=== PATIENT | male | born 1945 | race Caucasian/White ===

== ENCOUNTER 2020-12-21 20:56 | Inpatient (IN) | payer MEDICARE, SELFPAY ==
--- NOTE | ~2020-12-21 | CT_ITS ---
EXAMINATION: CT HEAD WITHOUT CONTRAST CLINICAL INFORMATION: Altered mental status COMPARISON: 12/09/2017 TECHNIQUE: Contiguous axial imaging was performed from the skull base to vertex without intravenous administration of contrast. This CT examination was performed using dose optimization techniques as appropriate, variously including the following: *Automated exposure control *Adjustment of mA and/or kV according to patient size (this includes techniques or standardized protocols for targeted exams where dose is matched to indication/reason for exam; i.e. extremities or head) *Use of iterative reconstruction technique DLP: 717 mGy-cm FINDINGS: There is no evidence of acute intracranial hemorrhage or territorial infarction. No abnormal mass effect or midline shift is seen. [place] to white matter differentiation is well preserved. No extra-axial fluid collections are identified. The ventricles are normal in size. There is no abnormal attenuation within the brain parenchyma. The osseous structures and soft tissues are normal. The mastoid air cells and visualized portions of the paranasal sinuses are well aerated. CT/CT head/brain wo con IMPRESSION: No acute intracranial pathology.
--- NOTE | ~2020-12-21 | XR_ITS ---
EXAMINATION: XR CHEST CLINICAL INFORMATION: Altered mental status. Question of infection. COMPARISON: 10/11/2017 TECHNIQUE: Frontal view of the chest was obtained. FINDINGS: Normal symmetric lung volumes. No parenchymal consolidation. No pleural effusion. No pneumothorax. Cardiomediastinal silhouette and pulmonary vascularity are within normal limits. Aorta is atherosclerotic. No acute osseous abnormalities. XR/XR chest 1V IMPRESSION: No focal consolidation.
[2020-12-21 21:12] VITALS: BP 120/50; BP 120/52; PULSE 59; PULSE 60; RESP 17; TEMP 36.9; O2SAT 98; BMI 16.9
--- NOTE | 2020-12-21 21:12 | ED.GENADULT ---
HPI - General Adult General Chief complaint: Altered Mental Status Stated complaint: ams Time Seen by Provider: 12/21/20 21:07 Source: patient Mode of arrival: ambulatory Limitations: no limitations History of Present Illness HPI narrative: Patient comes to emergency room by EMS. EMS reports that a neighbor called them because the patient was acting abnormal. They were informed that the neighbor saw that the patient's car was parked in a weird way in the patient's driveway, so they went to check on the patient, the patient was found in his house naked, acting abnormal, seems confused. Patient states that he has not eaten in 4 days, cannot give a clear reason why. Patient complaining of feeling hunger, denies any headache, no chest pain or shortness of breath, denies recent falls. Per EMS, patient lives alone at home, states that his son checks on him. The patient states that he lives at home with his who has dementia, per EMS, this statement is inaccurate. Patient also states that for the last 2-3 days he has not been taking any of his medications. Related Data Home Medications Medication Instructions Recorded Confirmed atorvastatin 1 tab PO DAILY 12/22/20 12/22/20 atorvastatin 1 tab PO DAILY 12/22/20 12/22/20 lithium carbonate 20 mg PO DAILY 12/22/20 12/22/20 Allergies Allergy/AdvReac Type Severity Reaction Status Date / Time tamsulosin [From FLOMAX] Allergy Unknown RASH Verified 12/21/20 21:19 Review of Systems Review of Systems: Yes Unobtainable due to mental condition and Unobtainable due to mental status PMFSH Past Medical History Medical History (Updated 12/21/20 @ 23:28 by Oanh Palmer MD) Bipolar disorder Hypothyroidism Social History Social History Advance Directives: No Advance Directives Information Provided: No Physical Exam Vital Signs: Vital Signs: Last Vital Signs Temp 97.7 F 12/21/20 23:42 Pulse 62 12/21/20 23:42 Resp 16 12/21/20 23:42 BP 97/43 L 12/21/20 23:42 Pulse Ox 98 12/21/20 23:42 Body Mass Index 16.9 Appearance: Alert. Oriented x2. No acute distress. Eyes: Pupils equal, round and reactive to light. ENT: Pharynx normal. Neck: Normal inspection. Neck supple. No lymph nodes noted. No crepitus CVS: Normal heart rate and rhythm. Pulses normal. Normal S1 and S2 Respiratory: No respiratory distress. Breath sounds normal. No Wheezing. No rales Abdomen: Soft and nontender. No rigidity. No distention. good BS x4 Skin: Skin warm and dry. Normal skin color. Normal skin turgor. Extremities: No lower extremity edema. No lower extremity edema. No Lacerations. No Rash Neuro: Oriented X 3. No motor deficit. No sensory deficit. Moving all extermities. No slurred speech. Course Course Course Narrative: Patient's lithium level is 2.42. Patient has not been taking his medications in 2-3 days. It is possible the patient's adult mental status may be secondary to lithium toxicity. All the other labs are pending, poison control is being contacted. Poison control was contacted, at this time, no immediate action. Recommendations are to follow up labs, if the level does not decrease with the next lab draws, patient may need dialysis. I discussed the patient with Dr. Barbosa, patient being admitted for possible lithium toxicity Urinalysis pending, the patient's nurse and tech attempted straight cathing the patient but the catheter did not pass through. Patient's bladder was scanned, patient has 330 mL in the bladder. Patient states that he does not have suprapubic tenderness, and does not want to urinate at this time. At this time, urinalysis and chest x-ray are pending. Medical Decision Making Lab Data Result diagrams: 12/21/20 21:45 12/21/20 21:45 Labs: Lab Results 12/21/20 12/21/20 12/21/20 Range/Units 21:45 21:45 21:45 WBC 13.7 H (4.8-10.8) X10*3/uL RBC 4.25 L (4.60-5.80) X10*6/uL Hgb 14.2 (14.0-18.0) g/dl Hct 43.7 (42-52) % MCV 102.8 H (80-98) fL MCH 33.4 H (27.0-33.0) pg MCHC 32.5 (31.0-36.0) g/dl RDW 12.3 (11.0-16.0) % Plt Count 219 (160-400) X10*3/uL MPV 9.5 (9.4-12.4) fL Immature Gran % (Auto) 0.4 (0.0-0.4) % Neut % (Auto) 81.7 H (45-73) % Lymph % (Auto) 7.6 L (20-40) % [place] % (Auto) 9.4 (2-11) % Eos % (Auto) 0.5 (0-4) % Baso % (Auto) 0.4 (0-2) % Lymph # (Auto) 1.0 L (1.2-4.9) X10*3/uL [place] # (Auto) 1.3 H (0.1-1.2) X10*3/uL Eos # (Auto) 0.1 (0.0-0.4) X10*3/uL Baso # (Auto) 0.1 (0.0-0.2) X10*3/uL Abs Immat Gran (auto) 0.05 H (0.00-0.03) X10*3/uL Absolute Neuts (auto) 11.2 H (2.0-8.3) X10*3/uL Absolute Nucleated RBC 0.000 (0.0-0.012) X10*3/uL Nucleated RBC % (auto) 0.0 (0.0-0.2) /100WBC PT (10.8-13.0) SEC INR (0.9-1.1) Sodium 142 (135-145) mmol/L Potassium 4.9 (3.3-5.1) mmol/L Chloride 110 H (96-108) mmol/L Carbon Dioxide 22 (22-29) mmol/L Anion Gap 15 (12-20) BUN 50 H (9-16) mg/dL Creatinine 2.55 H (0.5-1.4) mg/dL Estim Creat Clear Calc 18.9 Estimated GFR 25 Random Glucose 86 (60-115) mg/dL Calcium 10.7 H (8.4-10.2) mg/dL Total Bilirubin 0.9 (0.0-1.0) mg/dL Direct Bilirubin 0.4 (0.0-0.5) mg/dL AST 32 (5-37) U/L ALT 21 (0-40) U/L Alkaline Phosphatase 140 H (39-117) U/L Total Protein 7.0 (6.5-8.0) g/dL Albumin 4.4 (3.5-5.0) g/dL TSH 0.41 (0.32-4.0) uIU/mL [place] (0.60-1.20) mmol/L Ethyl Alcohol < 10 mg/dL COVID-19 (DARIN) (Negative) COVID-19 Clin Com 12/21/20 12/21/20 12/22/20 Range/Units 21:45 21:46 00:31 WBC (4.8-10.8) X10*3/uL RBC (4.60-5.80) X10*6/uL Hgb (14.0-18.0) g/dl Hct (42-52) % MCV (80-98) fL MCH (27.0-33.0) pg MCHC (31.0-36.0) g/dl RDW (11.0-16.0) % Plt Count (160-400) X10*3/uL MPV (9.4-12.4) fL Immature Gran % (Auto) (0.0-0.4) % Neut % (Auto) (45-73) % Lymph % (Auto) (20-40) % [place] % (Auto) (2-11) % Eos % (Auto) (0-4) % Baso % (Auto) (0-2) % Lymph # (Auto) (1.2-4.9) X10*3/uL [place] # (Auto) (0.1-1.2) X10*3/uL Eos # (Auto) (0.0-0.4) X10*3/uL Baso # (Auto) (0.0-0.2) X10*3/uL Abs Immat Gran (auto) (0.00-0.03) X10*3/uL Absolute Neuts (auto) (2.0-8.3) X10*3/uL Absolute Nucleated RBC (0.0-0.012) X10*3/uL Nucleated RBC % (auto) (0.0-0.2) /100WBC PT 12.4 (10.8-13.0) SEC INR 1.0 (0.9-1.1) Sodium (135-145) mmol/L Potassium (3.3-5.1) mmol/L Chloride (96-108) mmol/L Carbon Dioxide (22-29) mmol/L Anion Gap (12-20) BUN (9-16) mg/dL Creatinine (0.5-1.4) mg/dL Estim Creat Clear Calc Estimated GFR Random Glucose (60-115) mg/dL Calcium (8.4-10.2) mg/dL Total Bilirubin (0.0-1.0) mg/dL Direct Bilirubin (0.0-0.5) mg/dL AST (5-37) U/L ALT (0-40) U/L Alkaline Phosphatase (39-117) U/L Total Protein (6.5-8.0) g/dL Albumin (3.5-5.0) g/dL TSH (0.32-4.0) uIU/mL [place] 2.42 H* (0.60-1.20) mmol/L Ethyl Alcohol mg/dL COVID-19 (DARIN) Negative (Negative) COVID-19 Clin Com See Note Imaging Data Chest x-ray: Radiologist's impression: Normal symmetric lung volumes. No parenchymal consolidation. No pleural effusion. No pneumothorax. Cardiomediastinal silhouette and pulmonary vascularity are within normal limits. Aorta is atherosclerotic. No acute osseous abnormalities. XR/XR chest 1V IMPRESSION: No focal consolidation. ECG Data Attestation: I personally reviewed and interpreted this ECG as follows: (Heart rate 59, no ST segment depression or elevation, no T-wave inversion, poor quality EKG, QTC 443) Discharge Plan Discharge Clinical Impression: [place] toxicity, Altered mental status, Acute kidney injury Patient Disposition: Admitted As Inpatient
[2020-12-21] MEDS: 0.9 % Sodium Chloride 1,000 ML 999 ML IVCONT (21:28)
[2020-12-21 21:51] LABS: Basophils Absolute Auto 0.1 X10*3/uL (0.0-0.2); Basophils Percent Auto 0.4 % (0-2); Eosinophils Absolute Auto 0.1 X10*3/uL (0.0-0.4); Eosinophils Percent Auto 0.5 % (0-4); Hematocrit 43.7 % (42-52); Hemoglobin 14.2 g/dl (14.0-18.0); Imm Gran Abs Auto 0.05 X10*3/uL (0.00-0.03); Imm Gran Pct Auto 0.4 % (0.0-0.4); Lymphocytes Percent Auto 7.6 % (20-40); MANUAL DIFF FLAG NO; Mean Corpuscular HGB Conc 32.5 g/dl (31.0-36.0); Mean Corpuscular Hemoglobin 33.4 pg (27.0-33.0); Mean Corpuscular Volume 102.8 fL (80-98); Mean Platelet Volume 9.5 fL (9.4-12.4); Monocytes Absolute Auto 1.3 X10*3/uL (0.1-1.2); Monocytes Percent Auto 9.4 % (2-11); Neutrophils Absolute Auto 11.2 X10*3/uL (2.0-8.3); Neutrophils Percent Auto 81.7 % (45-73); Platelet Count 219 X10*3/uL (160-400); Red Blood Count 4.25 X10*6/uL (4.60-5.80); Red Cell Distribution Width 12.3 % (11.0-16.0); White Blood Count 13.7 X10*3/uL (4.8-10.8)
[2020-12-21 21:57] LABS: Prothrombin Time 12.4 SEC (10.8-13.0)
[2020-12-21 22:12] LABS: Ethanol < 10 mg/dL
[2020-12-21 22:18] LABS: Alanine Aminotransferase 21 U/L (0-40); Albumin Level 4.4 g/dL (3.5-5.0); Alkaline Phosphatase 140 U/L (39-117); Anion Gap 15 (12-20); Aspartate Amino Transferase 32 U/L (5-37); Bilirubin Direct 0.4 mg/dL (0.0-0.5); Bilirubin Total 0.9 mg/dL (0.0-1.0); Blood Urea Nitrogen 50 mg/dL (9-16); Carbon Dioxide 22 mmol/L (22-29); Chloride 110 mmol/L (96-108); Creatinine Clr Calc Pharmacy 18.9; Estimated Glomerular Filt Rate 25; Glucose Random 86 mg/dL (60-115); Potassium 4.9 mmol/L (3.3-5.1); Sodium 142 mmol/L (135-145)
[2020-12-21 22:19] LABS: Lithium 2.42 mmol/L (0.60-1.20)
[2020-12-21 22:26] LABS: Calcium 10.7 mg/dL (8.4-10.2)
[2020-12-21 22:45] LABS: TSH reflex Free T4 0.41 uIU/mL (0.32-4.0)
--- NOTE | 2020-12-21 23:32 | P.HPHOSP_ITS ---
History of Present Illness Date of Service: 12/21/20 Chief Complaint: Confusion 75-year-old male with a past medical history of hyperlipidemia, hypothyroidism, bipolar with a chief complaint of confusion. Patient is oriented times 1-2; most of the history obtained from the ER staff. Unable to reach the patient's son. Reportedly patient was noted to be naked and confused in his home by his neighbor; subsequently called the EMS and brought him to the ER for further evaluation. Patient denies any chest pain palpitations lightheadedness dizziness. Denies any fever chills cough. Patient is pleasantly confused. But oriented to self. Review of all other systems negative except mentioned above ER course: Per ER team patient noted to be confused, able to answer few questions fairly okay but intermittently confused mentioning that he has not eaten for 3 days. Lab showed [place] and elevated lithium levels. Patient was given IV fluids. Discussed with poison Control who recommended serial blood chemistry, no indication for dialysis at this moment. Admitted for further management. [facility] Medical History (Updated 12/21/20 @ 23:28 by Oanh Palmer MD) Bipolar disorder Hypothyroidism Social History Household Members: None Housing: House Smoking Status: Current every day smoker Tobacco Type: Cigarette Packs Per Day: 2 Cigarettes Per Day: 40.0 Smoked in Last 30 Days: Yes Use of substances other than those prescribed or required for medical reasons: No Advance Directives: No Advance Directives Information Provided: No Do you have thoughts of harming others: None Do you have a plan to hurt others: No Plan Recently lost weight without trying: Unsure Nutrition Risks: Poor intake 0-25% >4 days Poor oral hygiene: Yes Meds Allergies Allergy/AdvReac Type Severity Reaction Status Date / Time tamsulosin [From FLOMAX] Allergy Unknown RASH Verified 12/21/20 21:19 Active Medications: Current Medications Generic Name Dose Route Start Last Admin Trade Name Freq PRN Reason Stop Dose Admin Acetaminophen 650 mg 12/21/20 23:25 Acetaminophen 325 Mg Tablet PO Q6H PRN Pain, Mild (Pain Scale 1-3) Sodium Chloride 1,000 mls @ 999 mls/hr 12/21/20 22:59 Ns IVCONT 12/21/20 23:59 .Q1H1M ONE Sodium Chloride 1,000 mls @ 75 mls/hr 12/21/20 23:30 Ns IVCONT .[id number] MANNY Sodium Chloride 3 ml 12/22/20 00:00 0.9 % Sodium Chloride Flush 3 Ml Syringe IVFLUSH QSHIFT [facility] Home Medications Medication Instructions Recorded Confirmed Last Taken Type atorvastatin 1 tab PO DAILY 12/22/20 12/22/20 Unknown History atorvastatin 1 tab PO DAILY 12/22/20 12/22/20 12/21/20 History lithium carbonate 20 mg PO DAILY 12/22/20 12/22/20 12/21/20 History Physical Exam Vital Signs and Narrative: Vital Signs: Last Vital Signs Temp 98.4 F 12/21/20 21:12 Pulse 59 12/21/20 21:12 Resp 17 12/21/20 21:12 BP 120/50 L 12/21/20 21:12 Pulse Ox 98 12/21/20 21:12 Body Mass Index 16.9 Gen: Appears be in no acute distress HEENT: NCAT, Moist mucosa.no nystagmus Pulmonary: Vesicular breath sounds, fair air entry CVS: Normal S1-S2 Abdomen: BS+, Soft, Nontender Extremities: Warm well perfused Neuro: Alert and awake. Oriented times 1-2; moves all extremities equally; no clonus Results Labs CBC and Chem 7: 12/22/20 02:20 12/22/20 06:00 Labs: Laboratory Results - last 24 hr 12/21/20 12/21/20 12/21/20 21:45 21:45 21:45 MCV 102.8 H MCH 33.4 H MCHC 32.5 RDW 12.3 Plt Count 219 MPV 9.5 Immature Gran % (Auto) 0.4 Neut % (Auto) 81.7 H Lymph % (Auto) 7.6 L [place] % (Auto) 9.4 Eos % (Auto) 0.5 Baso % (Auto) 0.4 Lymph # (Auto) 1.0 L [place] # (Auto) 1.3 H Eos # (Auto) 0.1 Baso # (Auto) 0.1 Abs Immat Gran (auto) 0.05 H Absolute Neuts (auto) 11.2 H Absolute Nucleated RBC 0.000 Nucleated RBC % (auto) 0.0 PT INR Anion Gap 15 Estim Creat Clear Calc 18.9 Estimated GFR 25 Random Glucose 86 Calcium 10.7 H Total Bilirubin 0.9 Direct Bilirubin 0.4 AST 32 ALT 21 Alkaline Phosphatase 140 H Total Protein 7.0 Albumin 4.4 TSH 0.41 [place] Ethyl Alcohol < 10 12/21/20 12/21/20 21:45 21:46 MCV MCH MCHC RDW Plt Count MPV Immature Gran % (Auto) Neut % (Auto) Lymph % (Auto) [place] % (Auto) Eos % (Auto) Baso % (Auto) Lymph # (Auto) [place] # (Auto) Eos # (Auto) Baso # (Auto) Abs Immat Gran (auto) Absolute Neuts (auto) Absolute Nucleated RBC Nucleated RBC % (auto) PT 12.4 INR 1.0 Anion Gap Estim Creat Clear Calc Estimated GFR Random Glucose Calcium Total Bilirubin Direct Bilirubin AST ALT Alkaline Phosphatase Total Protein Albumin TSH [place] 2.42 H* Ethyl Alcohol Assessment and Plan (1) [place] toxicity: Status: Acute (2) Acute kidney injury: Status: Acute (3) Altered mental status: Status: Acute 75-year-old male with a past medical history of hypothyroidism, bipolar disorder on lithium presented to the hospital with a chief complaint of confusion. Altered mental status: Likely metabolic encephalopathy. Supportive care. CT head. Grossly nonfocal examination. RAINER: IV normal saline. Avoid nephrotoxins. Elevated lithium levels: Will hold home with him. Patient on IV normal saline. Encouraged free water intake. Recheck urinalysis in the morning to check urine specific gravity. Nephrology consulted. Current levels at the presentation is 2.4. Notified poison Control, recommended no hemodialysis at this moment. Aspiration precautions and seizure precautions. Neuro checks Spoke to [place] control-> recs aggresive Fluid resuscitation; Given extra IV bolus; Increased IV maintenance fluids; follow up [place] levels trending down. For all other chronic conditions, home medications will be continued except for lithium once med rec is done. DVT prophylaxis: SCD boots Code status: Presumed full code. Unable to reach the patient's son.
--- NOTE | 2020-12-21 23:39 | PC.NURSE ---
SPOKE W/POISON CONTROL RE: ELEVATED LITHIUM LEVEL. RECOMMENDATION- EKG, 2X MAINTENANCE FLUIDS, REPEAT LABS IN 2 HOURS, CONSULT NEPHROLOGY ?DIALYSIS. PT TO BE ADMITTED, IS AWARE OF PLAN OF CARE W/NO QUESTIONS AT THIS TIME.
[2020-12-21 23:42] VITALS: BP 97/43; PULSE 62; RESP 16; TEMP 36.5; O2SAT 98
[2020-12-22] VITALS (7 sets, daily range): BP systolic 99–152; BP diastolic 48–59; PULSE 55–61; RESP 15–20; TEMP 36.4–36.9; O2SAT 96–98
--- NOTE | 2020-12-22 | ECG_ITS ---
Test Reason : ALTERED MENTAL Blood Pressure : / mmHG Vent. Rate : 059 BPM Atrial Rate : 058 BPM P-R Int : 000 ms QRS Dur : 102 ms QT Int : 448 ms P-R-T Axes : 000 073 078 degrees QTc Int : 443 ms Artifact Likely sinus bradycardia Incomplete right bundle branch block Abnormal ECG When compared with ECG of 09-OCT-2017 16:14, No significant changes seen Referred By: Oanh Palmer Electronically Signed By:Silvestre Brian
[2020-12-22] MEDS: 0.9 % Sodium Chloride 1,000 ML 75 ML IVCONT ×2 (00:49→04:08)
[2020-12-22] MEDS: 0.9 % Sodium Chloride 1,000 ML 999 ML IVCONT (00:49)
[2020-12-22 00:51] LABS: COVID-19 Test Negative (Negative); IDNOW Serial# 9DD0AD1C
[2020-12-22 02:03] LABS: Glucose Urine UA NEG (NEG); Leukocyte Esterase Urine NEG (NEG); Nitrite Urine NEG (NEG); Specific Gravity - Urine 1.015 (1.005-1.025); Urine Blood 2+ (NEG); Urine Ketones NEG (NEG); Urine Protein NEG (NEG-TRACE)
[2020-12-22 02:05] LABS: Appearance Urine CLEAR; Color Urine YELLOW
[2020-12-22 02:19] LABS: Bacteria Urine 1+ /LPF; Squamous Epithelial Cell Urine 1+ /LPF
[2020-12-22 02:25] LABS: MANUAL DIFF FLAG NO
[2020-12-22 02:27] LABS: Basophils Absolute Auto 0.1 X10*3/uL (0.0-0.2); Basophils Percent Auto 0.6 % (0-2); Eosinophils Absolute Auto 0.2 X10*3/uL (0.0-0.4); Eosinophils Percent Auto 1.9 % (0-4); Hematocrit 39.2 % (42-52); Hemoglobin 12.8 g/dl (14.0-18.0); Imm Gran Abs Auto 0.05 X10*3/uL (0.00-0.03); Imm Gran Pct Auto 0.4 % (0.0-0.4); Lymphocytes Absolute Auto 1.2 X10*3/uL (1.2-4.9); Lymphocytes Percent Auto 10.4 % (20-40); Mean Corpuscular HGB Conc 32.7 g/dl (31.0-36.0); Mean Corpuscular Hemoglobin 33.8 pg (27.0-33.0); Mean Corpuscular Volume 103.4 fL (80-98); Mean Platelet Volume 9.2 fL (9.4-12.4); Monocytes Absolute Auto 1.3 X10*3/uL (0.1-1.2); Monocytes Percent Auto 10.9 % (2-11); Neutrophils Absolute Auto 8.7 X10*3/uL (2.0-8.3); Neutrophils Percent Auto 75.8 % (45-73); Platelet Count 193 X10*3/uL (160-400); Red Blood Count 3.79 X10*6/uL (4.60-5.80); Red Cell Distribution Width 12.3 % (11.0-16.0); White Blood Count 11.5 X10*3/uL (4.8-10.8)
[2020-12-22 02:29] LABS: Amphetamine Screen Urine Not Detected (Not Detect); Barbiturates, Urine Not Detected (Not Detect); Benzodiazepines Screen Urine Not Detected (Not Detect); Cannabinoid Screen Urine Not Detected (Not Detect); Cocaine Screen Urine Not Detected (Not Detect); Opiate Screen Urine Not Detected (Not Detect); Phencyclidine Screen Urine Not Detected (Not Detect)
[2020-12-22 02:53] LABS: Anion Gap 11 (12-20); Blood Urea Nitrogen 45 mg/dL (9-16); Calcium 9.4 mg/dL (8.4-10.2); Carbon Dioxide 21 mmol/L (22-29); Chloride 116 mmol/L (96-108); Creatinine Clr Calc Pharmacy 21.9; Estimated Glomerular Filt Rate 29; Glucose Random 104 mg/dL (60-115); Potassium 4.5 mmol/L (3.3-5.1); Sodium 143 mmol/L (135-145)
[2020-12-22] MEDS: 0.9 % Sodium Chloride Flush 3 ML SYRINGE IVFLUSH (04:06)
[2020-12-22] MEDS: 0.9 % Sodium Chloride 1,000 ML 999 ML IV (04:39)
[2020-12-22 04:51] LABS: Lithium 2.11 mmol/L (0.60-1.20)
--- NOTE | 2020-12-22 04:56 | PC.NURSE ---
Patient arrived on [facility] at 0400 via stretcher. Pt is awake and alert to self only, answers to questions are vague. Dr Barbosa notified this RN via [place] [facility] of stat labs to be drawn on pt. This RN spoke to chemistry and the resident service coordinator [place] [facility] [place] received from poision control requesting latest lithium level. Poision control requesting to speak with hospitalist. Dr. Barbosa aware and calling them back.
[2020-12-22] MEDS: 0.9 % Sodium Chloride 1,000 ML 200 ML IVCONT ×3 (05:43→15:49)
[2020-12-22 06:38] LABS: Lithium 1.93 mmol/L (0.60-1.20)
[2020-12-22 06:40] LABS: Anion Gap 8 (12-20); Blood Urea Nitrogen 41 mg/dL (9-16); Calcium 9.3 mg/dL (8.4-10.2); Carbon Dioxide 22 mmol/L (22-29); Chloride 118 mmol/L (96-108); Creatinine Clr Calc Pharmacy 25.1; Estimated Glomerular Filt Rate 34; Glucose Random 101 mg/dL (60-115); Potassium 4.4 mmol/L (3.3-5.1); Sodium 144 mmol/L (135-145)
[2020-12-22] MEDS: 0.9 % Sodium Chloride 500 ML IV (06:50)
[2020-12-22] MEDS: Atorvastatin Calcium 20 MG TABLET PO (09:18)
[2020-12-22 09:35] LABS: Lithium 1.93 mmol/L (0.60-1.20)
--- NOTE | 2020-12-22 09:42 | P.PNNP_ITS ---
Subjective Subjective Date of Service: 12/22/20 Interval history: Patient seen and examined Physical Exam Vital Signs: Vital Signs: Last Vital Signs Temp 98.2 F 12/22/20 07:42 Pulse 60 12/22/20 07:42 Resp 19 12/22/20 07:42 BP 99/48 L 12/22/20 07:42 Pulse Ox 97 12/22/20 07:42 Body Mass Index 16.9 Objective Data Labs CBC & Chem 7: 12/22/20 02:20 12/22/20 06:00 Labs: Laboratory Results - last 24 hr 12/21/20 12/21/20 12/21/20 21:45 21:45 21:45 WBC 13.7 H RBC 4.25 L Hgb 14.2 Hct 43.7 MCV 102.8 H MCH 33.4 H MCHC 32.5 RDW 12.3 Plt Count 219 MPV 9.5 Immature Gran % (Auto) 0.4 Neut % (Auto) 81.7 H Lymph % (Auto) 7.6 L [place] % (Auto) 9.4 Eos % (Auto) 0.5 Baso % (Auto) 0.4 Lymph # (Auto) 1.0 L [place] # (Auto) 1.3 H Eos # (Auto) 0.1 Baso # (Auto) 0.1 Abs Immat Gran (auto) 0.05 H Absolute Neuts (auto) 11.2 H Absolute Nucleated RBC 0.000 Nucleated RBC % (auto) 0.0 PT INR Sodium 142 Potassium 4.9 Chloride 110 H Carbon Dioxide 22 Anion Gap 15 BUN 50 H Creatinine 2.55 H Estim Creat Clear Calc 18.9 Estimated GFR 25 Random Glucose 86 Calcium 10.7 H Total Bilirubin 0.9 Direct Bilirubin 0.4 AST 32 ALT 21 Alkaline Phosphatase 140 H Total Protein 7.0 Albumin 4.4 TSH 0.41 Urine Color Urine Appearance Urine pH Ur Specific [place] Urine Protein Urine Glucose (UA) Urine Ketones Urine Blood Urine Nitrite Ur Leukocyte Esterase Urine RBC Urine WBC Ur Squamous Epith Cells Urine Bacteria Urine Opiates Screen Ur Barbiturates Screen Ur Phencyclidine Scrn Ur Amphetamines Screen U Benzodiazepines Scrn Roff Urine Cocaine Screen U Marijuana (THC) Screen Ethyl Alcohol < 10 COVID-19 (DARIN) COVID-19 Clin Com 12/21/20 12/21/20 12/21/20 21:45 21:45 21:46 WBC RBC Hgb Hct MCV MCH MCHC RDW Plt Count MPV Immature Gran % (Auto) Neut % (Auto) Lymph % (Auto) [place] % (Auto) Eos % (Auto) Baso % (Auto) Lymph # (Auto) [place] # (Auto) Eos # (Auto) Baso # (Auto) Abs Immat Gran (auto) Absolute Neuts (auto) Absolute Nucleated RBC Nucleated RBC % (auto) PT 12.4 INR 1.0 Sodium Potassium Chloride Carbon Dioxide Anion Gap BUN Creatinine Estim Creat Clear Calc Estimated GFR Random Glucose Calcium Total Bilirubin Direct Bilirubin AST ALT Alkaline Phosphatase Total Protein Albumin TSH Urine Color Urine Appearance Urine pH Ur Specific [place] Urine Protein Urine Glucose (UA) Urine Ketones Urine Blood Urine Nitrite Ur Leukocyte Esterase Urine RBC Urine WBC Ur Squamous Epith Cells Urine Bacteria Urine Opiates Screen Ur Barbiturates Screen Ur Phencyclidine Scrn Ur Amphetamines Screen U Benzodiazepines Scrn Roff 2.42 H* Cancelled Urine Cocaine Screen U Marijuana (THC) Screen Ethyl Alcohol COVID-19 (DARIN) COVID-[facility] 12/22/20 12/22/20 12/22/20 00:31 01:50 01:50 WBC RBC Hgb Hct MCV MCH MCHC RDW Plt Count MPV Immature Gran % (Auto) Neut % (Auto) Lymph % (Auto) [place] % (Auto) Eos % (Auto) Baso % (Auto) Lymph # (Auto) [place] # (Auto) Eos # (Auto) Baso # (Auto) Abs Immat Gran (auto) Absolute Neuts (auto) Absolute Nucleated RBC Nucleated RBC % (auto) PT INR Sodium Potassium Chloride Carbon Dioxide Anion Gap BUN Creatinine Estim Creat Clear Calc Estimated GFR Random Glucose Calcium Total Bilirubin Direct Bilirubin AST ALT Alkaline Phosphatase Total Protein Albumin TSH Urine Color YELLOW Urine Appearance CLEAR Urine pH 6.0 Ur Specific [place] 1.015 Urine Protein NEG Urine Glucose (UA) NEG Urine Ketones NEG Urine Blood 2+ H Urine Nitrite NEG Ur Leukocyte Esterase NEG Urine RBC 15-29 H Urine WBC 1-4 Ur Squamous Epith Cells 1+ Urine Bacteria 1+ Urine Opiates Screen Not Detected Ur Barbiturates Screen Not Detected Ur Phencyclidine Scrn Not Detected Ur Amphetamines Screen Not Detected U Benzodiazepines Scrn Not Detected Roff Urine Cocaine Screen Not Detected U Marijuana (THC) Screen Not Detected Ethyl Alcohol COVID-19 (DARIN) Negative COVID-[facility] See Note 12/22/20 12/22/20 12/22/20 02:20 02:20 04:17 WBC 11.5 H RBC 3.79 L Hgb 12.8 L Hct 39.2 L MCV 103.4 H MCH 33.8 H MCHC 32.7 RDW 12.3 Plt Count 193 MPV 9.2 L Immature Gran % (Auto) 0.4 Neut % (Auto) 75.8 H Lymph % (Auto) 10.4 L [place] % (Auto) 10.9 Eos % (Auto) 1.9 Baso % (Auto) 0.6 Lymph # (Auto) 1.2 [place] # (Auto) 1.3 H Eos # (Auto) 0.2 Baso # (Auto) 0.1 Abs Immat Gran (auto) 0.05 H Absolute Neuts (auto) 8.7 H Absolute Nucleated RBC 0.000 Nucleated RBC % (auto) 0.0 PT INR Sodium 143 Potassium 4.5 Chloride 116 H Carbon Dioxide 21 L Anion Gap 11 L BUN 45 H Creatinine 2.20 H Estim Creat Clear Calc 21.9 Estimated GFR 29 Random Glucose 104 Calcium 9.4 D Total Bilirubin Direct Bilirubin AST ALT Alkaline Phosphatase Total Protein Albumin TSH Urine Color Urine Appearance Urine pH Ur Specific [place] Urine Protein Urine Glucose (UA) Urine Ketones Urine Blood Urine Nitrite Ur Leukocyte Esterase Urine RBC Urine WBC Ur Squamous Epith Cells Urine Bacteria Urine Opiates Screen Ur Barbiturates Screen Ur Phencyclidine Scrn Ur Amphetamines Screen U Benzodiazepines Scrn Roff 2.11 H* Urine Cocaine Screen U Marijuana (THC) Screen Ethyl Alcohol COVID-19 (DARIN) COVID-19 Clin Com 12/22/20 12/22/20 12/22/20 06:00 06:00 08:34 WBC RBC Hgb Hct MCV MCH MCHC RDW Plt Count MPV Immature Gran % (Auto) Neut % (Auto) Lymph % (Auto) [place] % (Auto) Eos % (Auto) Baso % (Auto) Lymph # (Auto) [place] # (Auto) Eos # (Auto) Baso # (Auto) Abs Immat Gran (auto) Absolute Neuts (auto) Absolute Nucleated RBC Nucleated RBC % (auto) PT INR Sodium 144 Potassium 4.4 Chloride 118 H Carbon Dioxide 22 Anion Gap 8 L BUN 41 H Creatinine 1.92 H Estim Creat Clear Calc 25.1 Estimated GFR 34 Random Glucose 101 Calcium 9.3 Total Bilirubin Direct Bilirubin AST ALT Alkaline Phosphatase Total Protein Albumin TSH Urine Color Urine Appearance Urine pH Ur Specific [place] Urine Protein Urine Glucose (UA) Urine Ketones Urine Blood Urine Nitrite Ur Leukocyte Esterase Urine RBC Urine WBC Ur Squamous Epith Cells Urine Bacteria Urine Opiates Screen Ur Barbiturates Screen Ur Phencyclidine Scrn Ur Amphetamines Screen U Benzodiazepines Scrn Roff 1.93 H* 1.93 H* Urine Cocaine Screen U Marijuana (THC) Screen Ethyl Alcohol COVID-19 (DARIN) COVID-19 Clin Com Assessment & Plan Assessment and plan (1) Acute kidney injury: Status: Acute (2) Roff toxicity: Status: Acute (3) CKD (chronic kidney disease) stage 3, GFR 30-59 ml/min: Status: Acute Assessment and Plan: ANA MARIA due to compromised kidney perfusion no reason to suspect AIN/AGN need to rule out obstruction elevated lithium level with initially confusion currently improving need to continue to follow to rule out rebound underlying CKD baseline serum creatinine ~ 1.2-1.3 mg/dl REC follow lithium level IVF NS bladder scan no indication for emergent dialysis at the present time follow kidney function and electrolytes Time Spent With Patient Time: Total time spent is greater than 50% in coordination of care (as documented) at patient's floor/unit and/or counseling patient:
--- NOTE | 2020-12-22 12:06 | CONS_ITS ---
DATE OF SERVICE: HISTORY OF PRESENT ILLNESS: I was asked to assist in the management of this 75-year-old patient with a history of chronic kidney disease with a serum creatinine baseline ratio of 1.2 to 1.3 mg/dL who presented to the hospital with confusion and was noted to have elevated serum creatinine and lithium level. Apparently, the patient was noted to be naked and confused in his home by his neighbor and called EMS and the patient was brought to the hospital for further evaluation. At the time of the consultation, denies any fever or chills. Denies any chest pain, shortness of breath, nausea, vomiting, or diarrhea. The patient was started on IV fluid and apparently, review of his ER notes suggest that the patient has not been eating for at least 3 days prior to presenting to the hospital. PAST MEDICAL HISTORY: Remarkable for chronic kidney disease, bipolar disorder, and hypothyroidism. MEDICATIONS: As an outpatient were reviewed and included lithium and atorvastatin. ALLERGIES: HE IS ALLERGIC TO TAMSULOSIN. SOCIAL HISTORY: He is an everyday smoker. FAMILY HISTORY: Negative for kidney disease. REVIEW OF SYSTEMS: 10-point review of systems negative, except for pertinent in the history of present illness. PHYSICAL EXAMINATION: VITAL SIGNS: Blood pressure 99/48, heart rate 68, respiratory rate 19, and temperature 98.2. CONSTITUTIONAL: Looks his stated age, in no acute distress. NEUROLOGIC: Alert and awake. HEAD: Atraumatic and normocephalic. NECK: Supple. LUNGS: Good air entry bilaterally. CARDIOVASCULAR: S1 and S2. No rub. ABDOMEN: Soft and nontender. EXTREMITIES: With no peripheral edema. LABORATORY DATA: Showed sodium 144, potassium 4.4, chloride 118, CO2 of 22, BUN 41, creatinine 1.92. Serum creatinine on admission was 2.55. [place] level on admission was 2.42 down to 1.93. Urinalysis with negative protein and 15 to 29 RBC. IMPRESSION: 1. Acute kidney injury. 2. [place] toxicity. 3. Chronic kidney disease. This is a patient who presented with worsening kidney function, most likely due to compromised kidney perfusion with questionable tubular stress. He does have an elevated lithium level, which is currently improving with saline expansion. There is no reason to suspect glomerular type of injury at this point. We should rule out obstructive uropathy as he has a history of enlarged prostate. Review of his labs suggests underlying chronic kidney disease with baseline serum creatinine ratio of 1.2 to 1.3 mg/dL. For the time being, I would continue with IV fluids with normal saline. Bladder scan and follow closely his kidney function, electrolytes, and lithium level. There is no indication currently for dialysis. Thank you for allowing me to participate in the care of this patient. MD VIKA Shaffer/MODL / [id number]
--- NOTE | 2020-12-22 13:46 | HO.PM.IMPN ---
Subjective Subjective Date of Service: 12/22/20 <Courtney Manning NP - Last Filed: 12/22/20 16:48> 01/07/21 <Carlos Beltran MD - Last Filed: 01/07/21 17:42> Interval History: Follow up encephalopathy still confused <Courtney Manning NP - Last Filed: 12/22/20 16:48> Physical Exam Vital Signs: Vital Signs: Last Vital Signs Temp 97.8 F 12/22/20 12:00 Pulse 61 12/22/20 12:00 Resp 19 12/22/20 12:00 BP 112/58 L 12/22/20 12:00 Pulse Ox 96 12/22/20 12:00 Body Mass Index 16.9 <Courtney Manning NP - Last Filed: 12/22/20 16:48> Appearing in no acute distress lung sounds are clear to auscultation heart regular rate rhythm, clear S1, S2 positive bowel sounds, abdomen is soft, nontender neuro patient is alert to self, no focal deficits <Courtney Manning NP - Last Filed: 12/22/20 16:48> Objective Data Current Medications Generic Name Dose Route Start Last Admin Trade Name Freq PRN Reason Stop Dose Admin Acetaminophen 650 mg 12/21/20 23:25 Acetaminophen 325 Mg Tablet PO Q6H PRN Pain, Mild (Pain Scale 1-3) Atorvastatin Calcium 20 mg 12/22/20 09:00 12/22/20 09:18 Atorvastatin Calcium 20 Mg Tablet PO 20 mg DAILY MANNY Administration Sodium Chloride 1,000 mls @ 75 mls/hr 12/21/20 23:30 12/22/20 06:56 Ns IVCONT Infused .[id number] MANNY Infusion Sodium Chloride 1,000 mls @ 200 mls/hr 12/22/20 05:00 12/22/20 10:45 Ns IVCONT 200 mls/hr .Q5H MANNY Administration Sodium Chloride 3 ml 12/22/20 00:00 12/22/20 13:13 0.9 % Sodium Chloride Flush 3 Ml Syringe IVFLUSH Not Given QSHIFT MANNY <Courtney Manning NP - Last Filed: 12/22/20 16:48> Labs CBC & Chem 7: : 01/02/21 05:13 01/02/21 05:13 <Courtney Manning NP - Last Filed: 12/22/20 16:48> Assessment and Plan (1) [place] toxicity: Status: Acute <Courtney Manning NP - Last Filed: 12/22/20 16:48> Assessment and Plan: 75-year-old male with a past medical history of hypothyroidism, bipolar disorder on lithium presented to the hospital with a chief complaint of confusion. Attempted to call [place] [phone] but number not in service Elevated lithium levels. Hold [place] -Trend -Nephrology consult -Neuro checks -asp and sz precautions -IV NS Urinary retension. bladder scan for 750ml after episodes of incont -Needs coude catheter - consult Metabolic encephalopathy likely from lithium toxicity . -Supportive care. -Head CT neg for acute abnormality ANA MARIA on CKD.Likely from hypoperfusion -IV normal saline -avoid nephrotoxins. -bladder scan DVT prophylaxis SCD boots Full code Attending: Dr. Beltran <Courtney Manning NP - Last Filed: 12/22/20 16:48>
[2020-12-22 15:07] LABS: Lithium 1.77 mmol/L (0.60-1.20)
--- NOTE | 2020-12-22 15:25 | MHC.CM.PN ---
spoke with pts son steve [phone] who is hcp for pt ,copy hcp placed on chart, who explains that pt has not wanted services in the past ,he is very stubborn, pts is at the [facility] in [facility] ..dc plan is tbd at this time negra wilson was coming to vvit pt today imm left bedside cm will continue to follow,
--- NOTE | 2020-12-22 17:42 | PC.NURSE ---
Addendum entered by Ivet Morris RN 12/22/20 18:26: 16F Coude Zazueta catheter placed successfully - 800cc pale yellow urine immediately drained - Zazueta clamped. Courtney Hand notified. Will continue to monitor. Addendum entered by Ivet Morris RN 12/22/20 17:46: Patients son at bedside and updated by this RN - per son patient had prostate removed approx 7 years ago. Courtney Lucio notified. Awaiting call back from urology. Will continue to monitor. Original Note: Patient had four incontinent episodes throughout shift - post void bladder scan after fourth episode showed a residual of 750cc - Courtney Manning notified - order for zazueta catheter placed. This RN unable to place zazueta due to resistance/coiling - Second RN attempted without success. Urology consult ordered - Two call outs placed to Dr Breen - awaiting call back. Will continue to monitor.
[2020-12-23] MEDS: 0.9 % Sodium Chloride 1,000 ML 75 ML IVCONT (01:49)
[2020-12-23 04:00] VITALS: BP 164/87; PULSE 89; RESP 18; TEMP 37.2; O2SAT 95
[2020-12-23] MEDS: Haloperidol Lactate 5 MG/ML VIAL 2.5 MG IVPUSH (04:21)
--- NOTE | 2020-12-23 04:27 | PC.NURSE ---
Addendum entered by Susan Black RN 12/23/20 05:56: Haldol had no effect on patient. Hospitalist aware. Will continue to monitor. Original Note: Patient very restless, constantly turning in bed and twisting in IV tubing -making red markings on skin, and zazueta is being twisted and pulled - urine in bag is punch colored. Dr. Keller notified and ordered 2.5mg IV haldol. Pt is agreeable to taking medication to help participate in his care.
[2020-12-23 06:52] LABS: Lithium 1.41 mmol/L (0.60-1.20)
[2020-12-23 06:55] LABS: Hematocrit 41.3 % (42-52); Hemoglobin 13.3 g/dl (14.0-18.0); Mean Corpuscular HGB Conc 32.2 g/dl (31.0-36.0); Mean Corpuscular Hemoglobin 33.3 pg (27.0-33.0); Mean Corpuscular Volume 103.3 fL (80-98); Mean Platelet Volume 10.1 fL (9.4-12.4); Platelet Count 191 X10*3/uL (160-400); Red Cell Distribution Width 12.6 % (11.0-16.0); White Blood Count 19.3 X10*3/uL (4.8-10.8)
[2020-12-23 07:37] VITALS: BP 157/78; PULSE 86; RESP 20; TEMP 36.7; O2SAT 97
[2020-12-23 07:51] LABS: Anion Gap 18 (12-20); Blood Urea Nitrogen 25 mg/dL (9-16); Calcium 10.4 mg/dL (8.4-10.2); Carbon Dioxide 14 mmol/L (22-29); Chloride 126 mmol/L (96-108); Creatinine Clr Calc Pharmacy 28.1; Estimated Glomerular Filt Rate 39; Glucose Random 128 mg/dL (60-115); Potassium 4.2 mmol/L (3.3-5.1); Sodium 154 mmol/L (135-145)
[2020-12-23] MEDS: Dextrose 5 % 1,000 ML 100 ML IVCONT ×2 (08:56→18:04)
[2020-12-23] MEDS: 0.9 % Sodium Chloride Flush 3 ML SYRINGE IVFLUSH ×2 (08:56→15:06)
--- NOTE | 2020-12-23 10:21 | P.CDIC_ITS ---
CDI Concurrent Query Service Date: 12/23/20 Documentation Clarification: Please clarify if you are treating a proba ble/suspected/likely or confirmed: BMI Malnutrition, mild, moderate or severe Cachectic Underweight Please specify if known PLEASE DO NOT DELETE/MODIFY EXISTING CONTENT Additional information is needed in order to code to the highest accuracy and appropriate Severity of Illness (SOI). Please clarify the information noted below in your progress notes and discharge summary. Risk Factors/Clinical Indicators/Treatments Body mass index: 16.9 Ed: patient hasnt eaten in 3-4 days, poor oral intake, found with altered mental status, confused - ANA MARIA CDS: Tania Osei CCS, CDIS Contact Number: [phone] Please Review the information above and exercise your independent professional judgment in responding to the query. If you concur, pleas document in the PROGRESS NOTES and DISCHARGE SUMMARY. If you do not agree with the query, please document in the query above. THIS QUERY IS PART OF THE PERMANENT MEDICAL RECORD
--- NOTE | 2020-12-23 11:46 | HO.PM.IMPN ---
Subjective Subjective Date of Service: 12/23/20 Interval History: Follow up lithium toxicity Confused, restless today Physical Exam Vital Signs: Vital Signs: Last Vital Signs Temp 98.0 F 12/23/20 07:37 Pulse 86 12/23/20 07:37 Resp 20 12/23/20 07:37 BP 157/78 H 12/23/20 07:37 Pulse Ox 97 12/23/20 07:37 Body Mass Index 16.9 In bed, non talkative, restless and tremulous lung sounds are clear to auscultation heart regular rate rhythm, clear S1, S2 positive bowel sounds, abdomen is soft, nontender zazueta unable to drain, bleeding from trauma neuro patient is alert, confused Objective Data Current Medications Generic Name Dose Route Start Last Admin Trade Name Freq PRN Reason Stop Dose Admin Acetaminophen 650 mg 12/21/20 23:25 Acetaminophen 325 Mg Tablet PO Q6H PRN Pain, Mild (Pain Scale 1-3) Atorvastatin Calcium 20 mg 12/22/20 09:00 12/23/20 08:57 Atorvastatin Calcium 20 Mg Tablet PO Not Given DAILY MANNY Doxazosin Mesylate 4 mg 12/23/20 21:00 Doxazosin Mesylate 2 Mg Tablet PO BEDTIME MANNY Protocol Dextrose 1,000 mls @ 100 mls/hr 12/23/20 08:00 12/23/20 08:56 D5w IVCONT 100 mls/hr .Q10H MANNY Administration Sodium Chloride 3 ml 12/22/20 00:00 12/23/20 08:56 0.9 % Sodium Chloride Flush 3 Ml Syringe IVFLUSH 3 ml QSHIFT MANNY Administration Labs CBC & Chem 7: 12/23/20 05:44 12/23/20 13:37 Assessment and Plan (1) [place] toxicity: Problem details: ANA MARIA due to compromised kidney perfusion elevated lithium level with initial confusion which is currently improving need to continue to follow to rule out rebound Has underlying CKD with baseline serum creatinine ~ 1.2-1.3 mg/dl no indication for emergent dialysis at the present time; Follow lithium level Could increase D5W to 125/hr. Shall closely follow up Status: Acute Assessment and Plan: 75-year-old male with a past medical history of hypothyroidism, bipolar disorder on lithium presented to the hospital with a chief complaint of confusion. Attempted to call [place] [phone] but number not in service Hypernatremia. likely from IV fluid volume -D5W@100 -Trend sodium Elevated lithium levels. Hold [place] -Psych consult -Trend -Nephrology following -Neuro checks -asp and sz precautions Urinary retension. Difficult insertion, coude placed, now unable to flush, bleeding from trauma -PVR bladder scan - to insert zazueta cath -May need CBI Metabolic encephalopathy likely from lithium toxicity . -Supportive care. -Head CT neg for acute abnormality ANA MARIA on CKD. Likely from hypoperfusion, urinary retension -IV fluids -avoid nephrotoxins. DVT prophylaxis SCD boots Full code Attending: Dr. Mesa
--- NOTE | 2020-12-23 11:55 | PM.UROCN ---
History of Present Illness Consult details Consult date: 12/23/20 Narrative: Gurinder is a 75-year-old male. Longstanding use of lithium for psychiatric disorders Found confused at his residence Evaluation emergency room found 300 cc in his bladder. Multiple attempts Jonas catheterization and been made all of them successful. Is now associated blood per urethra presumably due to balloon being placed in prostate Does not appear to be any evidence of retention Jonas catheter removed As long as he is emptying his bladder would not recommend catheter 1900 - Cyustoscopy at bedside unable to find passage through urethra - cannot pass wire de to trauma to urethra Decision made for SPT placement Patient unable to consent Has over 900 in bladder Local anesthetic infiltrated subcutaneously Needle used to aspirate bladder 1 cm incision made in skin [place]odt catheter suprapubic 12 [place] placed Secured with 2.0 nylon Good eflux Nurse asked to record amount Review of Systems Neurologic: Reports confusion Psychiatric: Psychiatric: Reports confusion [facility] Past Medical History Medical History (Updated 12/23/20 @ 20:16 by Lukasz Breen MD) Bipolar disorder Hypothyroidism Social History Social History Household Members: None Housing: House Smoking Status: Current every day smoker Tobacco Type: Cigarette Packs Per Day: 2 Cigarettes Per Day: 40.0 Smoked in Last 30 Days: Yes Use of substances other than those prescribed or required for medical reasons: No Currently Displaying Signs/Symptoms of Drug Intoxication Withdrawal: No Advance Directives: No Advance Directives Information Provided: No Do you have thoughts of harming others: None Do you have a plan to hurt others: No Plan Recently lost weight without trying: Unsure Nutrition Risks: Poor intake 0-25% >4 days Poor oral hygiene: Yes Meds Allergies Allergy/AdvReac Type Severity Reaction Status Date / Time tamsulosin [From FLOMAX] Allergy Unknown RASH Verified 12/21/20 21:19 Active Medications: Current Medications Generic Name Dose Route Start Last Admin Trade Name Freq PRN Reason Stop Dose Admin Acetaminophen 650 mg 12/21/20 23:25 Acetaminophen 325 Mg Tablet PO Q6H PRN Pain, Mild (Pain Scale 1-3) Atorvastatin Calcium 20 mg 12/22/20 09:00 12/23/20 08:57 Atorvastatin Calcium 20 Mg Tablet PO Not Given DAILY [facility] Doxazosin Mesylate 4 mg 12/23/20 21:00 Doxazosin Mesylate 2 Mg Tablet PO BEDTIME [facility] Protocol Dextrose 1,000 mls @ 100 mls/hr 12/23/20 08:00 12/23/20 08:56 D5w IVCONT 100 mls/hr .Q10H MANNY Administration Sodium Chloride 3 ml 12/22/20 00:00 12/23/20 08:56 0.9 % Sodium Chloride Flush 3 Ml Syringe IVFLUSH 3 ml QSHIFT MANNY Administration Home Medications Medication Instructions Recorded Confirmed Last Taken Type atorvastatin 1 tab PO DAILY 12/22/20 12/22/20 Unknown History atorvastatin 1 tab PO DAILY 12/22/20 12/22/20 12/21/20 History lithium carbonate 20 mg PO DAILY 12/22/20 12/22/20 12/21/20 History Physical Exam Vital Signs: Vital Signs: Last Vital Signs Temp 98.0 F 12/23/20 07:37 Pulse 86 12/23/20 07:37 Resp 20 12/23/20 07:37 BP 157/78 H 12/23/20 07:37 Pulse Ox 97 12/23/20 07:37 Body Mass Index 16.9 Const: General: no acute distress, anxious and confusion; No cooperative Nutritional Appearance: average body habitus Orientation/consciousness: confusion Eyes: General: appearance normal, both eyes and all related structures Chest: Chest palpation & inspection: normal inspection of the chest Resp: Effort & Inspection: normal respiratory effort Cardio: Rate: regular rate GI: Inspection: Yes normal to inspection Skin: Hair: normal Neuro: General: confusion Extrem: General: Yes normal to inspection Results Labs Result diagrams: 12/23/20 05:44 12/23/20 13:37 Labs: Abnormal lab results 12/22/20 12/23/20 12/23/20 Range/Units 14:27 05:44 05:44 WBC 19.3 H (4.8-10.8) X10*3/uL RBC 4.00 L (4.60-5.80) X10*6/uL Hgb 13.3 L (14.0-18.0) g/dl Hct 41.3 L (42-52) % MCV 103.3 H (80-98) fL MCH 33.3 H (27.0-33.0) pg Sodium 154 H (135-145) mmol/L Chloride 126 H (96-108) mmol/L Carbon Dioxide 14 L (22-29) mmol/L BUN 25 H (9-16) mg/dL Creatinine 1.71 H (0.5-1.4) mg/dL Random Glucose 128 H (60-115) mg/dL Calcium 10.4 H D (8.4-10.2) mg/dL [place] 1.77 H* (0.60-1.20) mmol/L 12/23/20 Range/Units 05:44 WBC (4.8-10.8) X10*3/uL RBC (4.60-5.80) X10*6/uL Hgb (14.0-18.0) g/dl Hct (42-52) % MCV (80-98) fL MCH (27.0-33.0) pg Sodium (135-145) mmol/L Chloride (96-108) mmol/L Carbon Dioxide (22-29) mmol/L BUN (9-16) mg/dL Creatinine (0.5-1.4) mg/dL Random Glucose (60-115) mg/dL Calcium (8.4-10.2) mg/dL [place] 1.41 H (0.60-1.20) mmol/L Short CBC 12/23/20 Range/Units 05:44 WBC 19.3 H (4.8-10.8) X10*3/uL Hgb 13.3 L (14.0-18.0) g/dl Hct 41.3 L (42-52) % Plt Count 191 (160-400) X10*3/uL BMP 12/23/20 05:44 Sodium 154 H Potassium 4.2 Chloride 126 H Carbon Dioxide 14 L BUN 25 H Creatinine 1.71 H Calcium 10.4 H D Urine 12/22/20 Range/Units 01:50 Urine Color YELLOW Urine Appearance CLEAR Urine pH 6.0 (5.0-8.0) Ur Specific [place] 1.015 (1.005-1.025) Urine Protein NEG (NEG-TRACE) MG/DL Urine Glucose (UA) NEG (NEG) MG/DL All other labs normal. Assessment and Plan (1) Urethral trauma: Status: Acute (2) Urinary retention: Status: Acute Procedures Date of Service Date of Service: 12/23/20
[2020-12-23 12:00] VITALS: BP 161/71; PULSE 81; RESP 20; TEMP 37.1; O2SAT 99
--- NOTE | 2020-12-23 12:21 | P.PNNP_ITS ---
Subjective Subjective Date of Service: 12/23/20 Interval history: Confused, restless ; Events noted; All recent data reviewed Physical Exam Vital Signs: Vital Signs: Last Vital Signs Temp 98.0 F 12/23/20 07:37 Pulse 86 12/23/20 07:37 Resp 20 12/23/20 07:37 BP 157/78 H 12/23/20 07:37 Pulse Ox 97 12/23/20 07:37 Body Mass Index 16.9 Const: General: confusion Orientation/consciousness: confusion Neck: Neck: Yes no JVD Resp: Auscultation: diminished lung sounds Cardio: Rate: regular rate GI: Palpation (GI): Soft to palpation Neuro: General: confusion Objective Data Labs CBC & Chem 7: 12/23/20 05:44 12/23/20 05:44 Labs: Laboratory Results - last 24 hr 12/22/20 12/23/20 12/23/20 14:27 05:44 05:44 WBC 19.3 H RBC 4.00 L Hgb 13.3 L Hct 41.3 L MCV 103.3 H MCH 33.3 H MCHC 32.2 RDW 12.6 Plt Count 191 MPV 10.1 Absolute Nucleated RBC 0.000 Nucleated RBC % (auto) 0.0 Sodium 154 H Potassium 4.2 Chloride 126 H Carbon Dioxide 14 L Anion Gap 18 BUN 25 H Creatinine 1.71 H Estim Creat Clear Calc 28.1 Estimated GFR 39 Random Glucose 128 H Calcium 10.4 H D [place] 1.77 H* 12/23/20 05:44 WBC RBC Hgb Hct MCV MCH MCHC RDW Plt Count MPV Absolute Nucleated RBC Nucleated RBC % (auto) Sodium Potassium Chloride Carbon Dioxide Anion Gap BUN Creatinine Estim Creat Clear Calc Estimated GFR Random Glucose Calcium [place] 1.41 H Assessment & Plan Assessment and plan (1) [place] toxicity: Problem details: ANA MARIA due to compromised kidney perfusion elevated lithium level with initial confusion which is currently improving need to continue to follow to rule out rebound Has underlying CKD with baseline serum creatinine ~ 1.2-1.3 mg/dl no indication for emergent dialysis at the present time; Follow lithium level Could increase D5W to 125/hr. Shall closely follow up Status: Acute Time Spent With Patient Time: Total time spent is greater than 50% in coordination of care (as documented) at patient's floor/unit and/or counseling patient: Procedures Date of Service Date of Service: 12/23/20
[2020-12-23 14:12] LABS: Sodium 152 mmol/L (135-145)
[2020-12-23 14:32] VITALS: BMI 16.9
--- NOTE | 2020-12-23 14:36 | MHC.CLN ---
PT IS MODERATELY MALNOURISHED PT WITH MILDLY DEPLETED SUBCUTANEOUS FAT AND MUSCLE MASS AND BMI 16.9 WITH POOR PO INTAKE X 3 DAYS DIET RX: 2GM NA -PT MAY BENEFIT FROM LIBERALIZED DIET WILL CHANGE TO REGULAR WILL START ENSURE TID TO INCREASE KCALS SUPPLEMENT TO PROVIDE 1050KCALS, 60G PROTEIN SEE ALSO CLINICAL NUTRITION ASSESSMENT
--- NOTE | 2020-12-23 14:44 | P.CNPS_ITS ---
History of Present Illness Date of Service: t Chief Complaint: AMS Reason for Consult: Assessment of mental status, treatment options Requesting physician: Courtney Manning Discussed with referring provider: Yes Sources of Information: patient interviewed (patient is on soporous, unable to provide any information) and chart reviewed HPI Narrative: The patient is a 75 year old male, as per chart, admitted to the hospital for altered mental status. As per EMS report, his neighbors found his car parked in an unusual way and when they approached his home, he was found naked and unconscious; EMS was called and he was brought to the hospital and found a toxic level of [place]. Apparently, he carries the diagnosis of Bipolar disorder and there is the report that he was toxic before for the last 6 months. During the visit, the patient was stuporous, he didn't respond to his name, unable to speak or provide any information. I tried to call the telephone of his but the telephone has been disconnected. Past Psychiatric History: Unknown besides the previous diagnosis of bipolar. Apparently, he was stable on [place] for over 30 years. Medical Evaluation Reviewed: Yes Personal & Social History: Unknown. Review of Systems Review of Systems Yes Unobtainable due to mental status [facility] Medical History (Updated 12/23/20 @ 14:55 by Hamilton Benz) Bipolar disorder Hypothyroidism Family History: Unknown Social History: As per chart, he is but I couldn't contact his . Substance History: Unknown Trauma History: Unknown Diagnostics Vital Signs (24Hr): Vital Signs - 24 hr 12/22/20 15:23 12/22/20 19:16 12/22/20 23:21 Temperature 97.6 F 98.4 F 97.8 F Pulse Rate 55 58 61 Respiratory Rate 18 18 18 Blood Pressure 134/58 L 120/58 L 152/55 H Pulse Oximetry 97 98 96 12/23/20 04:00 12/23/20 07:37 12/23/20 12:00 Temperature 98.9 F 98.0 F 98.7 F Pulse Rate 89 86 81 Respiratory Rate 18 20 20 Blood Pressure 164/87 H 157/78 H 161/71 H Pulse Oximetry 95 97 99 Body Mass Index 16.9 Labs Results: 12/23/20 05:44 12/23/20 13:37 Labs: Laboratory Results - last 48 hr 12/21/20 12/21/20 12/21/20 21:45 21:45 21:45 WBC 13.7 H RBC 4.25 L Hgb 14.2 Hct 43.7 MCV 102.8 H MCH 33.4 H MCHC 32.5 RDW 12.3 Plt Count 219 MPV 9.5 Immature Gran % (Auto) 0.4 Neut % (Auto) 81.7 H Lymph % (Auto) 7.6 L [place] % (Auto) 9.4 Eos % (Auto) 0.5 Baso % (Auto) 0.4 Lymph # (Auto) 1.0 L [place] # (Auto) 1.3 H Eos # (Auto) 0.1 Baso # (Auto) 0.1 Abs Immat Gran (auto) 0.05 H Absolute Neuts (auto) 11.2 H Absolute Nucleated RBC 0.000 Nucleated RBC % (auto) 0.0 PT INR Sodium 142 Potassium 4.9 Chloride 110 H Carbon Dioxide 22 Anion Gap 15 BUN 50 H Creatinine 2.55 H Estim Creat Clear Calc 18.9 Estimated GFR 25 Random Glucose 86 Calcium 10.7 H Total Bilirubin 0.9 Direct Bilirubin 0.4 AST 32 ALT 21 Alkaline Phosphatase 140 H Total Protein 7.0 Albumin 4.4 TSH 0.41 Urine Color Urine Appearance Urine pH Ur Specific [place] Urine Protein Urine Glucose (UA) Urine Ketones Urine Blood Urine Nitrite Ur Leukocyte Esterase Urine RBC Urine WBC Ur Squamous Epith Cells Urine Bacteria Urine Opiates Screen Ur Barbiturates Screen Ur Phencyclidine Scrn Ur Amphetamines Screen U Benzodiazepines Scrn [place] Urine Cocaine Screen U Marijuana (THC) Screen Ethyl Alcohol < 10 COVID-19 (DARIN) COVID-19 Clin Com 12/21/20 12/21/20 12/21/20 21:45 21:45 21:46 WBC RBC Hgb Hct MCV MCH MCHC RDW Plt Count MPV Immature Gran % (Auto) Neut % (Auto) Lymph % (Auto) [place] % (Auto) Eos % (Auto) Baso % (Auto) Lymph # (Auto) [place] # (Auto) Eos # (Auto) Baso # (Auto) Abs Immat Gran (auto) Absolute Neuts (auto) Absolute Nucleated RBC Nucleated RBC % (auto) PT 12.4 INR 1.0 Sodium Potassium Chloride Carbon Dioxide Anion Gap BUN Creatinine Estim Creat Clear Calc Estimated GFR Random Glucose Calcium Total Bilirubin Direct Bilirubin AST ALT Alkaline Phosphatase Total Protein Albumin TSH Urine Color Urine Appearance Urine pH Ur Specific [place] Urine Protein Urine Glucose (UA) Urine Ketones Urine Blood Urine Nitrite Ur Leukocyte Esterase Urine RBC Urine WBC Ur Squamous Epith Cells Urine Bacteria Urine Opiates Screen Ur Barbiturates Screen Ur Phencyclidine Scrn Ur Amphetamines Screen U Benzodiazepines Scrn [place] 2.42 H* Cancelled Urine Cocaine Screen U Marijuana (THC) Screen Ethyl Alcohol COVID-19 (DARIN) COVID-19 Clin Com 12/22/20 12/22/20 12/22/20 00:31 01:50 01:50 WBC RBC Hgb Hct MCV MCH MCHC RDW Plt Count MPV Immature Gran % (Auto) Neut % (Auto) Lymph % (Auto) [place] % (Auto) Eos % (Auto) Baso % (Auto) Lymph # (Auto) [place] # (Auto) Eos # (Auto) Baso # (Auto) Abs Immat Gran (auto) Absolute Neuts (auto) Absolute Nucleated RBC Nucleated RBC % (auto) PT INR Sodium Potassium Chloride Carbon Dioxide Anion Gap BUN Creatinine Estim Creat Clear Calc Estimated GFR Random Glucose Calcium Total Bilirubin Direct Bilirubin AST ALT Alkaline Phosphatase Total Protein Albumin TSH Urine Color YELLOW Urine Appearance CLEAR Urine pH 6.0 Ur Specific [place] 1.015 Urine Protein NEG Urine Glucose (UA) NEG Urine Ketones NEG Urine Blood 2+ H Urine Nitrite NEG Ur Leukocyte Esterase NEG Urine RBC 15-29 H Urine WBC 1-4 Ur Squamous Epith Cells 1+ Urine Bacteria 1+ Urine Opiates Screen Not Detected Ur Barbiturates Screen Not Detected Ur Phencyclidine Scrn Not Detected Ur Amphetamines Screen Not Detected U Benzodiazepines Scrn Not Detected [place] Urine Cocaine Screen Not Detected U Marijuana (THC) Screen Not Detected Ethyl Alcohol COVID-19 (DARIN) Negative COVID-19 Clin Com See Note 12/22/20 12/22/20 12/22/20 02:20 02:20 04:17 WBC 11.5 H RBC 3.79 L Hgb 12.8 L Hct 39.2 L MCV 103.4 H MCH 33.8 H MCHC 32.7 RDW 12.3 Plt Count 193 MPV 9.2 L Immature Gran % (Auto) 0.4 Neut % (Auto) 75.8 H Lymph % (Auto) 10.4 L [place] % (Auto) 10.9 Eos % (Auto) 1.9 Baso % (Auto) 0.6 Lymph # (Auto) 1.2 [place] # (Auto) 1.3 H Eos # (Auto) 0.2 Baso # (Auto) 0.1 Abs Immat Gran (auto) 0.05 H Absolute Neuts (auto) 8.7 H Absolute Nucleated RBC 0.000 Nucleated RBC % (auto) 0.0 PT INR Sodium 143 Potassium 4.5 Chloride 116 H Carbon Dioxide 21 L Anion Gap 11 L BUN 45 H Creatinine 2.20 H Estim Creat Clear Calc 21.9 Estimated GFR 29 Random Glucose 104 Calcium 9.4 D Total Bilirubin Direct Bilirubin AST ALT Alkaline Phosphatase Total Protein Albumin TSH Urine Color Urine Appearance Urine pH Ur Specific [place] Urine Protein Urine Glucose (UA) Urine Ketones Urine Blood Urine Nitrite Ur Leukocyte Esterase Urine RBC Urine WBC Ur Squamous Epith Cells Urine Bacteria Urine Opiates Screen Ur Barbiturates Screen Ur Phencyclidine Scrn Ur Amphetamines Screen U Benzodiazepines Scrn [place] 2.11 H* Urine Cocaine Screen U Marijuana (THC) Screen Ethyl Alcohol COVID-19 (DARIN) COVID-[employer]ambo[employer] 12/22/20 12/22/20 12/22/20 06:00 06:00 08:34 WBC RBC Hgb Hct MCV MCH MCHC RDW Plt Count MPV Immature Gran % (Auto) Neut % (Auto) Lymph % (Auto) [place] % (Auto) Eos % (Auto) Baso % (Auto) Lymph # (Auto) [place] # (Auto) Eos # (Auto) Baso # (Auto) Abs Immat Gran (auto) Absolute Neuts (auto) Absolute Nucleated RBC Nucleated RBC % (auto) PT INR Sodium 144 Potassium 4.4 Chloride 118 H Carbon Dioxide 22 Anion Gap 8 L BUN 41 H Creatinine 1.92 H Estim Creat Clear Calc 25.1 Estimated GFR 34 Random Glucose 101 Calcium 9.3 Total Bilirubin Direct Bilirubin AST ALT Alkaline Phosphatase Total Protein Albumin TSH Urine Color Urine Appearance Urine pH Ur Specific [place] Urine Protein Urine Glucose (UA) Urine Ketones Urine Blood Urine Nitrite Ur Leukocyte Esterase Urine RBC Urine WBC Ur Squamous Epith Cells Urine Bacteria Urine Opiates Screen Ur Barbiturates Screen Ur Phencyclidine Scrn Ur Amphetamines Screen U Benzodiazepines Scrn [place] 1.93 H* 1.93 H* Urine Cocaine Screen U Marijuana (THC) Screen Ethyl Alcohol COVID-19 (DARIN) COVID-[place] 12/22/20 12/23/20 12/23/20 14:27 05:44 05:44 WBC 19.3 H RBC 4.00 L Hgb 13.3 L Hct 41.3 L MCV 103.3 H MCH 33.3 H MCHC 32.2 RDW 12.6 Plt Count 191 MPV 10.1 Immature Gran % (Auto) Neut % (Auto) Lymph % (Auto) [place] % (Auto) Eos % (Auto) Baso % (Auto) Lymph # (Auto) [place] # (Auto) Eos # (Auto) Baso # (Auto) Abs Immat Gran (auto) Absolute Neuts (auto) Absolute Nucleated RBC 0.000 Nucleated RBC % (auto) 0.0 PT INR Sodium 154 H Potassium 4.2 Chloride 126 H Carbon Dioxide 14 L Anion Gap 18 BUN 25 H Creatinine 1.71 H Estim Creat Clear Calc 28.1 Estimated GFR 39 Random Glucose 128 H Calcium 10.4 H D Total Bilirubin Direct Bilirubin AST ALT Alkaline Phosphatase Total Protein Albumin TSH Urine Color Urine Appearance Urine pH Ur Specific [place] Urine Protein Urine Glucose (UA) Urine Ketones Urine Blood Urine Nitrite Ur Leukocyte Esterase Urine RBC Urine WBC Ur Squamous Epith Cells Urine Bacteria Urine Opiates Screen Ur Barbiturates Screen Ur Phencyclidine Scrn Ur Amphetamines Screen U Benzodiazepines Scrn [place] 1.77 H* Urine Cocaine Screen U Marijuana (THC) Screen Ethyl Alcohol COVID-19 (DARIN) COVID-19 [place] 12/23/20 12/23/20 05:44 13:37 WBC RBC Hgb Hct MCV MCH MCHC RDW Plt Count MPV Immature Gran % (Auto) Neut % (Auto) Lymph % (Auto) [place] % (Auto) Eos % (Auto) Baso % (Auto) Lymph # (Auto) [place] # (Auto) Eos # (Auto) Baso # (Auto) Abs Immat Gran (auto) Absolute Neuts (auto) Absolute Nucleated RBC Nucleated RBC % (auto) PT INR Sodium 152 H Potassium Chloride Carbon Dioxide Anion Gap BUN Creatinine Estim Creat Clear Calc Estimated GFR Random Glucose Calcium Total Bilirubin Direct Bilirubin AST ALT Alkaline Phosphatase Total Protein Albumin TSH Urine Color Urine Appearance Urine pH Ur Specific [place] Urine Protein Urine Glucose (UA) Urine Ketones Urine Blood Urine Nitrite Ur Leukocyte Esterase Urine RBC Urine WBC Ur Squamous Epith Cells Urine Bacteria Urine Opiates Screen Ur Barbiturates Screen Ur Phencyclidine Scrn Ur Amphetamines Screen U Benzodiazepines Scrn [place] 1.41 H Urine Cocaine Screen U Marijuana (THC) Screen Ethyl Alcohol COVID-19 (DARIN) COVID-19 Clin Com Imaging Radiology Impressions: ITS Impressions Head CT 12/21/20 00:00 IMPRESSION: No acute intracranial pathology. Chest X-Ray 12/21/20 23:23 IMPRESSION: No focal consolidation. Mental Status Exam Mental Status Exam Narrative: On hospital gowns, with a bandage on his right arm, IV on left arm, lethargic, does not respond to his name, mute, disoriented x 3, affect blunted, thought process and thought content unable to assess due to acute mental status change due to lithium toxicity. Medications Medications Current Medications Generic Name Dose Route Start Last Admin Trade Name Freq PRN Reason Stop Dose Admin Acetaminophen 650 mg 12/21/20 23:25 Acetaminophen 325 Mg Tablet PO Q6H PRN Pain, Mild (Pain Scale 1-3) Atorvastatin Calcium 20 mg 12/22/20 09:00 12/23/20 08:57 Atorvastatin Calcium 20 Mg Tablet PO Not Given DAILY MANNY Diazepam 2 mg 12/23/20 16:00 Diazepam 2 Mg Tablet PO 12/23/20 16:01 ONCE ONE Doxazosin Mesylate 4 mg 12/23/20 21:00 Doxazosin Mesylate 2 Mg Tablet PO BEDTIME MANNY Protocol Dextrose 1,000 mls @ 100 mls/hr 12/23/20 08:00 12/23/20 08:56 D5w IVCONT 100 mls/hr .Q10H MANNY Administration Sodium Chloride 3 ml 12/22/20 00:00 12/23/20 08:56 0.9 % Sodium Chloride Flush 3 Ml Syringe IVFLUSH 3 ml QSHIFT MANNY Administration Allergies Allergies Allergy/AdvReac Type Severity Reaction Status Date / Time tamsulosin [From FLOMAX] Allergy Unknown RASH Verified 12/21/20 21:19 Assessment & Plan Assessment & Plan (1) [place] toxicity: Status: Acute Code(s): T56.891A - Toxic effect of other metals, accidental (unintentional), initial encounter (2) Altered mental status: Status: Acute Code(s): R41.82 - Altered mental status, unspecified (3) Acute kidney injury: Status: Acute Code(s): N17.9 - Acute kidney failure, unspecified (4) CKD (chronic kidney disease) stage 3, GFR 30-59 ml/min: Status: Acute Code(s): N18.30 - Chronic kidney disease, stage 3 unspecified (5) Bipolar disorder: Status: Inactive Code(s): F31.9 - Bipolar disorder, unspecified Recommendations: Elderly male admitted for [place] toxicity with a previous history of bipolar disorder. At this moment, the patient is delirious, unable to provide any information; also, we don't have any collateral information. Plan: 1. [place] toxicity. Continue medical treatment with IV fluids. Since Nephr ology does not believe that dialysis could be usueful at this time, continue with frequent [place] monitorization and fluids. Even, if the [place] level drops to therapeutic range, it is probably that he would be on delirium for several hours. 2. Haldol 1 mg IV/IM q6h PRN severe agitation. 3. Keep on 1:1. 4. Reassessment in 24 hours. Greater than 50% of the session was spent on counseling and/or coordination of care
[2020-12-23 15:24] VITALS: BP 149/76; PULSE 74; RESP 17; TEMP 37.4; O2SAT 99
[2020-12-23] MEDS: LORazepam 2 MG/ML VIAL 0.25 MG IVPUSH (17:07)
--- NOTE | 2020-12-23 17:48 | PC.NURSE ---
Per Urology nurse communication order, zazueta was clamped at 08:00 for a 4-5hr trial. When noticing his bladder to be distended a couple hours later, I reconnected zazueta to chamber but no urine came out to the bag. Zazueta was flushed with 50mL NS and no clots visible, even though this a.m. there was a lot of blood in zazueta bag from him tugging at the catheter. I did several bladder scans which showed >999cc. DAMIAN Manning and MD Breen notified that catheter not draining. Advancing the catheter caused further trauma to patient, where blood was draining from urethra. Team aware. MD Breen to assess and perform possible cystoscopy this evening for further intervention. Repeat bladder scans show >999cc and patient still retaining urine. Team aware.
[2020-12-23 19:07] VITALS: BP 162/62; PULSE 74; RESP 17; TEMP 37.1; O2SAT 97
[2020-12-24] VITALS (7 sets, daily range): BP systolic 101–126; BP diastolic 50–62; PULSE 61–69; RESP 16–19; TEMP 36.1–37.3; O2SAT 91–100
--- NOTE | 2020-12-24 00:39 | PC.NURSE ---
12/23 19:30: Cystoscopy performed at bedside @1930 by MD Breen. Unable to place Coude, decision was made to insert suprapubic catheter. Suprapubic catheter inserted @ bedside. Draining red/brown urine immediately after insertion. Tubing secured and pt under 1:1 supervision. Resting comfortably. 12/24 23:30: 1,100ml of red/brown urine emptied from drainage bag at 22:00. Urine is now pink-tinged. Pt still resting comfortably and under 1:1 supervison.
[2020-12-24] MEDS: Dextrose 5 % 1,000 ML 100 ML IVCONT ×3 (04:12→21:55)
[2020-12-24 06:56] LABS: Lithium 1.36 mmol/L (0.60-1.20)
[2020-12-24 07:10] LABS: Anion Gap 11 (12-20); Blood Urea Nitrogen 26 mg/dL (9-16); Calcium 10.3 mg/dL (8.4-10.2); Carbon Dioxide 19 mmol/L (22-29); Chloride 124 mmol/L (96-108); Creatinine Clr Calc Pharmacy 23.4; Estimated Glomerular Filt Rate 31; Glucose Random 101 mg/dL (60-115); Potassium 5.2 mmol/L (3.3-5.1); Sodium 149 mmol/L (135-145)
[2020-12-24 07:37] LABS: Hematocrit 38.7 % (42-52); Hemoglobin 12.5 g/dl (14.0-18.0); Mean Corpuscular HGB Conc 32.3 g/dl (31.0-36.0); Mean Corpuscular Hemoglobin 33.6 pg (27.0-33.0); Mean Platelet Volume 10.4 fL (9.4-12.4); Platelet Count 136 X10*3/uL (160-400); Red Blood Count 3.72 X10*6/uL (4.60-5.80); Red Cell Distribution Width 12.9 % (11.0-16.0)
[2020-12-24] MEDS: 0.9 % Sodium Chloride Flush 3 ML SYRINGE IVFLUSH ×2 (08:58→15:32)
--- NOTE | 2020-12-24 16:13 | P.PNIM_ITS ---
Subjective Subjective Date of Service: 12/25/20 Interval History: Follow up lithium toxicity Review of Systems Patient still feel confused, swallow evaluation could not be done was not following appropriately. But seems more awake and calm than yesterday as per the staff Could not able to answer many questions accept could able to tell his name and follow few commands-like lift his right hand and left hand. Physical Exam Vital Signs: Vital Signs: Last Vital Signs Temp 99.1 F 12/24/20 15:37 Pulse 61 12/24/20 15:37 Resp 19 12/24/20 15:37 BP 121/52 L 12/24/20 15:37 Pulse Ox 91 L 12/24/20 15:37 Body Mass Index 16.9 Physical exam: Cvs: [id number], [id number] , no murmur res: clear to auscultation ,no rhonchii or wheezing abd: no rebound or guarding ,nt, bs present. ext pulses present , no cyanosis neuro: Oriented to his name, calm, nonfocal.coluld able to lift right and left hands upon commands Objective Data Current Medications Generic Name Dose Route Start Last Admin Trade Name Roselyn PRN Reason Stop Dose Admin Acetaminophen 650 mg 12/21/20 23:25 Acetaminophen 325 Mg Tablet PO Q6H PRN Pain, Mild (Pain Scale 1-3) Atorvastatin Calcium 20 mg 12/22/20 09:00 12/24/20 08:58 Atorvastatin Calcium 20 Mg Tablet PO Not Given DAILY MANNY Doxazosin Mesylate 4 mg 12/23/20 21:00 12/23/20 21:42 Doxazosin Mesylate 2 Mg Tablet PO Not Given BEDTIME MANNY Protocol Dextrose 1,000 mls @ 100 mls/hr 12/23/20 08:00 12/24/20 13:37 D5w IVCONT 100 mls/hr .Q10H MANNY Administration Sodium Chloride 3 ml 12/22/20 00:00 12/24/20 15:32 0.9 % Sodium Chloride Flush 3 Ml Syringe IVFLUSH 3 ml QSHIFT MANNY Administration Labs CBC & Chem 7: 12/24/20 07:30 12/25/20 05:32 Assessment and Plan (1) Urinary retention: Status: Acute (2) CKD (chronic kidney disease) stage 3, GFR 30-59 ml/min: Problem details: ANA MARIA due to compromised kidney perfusion elevated lithium level with initial confusion which is currently improving need to continue to follow to rule out rebound Has underlying CKD with baseline serum creatinine ~ 1.2-1.3 mg/dl no indication for emergent dialysis at the present time; Follow lithium level Continue rest of current supportive care. Shall closely follow up Status: Acute (3) [place] toxicity: Status: Acute Assessment and Plan: 75-year-old male with a past medical history of hypothyroidism, bipolar disorder on lithium presented to the hospital with a chief complaint of confusion. Attempted to call [facility] [phone] but number not in service 1.Hypernatremia. likely from IV fluid volume -D5W sodium improving , we will check this afternoon nephro followin 2.Elevated lithium levels. Hold [place] -Psych consult -Trend -Nephrology following -Neuro checks -asp and sz precautions npo for now since have swallow issues. 3.Urinary retension. Difficult insertion, coude placed, now unable to flush, bleeding from trauma -PVR bladder scan - to insert zazueta cath -May need CBI 4.Metabolic encephalopathy likely from lithium toxicity . -Supportive care. -Head CT neg for acute abnormality 5.ANA MARIA on CKD. Likely from hypoperfusion, urinary retension -IV fluids -avoid nephrotoxins. 6.Leukocytosis: No fevers, UA and chest x-ray negative -question probably reactive to lithium, we will send blood cultures. If any new symptoms of fever then may need to add antibiotics. DVT prophylaxis SCD boots
--- NOTE | 2020-12-24 17:07 | PM.PNNEP ---
Subjective Subjective Date of Service: 12/24/20 Interval history: Events noted. All recent data reviewed Physical Exam Vital Signs: Vital Signs: Last Vital Signs Temp 99.1 F 12/24/20 15:37 Pulse 61 12/24/20 15:37 Resp 19 12/24/20 15:37 BP 121/52 L 12/24/20 15:37 Pulse Ox 91 L 12/24/20 15:37 Body Mass Index 16.9 Const: General: No acute distress Neck: Neck: Yes no JVD Resp: Auscultation: diminished lung sounds Cardio: Jugular venous distension: no JVD GI: Palpation (GI): Soft to palpation Neuro: General: moves all extremities Objective Data Labs CBC & Chem 7: 12/24/20 07:30 12/24/20 06:09 Labs: Laboratory Results - last 24 hr 12/24/20 12/24/20 12/24/20 06:09 06:09 07:30 WBC 23.0 H RBC 3.72 L Hgb 12.5 L Hct 38.7 L MCV 104.0 H MCH 33.6 H MCHC 32.3 RDW 12.9 Plt Count 136 L D MPV 10.4 Absolute Nucleated RBC 0.000 Nucleated RBC % (auto) 0.0 Sodium 149 H Potassium 5.2 H D Chloride 124 H Carbon Dioxide 19 L Anion Gap 11 L BUN 26 H Creatinine 2.06 H Estim Creat Clear Calc 23.4 Estimated GFR 31 Random Glucose 101 Calcium 10.3 H [place] 1.36 H Assessment & Plan Assessment and plan (1) CKD (chronic kidney disease) stage 3, GFR 30-59 ml/min: Problem details: ANA MARIA due to compromised kidney perfusion elevated lithium level with initial confusion which is currently improving need to continue to follow to rule out rebound Has underlying CKD with baseline serum creatinine ~ 1.2-1.3 mg/dl no indication for emergent dialysis at the present time; Follow lithium level Continue rest of current supportive care. Shall closely follow up Status: Acute Time Spent With Patient Time: Total time spent is greater than 50% in coordination of care (as documented) at patient's floor/unit and/or counseling patient: Procedures Date of Service Date of Service: 12/24/20
--- NOTE | 2020-12-24 17:09 | P.PNUR_ITS ---
Subjective Subjective Date of Service: 12/24/20 Interval history: Patient evaluation Significant improvement Reduction in confusion Urine output from Jonas catheter now clear Continue with drainage to see if lithium toxicity resolves Physical Exam Vital Signs: Vital Signs: Last Vital Signs Temp 99.1 F 12/24/20 15:37 Pulse 61 12/24/20 15:37 Resp 19 12/24/20 15:37 BP 121/52 L 12/24/20 15:37 Pulse Ox 91 L 12/24/20 15:37 Body Mass Index 16.9 Const: General: cooperative, healthy appearing, comfortable and no acute distress Nutritional Appearance: average body habitus Orientation/consciousness: oriented to person, oriented to place and oriented to time Eyes: General: appearance normal, both eyes and all related structures Chest: Chest palpation & inspection: normal inspection of the chest Resp: Effort & Inspection: normal respiratory effort Cardio: Rate: regular rate GI: Inspection: Yes normal to inspection Skin: Hair: normal Neuro: General: oriented to person, oriented to place and oriented to time Extrem: General: Yes normal to inspection Urology Results Labs CBC & Chem 7: 12/24/20 07:30 12/24/20 06:09 Labs: Laboratory Results - last 24 hr 12/24/20 12/24/20 12/24/20 06:09 06:09 07:30 WBC 23.0 H RBC 3.72 L Hgb 12.5 L Hct 38.7 L MCV 104.0 H MCH 33.6 H MCHC 32.3 RDW 12.9 Plt Count 136 L D MPV 10.4 Absolute Nucleated RBC 0.000 Nucleated RBC % (auto) 0.0 Sodium 149 H Potassium 5.2 H D Chloride 124 H Carbon Dioxide 19 L Anion Gap 11 L BUN 26 H Creatinine 2.06 H Estim Creat Clear Calc 23.4 Estimated GFR 31 Random Glucose 101 Calcium 10.3 H [place] 1.36 H Progress Note: A&P Assessment and plan (1) Urinary retention: Status: Acute (2) Urethral trauma: Status: Acute Assessment and Plan: Continue with bladder drainage Fall Risk Details Current Medications: Current Medications Generic Name Dose Route Start Last Admin Trade Name Freq PRN Reason Stop Dose Admin Acetaminophen 650 mg 12/21/20 23:25 Acetaminophen 325 Mg Tablet PO Q6H PRN Pain, Mild (Pain Scale 1-3) Atorvastatin Calcium 20 mg 12/22/20 09:00 12/24/20 08:58 Atorvastatin Calcium 20 Mg Tablet PO Not Given DAILY MANNY Doxazosin Mesylate 4 mg 12/23/20 21:00 12/23/20 21:42 Doxazosin Mesylate 2 Mg Tablet PO Not Given BEDTIME MANNY Protocol Dextrose 1,000 mls @ 100 mls/hr 12/23/20 08:00 12/24/20 13:37 D5w IVCONT 100 mls/hr .Q10H MANNY Administration Sodium Chloride 3 ml 12/22/20 00:00 12/24/20 15:32 0.9 % Sodium Chloride Flush 3 Ml Syringe IVFLUSH 3 ml QSHIFT MANNY Administration Time Spent With Patient Time: Total time spent is greater than 50% in coordination of care (as documented) at patient's floor/unit and/or counseling patient: Time with patient: less than 15 minutes
[2020-12-24 18:05] LABS: Sodium 150 mmol/L (135-145)
[2020-12-24 22:19] LABS: Anion Gap 10 (12-20); Blood Urea Nitrogen 25 mg/dL (9-16); Calcium 10.1 mg/dL (8.4-10.2); Carbon Dioxide 20 mmol/L (22-29); Chloride 122 mmol/L (96-108); Creatinine Clr Calc Pharmacy 26.9; Estimated Glomerular Filt Rate 37; Glucose Random 114 mg/dL (60-115); Potassium 4.1 mmol/L (3.3-5.1); Sodium 148 mmol/L (135-145)
[2020-12-25] VITALS (7 sets, daily range): BP systolic 101–128; BP diastolic 50–60; PULSE 65–72; RESP 17–18; TEMP 36–37.2; O2SAT 95–98
[2020-12-25] MEDS: Dextrose 5 % 1,000 ML 100 ML IVCONT ×2 (05:30→13:25)
[2020-12-25 07:20] LABS: Anion Gap 9 (12-20); Blood Urea Nitrogen 24 mg/dL (9-16); Calcium 9.9 mg/dL (8.4-10.2); Carbon Dioxide 23 mmol/L (22-29); Chloride 120 mmol/L (96-108); Creatinine Clr Calc Pharmacy 28.8; Estimated Glomerular Filt Rate 40; Glucose Random 112 mg/dL (60-115); Potassium 4.1 mmol/L (3.3-5.1); Sodium 148 mmol/L (135-145)
--- NOTE | 2020-12-25 09:11 | P.PNIM_ITS ---
Subjective Subjective Date of Service: 12/25/20 Interval History: Toxic metabolic encephalopathy, poor oral intake Review of Systems Patient mental status seems to be slowly improving. Could able to say his name and his son's name also could able to follow some simple commands. Could not able to tell many other questions but said no pain. Physical Exam Vital Signs: Vital Signs: Last Vital Signs Temp 98.2 F 12/25/20 07:14 Pulse 65 12/25/20 07:14 Resp 18 12/25/20 07:14 BP 102/54 L 12/25/20 07:14 Pulse Ox 98 12/25/20 07:14 Body Mass Index 16.9 Physical exam: Constitutional: Seems come not in acute distress. Cvs: [id number], [id number] , no murmur res: clear to auscultation ,no rhonchii or wheezing abd: no rebound or guarding ,nt, bs present. ext pulses present , no cyanosis neuro: Oriented to his name, calm,.coluld able to lift right and left hands upon commands Objective Data Current Medications Generic Name Dose Route Start Last Admin Trade Name Roselyn PRN Reason Stop Dose Admin Acetaminophen 650 mg 12/21/20 23:25 Acetaminophen 325 Mg Tablet PO Q6H PRN Pain, Mild (Pain Scale 1-3) Atorvastatin Calcium 20 mg 12/22/20 09:00 12/25/20 07:47 Atorvastatin Calcium 20 Mg Tablet PO Not Given DAILY MANNY Doxazosin Mesylate 4 mg 12/23/20 21:00 12/24/20 19:08 Doxazosin Mesylate 2 Mg Tablet PO Not Given BEDTIME MANNY Protocol Dextrose 1,000 mls @ 125 mls/hr 12/23/20 08:00 12/25/20 05:30 D5w IVCONT 100 mls/hr .Q8H MANNY Administration Sodium Chloride 3 ml 12/22/20 00:00 12/25/20 07:46 0.9 % Sodium Chloride Flush 3 Ml Syringe IVFLUSH Not Given QSHIFT [facility] Labs CBC & Chem 7: 12/24/20 07:30 12/25/20 05:32 Assessment and Plan (1) Urinary retention: Status: Acute (2) [place] toxicity: Status: Acute Assessment and Plan: 75-year-old male with a past medical history of hypothyroidism, bipolar disorder on lithium presented to the hospital with a chief complaint of confusion. Attempted to call [facility] [phone] but number not in service 1.Hypernatremia. likely from IV fluid volume -D5W sodium improving , we will check this afternoon nephro followin 2.Elevated lithium levels. Hold [place] -Psych consult: continue sitter , reassessment daily. May need haldol if and severe agitation -Trend lithium levls -Nephrology following -Neuro checks -asp and sz precautions Diet advanced as per speech.. 3.Urinary retension. Difficult insertion, coude placed, now unable to flush, bleeding from trauma -PVR bladder scan - to insert zazueta cath -May need CBI 4.Metabolic encephalopathy likely from lithium toxicity . -Supportive care. -Head CT neg for acute abnormality 5.ANA MARIA on CKD. Likely from hypoperfusion, urinary retension: Seems improving -IV fluids -avoid nephrotoxins. 6.Leukocytosis: No fevers, UA and chest x-ray negative -question probably reactive to lithium, we will send blood cultures. If any new symptoms of fever then may need to add antibiotics. DVT prophylaxis SCD diane (3) CKD (chronic kidney disease) stage 3, GFR 30-59 ml/min: Problem details: ANA MARIA due to compromised kidney perfusion elevated lithium level with initial confusion which is currently improving need to continue to follow to rule out rebound Has underlying CKD with baseline serum creatinine ~ 1.2-1.3 mg/dl no indication for emergent dialysis at the present time; Follow lithium level Continue rest of current supportive care. Shall closely follow up Status: Acute
--- NOTE | 2020-12-25 09:42 | P.CDIC_ITS ---
CDI Concurrent Query Service Date: 12/25/20 Documentation Clarification: Please clarify if you are treating a proba ble/suspected/likely or confirmed: Malnutrition, mild, moderate or severe-moderate malnutrition Please specify if known Provider Response: Other Other Diagnosis: moderate malnutrition PLEASE DO NOT DELETE/MODIFY EXISTING CONTENT Additional information is needed in order to code to the highest accuracy and appropriate Severity of Illness (SOI). Please clarify the information noted below in your progress notes and discharge summary. Risk Factors/Clinical Indicators/Treatments Nutrition assessment notes patient to be moderately malnourished with BMI 16.9 Mildly depleted subcutaneous fat and muscle mass. Adding Ensure TID. CDS: Tania Osei CCS, CDIS Contact Number: [phone] Please Review the information above and exercise your independent professional judgment in responding to the query. If you concur, pleas document in the P ROGRESS NOTES and DISCHARGE SUMMARY. If you do not agree with the query, please document in the query above. THIS QUERY IS PART OF THE PERMANENT MEDICAL RECORD
--- NOTE | 2020-12-25 10:08 | MHC.CLN ---
F/U PT IS CURRENTLY NPO WHEN DIET TO ADVANCE; RECOMMEND RE-STARTED ENSURE SUPPLEMENT TID SUPPLEMENT TO PROVIDE 1050KCALS, 60G PROTEIN FOLLOWING
--- NOTE | 2020-12-25 11:58 | MHC.CM.PN ---
per multidis roundspt will be here another 1 to 2 days and will be having a pt eval prior to dc
--- NOTE | 2020-12-25 13:21 | MHC.SL.SWA ---
Speech Pathologist Impression: Risk of Aspiration Oral Phase Dysphagia Risk of Aspiration Due to: Poor PO Intake Dysphasia Diet Status: Upgrade Liquid Consistency and Strategies for Safe Swallow: Liquid Intake Recommendation: Thin Liquid Intake Strategies: Small Sips Solid Food Consistency: Dietary Recommendations: Grnd/Mech Altered (NDD2) Additional Modifications to Solid Foods: Moisten solids in sauce or gravy for ease of mastication. Oral Medication Intake: Crushed with Puree Compensatory Strategies and Precautions to be Taken for Safe Swallow: Sitting Upright (90 deg) Liquids from Cup via controlled cup sip Liquids from Straw utilizing straw pinch technique to limit bolus volume Small Bites and Sips Alternate Liquids/Solids Rate of Ingestion Change Supervision While Eating and Drinking for Safe Swallow: Total Supervision (1:1) Foods to Avoid: Swallowing Recommended Treatments: Compens. Strategy Educat. Recommendation for Speech: Inpatient Speech Therapy Comment: BUS ATTENDANT will continue to follow during hospitalization as appropriate. Frequency/Duration: Date Range for Service Req: Timeline to reassess: Emt P Clinican/Clinical Fellow: Yes: Zuleyma Aragon M.A., CF-BUS ATTENDANT Supervisory Statement: I have reviewed and agree with the student/clinical fellow's documentation: Speech Language Pathologist:
--- NOTE | 2020-12-25 16:36 | PM.EVENT ---
Event Note Date of Service: 12/25/20 Event Note: Patient management including toxic metabolic encephalopathy due to multifactorial issues including ANA MARIA, lithium high levels, hyponatremia, poor oral intake: Discussed with patient's both sons Chase and Merritt: Patient management discussed with them both in detail length over the phone yesterday and today: Options of management and treatment discussed with his them detail. They both understand and want to continue current care. Total time spent collectively if from yesterday to today 16 minutes over the phone.
--- NOTE | 2020-12-25 16:37 | PM.PNNEP ---
Subjective Subjective Date of Service: 12/25/20 Interval history: Events noted. All recent data reviewed Physical Exam Vital Signs: Vital Signs: Last Vital Signs Temp 99 F 12/25/20 14:57 Pulse 72 12/25/20 14:57 Resp 18 12/25/20 14:57 BP 110/55 L 12/25/20 14:57 Pulse Ox 98 12/25/20 14:57 Body Mass Index 16.9 Const: General: no acute distress Neck: Neck: Yes supple Resp: Auscultation: diminished lung sounds Cardio: Jugular venous distension: no JVD GI: Palpation (GI): Soft to palpation Objective Data Labs CBC & Chem 7: 12/24/20 07:30 12/25/20 05:32 Labs: Laboratory Results - last 24 hr 12/24/20 12/24/20 12/25/20 16:42 21:43 05:32 Sodium 150 H 148 H 148 H Potassium 4.1 D 4.1 Chloride 122 H 120 H Carbon Dioxide 20 L 23 Anion Gap 10 L 9 L BUN 25 H 24 H Creatinine 1.79 H 1.67 H Estim Creat Clear Calc 26.9 28.8 Estimated GFR 37 40 Random Glucose 114 112 Calcium 10.1 9.9 Assessment & Plan Assessment and plan (1) CKD (chronic kidney disease) stage 3, GFR 30-59 ml/min: Problem details: ANA MARIA due to compromised kidney perfusion elevated lithium level with initial confusion which is currently improving Has underlying CKD with baseline serum creatinine ~ 1.2-1.3 mg/dl no indication for emergent dialysis at the present time; Follow lithium level Continue rest of current supportive care. Shall closely follow up Status: Acute Time Spent With Patient Time: Total time spent is greater than 50% in coordination of care (as documented) at patient's floor/unit and/or counseling patient: Procedures Date of Service Date of Service: 12/25/20
[2020-12-25 17:38] LABS: Sodium 145 mmol/L (135-145)
--- NOTE | 2020-12-25 18:04 | PM.UROPN ---
Subjective Subjective Date of Service: 12/25/20 Interval history: Review today Urine remains clear This is a small bore catheter so may require irrigation and is easy to clot. Physical Exam Vital Signs: Vital Signs: Last Vital Signs Temp 99 F 12/25/20 14:57 Pulse 72 12/25/20 14:57 Resp 18 12/25/20 14:57 BP 110/55 L 12/25/20 14:57 Pulse Ox 98 12/25/20 14:57 Body Mass Index 16.9 Const: General: cooperative, healthy appearing, comfortable and no acute distress Nutritional Appearance: average body habitus Orientation/consciousness: oriented to person, oriented to place and oriented to time Eyes: General: appearance normal, both eyes and all related structures Chest: Chest palpation & inspection: normal inspection of the chest Resp: Effort & Inspection: normal respiratory effort Cardio: Rate: regular rate GI: Inspection: Yes normal to inspection Skin: Hair: normal Neuro: General: oriented to person, oriented to place and oriented to time Extrem: General: Yes normal to inspection Urology Results Labs CBC & Chem 7: 12/24/20 07:30 12/25/20 17:13 Labs: Laboratory Results - last 24 hr 12/24/20 12/24/20 12/25/20 16:42 21:43 05:32 Sodium 150 H 148 H 148 H Potassium 4.1 D 4.1 Chloride 122 H 120 H Carbon Dioxide 20 L 23 Anion Gap 10 L 9 L BUN 25 H 24 H Creatinine 1.79 H 1.67 H Estim Creat Clear Calc 26.9 28.8 Estimated GFR 37 40 Random Glucose 114 112 Calcium 10.1 9.9 12/25/20 17:13 Sodium 145 Potassium Chloride Carbon Dioxide Anion Gap BUN Creatinine Estim Creat Clear Calc Estimated GFR Random Glucose Calcium Progress Note: A&P Assessment and plan (1) Gross hematuria: Status: Acute (2) Urinary retention: Status: Acute Assessment and Plan: Irrigate as needed Fall Risk Details Current Medications: Current Medications Generic Name Dose Route Start Last Admin Trade Name Freq PRN Reason Stop Dose Admin Acetaminophen 650 mg 12/21/20 23:25 Acetaminophen 325 Mg Tablet PO Q6H PRN Pain, Mild (Pain Scale 1-3) Atorvastatin Calcium 20 mg 12/22/20 09:00 12/25/20 07:47 Atorvastatin Calcium 20 Mg Tablet PO Not Given DAILY [facility] Doxazosin Mesylate 4 mg 12/23/20 21:00 12/24/20 19:08 Doxazosin Mesylate 2 Mg Tablet PO Not Given BEDTIME MANNY Protocol Dextrose 1,000 mls @ 125 mls/hr 12/23/20 08:00 12/25/20 13:25 D5w IVCONT 100 mls/hr .Q8H MANNY Administration Sodium Chloride 3 ml 12/22/20 00:00 12/25/20 15:56 0.9 % Sodium Chloride Flush 3 Ml Syringe IVFLUSH Not Given QSHIFT MANNY Time Spent With Patient Time: Total time spent is greater than 50% in coordination of care (as documented) at patient's floor/unit and/or counseling patient: Time with patient: less than 15 minutes
--- NOTE | 2020-12-25 18:40 | PC.NURSE ---
Patient able to follow instruction. Repeat bedside swallow eval completed. Patient has poor PO intake, only completing 25-50% of lunch and dinner with 1:[address], dressing clean, dry, and intact. Spoke with patient's son Faheem william patient condition.
[2020-12-25] MEDS: Doxazosin Mesylate 2 MG TABLET 4 MG PO (20:51)
[2020-12-25] MEDS: Dextrose 5 % 1,000 ML 60 ML IVCONT (23:54)
[2020-12-26] VITALS (7 sets, daily range): BP systolic 102–142; BP diastolic 50–61; PULSE 67–76; RESP 18–20; TEMP 36.8–37.6; O2SAT 95–100
[2020-12-26 06:47] LABS: Lithium 0.77 mmol/L (0.60-1.20)
[2020-12-26 06:56] LABS: Anion Gap 10 (12-20); Blood Urea Nitrogen 20 mg/dL (9-16); Calcium 9.8 mg/dL (8.4-10.2); Carbon Dioxide 24 mmol/L (22-29); Chloride 114 mmol/L (96-108); Creatinine Clr Calc Pharmacy 32.3; Estimated Glomerular Filt Rate 46; Glucose Random 101 mg/dL (60-115); Sodium 144 mmol/L (135-145)
[2020-12-26] MEDS: Atorvastatin Calcium 20 MG TABLET PO (07:24)
[2020-12-26 09:15] LABS: Hematocrit 35.6 % (42-52); Hemoglobin 11.6 g/dl (14.0-18.0); Mean Corpuscular HGB Conc 32.6 g/dl (31.0-36.0); Mean Corpuscular Hemoglobin 33.6 pg (27.0-33.0); Mean Corpuscular Volume 103.2 fL (80-98); Mean Platelet Volume 10.3 fL (9.4-12.4); Platelet Count 133 X10*3/uL (160-400); Red Blood Count 3.45 X10*6/uL (4.60-5.80); Red Cell Distribution Width 12.7 % (11.0-16.0); White Blood Count 17.6 X10*3/uL (4.8-10.8)
--- NOTE | 2020-12-26 10:14 | P.PNNP_ITS ---
Subjective Subjective Date of Service: 12/26/20 Interval history: Seen AM; Events noted. All recent data reviewed Physical Exam Vital Signs: Vital Signs: Last Vital Signs Temp 98.3 F 12/26/20 07:24 Pulse 76 12/26/20 07:24 Resp 18 12/26/20 07:24 BP 102/53 L 12/26/20 07:24 Pulse Ox 95 12/26/20 07:24 Body Mass Index 16.9 Const: General: no acute distress Neck: Neck: Yes supple Resp: Auscultation: diminished lung sounds Cardio: Jugular venous distension: no JVD GI: Palpation (GI): Soft to palpation Neuro: General: moves all extremities Objective Data Labs CBC & Chem 7: 12/26/20 09:02 12/26/20 05:44 Labs: Laboratory Results - last 24 hr 12/25/20 12/26/20 12/26/20 17:13 05:44 05:44 WBC RBC Hgb Hct MCV MCH MCHC RDW Plt Count MPV Absolute Nucleated RBC Nucleated RBC % (auto) Sodium 145 144 Potassium 4.0 Chloride 114 H Carbon Dioxide 24 Anion Gap 10 L BUN 20 H Creatinine 1.49 H Estim Creat Clear Calc 32.3 Estimated GFR 46 Random Glucose 101 Calcium 9.8 [place] 0.77 12/26/20 09:02 WBC 17.6 H RBC 3.45 L Hgb 11.6 L Hct 35.6 L MCV 103.2 H MCH 33.6 H MCHC 32.6 RDW 12.7 Plt Count 133 L MPV 10.3 Absolute Nucleated RBC 0.000 Nucleated RBC % (auto) 0.0 Sodium Potassium Chloride Carbon Dioxide Anion Gap BUN Creatinine Estim Creat Clear Calc Estimated GFR Random Glucose Calcium [place] Microbiology Microbiology Results: Microbiology 12/24/20 14:36 Blood - Venous Blood Culture - Preliminary No growth after 24 hours. 12/24/20 14:36 Blood - Venous Blood Culture - Preliminary No growth after 24 hours. Assessment & Plan Assessment and plan (1) CKD (chronic kidney disease) stage 3, GFR 30-59 ml/min: Problem details: ANA MARIA due to compromised kidney perfusion( resolving) elevated lithium level with initial confusion which is currently improving Has underlying CKD with baseline serum creatinine ~ 1.2-1.3 mg/dl no indication for emergent dialysis at the present time Continue rest of current supportive care. Shall closely follow up Status: Acute Time Spent With Patient Time: Total time spent is greater than 50% in coordination of care (as documented) at patient's floor/unit and/or counseling patient: Procedures Date of Service Date of Service: 12/26/20
--- NOTE | 2020-12-26 10:15 | MHC.CLN ---
F/U PT'S DIET ADVACNED TO 2GM NA GRD M/S RECOMMEND RE-STARTED ENSURE SUPPLEMENT TID SUPPLEMENT TO PROVIDE 1050KCALS, 60G PROTEIN MONITOR PO INTAKE CLOSELY FOLLOWING
--- NOTE | 2020-12-26 11:43 | MHC.SL.SWA ---
Speech Pathologist Impression: Risk of Aspiration Oral Phase Dysphagia Risk of Aspiration Due to: Poor PO Intake Dysphasia Diet Status: No Change Liquid Consistency and Strategies for Safe Swallow: Liquid Intake Recommendation: Thin Liquid Intake Strategies: Small Sips Solid Food Consistency: Dietary Recommendations: Grnd/Mech Altered (NDD2) Additional Modifications to Solid Foods: Moisten solids in sauce or gravy for ease of mastication. Oral Medication Intake: Crushed with Puree Compensatory Strategies and Precautions to be Taken for Safe Swallow: Sitting Upright (90 deg) Small Bites and Sips Alternate Liquids/Solids Rate of Ingestion Change Supervision While Eating and Drinking for Safe Swallow: Total Supervision (1:1) Foods to Avoid: [employer]NA[employer] to continue to follow. Swallowing Recommended Treatments: Compens. Strategy Educat. Recommendation for Speech: Inpatient Speech Therapy Comment: MA[employer] will continue to follow during hospitalization as appropriate. Principal Mechanical Engineer Clinican/Clinical Fellow: No Supervisory Statement: I have reviewed and agree with the student/clinical fellow's documentation: N/A Speech Language Pathologist: Kaitlynn Dacosta M.A., CCC-[employer]
--- NOTE | 2020-12-26 15:18 | P.CNPS_ITS ---
History of Present Illness Date of Service: t Chief Complaint: AMS Discussed with referring provider: No Sources of Information: patient interviewed and chart reviewed HPI Narrative: The patient was assessed before 2 days ago. Now, he is awake but still unable to pay attention and concentrate. Now he is verbal and he is able to follow simple commands. His Bodfish level is now on a therapeutic range. Past Psychiatric History: Unknown besides the previous diagnosis of bipolar. Apparently, he was stable on Bodfish for over 30 years. Medical Evaluation Reviewed: Yes [facility] Medical History (Updated 12/26/20 @ 10:15 by Chin Conley MD) Bipolar disorder Hypothyroidism Family History: Unknown Social History: As per chart, he is but I couldn't contact his . Trauma History: Unknown Diagnostics Vital Signs (24Hr): Vital Signs - 24 hr 12/25/20 19:01 12/25/20 20:51 12/25/20 23:49 Temperature 98.9 F 98.4 F Pulse Rate 69 69 69 Respiratory Rate 17 18 Blood Pressure 101/50 L 101/50 L 107/51 L Pulse Oximetry 97 95 12/26/20 03:27 12/26/20 07:24 12/26/20 11:01 Temperature 99.2 F 98.3 F 98.9 F Pulse Rate 70 76 68 Respiratory Rate 20 18 18 Blood Pressure 142/58 H 102/53 L 110/50 L Pulse Oximetry 97 95 100 12/26/20 15:10 Temperature 99.6 F Pulse Rate 67 Respiratory Rate 18 Blood Pressure 107/53 L Pulse Oximetry 100 Body Mass Index 16.9 Labs Results: 12/26/20 09:02 12/26/20 05:44 Labs: Laboratory Results - last 48 hr 12/24/20 12/24/20 12/25/20 16:42 21:43 05:32 WBC RBC Hgb Hct MCV MCH MCHC RDW Plt Count MPV Absolute Nucleated RBC Nucleated RBC % (auto) Sodium 150 H 148 H 148 H Potassium 4.1 D 4.1 Chloride 122 H 120 H Carbon Dioxide 20 L 23 Anion Gap 10 L 9 L BUN 25 H 24 H Creatinine 1.79 H 1.67 H Estim Creat Clear Calc 26.9 28.8 Estimated GFR 37 40 Random Glucose 114 112 Calcium 10.1 9.9 [place] 12/25/20 12/26/20 12/26/20 17:13 05:44 05:44 WBC RBC Hgb Hct MCV MCH MCHC RDW Plt Count MPV Absolute Nucleated RBC Nucleated RBC % (auto) Sodium 145 144 Potassium 4.0 Chloride 114 H Carbon Dioxide 24 Anion Gap 10 L BUN 20 H Creatinine 1.49 H Estim Creat Clear Calc 32.3 Estimated GFR 46 Random Glucose 101 Calcium 9.8 [place] 0.77 12/26/20 09:02 WBC 17.6 H RBC 3.45 L Hgb 11.6 L Hct 35.6 L MCV 103.2 H MCH 33.6 H MCHC 32.6 RDW 12.7 Plt Count 133 L MPV 10.3 Absolute Nucleated RBC 0.000 Nucleated RBC % (auto) 0.0 Sodium Potassium Chloride Carbon Dioxide Anion Gap BUN Creatinine Estim Creat Clear Calc Estimated GFR Random Glucose Calcium [place] Imaging Radiology Impressions: ITS Impressions Head CT 12/21/20 00:00 IMPRESSION: No acute intracranial pathology. Chest X-Ray 12/21/20 23:23 IMPRESSION: No focal consolidation. Mental Status Exam Mental Status Exam Narrative: Elderly male, on hospital gowns, disheveled, oriented only on person, awake, disoriented. Cooperative and pleasant but confused. Speech is minimal, non spontaneous. Mood OK but affect is blunted, appropriated. Thought process concrete, thought content with poverty of content. Poor insight, judgment. Medications Medications Current Medications Generic Name Dose Route Start Last Admin Trade Name Freq PRN Reason Stop Dose Admin Acetaminophen 650 mg 12/21/20 23:25 Acetaminophen 325 Mg Tablet PO Q6H PRN Pain, Mild (Pain Scale 1-3) Atorvastatin Calcium 20 mg 12/22/20 09:00 12/26/20 07:24 Atorvastatin Calcium 20 Mg Tablet PO 20 mg DAILY MANNY Administration Doxazosin Mesylate 4 mg 12/23/20 21:00 12/25/20 20:51 Doxazosin Mesylate 2 Mg Tablet PO 4 mg BEDTIME MANNY Administration Protocol Sodium Chloride 3 ml 12/22/20 00:00 12/26/20 07:24 0.9 % Sodium Chloride Flush 3 Ml Syringe IVFLUSH Not Given QSHIFT MANNY Allergies Allergies Allergy/AdvReac Type Severity Reaction Status Date / Time tamsulosin [From FLOMAX] Allergy Unknown RASH Verified 12/21/20 21:19 Assessment & Plan Assessment & Plan (1) Altered mental status: Status: Acute Code(s): R41.82 - Altered mental status, unspecified Recommendations: The patietn has improved, now he is awake but not alert or able to answer, still on delirium, he was unable to remember his or SSN. Plan: Reasses in 3 days and perform a MOCA test (2) Bodfish toxicity: Status: Acute Code(s): T56.891A - Toxic effect of other metals, accidental (unintentional), initial encounter Greater than 50% of the session was spent on counseling and/or coordination of care
[2020-12-26] MEDS: 0.9 % Sodium Chloride Flush 3 ML SYRINGE IVFLUSH (15:57)
--- NOTE | 2020-12-26 16:38 | P.PNIM_ITS ---
Subjective Subjective Date of Service: 12/27/20 Interval History: Toxic metabolic encephalopathy, poor oral intake Review of Systems Toxic metabolic encephalopathy temple mental status slightly improving. Denies any pain, no fevers Physical Exam Vital Signs: Vital Signs: Last Vital Signs Temp 99.6 F 12/26/20 15:10 Pulse 67 12/26/20 15:10 Resp 18 12/26/20 15:10 BP 107/53 L 12/26/20 15:10 Pulse Ox 100 12/26/20 15:10 Body Mass Index 16.9 Physical exam: Constitutional: Seems come not in acute distress. Cvs: [id number], [id number] , no murmur res: clear to auscultation ,no rhonchii or wheezing abd: no rebound or guarding ,nt, bs present. ext pulses present , no cyanosis neuro: Oriented to his name, calm, know his son' name ,.coluld able to lift right and left hands upon commands Objective Data Current Medications Generic Name Dose Route Start Last Admin Trade Name Camposq PRN Reason Stop Dose Admin Acetaminophen 650 mg 12/21/20 23:25 Acetaminophen 325 Mg Tablet PO Q6H PRN Pain, Mild (Pain Scale 1-3) Atorvastatin Calcium 20 mg 12/22/20 09:00 12/26/20 07:24 Atorvastatin Calcium 20 Mg Tablet PO 20 mg DAILY MANNY Administration Doxazosin Mesylate 4 mg 12/23/20 21:00 12/25/20 20:51 Doxazosin Mesylate 2 Mg Tablet PO 4 mg BEDTIME MANNY Administration Protocol Sodium Chloride 3 ml 12/22/20 00:00 12/26/20 15:57 0.9 % Sodium Chloride Flush 3 Ml Syringe IVFLUSH 3 ml QSHIFT MANNY Administration Labs CBC & Chem 7: 12/26/20 09:02 12/27/20 05:15 Microbiology Microbiology Results: Microbiology 12/24/20 14:36 Blood - Venous Blood Culture - Preliminary No growth after 24 hours. 12/24/20 14:36 Blood - Venous Blood Culture - Preliminary No growth after 24 hours. Assessment and Plan (1) Urinary retention: Status: Acute Assessment and Plan: 75-year-old male with a past medical history of hypothyroidism, bipolar disorder on lithium presented to the hospital with a chief complaint of confusion. Attempted to call [facility] [phone] but number not in service 1.Hypernatremia. resolved , off fluids nephro followin 2.Elevated lithium levels. Hold [place] -Psych consult: continue sitter , reassessment daily. May need haldol if and severe agitation -Trend lithium levels ,Neuro checks -asp and sz precautions Diet advanced as per speech.. 3.Urinary retention. has zazueta seems clear urine urology followin 4.Metabolic encephalopathy likely from lithium toxicity . -Supportive care. -Head CT neg for acute abnormality menatl status seems improving 5.ANA MARIA on CKD. Likely from hypoperfusion, urinary retension: Seems improving -IV fluids -avoid nephrotoxins. 6.Leukocytosis:trending down, No fevers, UA and chest x-ray negative -question probably reactive to lithium, we will send blood cultures. If any new symptoms of fever then may need to add antibiotics. DVT prophylaxis SCD boots
--- NOTE | 2020-12-26 18:30 | PC.NURSE ---
Patient OOB to recliner for majority of the day. Patient able to feed self with supervision. Patient less confused today, able to recall that he wears dentures; able to answer questions more appropriately. 250 mL free water given every 4 hours as ordered.
[2020-12-26] MEDS: Doxazosin Mesylate 2 MG TABLET 4 MG PO (21:15)
[2020-12-27] MEDS: 0.9 % Sodium Chloride Flush 3 ML SYRINGE IVFLUSH ×2 (00:49→11:04)
[2020-12-27 04:00] VITALS: BP 118/68; PULSE 88; RESP 20; TEMP 37.3; O2SAT 98
[2020-12-27 06:57] LABS: Anion Gap 12 (12-20); Blood Urea Nitrogen 22 mg/dL (9-16); Calcium 9.6 mg/dL (8.4-10.2); Carbon Dioxide 24 mmol/L (22-29); Chloride 113 mmol/L (96-108); Creatinine Clr Calc Pharmacy 31.1; Estimated Glomerular Filt Rate 44; Glucose Random 87 mg/dL (60-115); Potassium 4.5 mmol/L (3.3-5.1); Sodium 144 mmol/L (135-145)
[2020-12-27 07:13] VITALS: BP 125/60; PULSE 77; RESP 20; TEMP 36.7; O2SAT 96
--- NOTE | 2020-12-27 09:35 | MHC.SL.SWA ---
Speech Pathologist Impression: Risk of Aspiration Oral Phase Dysphagia Risk of Aspiration Due to: Poor PO Intake Dysphasia Diet Status: No Change Liquid Consistency and Strategies for Safe Swallow: Liquid Intake Recommendation: Thin Liquid Intake Strategies: Small Sips Solid Food Consistency: Dietary Recommendations: Grnd/Mech Altered (NDD2) Additional Modifications to Solid Foods: Moisten solids in sauce or gravy for ease of mastication. Oral Medication Intake: Crushed with Puree Compensatory Strategies and Precautions to be Taken for Safe Swallow: Sitting Upright (90 deg) Small Bites and Sips Alternate Liquids/Solids Rate of Ingestion Change Supervision While Eating and Drinking for Safe Swallow: Total Supervision (1:1) Foods to Avoid: Tough or sticky foods Swallowing Recommended Treatments: Compens. Strategy Educat. Recommendation for Speech: Further ST intervention no longer warranted. Please re-refer if there are any changes or if BRIDAL SALES CONSULTANT can be of further assistance. Senior Operations Manager Clinican/Clinical Fellow: No Supervisory Statement: I have reviewed and agree with the student/clinical fellow's documentation: N/A Speech Language Pathologist: Kaitlynn Dacosta M.A., CCC-BRIDAL SALES CONSULTANT
[2020-12-27] MEDS: Atorvastatin Calcium 20 MG TABLET PO (11:03)
[2020-12-27] MEDS: Lactated Ringers 500 ML 50 ML IV (11:04)
[2020-12-27 11:22] VITALS: BP 109/55; PULSE 73; RESP 18; TEMP 37.2; O2SAT 97
--- NOTE | 2020-12-27 11:22 | MHC.CLN ---
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
--- NOTE | 2020-12-27 12:04 | MHC.CM.PN ---
per rounds pt will be here over the weekend dc plan rem[place] home ?pt needing a pt evalprior to dc
--- NOTE | 2020-12-27 12:49 | P.PNNP_ITS ---
Subjective Subjective Date of Service: 12/27/20 Interval history: Events noted. All recent data reviewed Physical Exam Vital Signs: Vital Signs: Last Vital Signs Temp 99.0 F 12/27/20 11:22 Pulse 73 12/27/20 11:22 Resp 18 12/27/20 11:22 BP 109/55 L 12/27/20 11:22 Pulse Ox 97 12/27/20 11:22 Body Mass Index 16.9 Const: General: no acute distress Neck: Neck: Yes supple Resp: Auscultation: diminished lung sounds Cardio: Jugular venous distension: no JVD GI: Palpation (GI): Soft to palpation Neuro: General: moves all extremities Objective Data Labs CBC & Chem 7: 12/26/20 09:02 12/27/20 05:15 Labs: Laboratory Results - last 24 hr 12/27/20 05:15 Sodium 144 Potassium 4.5 Chloride 113 H Carbon Dioxide 24 Anion Gap 12 BUN 22 H Creatinine 1.55 H Estim Creat Clear Calc 31.1 Estimated GFR 44 Random Glucose 87 Calcium 9.6 Microbiology Microbiology Results: Microbiology 12/24/20 14:36 Blood - Venous Blood Culture - Preliminary No growth after 48 hours. 12/24/20 14:36 Blood - Venous Blood Culture - Preliminary No growth after 48 hours. Assessment & Plan Assessment and plan (1) CKD (chronic kidney disease) stage 3, GFR 30-59 ml/min: Status: Acute Assessment and Plan: ANA MARIA due to compromised kidney perfusion( resolving) elevated lithium level with initial confusion which is currently improving Has underlying CKD with baseline serum creatinine ~ 1.2-1.3 mg/dl no indication for dialysis at the present time Continue rest of current supportive care. Shall closely follow up Time Spent With Patient Time: Total time spent is greater than 50% in coordination of care (as doc umented) at patient's floor/unit and/or counseling patient: Procedures Date of Service Date of Service: 12/27/20
[2020-12-27 15:18] VITALS: BP 108/55; PULSE 75; RESP 18; TEMP 37.6; O2SAT 99
--- NOTE | 2020-12-27 17:36 | P.PNIM_ITS ---
Subjective Subjective Date of Service: 12/27/20 Interval History: Toxic metabolic encephalopathy, ANA MARIA. Review of Systems Patient p.o. intake slowly improving, seems more awake slowly but still confused. Denies any pain but in slow response to answer question. Physical Exam Vital Signs: Vital Signs: Last Vital Signs Temp 99.6 F 12/27/20 15:18 Pulse 75 12/27/20 15:18 Resp 18 12/27/20 15:18 BP 108/55 L 12/27/20 15:18 Pulse Ox 99 12/27/20 15:18 Body Mass Index 16.9 physical exam: Constitutional: Seems come not in acute distress. Cvs: rrr, [id number] , no murmur res: clear to auscultation ,no rhonchii or wheezing abd: no rebound or guarding ,nt, bs present. ext pulses present , no cyanosis neuro: Oriented to his name, calm, know both sons name ,says daytime.coluld able to lift right and left hands upon commands Objective Data Current Medications Generic Name Dose Route Start Last Admin Trade Name Roselyn PRN Reason Stop Dose Admin Acetaminophen 650 mg 12/21/20 23:25 Acetaminophen 325 Mg Tablet PO Q6H PRN Pain, Mild (Pain Scale 1-3) Atorvastatin Calcium 20 mg 12/22/20 09:00 12/27/20 11:03 Atorvastatin Calcium 20 Mg Tablet PO 20 mg DAILY MANNY Administration Doxazosin Mesylate 4 mg 12/23/20 21:00 12/26/20 21:15 Doxazosin Mesylate 2 Mg Tablet PO 4 mg BEDTIME MANNY Administration Protocol Lactated Ringer's 500 mls @ 50 mls/hr 12/27/20 07:45 12/27/20 11:04 Lr IV 12/27/20 17:44 50 mls/hr .Q10H MANNY Administration Sodium Chloride 3 ml 12/22/20 00:00 12/27/20 17:01 0.9 % Sodium Chloride Flush 3 Ml Syringe IVFLUSH Not Given QSHIFT [facility] Labs CBC & Chem 7: 12/26/20 09:02 12/27/20 05:15 Microbiology Microbiology Results: Microbiology 12/24/20 14:36 Blood - Venous Blood Culture - Preliminary No growth after 48 hours. 12/24/20 14:36 Blood - Venous Blood Culture - Preliminary No growth after 48 hours. Assessment and Plan (1) Gross hematuria: Status: Acute (2) Urinary retention: Status: Acute (3) [place] toxicity: Status: Acute (4) Altered mental status: Status: Acute Assessment and Plan: 75-year-old male with a past medical history of hypothyroidism, bipolar disorder on lithium presented to the hospital with a chief complaint of confusion. Attempted to call [facility] [phone] but number not in service 1.Hypernatremia. resolved , off fluids nephro followin 2.Elevated lithium levels. Hold [place] -Psych consult: continue sitter , reassessment daily. May need haldol if and severe agitation -Trend lithium levels ,Neuro checks -asp and sz precautions Diet advanced as per speech.. 3.Urinary retention. has zazueta, Hematuria resolved. seems clear urine urology followin 4.Metabolic encephalopathy likely from lithium toxicity . -Supportive care. -Head CT neg for acute abnormality menatl status seems improving 5.ANA MARIA on CKD. Likely from hypoperfusion, urinary retension: Seems improving -IV fluids Gentle -avoid nephrotoxins. 6.Leukocytosis:trending down, No fevers, UA and chest x-ray negative -question probably reactive to lithium, we will send blood cultures. If any new symptoms of fever then may need to add antibiotics. DVT prophylaxis SCD boots
[2020-12-27 19:52] VITALS: BP 118/58; PULSE 74; RESP 17; TEMP 37.6; O2SAT 97
[2020-12-27] MEDS: Doxazosin Mesylate 2 MG TABLET 4 MG PO (22:41)
--- NOTE | 2020-12-27 22:57 | PC.NURSE ---
Suprapubic dressing saturated in blood and purulent drainage. Old dressing removed, sutures intact, scant amount of purulent drainage noted from the wound, surrounding skin cleanse with NS, and DSD placed. Suprapubic tube draining yellow urine. Will continue to monitor.
[2020-12-27 23:06] VITALS: BP 128/59; PULSE 72; RESP 18; TEMP 37.1; O2SAT 96
[2020-12-28 04:00] VITALS: BP 104/52; PULSE 82; RESP 18; TEMP 37.1; O2SAT 95
[2020-12-28] MEDS: Acetaminophen 325 MG TABLET 650 MG PO (05:47)
[2020-12-28 07:36] VITALS: BP 116/58; PULSE 68; RESP 20; TEMP 37.3; O2SAT 98
--- NOTE | 2020-12-28 08:17 | HO.PM.IMPN ---
Subjective Subjective Date of Service: 12/28/20 Interval History: Toxic metabolic encephalopathy Review of Systems Patient seems to be more awake and sitting, His responses are still slow but could able to tell his name, both office son's name and daytime Could able to tell no pain Physical Exam Vital Signs: Vital Signs: Last Vital Signs Temp 99.1 F 12/28/20 07:36 Pulse 68 12/28/20 07:36 Resp 20 12/28/20 07:36 BP 116/58 L 12/28/20 07:36 Pulse Ox 98 12/28/20 07:36 Body Mass Index 16.9 Constitutional: Seems come not in acute distress. Cvs: rrr, [id number] , no murmur res: clear to auscultation ,no rhonchii or wheezing abd: no rebound or guarding ,nt, bs present. ext pulses present , no cyanosis neuro: Oriented to his name, calm, know both sons name ,says daytime.coluld able to lift right and left hands upon commands Objective Data Current Medications Generic Name Dose Route Start Last Admin Trade Name Roselyn PRN Reason Stop Dose Admin Acetaminophen 650 mg 12/21/20 23:25 12/28/20 05:47 Acetaminophen 325 Mg Tablet PO 650 mg Q6H PRN Administration Pain, Mild (Pain Scale 1-3) Atorvastatin Calcium 20 mg 12/22/20 09:00 12/27/20 11:03 Atorvastatin Calcium 20 Mg Tablet PO 20 mg DAILY MANNY Administration Doxazosin Mesylate 4 mg 12/23/20 21:00 12/27/20 22:41 Doxazosin Mesylate 2 Mg Tablet PO 4 mg BEDTIME MANNY Administration Protocol Lactated Ringer's 1,000 mls @ 80 mls/hr 12/28/20 08:00 Lr IVCONT 12/28/20 20:29 .[id number] [facility] Sodium Chloride 3 ml 12/22/20 00:00 12/27/20 23:49 0.9 % Sodium Chloride Flush 3 Ml Syringe IVFLUSH Not Given QSHIFT [facility] Labs CBC & Chem 7: 12/26/20 09:02 12/27/20 05:15 Microbiology Microbiology Results: Microbiology 12/24/20 14:36 Blood - Venous Blood Culture - Preliminary No growth after 48 hours. 12/24/20 14:36 Blood - Venous Blood Culture - Preliminary No growth after 48 hours. Assessment and Plan (1) Urinary retention: Status: Acute (2) [place] toxicity: Status: Acute (3) Altered mental status: Status: Acute Assessment and Plan: 75-year-old male with a past medical history of hypothyroidism, bipolar disorder on lithium presented to the hospital with a chief complaint of confusion. Attempted to call [facility] [phone] but number not in service 1.Hypernatremia. resolved with hydration and improving oral inatke nephro followin 2.Elevated lithium levels. Hold [place] -Psych consult: continue sitter , reassessment daily. May need haldol if and severe agitation -Trend lithium levels ,Neuro checks -asp and sz precautions Diet advanced as per speech. 3.Urinary retention. has zazueta, Hematuria resolved. seems clear urine urology followin 4.Metabolic encephalopathy likely from lithium toxicity . -Supportive care. -Head CT neg for acute abnormality menatl status seems improving moniter bmp 5.ANA MARIA on CKD. Likely from hypoperfusion, urinary retension: Seems improving -IV fluids Gentle -avoid nephrotoxins. 6.Leukocytosis:trending down, No fevers, UA and chest x-ray negative -question probably reactive to lithium, we will send blood cultures. If any new symptoms of fever then may need to add antibiotics. moniter cbc
[2020-12-28] MEDS: Lactated Ringers 1,000 ML 80 ML IVCONT (08:33)
[2020-12-28] MEDS: 0.9 % Sodium Chloride Flush 3 ML SYRINGE IVFLUSH ×2 (08:33→20:42)
[2020-12-28] MEDS: Atorvastatin Calcium 20 MG TABLET PO (08:33)
[2020-12-28 12:00] VITALS: BP 104/54; PULSE 72; RESP 18; TEMP 36.6; O2SAT 99
[2020-12-28 15:14] VITALS: BP 127/58; PULSE 71; RESP 19; TEMP 36.5; O2SAT 98
--- NOTE | 2020-12-28 15:16 | PM.PNNEP ---
Subjective Subjective Date of Service: 12/28/20 Interval history: Fatigued. Poor PO intake. LR ongoing Cr stable BL near 1.3mg/dL. Physical Exam Vital Signs: Vital Signs: Last Vital Signs Temp 97.7 F 12/28/20 15:14 Pulse 71 12/28/20 15:14 Resp 19 12/28/20 15:14 BP 127/58 L 12/28/20 15:14 Pulse Ox 98 12/28/20 15:14 Body Mass Index 16.9 Const: General: no acute distress and confusion; No acute distress Orientation/consciousness: confusion Neck: Neck: Yes supple and Yes no JVD Resp: Auscultation: diminished lung sounds Cardio: Jugular venous distension: no JVD Rate: regular rate GI: Palpation (GI): Soft to palpation Neuro: General: moves all extremities and confusion Objective Data Labs CBC & Chem 7: 12/26/20 09:02 12/27/20 05:15 Microbiology Microbiology Results: Microbiology 12/24/20 14:36 Blood - Venous Blood Culture - Preliminary No growth after 48 hours. 12/24/20 14:36 Blood - Venous Blood Culture - Preliminary No growth after 48 hours. Assessment & Plan Assessment and plan (1) CKD (chronic kidney disease) stage 3, GFR 30-59 ml/min: Status: Acute Assessment and Plan: ANA MARIA on CKD 2/2 hypovolemia and [place] nephrotoxicity. Has underlying CKD with baseline serum creatinine ~ 1.2-1.3 mg/dl Continue supportive care with IVF. Time Spent With Patient Time: Total time spent is greater than 50% in coordination of care (as documented) at patient's floor/unit and/or counseling patient: Procedures Date of Service Date of Service: 12/28/20
--- NOTE | 2020-12-28 18:17 | PC.NURSE ---
Pt OOB with 2 assist to recliner for majority of the day. Patient able to recall some memories. Pt has better appetite, completing at least 50% of meals. Patient also drinking more fluids.
[2020-12-28 19:08] VITALS: BP 132/59; PULSE 74; RESP 19; TEMP 36.5; O2SAT 96
[2020-12-28] MEDS: Doxazosin Mesylate 2 MG TABLET 4 MG PO (20:42)
[2020-12-28 23:20] VITALS: BP 132/61; PULSE 72; RESP 18; TEMP 36.6; O2SAT 98
[2020-12-29] VITALS (7 sets, daily range): BP systolic 103–118; BP diastolic 49–64; PULSE 68–87; RESP 18–20; TEMP 36.3–37.1; O2SAT 95–98
[2020-12-29 05:35] LABS: Hematocrit 33.8 % (42-52); Hemoglobin 10.8 g/dl (14.0-18.0); Mean Corpuscular Hemoglobin 33.1 pg (27.0-33.0); Mean Corpuscular Volume 103.7 fL (80-98); Mean Platelet Volume 10.4 fL (9.4-12.4); Platelet Count 187 X10*3/uL (160-400); Red Blood Count 3.26 X10*6/uL (4.60-5.80); White Blood Count 11.1 X10*3/uL (4.8-10.8)
[2020-12-29 05:46] LABS: Anion Gap 10 (12-20); Blood Urea Nitrogen 23 mg/dL (9-16); Calcium 9.4 mg/dL (8.4-10.2); Carbon Dioxide 26 mmol/L (22-29); Chloride 112 mmol/L (96-108); Creatinine Clr Calc Pharmacy 38.2; Estimated Glomerular Filt Rate 55; Glucose Random 82 mg/dL (60-115); Potassium 4.1 mmol/L (3.3-5.1); Sodium 144 mmol/L (135-145)
[2020-12-29] MEDS: Atorvastatin Calcium 20 MG TABLET PO (09:42)
[2020-12-29] MEDS: 0.9 % Sodium Chloride Flush 3 ML SYRINGE IVFLUSH ×3 (09:43→21:32)
--- NOTE | 2020-12-29 14:39 | P.PNNP_ITS ---
Subjective Subjective Date of Service: 12/29/20 Interval history: No events Cr continues to improve Physical Exam Vital Signs: Vital Signs: Last Vital Signs Temp 98.2 F 12/29/20 10:52 Pulse 81 12/29/20 10:52 Resp 20 12/29/20 10:52 BP 110/55 L 12/29/20 10:52 Pulse Ox 95 12/29/20 10:52 Body Mass Index 16.9 Const: General: no acute distress and confusion; No acute distress Orientation/consciousness: confusion Neck: Neck: Yes supple and Yes no JVD Resp: Auscultation: diminished lung sounds Cardio: Jugular venous distension: no JVD Rate: regular rate GI: Palpation (GI): Soft to palpation Neuro: General: moves all extremities and confusion Objective Data Labs CBC & Chem 7: 12/29/20 04:09 12/29/20 04:09 Labs: Laboratory Results - last 24 hr 12/29/20 12/29/20 04:09 04:09 WBC 11.1 H RBC 3.26 L Hgb 10.8 L Hct 33.8 L MCV 103.7 H MCH 33.1 H MCHC 32.0 RDW 13.0 Plt Count 187 D MPV 10.4 Absolute Nucleated RBC 0.000 Nucleated RBC % (auto) 0.0 Sodium 144 Potassium 4.1 Chloride 112 H Carbon Dioxide 26 Anion Gap 10 L BUN 23 H Creatinine 1.26 Estim Creat Clear Calc 38.2 Estimated GFR 55 Random Glucose 82 Calcium 9.4 Microbiology Microbiology Results: Microbiology 12/24/20 14:36 Blood - Venous Blood Culture - Preliminary No growth after 48 hours. 12/24/20 14:36 Blood - Venous Blood Culture - Preliminary No growth after 48 hours. Assessment & Plan Assessment and plan (1) CKD (chronic kidney disease) stage 3, GFR 30-59 ml/min: Status: Acute Assessment and Plan: ANA MARIA on CKD 2/2 hypovolemia and [place] nephrotoxicity. ANA MARIA resolving based on todays labs. Has underlying CKD with baseline serum creatinine ~ 1.2-1.3 mg/dl avoid nephrotoxins now and continue conservative care. Time Spent With Patient Time: Total time spent is greater than 50% in coordination of care (as documented) at patient's floor/unit and/or counseling patient: Procedures Date of Service Date of Service: 12/29/20
--- NOTE | 2020-12-29 15:20 | P.PNIM_ITS ---
Subjective Subjective Date of Service: 12/29/20 Interval History: Patient awake alert answering questions appropriately offers no acute complaints, no acute issues overnight. 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 CVS no chest pain, no palpitation. Respiratory no cough no sob. Gastrointestinal no nausea no vomiting, no abdominal pain Physical Exam Vital Signs: Vital Signs: Last Vital Signs Temp 98.2 F 12/29/20 10:52 Pulse 81 12/29/20 10:52 Resp 20 12/29/20 10:52 BP 110/55 L 12/29/20 10:52 Pulse Ox 95 12/29/20 10:52 Body Mass Index 16.9 General no acute distress. Neck supple no JVD. CVS regular rate rhythm, Respiratory lungs clear to auscultation, no respiratory distress, no wheeze, no rhonchi. Gastrointestinal abdomen soft, nontender, bowel sounds audible Extremities no edema. Neuro nonfocal ,speech clear. Skin no rash, suprapubic catheter in place with clear urine Objective Data Current Medications Generic Name Dose Route Start Last Admin Trade Name Camposq PRN Reason Stop Dose Admin Acetaminophen 650 mg 12/21/20 23:25 12/28/20 05:47 Acetaminophen 325 Mg Tablet PO 650 mg Q6H PRN Administration Pain, Mild (Pain Scale 1-3) Atorvastatin Calcium 20 mg 12/22/20 09:00 12/29/20 09:42 Atorvastatin Calcium 20 Mg Tablet PO 20 mg DAILY MANNY Administration Doxazosin Mesylate 4 mg 12/23/20 21:00 12/28/20 20:42 Doxazosin Mesylate 2 Mg Tablet PO 4 mg BEDTIME [facility] Administration Protocol Sodium Chloride 3 ml 12/22/20 00:00 12/29/20 14:56 0.9 % Sodium Chloride Flush 3 Ml Syringe IVFLUSH 3 ml QSHIFT [facility] Administration Labs CBC & Chem 7: 12/29/20 04:09 12/29/20 04:09 Microbiology Microbiology Results: Microbiology 12/24/20 14:36 Blood - Venous Blood Culture - Preliminary No growth after 48 hours. 12/24/20 14:36 Blood - Venous Blood Culture - Preliminary No growth after 48 hours. Assessment and Plan (1) [place] toxicity: Status: Acute (2) Gross hematuria: Status: Acute (3) Urinary retention: Status: Acute (4) Urethral trauma: Status: Acute (5) Altered mental status: Status: Acute (6) Acute kidney injury: Status: Acute Assessment and Plan: 75-year-old male with a past medical history of hypothyroidism, bipolar disorder on lithium presented to the hospital with a chief complaint of confusion. 1.Hypernatremia. Likely due to poor by mouth intake improved with IV hydration 2. Acute metabolic encephalopathy due to lithium toxicity, CT head unremarkable Patient seems to be more awake alert, lithium level returned to baseline, continue to hold [place], will re-consult Psychiatry to discuss dose and when to resume lithium 3.Urinary retention. Patient had Jonas catheter placed with balloon in the prostate therefore noted to have hematuria due to trauma patient seen by urologist and a suprapubic catheter was placed since unable to pass Jonas catheter through urethra due to trauma and patient was noted to have 900 mL of urine and bladder, will discuss with Urology at a.m. regarding removal of suprapubic catheter, continue doxazosin. 4. Hyperlipidemia continue statins. 5.ANA MARIA on CKD stage III. Likely from hypoperfusion, urinary retention now Resolved 6.Leukocytosis:trending down, close to normal range, No fevers, UA and chest x- ray negative,question reactive to lithium, no further workup warranted. 7. DVT prophylaxis with compression therapy.
--- NOTE | 2020-12-29 18:07 | PC.NURSE ---
Patient OOB to recliner for majority of the day. Patient questioning the thing on my stomach ; educated patient re suprapubic catheter. Patient spoke to son on the phone today, told his son he is here because there's too much lithium in my body . Patient able to recall previous education, alert and oriented, follows instruction, and recalling memories. However, he is still confused stating I need to go to my car and Why are they going to pull my teeth? Patient easily redirectable. Aspiration precautions discontinued due to patient not coughing/having no issues swallowing, coherent. Patient back to bed around 1800.
[2020-12-29] MEDS: Doxazosin Mesylate 2 MG TABLET 4 MG PO (21:31)
[2020-12-30] VITALS (7 sets, daily range): BP systolic 106–129; BP diastolic 54–80; PULSE 71–79; RESP 18–20; TEMP 36.4–37.1; O2SAT 94–98
[2020-12-30] MEDS: 0.9 % Sodium Chloride Flush 3 ML SYRINGE IVFLUSH ×3 (09:37→20:46)
[2020-12-30] MEDS: Atorvastatin Calcium 20 MG TABLET PO (09:37)
--- NOTE | 2020-12-30 11:37 | PM.PNNEP ---
Subjective Subjective Date of Service: 12/30/20 Interval history: Events noted. All recent data reviewed Physical Exam Vital Signs: Vital Signs: Last Vital Signs Temp 97.8 F 12/30/20 11:26 Pulse 72 12/30/20 11:26 Resp 18 12/30/20 11:26 BP 124/80 12/30/20 11:26 Pulse Ox 98 12/30/20 11:26 Body Mass Index 16.9 Const: General: no acute distress Neck: Neck: Yes supple Resp: Auscultation: diminished lung sounds Cardio: Jugular venous distension: no JVD GI: Palpation (GI): Soft to palpation Neuro: General: moves all extremities Objective Data Labs CBC & Chem 7: 12/29/20 04:09 12/29/20 04:09 Microbiology Microbiology Results: Microbiology 12/24/20 14:36 Blood - Venous Blood Culture - Final No growth after 5 days. 12/24/20 14:36 Blood - Venous Blood Culture - Final No growth after 5 days. Assessment & Plan Assessment and plan (1) CKD (chronic kidney disease) stage 3, GFR 30-59 ml/min: Status: Acute Assessment and Plan: ANA MARIA on CKD 2/2 hypovolemia and [place] nephrotoxicity. ANA MARIA resolved Renal functions close to baseline. Has underlying CKD with baseline serum creatinine ~ 1.2-1.3 mg/dl Avoid nephrotoxins and continue supportive care. Time Spent With Patient Time: Total time spent is greater than 50% in coordination of care (as documented) at patient's floor/unit and/or counseling patient: Procedures Date of Service Date of Service: 12/30/20
--- NOTE | 2020-12-30 11:49 | MHC.CLN ---
F/U PO INTAKE 50% PER NSG DIET RX: 2GM NA GRD M/S-APPROPRIATE PHARMACY SERVICES REPRESENTATIVE FOLLOWING FOR APPROPRIATE DIET CONSISTENCY PT RECEIVING ENSURE SUPPLEMENT TID R/T POOR PO AND MALNUTRITION SUPPLEMENT TO PROVIDE 1050KCALS, 60G PROTEIN MONITOR PO INTAKE CLOSELY FOLLOWING
--- NOTE | 2020-12-30 15:13 | P.CNPS_ITS ---
History of Present Illness Date of Service: t Chief Complaint: AMS Reason for Consult: Assessment of mental status, recommendations for mood stabilizers Requesting physician: Adithya Solis Discussed with referring provider: Yes Sources of Information: patient interviewed and chart reviewed HPI Narrative: The patient was assessed at bedside. He looked more awake and alert, he was able to answer simple questions but still, he was still disoriented on time and place. He had also problems same simple commands. Medically, he looks much better but still on delirium. Past Psychiatric History: He carries the diagnosis of Bipolar disorder Apparently, he was stable on [place] for over 30 years. No prior psychiatric inpatient admissions as per the report of her children, followed mostly outpatient. 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 His children reported that he used to be independent, no ancillary services before this episode. Substance History: Denies Trauma History: Unknown Diagnostics Vital Signs (24Hr): Vital Signs - 24 hr 12/29/20 15:30 12/29/20 18:59 12/29/20 21:31 Temperature 98.5 F 98 F Pulse Rate 76 74 69 Respiratory Rate 18 18 Blood Pressure 116/58 L 110/64 118/56 L Pulse Oximetry 98 97 12/29/20 23:47 12/30/20 04:00 12/30/20 07:28 Temperature 98.3 F 97.6 F 98.3 F Pulse Rate 71 71 72 Respiratory Rate 18 20 18 Blood Pressure 111/56 L 115/56 L 122/61 Pulse Oximetry 96 97 96 12/30/20 11:26 12/30/20 15:06 Temperature 97.8 F 98.8 F Pulse Rate 72 72 Respiratory Rate 18 18 Blood Pressure 124/80 110/55 L Pulse Oximetry 98 95 Body Mass Index 16.9 Labs Results: 12/29/20 04:09 12/29/20 04:09 Labs: Laboratory Results - last 48 hr 12/29/20 12/29/20 04:09 04:09 WBC 11.1 H RBC 3.26 L Hgb 10.8 L Hct 33.8 L MCV 103.7 H MCH 33.1 H MCHC 32.0 RDW 13.0 Plt Count 187 D MPV 10.4 Absolute Nucleated RBC 0.000 Nucleated RBC % (auto) 0.0 Sodium 144 Potassium 4.1 Chloride 112 H Carbon Dioxide 26 Anion Gap 10 L BUN 23 H Creatinine 1.26 Estim Creat Clear Calc 38.2 Estimated GFR 55 Random Glucose 82 Calcium 9.4 Imaging Radiology Impressions: ITS Impressions Head CT 12/21/20 00:00 IMPRESSION: No acute intracranial pathology. Chest X-Ray 12/21/20 23:23 IMPRESSION: No focal consolidation. Mental Status Exam Mental Status Exam Narrative: On hospital gowns, looks disheveled, cooperative and pleasantly confused. Oriented only on person and situation. Speech is non-spontaneous. Mood OK , affect is blunted, Thought process concrete and circumstantial, thought of content with poverty of content. Insight impaired, judgment limited, impulse control fair. Medications Medications Current Medications Generic Name Dose Route Start Last Admin Trade Name Freq PRN Reason Stop Dose Admin Acetaminophen 650 mg 12/21/20 23:25 12/28/20 05:47 Acetaminophen 325 Mg Tablet PO 650 mg Q6H PRN Administration Pain, Mild (Pain Scale 1-3) Atorvastatin Calcium 20 mg 12/22/20 09:00 12/30/20 09:37 Atorvastatin Calcium 20 Mg Tablet PO 20 mg DAILY MANNY Administration Doxazosin Mesylate 4 mg 12/23/20 21:00 12/29/20 21:31 Doxazosin Mesylate 2 Mg Tablet PO 4 mg BEDTIME MANNY Administration Protocol Sodium Chloride 3 ml 12/22/20 00:00 12/30/20 09:37 0.9 % Sodium Chloride Flush 3 Ml Syringe IVFLUSH 3 ml QSHIFT MANNY Administration Allergies Allergies Allergy/AdvReac Type Severity Reaction Status Date / Time tamsulosin [From FLOMAX] Allergy Unknown RASH Verified 12/21/20 21:19 Assessment & Plan Assessment & Plan (1) Bipolar disorder: Status: Acute Code(s): F31.9 - Bipolar disorder, unspecified Recommendations: The patient is an elderly male with bipolar disoder, historically highly functional at baseline who was stable with [place] for more than 30 years. In the last 3 years, he had an admission at [facility] in October 2017 for [place] toxicity and recently in the last 6 months, one prior admission at [facility] and now at [facility] for the same problem. Currently, his mental status has improved but still on delirium. Recommendations: 1. Continue medical treatment of [place] toxicity. Even though, that [place] level is below the toxic range, the patient will be on delirium most likely for several days. 2. Hold [place]. At this moment, since he is still on delirium, we should not start any mood stabilizers yet. Most likely, according to the disposition, we will suggest a different mood stabilizer. 3. We will reassess tomorrow mental status and probably we will do a MOCA test if he has cleared enough. (2) [place] toxicity: Status: Acute Code(s): T56.891A - Toxic effect of other metals, accidental (unintentional), initial encounter Greater than 50% of the session was spent on counseling and/or coordination of care
--- NOTE | 2020-12-30 16:18 | HO.PM.IMPN ---
Subjective Subjective Date of Service: 12/30/20 Interval History: Patient awake and alert, aware of place, able to answer some questions appropriately but still disoriented on time, offers no acute complaints, unable to inform about urinary issues in the past. 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 CVS no chest pain, no palpitation. Respiratory no cough no sob. Gastrointestinal no nausea no vomiting, no abdominal pain Physical Exam Vital Signs: Vital Signs: Last Vital Signs Temp 98.8 F 12/30/20 15:06 Pulse 72 12/30/20 15:06 Resp 18 12/30/20 15:06 BP 110/55 L 12/30/20 15:06 Pulse Ox 95 12/30/20 15:06 Body Mass Index 16.9 General no acute distress. Neck supple no JVD. CVS regular rate rhythm, Respiratory lungs clear to auscultation, no respiratory distress, no wheeze, no rhonchi. Gastrointestinal abdomen soft, nontender, bowel sounds audible Extremities no edema. Neuro nonfocal ,speech clear. Skin no rash, suprapubic catheter in place with clear urine Psych poor insight Objective Data Current Medications Generic Name Dose Route Start Last Admin Trade Name Freq PRN Reason Stop Dose Admin Acetaminophen 650 mg 12/21/20 23:25 12/28/20 05:47 Acetaminophen 325 Mg Tablet PO 650 mg Q6H PRN Administration Pain, Mild (Pain Scale 1-3) Atorvastatin Calcium 20 mg 12/22/20 09:00 12/30/20 09:37 Atorvastatin Calcium 20 Mg Tablet PO 20 mg DAILY MANNY Administration Doxazosin Mesylate 4 mg 12/23/20 21:00 12/29/20 21:31 Doxazosin Mesylate 2 Mg Tablet PO 4 mg BEDTIME [facility] Administration Protocol Sodium Chloride 3 ml 12/22/20 00:00 12/30/20 15:22 0.9 % Sodium Chloride Flush 3 Ml Syringe IVFLUSH 3 ml QSHIFT [facility] Administration Labs CBC & Chem 7: 12/29/20 04:09 12/29/20 04:09 Microbiology Microbiology Results: Microbiology 12/24/20 14:36 Blood - Venous Blood Culture - Final No growth after 5 days. 12/24/20 14:36 Blood - Venous Blood Culture - Final No growth after 5 days. Assessment and Plan (1) [place] toxicity: Status: Acute (2) Bipolar disorder: Status: Acute (3) Urethral trauma: Status: Acute (4) CKD (chronic kidney disease) stage 3, GFR 30-59 ml/min: Status: Acute (5) Acute kidney injury: Status: Acute (6) Gross hematuria: Status: Acute Assessment and Plan: 75-year-old male with a past medical history of hypothyroidism, bipolar disorder on lithium presented to the hospital with a chief complaint of confusion. 1.Hypernatremia. Likely due to poor by mouth intake improved with IV hydration 2. Acute metabolic encephalopathy due to lithium toxicity, CT head unremarkable Patient seems to be more awake alert, lithium level returned to baseline, continue to hold [place], patient re-evaluated by Psychiatry they found patient to be delirious Due to recurrent episode of lithium toxicity patient is not a candidate to be placed back on [place] patient will be reassessed by Psychiatry tomorrow. Continue supportive care . 3.Urinary retention. Patient had Jonas catheter placed with balloon in the prostate therefore noted to have hematuria due to trauma patient seen by urologist and a suprapubic catheter was placed since unable to pass Jonas catheter through urethra due to trauma , patient was noted to have 900 mL of urine in bladder, therefore suprapubic catheter was placed Case discussed with Dr. Breen he recommend to discharge patient with suprapubic catheter, and to have outpatient urology follow up, continue doxazosin. 4. Hyperlipidemia continue statins. 5.ANA MARIA on CKD stage III. Likely from hypoperfusion, urinary retention now Resolved 6.Leukocytosis:trending down, close to normal range, No fevers, UA and chest x-ray negative,question reactive to lithium, no further workup warranted. 7. DVT prophylaxis with compression therapy.
[2020-12-30] MEDS: Doxazosin Mesylate 2 MG TABLET 4 MG PO (20:42)
[2020-12-31 03:37] VITALS: BP 112/54; PULSE 73; RESP 18; TEMP 36.9; O2SAT 96
[2020-12-31 07:42] VITALS: BP 113/58; PULSE 73; RESP 18; TEMP 36.7; O2SAT 96
[2020-12-31] MEDS: Atorvastatin Calcium 20 MG TABLET PO (07:42)
[2020-12-31] MEDS: 0.9 % Sodium Chloride Flush 3 ML SYRINGE IVFLUSH ×3 (07:43→22:38)
[2020-12-31 11:29] VITALS: BP 105/52; PULSE 79; RESP 18; TEMP 37.2; O2SAT 99
[2020-12-31 15:07] VITALS: BP 114/57; PULSE 69; RESP 18; TEMP 36.8; O2SAT 96
--- NOTE | 2020-12-31 15:35 | MHC.CM.PN ---
called and spoke with pts son steve he is agreeable to refverral to be giiven to str in the area and to hvns ,imm updated
--- NOTE | 2020-12-31 15:36 | MHC.CM.PN ---
physical therapy continues to rercoemmend str
--- NOTE | 2020-12-31 15:37 | PM.PSYCN ---
History of Present Illness Date of Service: 12/31/20 Chief Complaint: AMS HPI Narrative: Met with patient at 9:00am today and then again at 2:45pm. In the AM visit, patient was sitting up in bed. He was A&OX3. coherent, able to explain that he fills his own med minder box. He says he takes lithium daily, and rotates it between 3 one day, and 2 every other day. (as noted in outpatient medication schedule, patient takes 600mg one day, alternated with 900mg every other day). He did express frustration at that time regarding the lithium toxicity, and stated he does not know how this could have happened. He says his sons live too far away to help him, with one in [place] and the other in [facility]. He reported that he has been stable on the lithium for over 25 years. He was vague at times, with some confusion. When asked where he was, he said he knew he was in the hospital, and it was related to his lithium. When asked what town he lived in, he said that he does not recall. When myself and Dr. Benz went to see him this afternoon, he appeared to be less alert and oriented. He was sitting up in chair at bedside. He did not recall me or our conversation from this morning. He was unable to answer most of our questions, although he was pleasant and cooperative. He did state that he hopes to go home soon. He did not respond when asked if he has ever been prescribed another medication for bipolar disorder rather than lithium, and did not appear to understand much of the encounter. Past Psychiatric History: He carries the diagnosis of Bipolar disorder Apparently, he was stable on [place] for over 30 years. No prior psychiatric inpatient admissions as per the report of her children, followed mostly outpatient. Patient appears to still experiencing a degree of delirium, with waxing and waning during the day. Also questioning whether there is a degree of cognitive impairment at baseline. A call was placed to Dr. Neff's office ([phone]) to discuss patient's care. Unfortunately, he is out of the office until Wednesday of this week. We were asked to call back at that time. Personal & Social History: Patient is retired, lives alone. Has two sons. Unclear as to whether he is , , or . Patient has been stable on lithium for 25+ years. Review of Systems Constitutional: Reports no additional constitutional complaints Eyes: Reports as per HPI Reports as per HPI and Reports Normal hearing present Cardiovascular: Reports as per HPI Respiratory: Reports as per HPI Gastrointestinal: Reports as per HPI Genitourinary: Reports as per HPI Musculoskeletal: Reports as per HPI Skin/Breast: Reports as per HPI Reports Normal hearing present, Reports confusion and Reports memory loss Psychiatric: Reports confusion and Reports memory loss Endocrine: Reports no additional endocrine complaints Allergic/Immunologic: Reports as per HPI [facility] Medical History (Updated 12/30/20 @ 15:20 by Hamilton Benz) Bipolar disorder Hypothyroidism Family History: Unknown Social History: 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 His children reported that he used to be independent, no ancillary services before this episode. Trauma History: Unknown Diagnostics Vital Signs (24Hr): Vital Signs - 24 hr 12/30/20 19:12 12/30/20 20:42 12/30/20 23:21 Temperature 98.6 F 98.4 F Pulse Rate 79 73 71 Respiratory Rate 18 18 Blood Pressure 106/54 L 114/57 L 129/60 Pulse Oximetry 94 96 12/31/20 03:37 12/31/20 07:42 12/31/20 11:29 Temperature 98.4 F 98.1 F 99.0 F Pulse Rate 73 73 79 Respiratory Rate 18 18 18 Blood Pressure 112/54 L 113/58 L 105/52 L Pulse Oximetry 96 96 99 12/31/20 15:07 Temperature 98.2 F Pulse Rate 69 Respiratory Rate 18 Blood Pressure 114/57 L Pulse Oximetry 96 Body Mass Index 16.9 Labs Results: 12/29/20 04:09 12/29/20 04:09 Imaging Radiology Impressions: ITS Impressions Head CT 12/21/20 00:00 IMPRESSION: No acute intracranial pathology. Chest X-Ray 12/21/20 23:23 IMPRESSION: No focal consolidation. Mental Status Exam Mental Status Exam Narrative: Patient sitting up in chair at bedside. Slightly dishevelled, otherwise appropriate appearance. Some thought blocking noted at times, some confusion. Blunted affect. Patient Appearance: Appropriate Patient Orientation: Person and Place Level of Consciousness: Awake and Disoriented Patient Behavior: Appropriate, Cooperative, Confused and Good Eye Contact Behavior Comments: Less oriented in afternoon, less engagable in conversation than in am. Mood Description: Calm and Blunted Affect Description: Calm and Blunted Patient Cognition Impaired: Yes Ability to Follow Directions: Fair Speech Pattern: Clear, Difficulty Finding Words, Coherent and Delayed Memory Description: Immediate Impaired and Recent Impaired Hallucinations: None Delusions: Not Present Thought Process: Disoriented Thought Content: positive for Disoriented, positive for [place] and positive for Slowed Thinking Judgement: Poor Judgement and Insight: Judgment and insight limited, as patient is not yet fully alert and oriented, although improving daily. However, patient has had multiple hospitalizations over past several years for lithium toxicity. Medications Medications Current Medications Generic Name Dose Route Start Last Admin Trade Name Freq PRN Reason Stop Dose Admin Acetaminophen 650 mg 12/21/20 23:25 12/28/20 05:47 Acetaminophen 325 Mg Tablet PO 650 mg Q6H PRN Administration Pain, Mild (Pain Scale 1-3) Atorvastatin Calcium 20 mg 12/22/20 09:00 12/31/20 07:42 Atorvastatin Calcium 20 Mg Tablet PO 20 mg DAILY MANNY Administration Doxazosin Mesylate 4 mg 12/23/20 21:00 12/30/20 20:42 Doxazosin Mesylate 2 Mg Tablet PO 4 mg BEDTIME MANNY Administration Protocol Sodium Chloride 3 ml 12/22/20 00:00 12/31/20 07:43 0.9 % Sodium Chloride Flush 3 Ml Syringe IVFLUSH 3 ml QSHIFT MANNY Administration Allergies Allergies Allergy/AdvReac Type Severity Reaction Status Date / Time tamsulosin [From FLOMAX] Allergy Unknown RASH Verified 12/21/20 21:19 Assessment & Plan Greater than 50% of the session was spent on counseling and/or coordination of care
--- NOTE | 2020-12-31 16:04 | P.PNIM_ITS ---
Subjective Subjective Date of Service: 01/02/21 <Mellissa Carmichaelodziej - Last Filed: 01/02/21 08:42> 12/31/20 <Adithya Solis MD - Last Filed: 12/31/20 16:14> Interval History: Patient awake alert this morning, wants teeth pulled out since the broken, but denies pain no sensation with cold, no difficulty in chewing, is aware he is at [facility], offers no other complaints no acute issues overnight. 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 CVS no chest pain, no palpitation. Respiratory no cough, no sob. Gastrointestinal no nausea no vomiting, no abdominal pain <Adithya Solis MD - Last Filed: 12/31/20 16:14> Physical Exam Vital Signs: Vital Signs: Last Vital Signs Temp 98.2 F 12/31/20 15:07 Pulse 69 12/31/20 15:07 Resp 18 12/31/20 15:07 BP 114/57 L 12/31/20 15:07 Pulse Ox 96 12/31/20 15:07 Body Mass Index 16.9 <Adithya Solis MD - Last Filed: 12/31/20 16:14> General no acute distress. Neck supple no JVD. CVS regular rate rhythm, Respiratory lungs clear to auscultation, no respiratory distress, no wheeze, no rhonchi. Gastrointestinal abdomen soft, nontender, bowel sounds audible Extremities no edema. Neuro nonfocal ,speech clear, aware of place and person. Skin no rash, suprapubic catheter in place with clear urine <Adithya Solis MD - Last Filed: 12/31/20 16:14> Objective Data Current Medications Generic Name Dose Route Start Last Admin Trade Name Freq PRN Reason Stop Dose Admin Acetaminophen 650 mg 12/21/20 23:25 12/28/20 05:47 Acetaminophen 325 Mg Tablet PO 650 mg Q6H PRN Administration Pain, Mild (Pain Scale 1-3) Atorvastatin Calcium 20 mg 12/22/20 09:00 12/31/20 07:42 Atorvastatin Calcium 20 Mg Tablet PO 20 mg DAILY MANNY Administration Doxazosin Mesylate 4 mg 12/23/20 21:00 12/30/20 20:42 Doxazosin Mesylate 2 Mg Tablet PO 4 mg BEDTIME MANNY Administration Protocol Sodium Chloride 3 ml 12/22/20 00:00 12/31/20 07:43 0.9 % Sodium Chloride Flush 3 Ml Syringe IVFLUSH 3 ml QSHIFT MANNY Administration <Adithya Solis MD - Last Filed: 12/31/20 16:14> Labs CBC & Chem 7: : 01/02/21 05:13 01/02/21 05:13 <Mellissairon Carej - Last Filed: 01/02/21 08:42> Microbiology Microbiology Results: Microbiology 12/24/20 14:36 Blood - Venous Blood Culture - Final No growth after 5 days. 12/24/20 14:36 Blood - Venous Blood Culture - Final No growth after 5 days. <Adithya Solis MD - Last Filed: 12/31/20 16:14> Assessment and Plan (1) [place] toxicity: Status: Acute <[facility] - Last Filed: 01/02/21 08:42> (2) Bipolar disorder: Status: Acute <[facility] - Last Filed: 01/02/21 08:42> (3) Altered mental status: Status: Acute <[facility] - Last Filed: 01/02/21 08:42> (4) Acute kidney injury: Status: Acute <[facility] - Last Filed: 01/02/21 08:42> (5) Urinary retention: Status: Acute <[facility] - Last Filed: 01/02/21 08:42> (6) Gross hematuria: Status: Acute <[facility] - Last Filed: 01/02/21 08:42> (7) Urethral trauma: Status: Acute <[facility] - Last Filed: 01/02/21 08:42> (8) CKD (chronic kidney disease) stage 3, GFR 30-59 ml/min: Status: Acute <[facility] - Last Filed: 01/02/21 08:42> Assessment and Plan: 75-year-old male with a past medical history of hypothyroidism, bipolar disorder on lithium presented to the hospital with a chief complaint of confusion. 1.Hypernatremia. Likely due to poor by mouth intake improved with IV hydration 2. Acute metabolic encephalopathy due to lithium toxicity, CT head unremarkable Patient awake, alert, lithium level returned to baseline, continue to hold [place] Due to recurrent episode of lithium toxicity patient is not a candidate to be placed back on [place] patient will be reassessed by Psychiatry for [place] test Continue supportive care . 3.Urinary retention. Patient had Jonas catheter placed with balloon in the prostate therefore noted to have hematuria due to trauma patient seen by urologist and a suprapubic catheter placed For bladder scan of 900 mL, since unable to pass Jonas catheter through urethra due to trauma. Case discussed with Dr. rBeen he recommend to discharge patient with suprapubic catheter, and to have outpatient urology follow up, continue doxazosin. 4. Hyperlipidemia continue statins. 5.ANA MARIA on CKD stage III. Likely from hypoperfusion, and urinary retention, now Resolved 6.Leukocytosis:close to normal range, No fevers, UA and chest x-ray negative,question reactive to lithium, no further workup warranted. 7. DVT prophylaxis with compression therapy. 8. Disposition will obtain PT eval. <Adithya Solis MD - Last Filed: 12/31/20 16:14>
[2020-12-31 19:16] VITALS: BP 124/59; PULSE 69; RESP 20; TEMP 37.3; O2SAT 97
[2020-12-31] MEDS: Doxazosin Mesylate 2 MG TABLET 4 MG PO (22:38)
[2020-12-31 23:45] VITALS: BP 93/47; PULSE 72; RESP 18; TEMP 36.2; O2SAT 96
[2021-01-01] VITALS (7 sets, daily range): BP systolic 95–134; BP diastolic 51–60; PULSE 71–95; RESP 16–19; TEMP 36.2–37.3; O2SAT 93–98; BMI 19.2
[2021-01-01] MEDS: 0.9 % Sodium Chloride Flush 3 ML SYRINGE IVFLUSH ×2 (07:59→16:16)
[2021-01-01] MEDS: Atorvastatin Calcium 20 MG TABLET PO (07:59)
--- NOTE | 2021-01-01 10:00 | MHC.CLN ---
F/U PO INTAKE IMPROVED TO 75-100% DIET RX: 2GM NA GRD M/S-APPROPRIATE PT RECEIVING ENSURE SUPPLEMENT TID R/T POOR PO AND MALNUTRITION SUPPLEMENT TO PROVIDE 1050KCALS, 60G PROTEIN MONITOR PO INTAKE CLOSELY OBTAIN CURRENT WT FOLLOWING
--- NOTE | 2021-01-01 12:14 | P.PNNP_ITS ---
Subjective Subjective Date of Service: 01/01/21 Interval history: Events noted. All recent data reviewed Physical Exam Vital Signs: Vital Signs: Last Vital Signs Temp 98.3 F 01/01/21 11:00 Pulse 71 01/01/21 11:00 Resp 16 01/01/21 11:00 BP 112/53 L 01/01/21 11:00 Pulse Ox 98 01/01/21 11:00 Body Mass Index 16.9 Const: General: no acute distress Neck: Neck: Yes supple Resp: Auscultation: diminished lung sounds Cardio: Jugular venous distension: no JVD GI: Palpation (GI): Soft to palpation Neuro: General: moves all extremities Objective Data Labs CBC & Chem 7: 12/29/20 04:09 12/29/20 04:09 Microbiology Microbiology Results: Microbiology 12/24/20 14:36 Blood - Venous Blood Culture - Final No growth after 5 days. 12/24/20 14:36 Blood - Venous Blood Culture - Final No growth after 5 days. Assessment & Plan Assessment and plan (1) CKD (chronic kidney disease) stage 3, GFR 30-59 ml/min: Status: Acute Assessment and Plan: ANA MARIA on CKD 2/2 hypovolemia and [place] nephrotoxicity. ANA MARIA resolved Renal functions close to baseline. Has underlying CKD with baseline serum creatinine ~ 1.2-1.3 mg/dl Avoid nephrotoxins and continue supportive care. Time Spent With Patient Time: Total time spent is greater than 50% in coordination of care (as documented) at patient's floor/unit and/or counseling patient: Procedures Date of Service Date of Service: 01/01/21
--- NOTE | 2021-01-01 15:25 | P.PNIM_ITS ---
Subjective Subjective Date of Service: 01/01/21 Interval History: awake alert offers no acute complaints, aware he is at [facility] [place], has poor by mouth intake. 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 CVS no chest pain, no palpitation. Respiratory no cough, no sob. Gastrointestinal no nausea no vomiting, no abdominal pain Physical Exam Vital Signs: Vital Signs: Last Vital Signs Temp 98.2 F 01/01/21 15:12 Pulse 76 01/01/21 15:12 Resp 19 01/01/21 15:12 BP 96/51 L 01/01/21 15:12 Pulse Ox 95 01/01/21 15:12 Body Mass Index 19.2 General no acute distress. Neck supple no JVD. CVS regular rate rhythm, Respiratory lungs clear to auscultation, no respiratory distress, no wheeze, no rhonchi. Gastrointestinal abdomen soft, nontender, bowel sounds audible Extremities no edema. Neuro nonfocal ,speech clear, aware of place and person. Skin no rash, suprapubic catheter in place with clear urine. Objective Data Current Medications Generic Name Dose Route Start Last Admin Trade Name Freq PRN Reason Stop Dose Admin Acetaminophen 650 mg 12/21/20 23:25 12/28/20 05:47 Acetaminophen 325 Mg Tablet PO 650 mg Q6H PRN Administration Pain, Mild (Pain Scale 1-3) Atorvastatin Calcium 20 mg 12/22/20 09:00 01/01/21 07:59 Atorvastatin Calcium 20 Mg Tablet PO 20 mg DAILY MANNY Administration Doxazosin Mesylate 4 mg 12/23/20 21:00 12/31/20 22:38 Doxazosin Mesylate 2 Mg Tablet PO 4 mg BEDTIME MANNY Administration Protocol Dextrose/Sodium Chloride 1,000 mls @ 100 mls/hr 01/01/21 15:30 D5ns IVCONT .Q10H MANNY Sodium Chloride 3 ml 12/22/20 00:00 01/01/21 07:59 0.9 % Sodium Chloride Flush 3 Ml Syringe IVFLUSH 3 ml QSHIFT MANNY Administration Labs CBC & Chem 7: 12/29/20 04:09 12/29/20 04:09 Microbiology Microbiology Results: Microbiology 12/24/20 14:36 Blood - Venous Blood Culture - Final No growth after 5 days. 12/24/20 14:36 Blood - Venous Blood Culture - Final No growth after 5 days. Assessment and Plan (1) [place] toxicity: Status: Acute (2) Bipolar disorder: Status: Acute (3) Acute kidney injury: Status: Acute (4) Gross hematuria: Status: Acute (5) Urinary retention: Status: Acute (6) Urethral trauma: Status: Acute (7) CKD (chronic kidney disease) stage 3, GFR 30-59 ml/min: Status: Acute Assessment and Plan: 75-year-old male with a past medical history of hypothyroidism, bipolar disorder on lithium presented to the hospital with a chief complaint of confusion. 1.Hypernatremia. Likely due to poor by mouth intake improved with IV hydration 2. Acute metabolic encephalopathy due to lithium toxicity No acute issues overnight, patient answering questions appropriately this a.m. Patient being followed by Psychiatry and noted to have persistent mild delirium, waxing and waning confusion more awake alert at a.m. confused later in the day Will be reassessed by Psychiatry today CT head unremarkable, lithium level returned to baseline, continue to hold [place] Due to recurrent episode of lithium toxicity patient is not a candidate to be placed back on [place] patient will be reassessed by Psychiatry for [place] test Continue supportive care . Patient noted to have low blood pressures likely due to decreased by mouth intake will give IV fluid follow BMP and cbc, no fever chills, normal oxygenation. 3.Urinary retention. Continue suprapubic catheter and outpatient follow-up with Urology continue doxazosin 4. Hyperlipidemia continue statins. 5.ANA MARIA on CKD stage III. Likely from hypoperfusion, and urinary retention, now Resolved 6.Leukocytosis:close to normal range, No fevers, UA and chest x-ray negative,question reactive to lithium, no further workup warranted. 7. DVT prophylaxis with compression therapy. 8. Disposition to rehab facility
[2021-01-01] MEDS: Dextrose 5 % and 0.9 % NaCl 1,000 ML 100 ML IVCONT (16:14)
--- NOTE | 2021-01-01 16:39 | MHC.CM.PN ---
pt accepted at [facility] who is waiting for hne krishna nettles wants psych to see pt again prior to dc ..family aware of possible dc
--- NOTE | 2021-01-01 16:41 | PC.NURSE ---
suprapubic tube : slough present around insertion site. DR Solis was notified, site cleansed with NS ,new dreassing applied
[2021-01-01] MEDS: Doxazosin Mesylate 2 MG TABLET 4 MG PO (20:17)
[2021-01-02] MEDS: Dextrose 5 % and 0.9 % NaCl 1,000 ML 100 ML IVCONT ×2 (02:07→12:24)
[2021-01-02 03:51] VITALS: BP 115/57; PULSE 71; RESP 18; TEMP 36.2; O2SAT 94
[2021-01-02] MEDS: Acetaminophen 325 MG TABLET 650 MG PO (06:05)
[2021-01-02 06:26] LABS: MANUAL DIFF FLAG NO
[2021-01-02 06:51] LABS: Basophils Absolute Auto 0.1 X10*3/uL (0.0-0.2); Basophils Percent Auto 0.5 % (0-2); Eosinophils Absolute Auto 0.5 X10*3/uL (0.0-0.4); Eosinophils Percent Auto 4.8 % (0-4); Hematocrit 36.1 % (42-52); Hemoglobin 11.1 g/dl (14.0-18.0); Imm Gran Abs Auto 0.07 X10*3/uL (0.00-0.03); Imm Gran Pct Auto 0.7 % (0.0-0.4); Lymphocytes Absolute Auto 1.6 X10*3/uL (1.2-4.9); Lymphocytes Percent Auto 15.1 % (20-40); Mean Corpuscular HGB Conc 30.7 g/dl (31.0-36.0); Mean Corpuscular Hemoglobin 32.8 pg (27.0-33.0); Mean Corpuscular Volume 106.8 fL (80-98); Monocytes Absolute Auto 0.8 X10*3/uL (0.1-1.2); Neutrophils Absolute Auto 7.4 X10*3/uL (2.0-8.3); Neutrophils Percent Auto 70.9 % (45-73); Platelet Count 311 X10*3/uL (160-400); Red Blood Count 3.38 X10*6/uL (4.60-5.80); White Blood Count 10.4 X10*3/uL (4.8-10.8)
[2021-01-02 07:01] LABS: Anion Gap 14 (12-20); Blood Urea Nitrogen 24 mg/dL (9-16); Calcium 9.1 mg/dL (8.4-10.2); Carbon Dioxide 26 mmol/L (22-29); Chloride 107 mmol/L (96-108); Creatinine Clr Calc Pharmacy 41.4; Estimated Glomerular Filt Rate 53; Glucose Random 86 mg/dL (60-115); Potassium 4.7 mmol/L (3.3-5.1); Sodium 142 mmol/L (135-145)
[2021-01-02 07:16] VITALS: BP 113/56; PULSE 67; RESP 18; TEMP 36.7; O2SAT 97
[2021-01-02] MEDS: Atorvastatin Calcium 20 MG TABLET PO (07:50)
[2021-01-02 10:59] VITALS: BP 117/53; PULSE 74; RESP 18; TEMP 36.8; O2SAT 96
--- NOTE | 2021-01-02 12:10 | PM.PNNEP ---
Subjective Subjective Date of Service: 01/02/21 Interval history: Events noted. All recent data reviewed Physical Exam Vital Signs: Vital Signs: Last Vital Signs Temp 98.2 F 01/02/21 10:59 Pulse 74 01/02/21 10:59 Resp 18 01/02/21 10:59 BP 117/53 L 01/02/21 10:59 Pulse Ox 96 01/02/21 10:59 Body Mass Index 19.2 Const: General: no acute distress Neck: Neck: Yes supple Resp: Auscultation: diminished lung sounds Cardio: Rate: regular rate GI: Palpation (GI): Soft to palpation Neuro: General: moves all extremities Objective Data Labs CBC & Chem 7: 01/02/21 05:13 01/02/21 05:13 Labs: Laboratory Results - last 24 hr 01/02/21 01/02/21 05:13 05:13 WBC 10.4 RBC 3.38 L Hgb 11.1 L Hct 36.1 L MCV 106.8 H MCH 32.8 MCHC 30.7 L RDW 13.0 Plt Count 311 D MPV 10.0 Immature Gran % (Auto) 0.7 H Neut % (Auto) 70.9 Lymph % (Auto) 15.1 L Saline % (Auto) 8.0 Eos % (Auto) 4.8 H Baso % (Auto) 0.5 Lymph # (Auto) 1.6 Saline # (Auto) 0.8 Eos # (Auto) 0.5 H Baso # (Auto) 0.1 Abs Immat Gran (auto) 0.07 H Absolute Neuts (auto) 7.4 Absolute Nucleated RBC 0.000 Nucleated RBC % (auto) 0.0 Sodium 142 Potassium 4.7 Chloride 107 Carbon Dioxide 26 Anion Gap 14 BUN 24 H Creatinine 1.32 Estim Creat Clear Calc 41.4 Estimated GFR 53 Random Glucose 86 Calcium 9.1 Microbiology Microbiology Results: Microbiology 12/24/20 14:36 Blood - Venous Blood Culture - Final No growth after 5 days. 12/24/20 14:36 Blood - Venous Blood Culture - Final No growth after 5 days. Assessment & Plan Assessment and plan (1) CKD (chronic kidney disease) stage 3, GFR 30-59 ml/min: Status: Acute Assessment and Plan: ANA MARIA on CKD 2/2 hypovolemia and [place] nephrotoxicity. ANA MARIA resolved Renal functions close to baseline. Has underlying CKD with baseline serum creatinine ~ 1.2-1.3 mg/dl Avoid nephrotoxins and continue supportive care. Time Spent With Patient Time: Total time spent is greater than 50% in coordination of care (as documented) at patient's floor/unit and/or counseling patient: Procedures Date of Service Date of Service: 01/02/21
--- NOTE | 2021-01-02 12:34 | MHC.CM.PN ---
Addendum entered by Dottie Hess 01/02/21 13:40: CM INFORMED [facility] RECEIVED AUTH FROM PTS INSURANCE COMPANY TO ADMIT HIM TO [facility]. PT CURRENTLY AWAITING PSYCH CONSULT. ONCE CLEARED HE WILL DC TO [facility] VIA BLS Original Note: CM MET WITH PT TO DISCUSS DC PLANS. PT REPORTS BEING AWARE HE IS GOING TO A FACILITY BUT THOUGHT HE COULD GO TO THE [facility]. CM EXPLAINED THE BARRIERS RE DC TO THE [facility] AND PT INDICATED SOME UNDERSTANDING. PT IS AWARE HE HAS BEEN OFFERED A BED AT [facility] PENDING INSURANCE AUTH. PT REPORTS BEING AGREEABLE TO THIS DC PLAN BUT REPORTS CONCERN ABOUT BEING ON THE CORRECT MEDICATIONS. PT IS AWARE THERE IS A PSYCHIATRIC CONSULT PENDING. PT WILL DC TO [facility] VIA BLS PENDING INSURANCE AUTH
--- NOTE | 2021-01-02 14:42 | HO.PSYCHPN ---
Subjective Subjective Date of Service: 01/02/21 Reason For Visit: AMS Medical Problems Affecting Mental Status: Yes Interim History: Patient more alert and oriented this morning. Appears to become less oriented in afternoon / evening. [place] toxicity symptoms greatly improved. Denies any symptoms. Review of Systems Acute medical concerns: Yes [place] toxicity. Appears to be improving. Medical Review of Systems: unchanged Review of Systems Review of Systems Yes all other systems are reviewed and are negative Mental Status Exam Mental Status Exam Narrative: Patient assessed both this AM and again this afternoon. A&OX 3 to 4 in am. Reported that he had moved furniture in to stay with his at [facility] within the past year, but that it did not work out . He states he is willing to go to SNF at this time. Patient Appearance: Appropriate Patient Orientation: Person, Place, Time and Situation Level of Consciousness: Awake and Appropriate Patient Behavior: Appropriate Mood Description: Calm and Appropriate Affect Description: Calm and Appropriate Ability to Follow Directions: Good Speech Pattern: Clear Memory Description: Remote Impaired Hallucinations: None Delusions: Not Present Thought Process: Goal Oriented and Linear Thought Content: positive for Intact Judgement: Fair Judgement and Insight: Judgment and insight good in AM, as patient discussed desire to remain on a mood stabilizer for his bipolar disorder. Demonstrates Cognitive decline in afternoon / evenings, as noted in chart. Diagnostics Vital Signs (24Hr): Vital Signs - 24 hr 01/01/21 15:12 01/01/21 19:00 01/01/21 20:17 Temperature 98.2 F 98.7 F Pulse Rate 76 79 72 Respiratory Rate 19 18 Blood Pressure 96/51 L 106/54 L 112/60 Pulse Oximetry 95 95 01/01/21 23:10 01/02/21 03:51 01/02/21 07:16 Temperature 99.2 F 97.1 F 98.0 F Pulse Rate 77 71 67 Respiratory Rate 18 18 18 Blood Pressure 134/60 115/57 L 113/56 L Pulse Oximetry 93 94 97 01/02/21 10:59 Temperature 98.2 F Pulse Rate 74 Respiratory Rate 18 Blood Pressure 117/53 L Pulse Oximetry 96 Body Mass Index 19.2 Labs Results: 01/02/21 05:13 01/02/21 05:13 Labs: Laboratory Results - last 48 hr 01/02/21 01/02/21 05:13 05:13 WBC 10.4 RBC 3.38 L Hgb 11.1 L Hct 36.1 L MCV 106.8 H MCH 32.8 MCHC 30.7 L RDW 13.0 Plt Count 311 D MPV 10.0 Immature Gran % (Auto) 0.7 H Neut % (Auto) 70.9 Lymph % (Auto) 15.1 L [place] % (Auto) 8.0 Eos % (Auto) 4.8 H Baso % (Auto) 0.5 Lymph # (Auto) 1.6 [place] # (Auto) 0.8 Eos # (Auto) 0.5 H Baso # (Auto) 0.1 Abs Immat Gran (auto) 0.07 H Absolute Neuts (auto) 7.4 Absolute Nucleated RBC 0.000 Nucleated RBC % (auto) 0.0 Sodium 142 Potassium 4.7 Chloride 107 Carbon Dioxide 26 Anion Gap 14 BUN 24 H Creatinine 1.32 Estim Creat Clear Calc 41.4 Estimated GFR 53 Random Glucose 86 Calcium 9.1 Imaging Radiology Impressions: ITS Impressions Head CT 12/21/20 00:00 IMPRESSION: No acute intracranial pathology. Chest X-Ray 12/21/20 23:23 IMPRESSION: No focal consolidation. Medications Medications Current Medications Generic Name Dose Route Start Last Admin Trade Name Freq PRN Reason Stop Dose Admin Acetaminophen 650 mg 12/21/20 23:25 01/02/21 06:05 Acetaminophen 325 Mg Tablet PO 650 mg Q6H PRN Administration Pain, Mild (Pain Scale 1-3) Atorvastatin Calcium 20 mg 12/22/20 09:00 01/02/21 07:50 Atorvastatin Calcium 20 Mg Tablet PO 20 mg DAILY MANNY Administration Divalproex Sodium 125 mg 01/02/21 21:00 Divalproex Sodium Sprinkles 125 Mg Cap.DrDeweySpr PO BID MANNY Doxazosin Mesylate 4 mg 12/23/20 21:00 01/01/21 20:17 Doxazosin Mesylate 2 Mg Tablet PO 4 mg BEDTIME MANNY Administration Protocol Dextrose/Sodium Chloride 1,000 mls @ 100 mls/hr 01/01/21 15:30 01/02/21 12:24 D5ns IVCONT 100 mls/hr .Q10H MANNY Administration Sodium Chloride 3 ml 12/22/20 00:00 01/02/21 07:52 0.9 % Sodium Chloride Flush 3 Ml Syringe IVFLUSH Not Given QSHIFT MANNY Allergies Allergies Allergy/AdvReac Type Severity Reaction Status Date / Time tamsulosin [From FLOMAX] Allergy Unknown RASH Verified 12/21/20 21:19 Assessment & Plan Assessment & Plan (1) CKD (chronic kidney disease) stage 3, GFR 30-59 ml/min: Status: Acute Code(s): N18.30 - Chronic kidney disease, stage 3 unspecified Assessment and Plan: Patient was A&OX3 to 4 this am, and stated that he was concerned regarding treatment of his bipolar disorder. He stated that he understood the rationale to not resume lithium, and stated that he does not want to cause any further damage to his kidney function. However, he also says that he has been extremely stable for some 25 plus years on lithium, and wishes to remain on a mood stabilizer. He does not recall trying any other medications for bipolar in the past, and states that it has been so long . RECOMMENDATIONS: Due to 3 episodes of lithium toxicity over past several years, patient should not be reinitiated on lithium therapy going forward. Add depakote 125mg twice daily, start tonight. Patient will require referral for psych follow-up from rehab, as the depakote will require LFT and serum level monitoring, and possible titration. This has been communicated to Dr. Adithya Solis, via secure messaging. Thank you for this consultation. Psychiatry service will sign-off on this patient's care at this time. If you have any further questions or concerns, please do not hesitate to contact us. Greater than 50% of the session was spent on counseling and/or coordination of care Reason for contiued inpatient stay Substantial Risk for: stable for discharge
--- NOTE | 2021-01-02 14:47 | P.DS_ITS ---
DS: Providers Provider Date of Service: 01/02/21 Date of admission: 12/22/20 02:13 Primary care physician: Unknown Physician Consults: 12/21/20 23:24 Consult to Nephrology Routine Consulting Provider: Chin Conley Reason for consultation: High lithium levels; ANA MARIA; 12/22/20 16:43 Consult to Urology Routine Consulting Provider: Lukasz Breen Reason for consultation: urinary retension, unable to insert zazueta cath Has provider been notified: No 12/23/20 08:00 Consult to Psychiatry Routine Consulting Provider: Libby Woods Reason for consultation: lithium tox, ? restart Has provider been notified: No 12/23/20 11:59 Consult to Psychiatry Routine Consulting Provider: Hamilton Benz Reason for consultation: [place] toxicity Has provider been notified: Yes DS: Diagnosis Discharge Diagnosis (1) CKD (chronic kidney disease) stage 3, GFR 30-59 ml/min: Status: Acute Problem details: ANA MARIA due to compromised kidney perfusion( resolving) elevated lithium level with initial confusion which is currently improving Has underlying CKD with baseline serum creatinine ~ 1.2-1.3 mg/dl no indication for emergent dialysis at the present time Continue rest of current supportive care. Shall closely follow up DS: Medications Discharge Medications Home Medications: Home Medications Medication Instructions Recorded Confirmed atorvastatin 1 tab PO DAILY 12/22/20 12/22/20 Previous Rx's Medication Instructions Recorded divalproex 125 mg PO BID #60 cap 01/02/21 doxazosin 4 mg PO BEDTIME #30 tab 01/02/21 DS: Summary Hospital Course Hospital Course: History of presenting illness Chief Complaint: Confusion 75-year-old male with a past medical history of hyperlipidemia, hypothyroidism, bipolar with a chief complaint of confusion. Patient is oriented times 1-2; most of the history obtained from the ER staff. Unable to reach the patient's son. Reportedly patient was noted to be naked and confused in his home by his neighbor; subsequently called the EMS and brought him to the ER for further evaluation. Patient denies any chest pain palpitations lightheadedness dizziness. Denies any fever chills cough. Patient is pleasantly confused. But oriented to self. Review of all other systems negative except mentioned above ER course: Per ER team patient noted to be confused, able to answer few questions fairly okay but intermittently confused mentioning that he has not eaten for 3 days. Lab showed Ana Maria and elevated lithium levels. Patient was given IV fluids. Discussed with poison Control who recommended serial blood chemistry, no indication for dialysis at this moment. Admitted for further management. Hospital course 75-year-old male with a past medical history of hypothyroidism, bipolar disorder on lithium presented to the hospital with a chief complaint of confusion and diagnosed to have hypernatremia And acute metabolic encephalopathy due to lithium toxicity patient treated with IV fluids lithium was held, patient became more awake alert initially was noted to be delirious but now seems to be close to his baseline patient was followed closely by Psychiatry and they are recommending Depakote 125 mg by mouth b.i.d. and continued outpatient psychiatric follow-up due to unsteady gait patient is being transferred to rehab facility,hypernatremia resolved. Urinary retention due to difficulty with placing Zazueta catheter patient was seen by urologist and had a suprapubic catheter placed continue doxazosin consult Dr. Breen for removal of suprapubic catheter,patient noted to have mild surrounding erythema and local pus at site of catheter, no fluctuation, no tenderness,apply bacitracin ointment bid. Hyperlipidemia continue statins. ANA MARIA on CKD stage III. Likely from hypoperfusion, and urinary retention, Resolved. Leukocytosis: Normalized likely reactive no source of infection found with normal urinalysis and chest Xray. Time Spent with Patient Time attestation: Total time spent providing and/or coordinating discharge services: Discharge coordination time: Greater than 30 minutes Quality: Stroke Does the patient have a stroke diagnosis?: No Physical Exam Vital Signs: Vital Signs: Last Vital Signs Temp 98.2 F 01/02/21 10:59 Pulse 74 01/02/21 10:59 Resp 18 01/02/21 10:59 BP 117/53 L 01/02/21 10:59 Pulse Ox 96 01/02/21 10:59 Body Mass Index 19.2 General no acute distress. Neck supple no JVD. CVS regular rate rhythm, Respiratory lungs clear to auscultation, no respiratory distress, no wheeze, no rhonchi. Gastrointestinal abdomen soft, nontender, bowel sounds audible Extremities no edema. Neuro nonfocal ,speech clear, aware of place and person. Skin no rash, suprapubic catheter site with mild erythema ,small amount of pus,no drainage,no fluctuation,no tenderness, clear urine. DS: Data Data Completed and Pending Labs on day of discharge: Laboratory Results - last 24 hr 01/02/21 01/02/21 05:13 05:13 WBC 10.4 RBC 3.38 L Hgb 11.1 L Hct 36.1 L MCV 106.8 H MCH 32.8 MCHC 30.7 L RDW 13.0 Plt Count 311 D MPV 10.0 Immature Gran % (Auto) 0.7 H Neut % (Auto) 70.9 Lymph % (Auto) 15.1 L [place] % (Auto) 8.0 Eos % (Auto) 4.8 H Baso % (Auto) 0.5 Lymph # (Auto) 1.6 [place] # (Auto) 0.8 Eos # (Auto) 0.5 H Baso # (Auto) 0.1 Abs Immat Gran (auto) 0.07 H Absolute Neuts (auto) 7.4 Absolute Nucleated RBC 0.000 Nucleated RBC % (auto) 0.0 Sodium 142 Potassium 4.7 Chloride 107 Carbon Dioxide 26 Anion Gap 14 BUN 24 H Creatinine 1.32 Estim Creat Clear Calc 41.4 Estimated GFR 53 Random Glucose 86 Calcium 9.1 Discharge Plan Discharge Patient Disposition: Xfer [facility] Discharge Diagnosis: [place] toxicity Bipolar disorder Suprapubic catheter due to urinary retention Referrals: [facility] [Outside] - 1 Week Physician,Unknown [Primary Care Provider] - 1 Week Discharge Medications: New divalproex 125 mg Capsule, Delayed Rel Sprinkle 125 mg PO BID Qty: 60 RF: 0 doxazosin 2 mg Tablet 4 mg PO BEDTIME Qty: 30 RF: 0 Continued atorvastatin 20 mg tablet 1 tab PO DAILY RF: 0 Discontinued atorvastatin 20 mg tablet 1 tab PO DAILY RF: 0 lithium carbonate 300 mg capsule 20 mg PO DAILY RF: 0 Discharge Orders: Discharge Order (Routine); Ordered 01/02/21 Ordered By: Adithya Solis Diet: low fat, low cholesterol Activity on Discharge: As tolerated Stand Alone Forms: Patient Portal Discharge page Care Plan Goals: [place] toxicity, lithium has been discontinued patient placed on Depakote twice daily need outpatient follow-up with Psychiatry Suprapubic catheter placed due to urinary retention follow-up with Dr. Lukasz Breen for removal of catheter continue doxazosin Health Concerns: Bipolar disorder Hyper cholesterolemia Urinary retention Plan of Treatment: Outpatient follow-up with primary care physician, Psychiatry for continued monitoring of psychiatric issues and follow-up with Urology for removal of suprapubic catheter Assessment: as above.
[2021-01-02 15:18] VITALS: BP 131/61; PULSE 83; RESP 18; TEMP 36.4; O2SAT 97
[2021-01-02] MEDS: Bacitracin Oint 14 GM TUBE 1 APPL TOPICAL (15:47)
[2021-01-02] MEDS: 0.9 % Sodium Chloride Flush 3 ML SYRINGE IVFLUSH (15:48)
[2021-01-02 15:57] LABS: COVID-19 Test Negative (Negative); IDNOW Serial# 9DD0AD1C
== END 2021-01-02 22:23 | disposition skilled nursing facility (03) | DRG 92 ==
LOC: HO.ED 23:28 → HO.EDOVER 12-22 02:40 → HO.IMC 12-22 03:36
PROVIDERS: Internal Medicine; Nurse Practitioner Acute Care; Admitting Provider Hospitalist; Emergency Provider Emergency Medicine; Visit Provider Hospitalist
DX: G92 Toxic encephalopathy (principal); N17.9 Acute kidney failure, unspecified; E87.0 Hyperosmolality and hypernatremia; T83.83XA Hemorrhage due to genitourinary prosthetic devices, implants and grafts, initial encounter; E44.0 Moderate protein-calorie malnutrition; Z68.1 Body mass index [BMI] 19.9 or less, adult; F05 Delirium due to known physiological condition; E78.5 Hyperlipidemia, unspecified; F17.210 Nicotine dependence, cigarettes, uncomplicated; Z71.6 Tobacco abuse counseling; E03.9 Hypothyroidism, unspecified; T43.8X5A Adverse effect of other psychotropic drugs, initial encounter; F31.9 Bipolar disorder, unspecified; N18.30 Chronic kidney disease, stage 3 unspecified; R31.0 Gross hematuria; N14.1 Nephropathy induced by other drugs, medicaments and biological substances; Y92.9 Unspecified place or not applicable; D72.829 Elevated white blood cell count, unspecified; R33.9 Retention of urine, unspecified; Z91.14 Patient's other noncompliance with medication regimen; Z20.822 Contact with and (suspected) exposure to COVID-19; Z79.899 Other long term (current) drug therapy
CPT/HCPCS: 36415; 70450; 71045; 80048; 80076; 80178; 80307; 80320; 81001; 81003; 84295; 84443; 85025; 85027; 85610; 87040; 87635; 92610; 93005; 96360; 96361; 97116; 97162; 99222; 99232; 99284; 99285; C1758; J2060

== ENCOUNTER 2021-01-03 05:06 | Outpatient (REF) | payer MEDICARE, SELFPAY ==
[2021-01-03 05:15] LABS: Hematocrit 34.5 % (42-52); Hemoglobin 10.5 g/dl (14.0-18.0); Mean Corpuscular HGB Conc 30.4 g/dl (31.0-36.0); Mean Corpuscular Hemoglobin 33.1 pg (27.0-33.0); Mean Corpuscular Volume 108.8 fL (80-98); Mean Platelet Volume 9.6 fL (9.4-12.4); Platelet Count 299 X10*3/uL (160-400); Red Blood Count 3.17 X10*6/uL (4.60-5.80); Red Cell Distribution Width 12.9 % (11.0-16.0); White Blood Count 13.3 X10*3/uL (4.8-10.8)
[2021-01-03 05:46] LABS: Alanine Aminotransferase 35 U/L (0-40); Albumin Level 3.3 g/dL (3.5-5.0); Alkaline Phosphatase 75 U/L (39-117); Anion Gap 11 (12-20); Aspartate Amino Transferase 26 U/L (5-37); Blood Urea Nitrogen 24 mg/dL (9-16); Calcium 9.2 mg/dL (8.4-10.2); Chloride 107 mmol/L (96-108); Estimated Glomerular Filt Rate 51; Glucose Random 84 mg/dL (60-115); Potassium 4.2 mmol/L (3.3-5.1); Sodium 140 mmol/L (135-145); Total Protein 5.4 g/dL (6.5-8.0)
[2021-01-03 05:48] LABS: Bilirubin Total 0.3 mg/dL (0.0-1.0); Carbon Dioxide 26 mmol/L (22-29)
== END 2021-01-03 05:07 | disposition home or self-care (01) ==
LOC: HO.MMNH1L 05:06
PROVIDERS: Visit Provider Family Medicine
DX: N18.9 Chronic kidney disease, unspecified (principal)
CPT/HCPCS: 36415; 80053; 85027

== ENCOUNTER 2021-01-03 12:56 | Emergency (ER) | payer MEDICARE, SELFPAY ==
[2021-01-03 13:01] VITALS: BP 116/60; BP 120/60; PULSE 74; PULSE 91; RESP 18; TEMP 36.8; O2SAT 96; BMI 19.5
--- NOTE | 2021-01-03 13:11 | ED.MALEGU ---
HPI - Male Genitourinary General Chief complaint: Urogenital-Male Stated complaint: leaking cath Time Seen by Provider: 01/03/21 13:09 Source: patient and EMS Mode of arrival: EMS Limitations: no limitations History of Present Illness HPI Narrative: 75 y/o male with history of vascular dementia, bipolar disorder, hypothyroidism, CKD, urinary retention who recent admission here 12/21-01/02 with ANA MARIA, lithium toxicity, hypernatremia with acute encephalopathy. Zimmerman was stopped. Urology saw him during the admission with difficult Jonas catheter and ultimately a suprapubic catheter was placed by Dr. Breen. He presents back to the ER from [facility] with leakage around his catheter. He denies pain. He is a poor historian. On arrival he is complaining about the leaking. There are small blood clots in the proximal tube. No active leaking appreciated. MD Complaint: other (leaking suprapubic catheter) Onset (ago): day(s) Duration: intermittent Location: abdomen Context: indwelling catheter Associated symptoms: Reports blood in urine Related Data Sexually active: No Home Medications Medication Instructions Recorded Confirmed atorvastatin 1 tab PO DAILY 12/22/20 12/22/20 Previous Rx's Medication Instructions Recorded divalproex 125 mg PO BID #60 cap 01/02/21 doxazosin 4 mg PO BEDTIME #30 tab 01/02/21 levofloxacin 250 mg PO DAILY #3 tab 01/03/21 Allergies Allergy/AdvReac Type Severity Reaction Status Date / Time tamsulosin [From FLOMAX] Allergy Unknown RASH Verified 12/21/20 21:19 Review of Systems Review of Systems: Constitutional: No Fever, No Chills ENT/Mouth: No sore throat, No Rhinorrhea, No Swallowing Difficulty Cardiovascular: No Chest Pain, No SOB, No Orthopnea, No Edema Respiratory: No Cough, No Sputum, No Wheezing, No dyspnea Gastrointestinal: No Nausea, No Vomiting, No Diarrhea, No abdominal Pain Genitourinary: No Dysuria, No Urinary Frequency, + Hematuria, +Leakage of urine around SPC Musculoskeletal: No joint pain, No Myalgias Skin: No Skin Lesions, No rash Neuro: No Weakness, No Numbness, No Dizziness, No Headache Heme/Lymph: No Bruising, No Lymphadenopathy PMFSH Past Medical History Attestation statement: The following information was validated with the patient. Medical History Bipolar disorder Hypothyroidism Social History Social History Household Members: None Housing: House Alcohol intake: never Patient Tobacco Use Status: Former Tobacco user Cigarette Packs Per Day: 2 Cigarettes Per Day: 40.0 Use of substances other than those prescribed or required for medical reasons: No Advance Directives: Yes Advance Directives Information Provided: Yes Advance Directives on File: No Physical Exam Vital Signs: Vital Signs: Last Vital Signs Temp 98.6 F 01/03/21 16:44 Pulse 71 01/03/21 16:17 Resp 16 01/03/21 16:17 BP 102/54 L 01/03/21 16:17 Pulse Ox 96 01/03/21 16:17 Body Mass Index 19.5 Appearance: Alert. Oriented X2. No acute distress. Eyes: Pupils equal, round and reactive to light. ENT: Pharynx normal. Neck: Normal inspection. Neck supple. CVS: Normal heart rate and rhythm. Pulses normal. Respiratory: No respiratory distress. Breath sounds normal. Abdomen: Soft and nontender. Suprapubic catheter in place with small amount of moisture on the skin, dressing is dry. Urine in the proximal tubing has some small clots. no active leakage or urine Skin: Skin warm and dry. Normal skin color. Normal skin turgor. No rashes. Extremities: No lower extremity edema. Neuro: Oriented X 2, moving all 4 extremities, poro historian. Course Course Course Narrative: 75 yo male presenting from [facility] with leaking suprapubic catheter, recently placed here by Dr. Breen. Not actively leaking at this time. Small clots proximally. Will flush catheter and will have Dr. Breen come assess after he is finished in the office. Reevaluation(s) Reevaluation #1: Bladder scan showing >999 mL in the bladder. Suspect SPT is not in the correct location, not draining. Patient is not yelling out in pain but he has some suprapubic tenderness. Per hospitalist notes he was a very difficutly Ojnas placement. Awaiting Dr. Breen to come assess Reevaluation #2: Dr. Breen able to place Jonas. SPT removed. Rec f/u in 1 month in the urology office. Labs ok - stable for d/c home. Will give ppx levaquin to prevent infection. Consultations Consultation #1: Urology - Dr. Breen MDM - Male Genitourinary Lab Data Result diagrams: 01/03/21 16:41 01/03/21 16:41 Labs: Lab Results 01/03/21 01/03/21 Range/Units 16:41 16:41 WBC 13.7 H (4.8-10.8) X10*3/uL RBC 3.20 L (4.60-5.80) X10*6/uL Hgb 10.7 L (14.0-18.0) g/dl Hct 34.2 L (42-52) % MCV 106.9 H (80-98) fL MCH 33.4 H (27.0-33.0) pg MCHC 31.3 (31.0-36.0) g/dl RDW 13.2 (11.0-16.0) % Plt Count 297 (160-400) X10*3/uL MPV 9.3 L (9.4-12.4) fL Immature Gran % (Auto) 0.5 H (0.0-0.4) % Neut % (Auto) 80.7 H (45-73) % Lymph % (Auto) 9.1 L (20-40) % [place] % (Auto) 6.7 (2-11) % Eos % (Auto) 2.6 (0-4) % Baso % (Auto) 0.4 (0-2) % Lymph # (Auto) 1.3 (1.2-4.9) X10*3/uL [place] # (Auto) 0.9 (0.1-1.2) X10*3/uL Eos # (Auto) 0.4 (0.0-0.4) X10*3/uL Baso # (Auto) 0.1 (0.0-0.2) X10*3/uL Abs Immat Gran (auto) 0.07 H (0.00-0.03) X10*3/uL Absolute Neuts (auto) 11.0 H (2.0-8.3) X10*3/uL Absolute Nucleated RBC 0.000 (0.0-0.012) X10*3/uL Nucleated RBC % (auto) 0.0 (0.0-0.2) /100WBC Sodium 139 (135-145) mmol/L Potassium 4.4 (3.3-5.1) mmol/L Chloride 108 (96-108) mmol/L Carbon Dioxide 22 (22-29) mmol/L Anion Gap 13 (12-20) BUN 21 H (9-16) mg/dL Creatinine 1.20 (0.5-1.4) mg/dL Estim Creat Clear Calc 43.7 Estimated GFR 59 Random Glucose 85 (60-115) mg/dL Calcium 9.0 (8.4-10.2) mg/dL Critical Care Time Critical Care Time Critical Care Time: No Discharge Plan Discharge Clinical Impression: Suprapubic catheter dysfunction Qualifiers: Encounter type: initial encounter Qualified Code(s): T83.010A - Breakdown (mechanical) of cystostomy catheter, initial encounter Patient Disposition: Xfer [facility] Transfer Details: Miah Grimes Instructions: Jonas Catheter Placement and Care (ED) Additional Instructions: Suprapubic catheter was removed - keep covered with gauze. It will heal on it's own in 3 days. Jonas catheter was placed by Dr. Breen in the ER. Follow up with him in the office in 1 month. Recommend Levaquin 250 mg for 3 days to help prevent infection given manipulation today. Start tomorrow - 1st dose given in the ER. Prescriptions: New levofloxacin 250 mg tablet 250 mg PO DAILY Qty: 3 RF: 0 No Action atorvastatin 20 mg tablet 1 tab PO DAILY RF: 0 divalproex 125 mg Capsule, Delayed Rel Sprinkle 125 mg PO BID Qty: 60 RF: 0 doxazosin 2 mg Tablet 4 mg PO BEDTIME Qty: 30 RF: 0 Referrals: Lukasz Breen MD [Physician] - 02/03/21 (Pritesh, retention)
[2021-01-03 13:30] VITALS: BP 109/61; PULSE 69; RESP 18; TEMP 36.7; O2SAT 98
--- NOTE | 2021-01-03 14:58 | PC.NURSE ---
URINE LEAKAGE FROM SUPRAPUBIC CATH
[2021-01-03 16:17] VITALS: BP 102/54; PULSE 71; RESP 16; TEMP 36.8; O2SAT 96
[2021-01-03 16:44] VITALS: TEMP 37
[2021-01-03 16:49] LABS: MANUAL DIFF FLAG NO
[2021-01-03 16:50] LABS: Basophils Absolute Auto 0.1 X10*3/uL (0.0-0.2); Basophils Percent Auto 0.4 % (0-2); Eosinophils Absolute Auto 0.4 X10*3/uL (0.0-0.4); Eosinophils Percent Auto 2.6 % (0-4); Hematocrit 34.2 % (42-52); Hemoglobin 10.7 g/dl (14.0-18.0); Imm Gran Abs Auto 0.07 X10*3/uL (0.00-0.03); Imm Gran Pct Auto 0.5 % (0.0-0.4); Lymphocytes Absolute Auto 1.3 X10*3/uL (1.2-4.9); Lymphocytes Percent Auto 9.1 % (20-40); Mean Corpuscular HGB Conc 31.3 g/dl (31.0-36.0); Mean Corpuscular Hemoglobin 33.4 pg (27.0-33.0); Mean Corpuscular Volume 106.9 fL (80-98); Mean Platelet Volume 9.3 fL (9.4-12.4); Monocytes Absolute Auto 0.9 X10*3/uL (0.1-1.2); Monocytes Percent Auto 6.7 % (2-11); Neutrophils Percent Auto 80.7 % (45-73); Platelet Count 297 X10*3/uL (160-400); Red Cell Distribution Width 13.2 % (11.0-16.0); White Blood Count 13.7 X10*3/uL (4.8-10.8)
--- NOTE | 2021-01-03 17:13 | P.CNUR_ITS ---
History of Present Illness Consult details Consult date: 01/03/21 Narrative: Call to assess patient Suprapubic tube appears to have migrated and is no longer in bladder Bladder scan 900 cc Suprapubic tube was placed 2 weeks ago while he was admitted This was secondary to multiple prior attempts to place Jonas catheter Today attempt made to place wire down suprapubic Unable to place wire into bladder After penis was prepped gel was placed Wire was able to be placed into bladder [place] tip 16 [place] Jonas catheter was placed over the wire 10 cc balloon inflated Good efflux of urine Complicated Jonas catheter placement Review in office in 4 weeks [facility] Past Medical History Medical History Bipolar disorder Hypothyroidism Social History Social History Household Members: None Housing: House Alcohol intake: never Patient Tobacco Use Status: Former Tobacco user Cigarette Packs Per Day: 2 Cigarettes Per Day: 40.0 Use of substances other than those prescribed or required for medical reasons: No Advance Directives: Yes Advance Directives Information Provided: Yes Advance Directives on File: No Meds Allergies Allergy/AdvReac Type Severity Reaction Status Date / Time tamsulosin [From FLOMAX] Allergy Unknown RASH Verified 12/21/20 21:19 Home Medications Medication Instructions Recorded Confirmed Last Taken Type atorvastatin 1 tab PO DAILY 12/22/20 12/22/20 12/21/20 History Physical Exam Vital Signs: Vital Signs: Last Vital Signs Temp 98.6 F 01/03/21 16:44 Pulse 71 01/03/21 16:17 Resp 16 01/03/21 16:17 BP 102/54 L 01/03/21 16:17 Pulse Ox 96 01/03/21 16:17 Body Mass Index 19.5 Const: General: cooperative, healthy appearing, comfortable and no acute distress Nutritional Appearance: average body habitus Orientation/consciousness: oriented to person, oriented to place and oriented to time Eyes: General: appearance normal, both eyes and all related structures Chest: Chest palpation & inspection: normal inspection of the chest Resp: Effort & Inspection: normal respiratory effort Cardio: Rate: regular rate GI: Inspection: Yes normal to inspection Skin: Hair: normal Neuro: General: oriented to person, oriented to place and oriented to time Extrem: General: Yes normal to inspection Results Labs Result diagrams: 01/03/21 16:41 01/03/21 16:41 Labs: Abnormal lab results 01/03/21 Range/Units 16:41 WBC 13.7 H (4.8-10.8) X10*3/uL RBC 3.20 L (4.60-5.80) X10*6/uL Hgb 10.7 L (14.0-18.0) g/dl Hct 34.2 L (42-52) % MCV 106.9 H (80-98) fL MCH 33.4 H (27.0-33.0) pg MPV 9.3 L (9.4-12.4) fL Immature Gran % (Auto) 0.5 H (0.0-0.4) % Neut % (Auto) 80.7 H (45-73) % Lymph % (Auto) 9.1 L (20-40) % Abs Immat Gran (auto) 0.07 H (0.00-0.03) X10*3/uL Absolute Neuts (auto) 11.0 H (2.0-8.3) X10*3/uL Short CBC 01/03/21 Range/Units 16:41 WBC 13.7 H (4.8-10.8) X10*3/uL Hgb 10.7 L (14.0-18.0) g/dl Hct 34.2 L (42-52) % Plt Count 297 (160-400) X10*3/uL All other labs normal. Assessment and Plan (1) Encounter for care or replacement of suprapubic tube: Status: Acute Procedures Date of Service Date of Service: 01/03/21 Catheter Insertion (Urinary) Date of insertion: 01/03/21 Time of insertion: 17:16 Reason for placing: Acute urinary retention (Complicated Jonas catheter) Catheter balloon size (mL): 10 Results: successfully catheterized-immediate flow Additional comments: Complicated Jonas
[2021-01-03 17:22] LABS: Anion Gap 13 (12-20); Blood Urea Nitrogen 21 mg/dL (9-16); Carbon Dioxide 22 mmol/L (22-29); Chloride 108 mmol/L (96-108); Creatinine Clr Calc Pharmacy 43.7; Estimated Glomerular Filt Rate 59; Glucose Random 85 mg/dL (60-115); Potassium 4.4 mmol/L (3.3-5.1); Sodium 139 mmol/L (135-145)
--- NOTE | 2021-01-03 17:24 | PC.NURSE ---
payton jaramillo was present to remove suprapubic cath and place zazueta through penis with unsterile technique. Pt grimaced throughout but tolerated proceedure. Urine flowing in zazueta bag.
[2021-01-03] MEDS: levoFLOXacin 250 MG TABLET PO (18:24)
--- NOTE | 2021-01-03 18:49 | PC.NURSE ---
Rn to rn jossy Coulter at [facility]
== END 2021-01-03 18:49 | disposition skilled nursing facility (03) ==
PROVIDERS: Physician Assistant; Emergency Provider Emergency Medicine
DX: T83.010A Breakdown (mechanical) of cystostomy catheter, initial encounter (principal); X58.XXXA Exposure to other specified factors, initial encounter; F01.50 Vascular dementia, unspecified severity, without behavioral disturbance, psychotic disturbance, mood disturbance, and anxiety; F31.9 Bipolar disorder, unspecified
CPT/HCPCS: 36415; 51798; 80048; 85025; 99285

== ENCOUNTER 2021-01-07 | Outpatient (REF) | payer MEDICARE, SELFPAY ==
[2021-01-07 07:14] LABS: Hematocrit 34.6 % (42-52); Hemoglobin 10.6 g/dl (14.0-18.0); Mean Corpuscular HGB Conc 30.6 g/dl (31.0-36.0); Mean Corpuscular Hemoglobin 32.9 pg (27.0-33.0); Mean Corpuscular Volume 107.5 fL (80-98); Mean Platelet Volume 9.5 fL (9.4-12.4); Platelet Count 291 X10*3/uL (160-400); Red Blood Count 3.22 X10*6/uL (4.60-5.80); Red Cell Distribution Width 12.7 % (11.0-16.0); White Blood Count 6.3 X10*3/uL (4.8-10.8)
[2021-01-07 07:39] LABS: Anion Gap 11 (12-20); Blood Urea Nitrogen 16 mg/dL (9-16); Carbon Dioxide 29 mmol/L (22-29); Chloride 106 mmol/L (96-108); Estimated Glomerular Filt Rate 48; Glucose Random 70 mg/dL (60-115); Potassium 4.6 mmol/L (3.3-5.1); Sodium 141 mmol/L (135-145)
== END 2021-01-07 00:01 ==
LOC: HO.MMNH1L
PROVIDERS: Visit Provider Family Medicine
DX: N18.9 Chronic kidney disease, unspecified (principal)
CPT/HCPCS: 36415; 80048; 85027

== ENCOUNTER 2021-01-13 00:46 | Outpatient (REF) | payer MEDICARE, SELFPAY ==
[2021-01-13 07:40] LABS: Hematocrit 37.3 % (42-52); Hemoglobin 11.4 g/dl (14.0-18.0); Mean Corpuscular HGB Conc 30.6 g/dl (31.0-36.0); Mean Corpuscular Hemoglobin 32.9 pg (27.0-33.0); Mean Corpuscular Volume 107.5 fL (80-98); Mean Platelet Volume 9.9 fL (9.4-12.4); Platelet Count 203 X10*3/uL (160-400); Red Blood Count 3.47 X10*6/uL (4.60-5.80); Red Cell Distribution Width 12.9 % (11.0-16.0); White Blood Count 6.3 X10*3/uL (4.8-10.8)
[2021-01-13 08:28] LABS: Anion Gap 11 (12-20); Blood Urea Nitrogen 14 mg/dL (9-16); Calcium 9.1 mg/dL (8.4-10.2); Carbon Dioxide 28 mmol/L (22-29); Chloride 107 mmol/L (96-108); Estimated Glomerular Filt Rate 46; Glucose Random 65 mg/dL (60-115); Potassium 4.1 mmol/L (3.3-5.1); Sodium 142 mmol/L (135-145)
== END 2021-01-13 00:47 | disposition home or self-care (01) ==
LOC: HO.MMNH1L 00:46
PROVIDERS: Visit Provider Family Medicine
DX: N18.9 Chronic kidney disease, unspecified (principal)
CPT/HCPCS: 36415; 80048; 85027

== ENCOUNTER 2021-01-20 00:24 | Outpatient (REF) | payer MEDICARE, SELFPAY | END 2021-01-20 00:25 | disposition home or self-care (01) | LOC: HO.MMNH1L 00:24 | PROVIDERS: Visit Provider Family Medicine | DX: Z13.89 Encounter for screening for other disorder (principal) ==

== ENCOUNTER → 2021-02-07 08:34 | Outpatient (BNVA) | payer MEDICARE, SELFPAY | PROVIDERS: PCP Internal Medicine Endocrinology, Diabetes & Metabolism; Visit Provider Urology | DX: R31.0 Gross hematuria (principal); N32.0 Bladder-neck obstruction | CPT/HCPCS: 51700; 99202; 99212 ==

== ENCOUNTER 2021-02-12 17:16 | Emergency (ER) | payer MEDICARE, SELFPAY ==
--- NOTE | ~2021-02-12 | XR_ITS ---
EXAMINATION: XR CHEST CLINICAL INFORMATION: Weakness COMPARISON: Weakness TECHNIQUE: Frontal view of the chest was obtained. FINDINGS: The lungs are well expanded. Minimal patchy left mid and lower lung opacity. No pleural effusion or pneumothorax. The cardiomediastinal silhouette is normal in size, with a calcified aorta. XR/XR chest 1V IMPRESSION: Minimal patchy left mid and lower lung opacity could be infectious or inflammatory. Atelectasis possible.
--- NOTE | ~2021-02-12 | US_ITS ---
EXAMINATION: US VENOUS ULTRASOUND WITH DOPPLER LOWER EXTREMITY, BILATERAL CLINICAL INFORMATION: Swelling and pain COMPARISON: None TECHNIQUE: Ultrasound of the deep veins is performed from the hip to the calf with compression sonography and color and pulse Doppler assessment. Spectral analysis with color-flow imaging is performed. FINDINGS: RIGHT: There is normal venous compression and respiratory variation and augmented flow. The visualized common femoral vein, superficial femoral vein, profunda femoral vein, popliteal vein, and the trifurcation region shows no evidence of deep venous thrombosis. Color Doppler demonstrates normal vascular flow within the posterior tibial vein in the calf. The peroneal vein was not visualized. There is no significant popliteal fossa cyst. Subcutaneous edema in the calf. LEFT: There is normal venous compression and respiratory variation and augmented flow. The visualized common femoral vein, superficial femoral vein, profunda femoral vein, popliteal vein, and the trifurcation region shows no evidence of deep venous thrombosis. Color Doppler demonstrates normal vascular flow within the posterior tibial vein in the calf. The peroneal vein was not visualized. There is no significant popliteal fossa cyst. Subcutaneous edema in the calf. If the patient's symptoms persist, followup ultrasound in 5 days 7 days might be of value to exclude proximal propagation from a non-visualized calf vein. US/US venous duplex LE BI IMPRESSION: No DVT demonstrated in the bilateral lower extremity.
[2021-02-12 18:20] VITALS: BP 156/75; PULSE 68; RESP 18; TEMP 36.3; O2SAT 98; BMI 23.7
--- NOTE | 2021-02-12 19:21 | ECG_ITS ---
Test Reason : WEAKNSS Blood Pressure : / mmHG Vent. Rate : 078 BPM Atrial Rate : 078 BPM P-R Int : 208 ms QRS Dur : 106 ms QT Int : 424 ms P-R-T Axes : 059 039 060 degrees QTc Int : 483 ms Sinus rhythm with marked sinus arrhythmia Possible Left atrial enlargement Incomplete right bundle branch block Prolonged QT Abnormal ECG When compared with ECG of 21-DEC-2020 23:38, No significant changes seen Referred By: Naila Crandall Electronically Signed By:ANGIE ESCAMILLA
--- NOTE | 2021-02-12 19:35 | ED.GENADULT ---
HPI - General Adult General Chief complaint: General Medical Stated complaint: abnormal labs Time Seen by Provider: 02/12/21 19:19 Source: patient Mode of arrival: ambulatory Limitations: no limitations History of Present Illness HPI narrative: 75 y/o male with history of of CKD, bipolar disorder, hypothyroidism, HLD presents to the ED from home with reports of 1 week of increased in LE edema as well as fatigue. He reports pain and swelling in his bilateral lower legs which is new. He denies SOB or chest pain. He denies history of heart failure and is not on any diuretics. Upon review of documentation patient was admitted here in December for lithium toxicity and ANA MARIA. He was not discharged on lithium. He reports poor appetite, fatigue and losing a lot of weight lately. He denies fever, chills, N/V/D, abdominal pain or urinary symptoms. No LINDA. MD complaint: LE edema Onset (ago): week(s) (1) Location: lower extremity Radiation: non-radiation Severity: severe Severity scale (1-10): 7 Quality: aching Pain Consistency: intermittent Relieving factors: rest Exacerbating factors: movement Associated symptoms: malaise and weakness Treatments prior to arrival: none Related Data Home Medications Medication Instructions Recorded Confirmed atorvastatin 1 tab PO DAILY 12/22/20 12/22/20 clindamycin phosphate 1 % lotion TOPICAL BID 02/07/21 divalproex 125 mg tablet,delayed 0 mg PO 02/07/21 release doxazosin 4 mg tablet 4 mg PO DAILY 02/07/21 levothyroxine 125 mcg tablet 125 mcg PO DAILY 02/07/21 lithium carbonate 300 mg capsule 0 mg PO 02/07/21 minocycline 100 mg capsule 100 mg PO BID 02/07/21 propranolol 10 mg tablet 10 mg PO QAM 02/07/21 Previous Rx's Medication Instructions Recorded divalproex 125 mg PO BID #60 cap 01/02/21 doxazosin 4 mg PO BEDTIME #30 tab 01/02/21 levofloxacin 250 mg PO DAILY #3 tab 01/03/21 finasteride 5 mg tablet 5 mg PO DAILY 90 Days #90 tab 02/07/21 Allergies Allergy/AdvReac Type Severity Reaction Status Date / Time tamsulosin [From FLOMAX] Allergy Intermediate RASH Verified 02/12/21 18:20 Review of Systems Review of Systems: Constitutional: No Fever, No Chills ENT/Mouth: No sore throat, No Rhinorrhea, No Swallowing Difficulty Eyes: No Eye Pain, No Swelling, No Redness Cardiovascular: No Chest Pain, No SOB, No Orthopnea, + Edema Respiratory: No Cough, No Sputum, No Wheezing, No dyspnea Gastrointestinal: No Nausea, No Vomiting, No Diarrhea, No abdominal Pain, No Hematochezia, No Melena Genitourinary: No Dysuria, No Urinary Frequency, No Hematuria Musculoskeletal: No joint pain, No Myalgias Skin: No Skin Lesions, No rash Neuro: + Weakness, No Numbness, No Dizziness, No Headache Psych: No Anxiety/Panic, No Depression Heme/Lymph: No Bruising, No Lymphadenopathy Endocrine: No Polyuria, No Polydipsia PMFSH Past Medical History Attestation statement: The following information was validated with the patient. Medical History Acute kidney injury Altered mental status Bipolar disorder CKD (chronic kidney disease) stage 3, GFR 30-59 ml/min Encounter for care or replacement of suprapubic tube Gross hematuria Hypothyroidism Social History Social History Household Members: None Housing: House Alcohol intake: never Patient Tobacco Use Status: Former Tobacco user Cigarette Packs Per Day: 2 Cigarettes Per Day: 40.0 Advance Directives: No Advance Directives Information Provided: No Physical Exam Vital Signs: Vital Signs: Last Vital Signs Temp 97.8 F 02/12/21 21:59 Pulse 63 02/12/21 21:59 Resp 18 02/12/21 21:59 BP 134/59 L 02/12/21 21:59 Pulse Ox 97 02/12/21 21:59 Body Mass Index 23.7 Appearance: Alert. Oriented X3. No acute distress. Eyes: Pupils equal, round and reactive to light. ENT: Pharynx normal. Neck: Normal inspection. Neck supple. CVS: Normal heart rate and rhythm. Pulses normal. Respiratory: No respiratory distress. Breath sounds normal. Abdomen: Soft and nontender. +BS x4 Skin: Skin warm and dry. Normal skin color. Normal skin turgor. No rashes. Extremities: 3+ lower extremity edema, pitting, tender, mild bilateral erythema to anterior feet without warmth Neuro: Oriented X 3. No motor deficit. No sensory deficit. Course Course Course Narrative: 75 y/o male with history of CKD, bipolar disorder, hypothyrodisim and HLD presenting with fatigue and LE edema. No SOB or LINDA. No hx CHF. Hemodynamically stable and afebrile on arrival. He is AAO x3. Will get basic lab workup including BNP, TSH as well as LE dopplers to r/o DVT. Reevaluation(s) Reevaluation #1: Lab workup showing stable CKD, stable macrocytic anemia, mild thrombocytopenia. LE dopplers are negative for DVT. Ambulating in the ED without hypoxia or dyspnea. He wants to leave. Trying to get ahold of son in the waiting room. Reevaluation #2: TSH markedly elevated at 75 with T4 <0.40. He admits to not taking his synthroid because his doctor told him to stop because it may interact with a new medication he was prescribed. This was confirmed with patient's son Chase who reports Dr. Bailey started him on Depakote and stopped the syntrhoid with plan to recheck his blood work soon. Patient's mental status is intact, he is normothermic and hemodynamcially stable. He is not in myxedema coma at this time. We discussed the importance of taking his synthroid medication, however patient is adamantly refusing until he discussed it further with Dr. Bailey. The importance of this was discussed with his son as well. Patient is getting up and wanting to leave now, and will not accept any further medical advice. He agrees to call his PCP 1st thing in the morning to discuss results and restarting his medication. Lab results given to him upon discharge. Medical Decision Making Lab Data Result diagrams: 02/12/21 20:10 02/12/21 20:10 Labs: Lab Results 02/12/21 02/12/21 02/12/21 Range/Units 20:10 20:10 20:10 WBC 8.1 (4.8-10.8) X10*3/uL RBC 3.42 L (4.60-5.80) X10*6/uL Hgb 11.5 L (14.0-18.0) g/dl Hct 35.3 L (42-52) % MCV 103.2 H (80-98) fL MCH 33.6 H (27.0-33.0) pg MCHC 32.6 (31.0-36.0) g/dl RDW 13.7 (11.0-16.0) % Plt Count 157 L (160-400) X10*3/uL MPV 10.0 (9.4-12.4) fL Immature Gran % (Auto) 0.4 (0.0-0.4) % Neut % (Auto) 62.7 (45-73) % Lymph % (Auto) 17.5 L (20-40) % [place] % (Auto) 9.7 (2-11) % Eos % (Auto) 9.1 H (0-4) % Baso % (Auto) 0.6 (0-2) % Lymph # (Auto) 1.4 (1.2-4.9) X10*3/uL [place] # (Auto) 0.8 (0.1-1.2) X10*3/uL Eos # (Auto) 0.7 H (0.0-0.4) X10*3/uL Baso # (Auto) 0.1 (0.0-0.2) X10*3/uL Abs Immat Gran (auto) 0.03 (0.00-0.03) X10*3/uL Absolute Neuts (auto) 5.1 (2.0-8.3) X10*3/uL Absolute Nucleated RBC 0.000 (0.0-0.012) X10*3/uL Nucleated RBC % (auto) 0.0 (0.0-0.2) /100WBC Hold Blue Top Sodium 143 (135-145) mmol/L Potassium 4.2 (3.3-5.1) mmol/L Chloride 110 H (96-108) mmol/L Carbon Dioxide 22 (22-29) mmol/L Anion Gap 15 (12-20) BUN 37 H D (9-16) mg/dL Creatinine 1.49 H (0.5-1.4) mg/dL Estim Creat Clear Calc 41.5 Estimated GFR 46 Random Glucose 82 (60-115) mg/dL Calcium 10.0 D (8.4-10.2) mg/dL Magnesium 1.9 (1.6-2.6) mg/dL Total Bilirubin 0.5 (0.0-1.0) mg/dL Direct Bilirubin 0.2 (0.0-0.5) mg/dL AST 109 H (5-37) U/L ALT 44 H (0-40) U/L Alkaline Phosphatase 49 D (39-117) U/L Troponin I High Sens (<3.5-35.0) ng/L B-Natriuretic Peptide 27 (<100) pg/mL Total Protein 6.8 D (6.5-8.0) g/dL Albumin 4.0 D (3.5-5.0) g/dL TSH (0.32-4.0) uIU/mL Free T4 (0.71-1.85) ng/dL Urine Color Urine Appearance Urine pH (5.0-8.0) Ur Specific [place] (1.005-1.025) Urine Protein (NEG-TRACE) MG/DL Urine Glucose (UA) (NEG) MG/DL Urine Ketones (NEG) MG/DL Urine Blood (NEG) Urine Nitrite (NEG) Ur Leukocyte Esterase (NEG) Urine RBC (0) /HPF Urine WBC (0-4) /HPF Ur Squamous Epith Cells /LPF Urine Bacteria /LPF Urine Opiates Screen (Not Detect) Ur Barbiturates Screen (Not Detect) Ur Phencyclidine Scrn (Not Detect) Ur Amphetamines Screen (Not Detect) U Benzodiazepines Scrn (Not Detect) [place] (0.60-1.20) mmol/L Urine Cocaine Screen (Not Detect) U Marijuana (THC) Screen (Not Detect) Ethyl Alcohol mg/dL 02/12/21 02/12/21 02/12/21 Range/Units 20:10 20:10 20:10 WBC (4.8-10.8) X10*3/uL RBC (4.60-5.80) X10*6/uL Hgb (14.0-18.0) g/dl Hct (42-52) % MCV (80-98) fL MCH (27.0-33.0) pg MCHC (31.0-36.0) g/dl RDW (11.0-16.0) % Plt Count (160-400) X10*3/uL MPV (9.4-12.4) fL Immature Gran % (Auto) (0.0-0.4) % Neut % (Auto) (45-73) % Lymph % (Auto) (20-40) % [place] % (Auto) (2-11) % Eos % (Auto) (0-4) % Baso % (Auto) (0-2) % Lymph # (Auto) (1.2-4.9) X10*3/uL [place] # (Auto) (0.1-1.2) X10*3/uL Eos # (Auto) (0.0-0.4) X10*3/uL Baso # (Auto) (0.0-0.2) X10*3/uL Abs Immat Gran (auto) (0.00-0.03) X10*3/uL Absolute Neuts (auto) (2.0-8.3) X10*3/uL Absolute Nucleated RBC (0.0-0.012) X10*3/uL Nucleated RBC % (auto) (0.0-0.2) /100WBC Hold Blue Top SEE NOTE Sodium (135-145) mmol/L Potassium (3.3-5.1) mmol/L Chloride (96-108) mmol/L Carbon Dioxide (22-29) mmol/L Anion Gap (12-20) BUN (9-16) mg/dL Creatinine (0.5-1.4) mg/dL Estim Creat Clear Calc Estimated GFR Random Glucose (60-115) mg/dL Calcium (8.4-10.2) mg/dL Magnesium (1.6-2.6) mg/dL Total Bilirubin (0.0-1.0) mg/dL Direct Bilirubin (0.0-0.5) mg/dL AST (5-37) U/L ALT (0-40) U/L Alkaline Phosphatase (39-117) U/L Troponin I High Sens (<3.5-35.0) ng/L B-Natriuretic Peptide (<100) pg/mL Total Protein (6.5-8.0) g/dL Albumin (3.5-5.0) g/dL TSH (0.32-4.0) uIU/mL Free T4 (0.71-1.85) ng/dL Urine Color Urine Appearance Urine pH (5.0-8.0) Ur Specific [place] (1.005-1.025) Urine Protein (NEG-TRACE) MG/DL Urine Glucose (UA) (NEG) MG/DL Urine Ketones (NEG) MG/DL Urine Blood (NEG) Urine Nitrite (NEG) Ur Leukocyte Esterase (NEG) Urine RBC (0) /HPF Urine WBC (0-4) /HPF Ur Squamous Epith Cells /LPF Urine Bacteria /LPF Urine Opiates Screen (Not Detect) Ur Barbiturates Screen (Not Detect) Ur Phencyclidine Scrn (Not Detect) Ur Amphetamines Screen (Not Detect) U Benzodiazepines Scrn (Not Detect) [place] < 0.10 L (0.60-1.20) mmol/L Urine Cocaine Screen (Not Detect) U Marijuana (THC) Screen (Not Detect) Ethyl Alcohol < 10 mg/dL 02/12/21 02/12/21 02/12/21 Range/Units 20:10 20:10 21:47 WBC (4.8-10.8) X10*3/uL RBC (4.60-5.80) X10*6/uL Hgb (14.0-18.0) g/dl Hct (42-52) % MCV (80-98) fL MCH (27.0-33.0) pg MCHC (31.0-36.0) g/dl RDW (11.0-16.0) % Plt Count (160-400) X10*3/uL MPV (9.4-12.4) fL Immature Gran % (Auto) (0.0-0.4) % Neut % (Auto) (45-73) % Lymph % (Auto) (20-40) % [place] % (Auto) (2-11) % Eos % (Auto) (0-4) % Baso % (Auto) (0-2) % Lymph # (Auto) (1.2-4.9) X10*3/uL [place] # (Auto) (0.1-1.2) X10*3/uL Eos # (Auto) (0.0-0.4) X10*3/uL Baso # (Auto) (0.0-0.2) X10*3/uL Abs Immat Gran (auto) (0.00-0.03) X10*3/uL Absolute Neuts (auto) (2.0-8.3) X10*3/uL Absolute Nucleated RBC (0.0-0.012) X10*3/uL Nucleated RBC % (auto) (0.0-0.2) /100WBC Hold Blue Top Sodium (135-145) mmol/L Potassium (3.3-5.1) mmol/L Chloride (96-108) mmol/L Carbon Dioxide (22-29) mmol/L Anion Gap (12-20) BUN (9-16) mg/dL Creatinine (0.5-1.4) mg/dL Estim Creat Clear Calc Estimated GFR Random Glucose (60-115) mg/dL Calcium (8.4-10.2) mg/dL Magnesium (1.6-2.6) mg/dL Total Bilirubin (0.0-1.0) mg/dL Direct Bilirubin (0.0-0.5) mg/dL AST (5-37) U/L ALT (0-40) U/L Alkaline Phosphatase (39-117) U/L Troponin I High Sens 6.3 (<3.5-35.0) ng/L B-Natriuretic Peptide (<100) pg/mL Total Protein (6.5-8.0) g/dL Albumin (3.5-5.0) g/dL TSH 75.18 H (0.32-4.0) uIU/mL Free T4 < 0.40 L (0.71-1.85) ng/dL Urine Color YELLOW Urine Appearance CLEAR Urine pH 6.0 (5.0-8.0) Ur Specific [place] <= 1.005 (1.005-1.025) Urine Protein NEG (NEG-TRACE) MG/DL Urine Glucose (UA) NEG (NEG) MG/DL Urine Ketones NEG (NEG) MG/DL Urine Blood TRACE (NEG) Urine Nitrite NEG (NEG) Ur Leukocyte Esterase NEG (NEG) Urine RBC 1-4 (0) /HPF Urine WBC 0-2 (0-4) /HPF Ur Squamous Epith Cells TRACE /LPF Urine Bacteria NONE /LPF Urine Opiates Screen (Not Detect) Ur Barbiturates Screen (Not Detect) Ur Phencyclidine Scrn (Not Detect) Ur Amphetamines Screen (Not Detect) U Benzodiazepines Scrn (Not Detect) [place] (0.60-1.20) mmol/L Urine Cocaine Screen (Not Detect) U Marijuana (THC) Screen (Not Detect) Ethyl Alcohol mg/dL 02/12/21 Range/Units 21:47 WBC (4.8-10.8) X10*3/uL RBC (4.60-5.80) X10*6/uL Hgb (14.0-18.0) g/dl Hct (42-52) % MCV (80-98) fL MCH (27.0-33.0) pg MCHC (31.0-36.0) g/dl RDW (11.0-16.0) % Plt Count (160-400) X10*3/uL MPV (9.4-12.4) fL Immature Gran % (Auto) (0.0-0.4) % Neut % (Auto) (45-73) % Lymph % (Auto) (20-40) % [place] % (Auto) (2-11) % Eos % (Auto) (0-4) % Baso % (Auto) (0-2) % Lymph # (Auto) (1.2-4.9) X10*3/uL [place] # (Auto) (0.1-1.2) X10*3/uL Eos # (Auto) (0.0-0.4) X10*3/uL Baso # (Auto) (0.0-0.2) X10*3/uL Abs Immat Gran (auto) (0.00-0.03) X10*3/uL Absolute Neuts (auto) (2.0-8.3) X10*3/uL Absolute Nucleated RBC (0.0-0.012) X10*3/uL Nucleated RBC % (auto) (0.0-0.2) /100WBC Hold Blue Top Sodium (135-145) mmol/L Potassium (3.3-5.1) mmol/L Chloride (96-108) mmol/L Carbon Dioxide (22-29) mmol/L Anion Gap (12-20) BUN (9-16) mg/dL Creatinine (0.5-1.4) mg/dL Estim Creat Clear Calc Estimated GFR Random Glucose (60-115) mg/dL Calcium (8.4-10.2) mg/dL Magnesium (1.6-2.6) mg/dL Total Bilirubin (0.0-1.0) mg/dL Direct Bilirubin (0.0-0.5) mg/dL AST (5-37) U/L ALT (0-40) U/L Alkaline Phosphatase (39-117) U/L Troponin I High Sens (<3.5-35.0) ng/L B-Natriuretic Peptide (<100) pg/mL Total Protein (6.5-8.0) g/dL Albumin (3.5-5.0) g/dL TSH (0.32-4.0) uIU/mL Free T4 (0.71-1.85) ng/dL Urine Color Urine Appearance Urine pH (5.0-8.0) Ur Specific [place] (1.005-1.025) Urine Protein (NEG-TRACE) MG/DL Urine Glucose (UA) (NEG) MG/DL Urine Ketones (NEG) MG/DL Urine Blood (NEG) Urine Nitrite (NEG) Ur Leukocyte Esterase (NEG) Urine RBC (0) /HPF Urine WBC (0-4) /HPF Ur Squamous Epith Cells /LPF Urine Bacteria /LPF Urine Opiates Screen Not Detected (Not Detect) Ur Barbiturates Screen Not Detected (Not Detect) Ur Phencyclidine Scrn Not Detected (Not Detect) Ur Amphetamines Screen Not Detected (Not Detect) U Benzodiazepines Scrn Not Detected (Not Detect) [place] (0.60-1.20) mmol/L Urine Cocaine Screen Not Detected (Not Detect) U Marijuana (THC) Screen Not Detected (Not Detect) Ethyl Alcohol mg/dL Discharge Plan Discharge Clinical Impression: Hypothyroidism Qualifiers: Hypothyroidism type: unspecified Qualified Code(s): E03.9 - Hypothyroidism, unspecified Patient Disposition: Home, Self-Care Instructions: Hypothyroidism (ED) Additional Instructions: Your TSH level was very elevated at 75 and thyroid level was undetectable. Your low thyroid hormones are likely causing your fatigue and leg swelling. YOU NEED TO TAKE YOUR LEVOTHYROXINE. FOLLOW UP WITH YOUR DOCTOR 1ST THING IN THE MORNING. Prescriptions: No Action levofloxacin 250 mg tablet 250 mg PO DAILY Qty: 3 RF: 0 atorvastatin 20 mg tablet 1 tab PO DAILY RF: 0 divalproex 125 mg Capsule, Delayed Rel Sprinkle 125 mg PO BID Qty: 60 RF: 0 doxazosin 2 mg Tablet 4 mg PO BEDTIME Qty: 30 RF: 0 clindamycin phosphate 1 % lotion topical BID RF: 0 doxazosin 4 mg tablet 4 mg PO DAILY RF: 0 divalproex 125 mg tablet,delayed release (DR/EC) 0 mg PO RF: 0 minocycline 100 mg capsule 100 mg PO BID RF: 0 lithium carbonate 300 mg capsule 0 mg PO RF: 0 propranolol 10 mg tablet 10 mg PO QAM RF: 0 levothyroxine 125 mcg tablet 125 mcg PO DAILY RF: 0 finasteride 5 mg tablet 5 mg PO DAILY 90 Days Qty: 90 RF: 1 Discharge Date/Time: 02/12/21 22:43
--- NOTE | 2021-02-12 19:49 | PC.NURSE ---
pt alert and oriented to person, place, time and situation. pt able to state year, month, day and president. verbal response and eye contact appropriate for setting. respirations even and unlabored. pt has bilateral pitting edema of both lower extremeties which is tender to touch. MLP Gayle) at bedside for primary evaluation.
[2021-02-12 20:00] VITALS: BP 116/79; PULSE 78; RESP 18; O2SAT 97
[2021-02-12 20:19] LABS: Basophils Absolute Auto 0.1 X10*3/uL (0.0-0.2); Basophils Percent Auto 0.6 % (0-2); Eosinophils Absolute Auto 0.7 X10*3/uL (0.0-0.4); Eosinophils Percent Auto 9.1 % (0-4); Hematocrit 35.3 % (42-52); Hemoglobin 11.5 g/dl (14.0-18.0); Imm Gran Abs Auto 0.03 X10*3/uL (0.00-0.03); Imm Gran Pct Auto 0.4 % (0.0-0.4); Lymphocytes Absolute Auto 1.4 X10*3/uL (1.2-4.9); Lymphocytes Percent Auto 17.5 % (20-40); MANUAL DIFF FLAG NO; Mean Corpuscular HGB Conc 32.6 g/dl (31.0-36.0); Mean Corpuscular Hemoglobin 33.6 pg (27.0-33.0); Mean Corpuscular Volume 103.2 fL (80-98); Monocytes Absolute Auto 0.8 X10*3/uL (0.1-1.2); Monocytes Percent Auto 9.7 % (2-11); Neutrophils Absolute Auto 5.1 X10*3/uL (2.0-8.3); Neutrophils Percent Auto 62.7 % (45-73); Platelet Count 157 X10*3/uL (160-400); Red Blood Count 3.42 X10*6/uL (4.60-5.80); Red Cell Distribution Width 13.7 % (11.0-16.0); White Blood Count 8.1 X10*3/uL (4.8-10.8)
[2021-02-12 20:47] LABS: Ethanol < 10 mg/dL
[2021-02-12 20:49] LABS: Lithium < 0.10 mmol/L (0.60-1.20)
[2021-02-12 20:53] LABS: Troponin-I High Sensitivity 6.3 ng/L (<3.5-35.0)
[2021-02-12 20:54] LABS: Alanine Aminotransferase 44 U/L (0-40); Alkaline Phosphatase 49 U/L (39-117); Anion Gap 15 (12-20); Aspartate Amino Transferase 109 U/L (5-37); B Type Natriuretic Peptide 27 pg/mL (<100); Bilirubin Direct 0.2 mg/dL (0.0-0.5); Bilirubin Total 0.5 mg/dL (0.0-1.0); Blood Urea Nitrogen 37 mg/dL (9-16); Carbon Dioxide 22 mmol/L (22-29); Chloride 110 mmol/L (96-108); Creatinine Clr Calc Pharmacy 41.5; Estimated Glomerular Filt Rate 46; Glucose Random 82 mg/dL (60-115); Magnesium 1.9 mg/dL (1.6-2.6); Potassium 4.2 mmol/L (3.3-5.1); Sodium 143 mmol/L (135-145); Total Protein 6.8 g/dL (6.5-8.0)
[2021-02-12 21:10] LABS: TSH reflex Free T4 75.18 uIU/mL (0.32-4.0)
--- NOTE | 2021-02-12 21:11 | PC.NURSE ---
per provider, pt to be ambulated. pt able to ambulate with no assistance, gait steady, no c/o diziness but states his lower legs hurt when walking due to swelling/edema. MLP (Naila) notified.
[2021-02-12 21:54] LABS: Glucose Urine UA NEG (NEG); Leukocyte Esterase Urine NEG (NEG); Nitrite Urine NEG (NEG); Specific Gravity - Urine <= 1.005 (1.005-1.025); Urine Blood TRACE (NEG); Urine Ketones NEG (NEG); Urine Protein NEG (NEG-TRACE)
[2021-02-12 21:56] LABS: Appearance Urine CLEAR; Color Urine YELLOW
[2021-02-12 21:59] VITALS: BP 134/59; PULSE 63; RESP 18; TEMP 36.6; O2SAT 97
[2021-02-12 22:00] LABS: Free T4 (Free Thyroxine) < 0.40 ng/dL (0.71-1.85)
[2021-02-12 22:01] LABS: Squamous Epithelial Cell Urine TRACE /LPF; WBC Urine 0-2 /HPF (0-4)
[2021-02-12 22:19] LABS: Amphetamine Screen Urine Not Detected (Not Detect); Barbiturates, Urine Not Detected (Not Detect); Benzodiazepines Screen Urine Not Detected (Not Detect); Cannabinoid Screen Urine Not Detected (Not Detect); Cocaine Screen Urine Not Detected (Not Detect); Opiate Screen Urine Not Detected (Not Detect); Phencyclidine Screen Urine Not Detected (Not Detect)
== END 2021-02-12 22:43 | disposition home or self-care (01) ==
PROVIDERS: Physician Assistant; Emergency Provider Emergency Medicine
DX: E03.9 Hypothyroidism, unspecified (principal); M79.605 Pain in left leg; M79.604 Pain in right leg; N18.30 Chronic kidney disease, stage 3 unspecified; D53.9 Nutritional anemia, unspecified; D69.6 Thrombocytopenia, unspecified; Z79.899 Other long term (current) drug therapy
CPT/HCPCS: 36415; 71045; 80048; 80076; 80178; 80307; 81001; 82077; 83735; 83880; 84439; 84443; 84484; 85025; 93005; 93970; 99284

== ENCOUNTER → 2021-02-21 13:48 | Outpatient (BNVA) | payer MEDICARE, SELFPAY | PROVIDERS: Visit Provider Urology | DX: N32.0 Bladder-neck obstruction (principal); R60.0 Localized edema | CPT/HCPCS: 99212 ==

== ENCOUNTER 2021-08-30 18:26 | Inpatient (IN) | payer MEDICARE, OTHER, SELFPAY ==
[2021-08-30 19:17] VITALS: BP 164/86; PULSE 93; RESP 15; TEMP 37.1; O2SAT 95; BMI 23.3
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
[2021-08-30 20:11] LABS: Basophils Absolute Auto 0.1 X10*3/uL (0.0-0.2); Basophils Percent Auto 0.8 % (0-2); Eosinophils Absolute Auto 0.6 X10*3/uL (0.0-0.4); Hematocrit 43.1 % (42.0-52.0); Hemoglobin 14.9 g/dl (14.0-18.0); Imm Gran Abs Auto 0.04 X10*3/uL (0.00-0.03); Imm Gran Pct Auto 0.4 % (0.0-0.4); Lymphocytes Absolute Auto 1.2 X10*3/uL (1.2-4.9); Lymphocytes Percent Auto 13.4 % (20-40); MANUAL DIFF FLAG NO; Mean Corpuscular HGB Conc 34.6 g/dl (31.0-36.0); Mean Corpuscular Hemoglobin 34.6 pg (27.0-33.0); Mean Platelet Volume 9.4 fL (9.4-12.4); Monocytes Absolute Auto 1.2 X10*3/uL (0.1-1.2); Monocytes Percent Auto 13.1 % (2-11); Neutrophils Absolute Auto 6.2 x10*3/uL (2.0-8.3); Neutrophils Percent Auto 66.3 % (45-73); Platelet Count 195 X10*3/uL (160-400); Red Blood Count 4.31 X10*6/uL (4.60-5.80); Red Cell Distribution Width 13.1 % (11.0-16.0); White Blood Count 9.3 X10*3/uL (4.8-10.8)
[2021-08-30 20:30] LABS: Ethanol < 10 mg/dL
[2021-08-30 20:34] LABS: Acetaminophen LAB < 1 mcg/mL (<30); Alanine Aminotransferase 21 U/L (0-40); Albumin Level 4.5 g/dL (3.5-5.0); Alkaline Phosphatase 64 U/L (39-117); Anion Gap 13 (12-20); Aspartate Amino Transferase 32 U/L (5-37); Bilirubin Total 0.2 mg/dL (0.0-1.0); Blood Urea Nitrogen 26 mg/dL (9-16); Calcium 10.3 mg/dL (8.4-10.2); Carbon Dioxide 24 mmol/L (22-29); Chloride 108 mmol/L (96-108); Estimated Glomerular Filt Rate 43; Glucose Random 93 mg/dL (60-115); Potassium 4.4 mmol/L (3.3-5.1); Salicylate < 5.0 mg/dL (15-30); Sodium 141 mmol/L (135-145); Total Protein 7.6 g/dL (6.5-8.0)
[2021-08-30 21:16] VITALS: BP 171/95; PULSE 97; RESP 18; O2SAT 93
[2021-08-30] MEDS: LORazepam 2 MG/ML VIAL IM (21:19)
[2021-08-30 21:31] LABS: Free T4 (Free Thyroxine) 0.74 ng/dL (0.71-1.85); Thyroid Stimulating Hormone 10.37 uIU/mL (0.32-4.0)
[2021-08-30 21:56] LABS: Amphetamine Screen Urine Not Detected (Not Detect); Barbiturates, Urine Not Detected (Not Detect); Benzodiazepines Screen Urine Not Detected (Not Detect); Cannabinoid Screen Urine Not Detected (Not Detect); Cocaine Screen Urine Not Detected (Not Detect); Fentanyl, urine Not Detected (Not Detect); Opiate Screen Urine Not Detected (Not Detect); Phencyclidine Screen Urine Not Detected (Not Detect)
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
[2021-08-30 22:11] LABS: Lithium < 0.10 mmol/L (0.60-1.20)
[2021-08-31 06:20] VITALS: BP 127/61; PULSE 72; RESP 16; TEMP 36.6; O2SAT 94
[2021-08-31 15:55] VITALS: BP 167/83; PULSE 77; RESP 18; TEMP 36.4; O2SAT 95
[2021-08-31 18:19] VITALS: BP 141/67; PULSE 74; RESP 18; TEMP 36.4; O2SAT 95
[2021-08-31 19:25] LABS: COVID-19 Test Negative (Negative)
--- NOTE | 2021-08-31 19:55 | PC.NURSE ---
assisted pt with a bed bath. Used warm ready bath wipes. I washed his back, he washed his front and private areas. Washed and dried between toes. SG
[2021-08-31 20:21] VITALS: BP 161/81; PULSE 86; RESP 18; TEMP 36.8; O2SAT 95
--- NOTE | 2021-08-31 20:24 | PC.NURSE ---
Pt restless, pacing in room. Pt stripping linens off of stretcher, making the bed. This rn to perform med red, notified Dr Torres who ordered PO ativan. This rn to attempt to medicated with ativan per orders to facilitate pt's rest.
--- NOTE | 2021-08-31 20:26 | PHA.MEDREC ---
Pharmacy Consult ? Medication Reconciliation Pharmacy has completed the medication reconciliation. Pt stated that he hasn't taken his medication in 5 or 6 days and when I asked what he is prescribed he noted that what the doctor says I should do and what I actually do are two different things. Spoke to patient's son, Faheem, who had a medication list but did not know how up to date it was. Matched with pharmacy claim history. Lexi Archibald, DaD
--- NOTE | 2021-08-31 20:44 | PC.NURSE ---
This RN to bedside, pt alert, oriented to person and place. Pt speaking in complete, clear sentences. Pt pacing around room, is conversational and pleasant with this RN. Pt offered PO ativan, states I'm not taking any more pills. I'm done with them. No more meds, thank you. You know, doctors get a kickback when they prescribe meds. It's a scam. This RN informs pt that these meds are to help patient relax. Pt states no way, I'm not doing that. Dr Torres to bedside. Dr Torres encouraging pt to take PO meds. Pt continues to refuse. Meds returned, marked not given per patient refusal in OCT.
--- NOTE | 2021-08-31 21:03 | PC.NURSE ---
This RN speaking with Jarvis Gtz from [facility] to provide update at this time. Plan for Jarvis to speak with Brian regarding plan.
--- NOTE | 2021-08-31 21:38 | PC.NURSE ---
This RN unable to perform Alicia SI scale as pt becomes irritable when asked about SI/HI. Pt denies SI then changes the topic. Pt resting on stretcher in NAD at this time, RR even and unlabored.
[2021-09-01 00:16] VITALS: RESP 18
[2021-09-01 05:31] VITALS: BP 115/68; PULSE 83; RESP 12; TEMP 36.7; O2SAT 95
[2021-09-01 08:14] VITALS: BP 169/88; PULSE 97; RESP 16; O2SAT 98
--- NOTE | 2021-09-01 10:35 | PC.NURSE ---
Plan for S1 transfer after 1100 Pt continues to be hyperverbal, speaking to all staff walking by. Alert and oriented x3, sarcastic when answering questions but redirectable. Refusing all medications.
--- NOTE | 2021-09-01 13:47 | PC.NURSE ---
called report to floor, nurse stated that patient needed to have a 12B filled out before he went to the floor, this nurse asked who is responsible to obtain the 12b and floor nursing staff said that they would figure it out and give the ed a call back. patient currently calm, sleeping, sitter at bedside, will continue to monitor.
--- NOTE | 2021-09-01 15:38 | MHC.CLN ---
NUTRITION DIET CHANGED TO 2 GRAM SODIUM DUE TO CKD.
--- NOTE | 2021-09-01 15:40 | HO.PSYADMNOT ---
HPI Date of Service: 09/01/21 Chief Complaint: mood disorder Sources of Information: patient interviewed, chart reviewed and crisis/core team assessment reviewed HPI Subjective Notes: Section 12B Narrative: The patient is a 76-year-old male, , father of adult children with a long history of bipolar disorder who used to be well controlled on lithium but it was stopped due to lithium toxicity, at least 4 episodes in the last 3 years. According to the crisis assessment, his who was the primary caregiver, was referred to SNF and he decompensated. On admission, the patient was argumentative, with flight of ideas angry at times and reasonable regarding of giving away his rights . He was unable to provide further details but it was clear that he was manic. Past Psychiatric History: He carries the diagnosis of Bipolar disorder Apparently, he was stable on Progreso for over 30 years. No prior psychiatric inpatient admissions as per the report of her children, followed mostly outpatient. 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 His children reported that he used to be independent, no ancillary services before this episode. Substance History: Denies Trauma History: Unknown Diagnostics Vital Signs (24Hr): Vital Signs - 24 hr 08/31/21 15:55 08/31/21 18:19 08/31/21 20:21 Temperature 97.5 F 97.6 F 98.3 F Pulse Rate 77 74 86 Respiratory Rate 18 18 18 Blood Pressure 167/83 H 141/67 H 161/81 H Pulse Oximetry 95 95 95 09/01/21 00:16 09/01/21 05:31 09/01/21 08:14 Temperature 98.0 F Pulse Rate 83 97 Respiratory Rate 18 12 16 Blood Pressure 115/68 169/88 H Pulse Oximetry 95 98 BMI result Body Mass Index 23.3 Labs Results: 08/30/21 20:03 08/30/21 20:03 Labs: Laboratory Results - last 48 hr 08/30/21 08/30/21 08/30/21 19:16 20:03 20:03 WBC 9.3 RBC 4.31 L Hgb 14.9 Hct 43.1 MCV 100.0 H MCH 34.6 H MCHC 34.6 RDW 13.1 Plt Count 195 MPV 9.4 Immature Gran % (Auto) 0.4 Neut % (Auto) 66.3 Lymph % (Auto) 13.4 L [place] % (Auto) 13.1 H Eos % (Auto) 6.0 H Baso % (Auto) 0.8 Lymph # (Auto) 1.2 [place] # (Auto) 1.2 Eos # (Auto) 0.6 H Baso # (Auto) 0.1 Abs Immat Gran (auto) 0.04 H Absolute Neuts (auto) 6.2 Absolute Nucleated RBC 0.000 Nucleated RBC % (auto) 0.0 Sodium 141 Potassium 4.4 Chloride 108 Carbon Dioxide 24 Anion Gap 13 BUN 26 H Creatinine 1.56 H Estim Creat Clear Calc 39.0 Estimated GFR 43 Random Glucose 93 Calcium 10.3 H Total Bilirubin 0.2 AST 32 D ALT 21 Alkaline Phosphatase 64 D Total Protein 7.6 Albumin 4.5 TSH 10.37 H Free T4 0.74 Salicylates < 5.0 L Urine Opiates Screen Not Detected Urine Fentanyl Screen Not Detected Acetaminophen < 1 Ur Barbiturates Screen Not Detected Ur Phencyclidine Scrn Not Detected Ur Amphetamines Screen Not Detected U Benzodiazepines Scrn Not Detected Progres[place] Urine Cocaine Screen Not Detected U Marijuana (THC) Screen Not Detected Ethyl Alcohol COVID-19 (DARIN) COVID-19 Clin Com 08/30/21 08/30/21 08/31/21 20:03 21:49 18:55 WBC RBC Hgb Hct MCV MCH MCHC RDW Plt Count MPV Immature Gran % (Auto) Neut % (Auto) Lymph % (Auto) [place] % (Auto) Eos % (Auto) Baso % (Auto) Lymph # (Auto) [place] # (Auto) Eos # (Auto) Baso # (Auto) Abs Immat Gran (auto) Absolute Neuts (auto) Absolute Nucleated RBC Nucleated RBC % (auto) Sodium Potassium Chloride Carbon Dioxide Anion Gap BUN Creatinine Estim Creat Clear Calc Estimated GFR Random Glucose Calcium Total Bilirubin AST ALT Alkaline Phosphatase Total Protein Albumin TSH Free T4 Salicylates Urine Opiates Screen Urine Fentanyl Screen Acetaminophen Ur Barbiturates Screen Ur Phencyclidine Scrn Ur Amphetamines Screen U Benzodiazepines Scrn Progreso < 0.10 L Urine Cocaine Screen U Marijuana (THC) Screen Ethyl Alcohol < 10 COVID-19 (DARIN) Negative COVID-19 Clin Com See Note Meds/Allergies Meds Home Medications Acetaminophen (Acetaminophen 325 Mg Tablet) 650 mg PO Q6H PRN PRN Reason: Headache/Pain Mild Scale (1-3) Al Hydroxide/Mg Hydroxide (Magnesium Hydrox/Alum Hydrox 30 Ml Oral.Susp) 30 ml PO Q6H PRN PRN Reason: Heartburn/Nausea Aspirin (Aspirin Enteric Coated 81 Mg Tablet.) 81 mg PO DAILY [facility] Last Admin: 09/02/21 09:35 Dose: Not Given Documented by: Atorvastatin Calcium (Atorvastatin Calcium 20 Mg Tablet) 20 mg PO BEDTIME MANNY Last Admin: 09/01/21 21:18 Dose: Not Given Documented by: Divalproex Sodium (Divalproex Sodium 500 Mg Tablet.) 500 mg PO BEDTIME MANNY Last Admin: 09/01/21 21:18 Dose: Not Given Documented by: Doxazosin Mesylate (Doxazosin Mesylate 2 Mg Tablet) 4 mg PO BEDTIME [facility]; Protocol Last Admin: 09/01/21 21:18 Dose: Not Given Documented by: Furosemide (Furosemide 20 Mg Tablet) 20 mg PO DAILY [facility]; Protocol Last Admin: 09/02/21 09:36 Dose: Not Given Documented by: Hydroxyzine HCl (Hydroxyzine Hcl 25 Mg Tablet) 25 mg PO BEDTIME PRN PRN Reason: Anxiety Levothyroxine Sodium (Levothyroxine Sodium 150 Mcg Tablet) 150 mcg PO DAILY [facility] Last Admin: 09/02/21 09:36 Dose: Not Given Documented by: Magnesium Hydroxide (Milk Of Magnesia 30 Ml Oral.Susp) 30 ml PO DAILY PRN PRN Reason: Constipation Pharmacy Consult (Consult Rx Perform Med Rec) 1 each MISCELLANE ONCE PRN PRN Reason: Consult order Trazodone HCl (Trazodone Hcl 50 Mg Tablet) 50 mg PO BEDTIME PRN PRN Reason: Insomnia Allergies Allergies Allergy/AdvReac Type Severity Reaction Status Date / Time tamsulosin [From FLOMAX] Allergy Intermediate RASH Verified 02/21/21 14:00 Mental Status Exam Mental Status Exam Patient Appearance: Disheveled and Unkempt Patient Orientation: Person Level of Consciousness: Awake Patient Behavior: Cooperative Mood Description: Labile Affect Description: Constricted Ability to Follow Directions: Poor Speech Pattern: Spontaneous Speech, Rapid and Loud Hallucinations: None Delusions: Paranoid Ideation and Grandiose Judgement: Poor Assessment & Plan Assessment & Plan (1) Bipolar disorder: Status: Acute Qualifiers: Active/Remission status: currently active Current bipolar episode type: manic Current episode severity: moderate Qualified Code(s): F31.12 - Bipolar disorder, current episode manic without psychotic features, moderate Code(s): F31.9 - Bipolar disorder, unspecified Assessment and Plan: Elderly Caucasia male with Bipolar disorder admitted for exacerbation of jyothi in the context of limited social support. Plan Continue Depakote Gather collateral information. Reason for continued inpatient stay Substantial Risk for: harm to self, harm to others, inability to function, stable for discharge and med/psych decompensation
--- NOTE | 2021-09-01 17:23 | PC.ADMIT ---
This screenplay writer went to ED to escort patient to unit. Patient was resistant to leaving ED stating, I'm not going anywhere but home. Patient then stated he would come to unit if I can have in writing no meds, no shots. Security was called and patient was convinced to get into WC and be transported to S1. Upon arrival to unit patient refused to go into exam room for admission assessment. With difficulty he was escorted to his room. At this time Dr. Benz was present on the unit and spent approximately 10 minutes talking with the patient in the doorway to the room. Patient continued to insist he was going home. He has no insight into condition and failed to comprehend his legal status. Patient appearance is neat and clean. He arrived wearing hospital valerie's. Patient refused vital signs and answered admission assessment questions minimally. Patient speech is clear. Memory appears intact. Patient recalled incident leading to his admission accurately as it is written in crisis evaluation. Patient insists he will not take medications stating, I don't need them. My doctor almost killed me with one of my medications. He was referring to having been hospitalizes for [place] toxicity. It is unclear when this occurred. Gurinder appears at this time physically healthy and has been able to care for himself. Family reports he has not been taking psych meds for at least several weeks and that he has been decompensating since his was placed in a facility 6 months ago. At this time Gurinder is visible on the unit. Interacting with other patients. Refusing dinner stating, I don't want to pay for it. Patient is not exhibiting any disruptive behavior at this time. He is wearing a religous medal on a chain which he refuses to remove at this time.
[2021-09-01 18:00] VITALS: BP 144/72; PULSE 80; TEMP 36.9; O2SAT 96
[2021-09-02 06:00] VITALS: BP 171/76; PULSE 89; RESP 20; TEMP 36.7; O2SAT 98
--- NOTE | 2021-09-02 17:01 | HO.PSYCHPN ---
Subjective Subjective Date of Service: 09/02/21 Reason For Visit: mood disorder Subjective Notes: Section 12B Interim History: The nursing staff reported he is on one-to-one since he did not want to give up on the medallion that he has. He has refused medications stating that he does not needed anymore he has being irritable and angry. On interview the patient become easily angry and refused to participate on the interview. Mental Status Exam Mental Status Exam Patient Appearance: Disheveled Patient Orientation: Person Level of Consciousness: Awake Patient Behavior: Restless and Uncooperative Mood Description: Hostile Affect Description: Labile Patient Cognition Impaired: No Ability to Follow Directions: Poor Speech Pattern: Rambling Hallucinations: None Delusions: Not Present Thought Content: positive for Poverty of Content and positive for Loose Associations Judgement: Poor Diagnostics Vital Signs (24Hr): Vital Signs - 24 hr 09/01/21 18:00 09/02/21 06:00 Temperature 98.4 F 98.1 F Pulse Rate 80 89 Respiratory Rate 20 Blood Pressure 144/72 H 171/76 H Pulse Oximetry 96 98 BMI result Body Mass Index 23.3 Labs Results: 08/30/21 20:03 08/30/21 20:03 Labs: Laboratory Results - last 48 hr 08/31/21 18:55 COVID-19 (DARIN) Negative COVID-19 Clin Com See Note Medications Medications Current Medications Acetaminophen (Acetaminophen 325 Mg Tablet) 650 mg PO Q6H PRN PRN Reason: Headache/Pain Mild Scale (1-3) Al Hydroxide/Mg Hydroxide (Magnesium Hydrox/Alum Hydrox 30 Ml Oral.Susp) 30 ml PO Q6H PRN PRN Reason: Heartburn/Nausea Aspirin (Aspirin Enteric Coated 81 Mg Tablet.) 81 mg PO DAILY [facility] Last Admin: 09/02/21 09:35 Dose: Not Given Documented by: Atorvastatin Calcium (Atorvastatin Calcium 20 Mg Tablet) 20 mg PO BEDTIME [facility] Last Admin: 09/01/21 21:18 Dose: Not Given Documented by: Divalproex Sodium (Divalproex Sodium 500 Mg Tablet.) 500 mg PO BEDTIME [facility] Last Admin: 09/01/21 21:18 Dose: Not Given Documented by: Doxazosin Mesylate (Doxazosin Mesylate 2 Mg Tablet) 4 mg PO BEDTIME [facility]; Protocol Last Admin: 09/01/21 21:18 Dose: Not Given Documented by: Furosemide (Furosemide 20 Mg Tablet) 20 mg PO DAILY [facility]; Protocol Last Admin: 09/02/21 09:36 Dose: Not Given Documented by: Hydroxyzine HCl (Hydroxyzine Hcl 25 Mg Tablet) 25 mg PO BEDTIME PRN PRN Reason: Anxiety Levothyroxine Sodium (Levothyroxine Sodium 150 Mcg Tablet) 150 mcg PO DAILY [facility] Last Admin: 09/02/21 09:36 Dose: Not Given Documented by: Magnesium Hydroxide (Milk Of Magnesia 30 Ml Oral.Susp) 30 ml PO DAILY PRN PRN Reason: Constipation Pharmacy Consult (Consult Rx Perform Med Rec) 1 each MISCELLANE ONCE PRN PRN Reason: Consult order Trazodone HCl (Trazodone Hcl 50 Mg Tablet) 50 mg PO BEDTIME PRN PRN Reason: Insomnia Allergies Allergies Allergy/AdvReac Type Severity Reaction Status Date / Time tamsulosin [From FLOMAX] Allergy Intermediate RASH Verified 02/21/21 14:00 Assessment & Plan Assessment & Plan (1) Bipolar disorder: Qualifiers: Active/Remission status: currently active Current bipolar episode type: manic Current episode severity: moderate Qualified Code(s): F31.12 - Bipolar disorder, current episode manic without psychotic features, moderate Status: Acute Code(s): F31.9 - Bipolar disorder, unspecified Assessment and Plan: Elderly Caucasia male with Bipolar disorder admitted for exacerbation of jyothi in the context of limited social support. Plan Continue Depakote Gather collateral information. At olanzapine at bedtime as a mood stabilizer. I spent minutes with the patient and/or on the patient floor today, greater than?50% of which was spent counseling/coordinating care. Reason for contiued inpatient stay Substantial Risk for: harm to self, harm to others, inability to function, rapid decompensation and med/psych decompensation
[2021-09-02 19:30] VITALS: PULSE 106; RESP 19; TEMP 37.1; O2SAT 95
[2021-09-03 08:00] VITALS: BP 130/63; PULSE 77; RESP 18; TEMP 36.1; O2SAT 98
--- NOTE | 2021-09-03 14:45 | HO.PSYCHPN ---
Subjective Subjective Date of Service: 09/03/21 Reason For Visit: mood disorder Subjective Notes: Section 12B Interim History: The nursing staff reports the patient has refused all his meds, he engage in conversation but he is very sarcastic and provocative at times. He stated that he is not going to take any medications because it points since him. Historically he had [facility]. He denies having any psychiatric problems and he was tearful last night with staff. He also complains of paranoia but he is unable to have insight. On interview, the patient was very irritable and refused to engage in conversation Mental Status Exam Mental Status Exam Patient Appearance: Well Grooomed Patient Orientation: Person Level of Consciousness: Awake Patient Behavior: Cooperative Mood Description: Depressed Affect Description: Constricted Patient Cognition Impaired: No Ability to Follow Directions: Good Speech Pattern: Appropriate and Rapid Delusions: Paranoid Ideation and Grandiose Thought Process: Illogical and Distracted Thought Content: positive for Poverty of Content and positive for Thought Blocking Judgement: Poor Diagnostics Vital Signs (24Hr): Vital Signs - 24 hr 09/02/21 19:30 09/03/21 08:00 Temperature 98.7 F 97 F Pulse Rate 106 H 77 Respiratory Rate 19 18 Blood Pressure 130/63 Pulse Oximetry 95 98 BMI result Body Mass Index 23.3 Labs Results: 08/30/21 20:03 08/30/21 20:03 Medications Medications Current Medications Acetaminophen (Acetaminophen 325 Mg Tablet) 650 mg PO Q6H PRN PRN Reason: Headache/Pain Mild Scale (1-3) Al Hydroxide/Mg Hydroxide (Magnesium Hydrox/Alum Hydrox 30 Ml Oral.Susp) 30 ml PO Q6H PRN PRN Reason: Heartburn/Nausea Aspirin (Aspirin Enteric Coated 81 Mg Tablet.) 81 mg PO DAILY [facility] Last Admin: 09/03/21 09:04 Dose: Not Given Documented by: Atorvastatin Calcium (Atorvastatin Calcium 20 Mg Tablet) 20 mg PO BEDTIME [facility] Last Admin: 09/02/21 20:56 Dose: Not Given Documented by: Divalproex Sodium (Divalproex Sodium 500 Mg Tablet.) 500 mg PO BEDTIME [facility] Last Admin: 09/02/21 20:56 Dose: Not Given Documented by: Doxazosin Mesylate (Doxazosin Mesylate 2 Mg Tablet) 4 mg PO BEDTIME [facility]; Protocol Last Admin: 09/02/21 20:56 Dose: Not Given Documented by: Furosemide (Furosemide 20 Mg Tablet) 20 mg PO DAILY [facility]; Protocol Last Admin: 09/03/21 09:04 Dose: Not Given Documented by: Hydroxyzine HCl (Hydroxyzine Hcl 25 Mg Tablet) 25 mg PO BEDTIME PRN PRN Reason: Anxiety Levothyroxine Sodium (Levothyroxine Sodium 150 Mcg Tablet) 150 mcg PO DAILY [facility] Last Admin: 09/03/21 09:05 Dose: Not Given Documented by: Magnesium Hydroxide (Milk Of Magnesia 30 Ml Oral.Susp) 30 ml PO DAILY PRN PRN Reason: Constipation Olanzapine (Olanzapine 5 Mg Tablet) 5 mg PO BEDTIME [facility] Last Admin: 09/02/21 20:56 Dose: Not Given Documented by: Pharmacy Consult (Consult Rx Perform Med Rec) 1 each MISCELLANE ONCE PRN PRN Reason: Consult order Trazodone HCl (Trazodone Hcl 50 Mg Tablet) 50 mg PO BEDTIME PRN PRN Reason: Insomnia Allergies Allergies Allergy/AdvReac Type Severity Reaction Status Date / Time tamsulosin [From FLOMAX] Allergy Intermediate RASH Verified 02/21/21 14:00 Assessment & Plan Assessment & Plan (1) Bipolar disorder: Qualifiers: Active/Remission status: currently active Current bipolar episode type: manic Current episode severity: moderate Qualified Code(s): F31.12 - Bipolar disorder, current episode manic without psychotic features, moderate Status: Acute Code(s): F31.9 - Bipolar disorder, unspecified Plan Elderly Caucasia male with Bipolar disorder admitted for exacerbation of jyothi in the context of limited social support. Plan Continue Depakote Gather collateral information. At olanzapine at bedtime as a mood stabilizer. Filed for Section 7 and 8. Tomorrow we will have a family meeting and get collateral information from his family I spent minutes with the patient and/or on the patient floor today, greater than?50% of which was spent counseling/coordinating care. Reason for contiued inpatient stay Substantial Risk for: inability to function, rapid decompensation and med/psych decompensation
[2021-09-03 18:00] VITALS: BP 149/71; PULSE 87; RESP 18; TEMP 37; O2SAT 96
--- NOTE | 2021-09-04 00:03 | PC.NURSE ---
pt is frequently interacting in the milieu. he tends to gravitate toward female staff and female patients in the milieu. a great deal of his verbal communication is sexual in nature and his conversation has double meanings with sexual undertones. his behavior has upset other patients in the milieu. he is hyperkinetic. he is pacing the halls and shooting paper balls as basketballs into the trash receptacle. Unfortunately yelling I scored a basket. he eats frequently and asks constantly for coffee. pt is preoccupied with his own agenda and has little time for anything that may deviate from his plans. he refuses all medication.
--- NOTE | 2021-09-04 02:31 | PC.NURSE ---
pt has demonstrated escalating agitation over night. he has remained awake and pacing the hallways. he has been very talkative and inappropriate. he has frequently used sexual innuendos towards female staff. at one point he became argumentative that we would not provide him with a razor and nail clippers. due to increased agitation and inappropriateness. security officers were summoned. security spoke at length with pt and an agreement is made that pt will walk hallway but will remain silent. of interest is that pt is exhibiting many narcissist straits 1. he bathed and entered the common room stating look at me 2. he has participated in a game solo in the middle of the common room where he is the focal point of attention 3. he has frequently used sexual innuendo towards female staff.
--- NOTE | 2021-09-04 04:56 | PC.NURSE ---
DESPITE SECURITIES DIRECTION FOR PT TO REMAIN IN ROOM, PT HAS RETURNED TO COMMON AREA. MANNY HAS PROVOKED VERBAL CONFRONTATIONS BETWEEN HIMSELF AND ANOTHER PT. MANNY STATES I WILL LAY YOU OUT TO THE OTHER PT. MANNY REMAINS REACTIONARY AND VERBALLY DEMANDING. SECURITY WAS AGAIN SUMMONED TO UNIT. 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 IN ADDITION MANNY VERBALIZES AN UNDERSTANDING THAT ANY TYPE OF CONFRONTATIONAL BEHEHAVIOR WILL NOT BE TOLERATED.
[2021-09-04 08:00] VITALS: BP 149/69; PULSE 80; RESP 16; TEMP 36.3; O2SAT 96
[2021-09-04 09:55] VITALS: BMI 29.2
--- NOTE | 2021-09-04 13:43 | P.PNPSI_ITS ---
Subjective Subjective Date of Service: 09/04/21 Reason For Visit: mood disorder Subjective Notes: Robles Warning and Section 12B Interim History: The nursing staff reportd that he was exually inappropriated with staff, he has threatened a peer yesterday and he was very irritable. Sometimes, he barricates on his room. Today, on interview, he reported that he will not take any medications, that he is doing well. During the interview, he had very labile mood, crying and laughing very rapidly. No insight inot his psychiatric condition, he stated that he was misdiagnosed . He was able to understand Robles warining and advised him that he should be compliant with medications. Mental Status Exam Mental Status Exam Patient Appearance: Well Grooomed Patient Orientation: Person Level of Consciousness: Awake Patient Behavior: Suspicious, Wandering and Verbal Threats Mood Description: Labile Affect Description: Angry and Elated Patient Cognition Impaired: No Ability to Follow Directions: Fair Speech Pattern: Rapid and Excessive Hallucinations: None Delusions: Paranoid Ideation and Grandiose Thought Content: positive for Tangential and positive for Disorganized Judgement: Poor Diagnostics Vital Signs (24Hr): Vital Signs - 24 hr 09/03/21 18:00 09/04/21 08:00 Temperature 98.6 F 97.3 F Pulse Rate 87 80 Respiratory Rate 18 16 Blood Pressure 149/71 H 149/69 H Pulse Oximetry 96 96 BMI result Verdana 4 Body Mass Index Verdana 4 29.2 Verdana 4 Verdana 4 Labs Results: 08/30/21 20:03 08/30/21 20:03 Medications Medications Current Medications Acetaminophen (Acetaminophen 325 Mg Tablet) 650 mg PO Q6H PRN PRN Reason: Headache/Pain Mild Scale (1-3) Al Hydroxide/Mg Hydroxide (Magnesium Hydrox/Alum Hydrox 30 Ml Oral.Susp) 30 ml PO Q6H PRN PRN Reason: Heartburn/Nausea Aspirin (Aspirin Enteric Coated 81 Mg Tablet.) 81 mg PO DAILY [facility] Last Admin: 09/04/21 09:31 Dose: Not Given Documented by: Atorvastatin Calcium (Atorvastatin Calcium 20 Mg Tablet) 20 mg PO BEDTIME [facility] Last Admin: 09/03/21 20:34 Dose: Not Given Documented by: Divalproex Sodium (Divalproex Sodium 500 Mg Tablet.) 500 mg PO BEDTIME [facility] Last Admin: 09/03/21 20:34 Dose: Not Given Documented by: Doxazosin Mesylate (Doxazosin Mesylate 2 Mg Tablet) 4 mg PO BEDTIME [facility]; Protocol Last Admin: 09/03/21 20:35 Dose: Not Given Documented by: Furosemide (Furosemide 20 Mg Tablet) 20 mg PO DAILY [facility]; Protocol Last Admin: 09/04/21 09:32 Dose: Not Given Documented by: Hydroxyzine HCl (Hydroxyzine Hcl 25 Mg Tablet) 25 mg PO BEDTIME PRN PRN Reason: Anxiety Levothyroxine Sodium (Levothyroxine Sodium 150 Mcg Tablet) 150 mcg PO DAILY [facility] Last Admin: 09/04/21 09:32 Dose: Not Given Documented by: Magnesium Hydroxide (Milk Of Magnesia 30 Ml Oral.Susp) 30 ml PO DAILY PRN PRN Reason: Constipation Olanzapine (Olanzapine 5 Mg Tablet) 5 mg PO BEDTIME [facility] Last Admin: 09/03/21 20:35 Dose: Not Given Documented by: Pharmacy Consult (Consult Rx Perform Med Rec) 1 each MISCELLANE ONCE PRN PRN Reason: Consult order Trazodone HCl (Trazodone Hcl 50 Mg Tablet) 50 mg PO BEDTIME PRN PRN Reason: Insomnia Allergies Allergies Allergy/AdvReac Type Severity Reaction Status Date / Time tamsulosin [From Allergy Intermediate RASH Verified 02/21/21 14:00 FLOMAX] Assessment & Plan Assessment & Plan (1) Bipolar disorder: Qualifiers: Active/Remission status: currently active Current bipolar episode type: manic Current episode severity: moderate Qualified Code(s): F31.12 - Bipolar disorder, current episode manic without psychotic features, moderate Status: Acute Code(s): F31.9 - Bipolar disorder, unspecified Plan Elderly Cauc[place] male with Bipolar disorder admitted for exacerbation of jyothi in the context of limited social support. Plan Continue Depakote Gather collateral information. At olanzapine at bedtime as a mood stabilizer. Filed for Section 7 and 8. Today, family meeting and explain his legal situation I spent minutes with the patient and/or on the patient floor today, greater than?50% of which was spent counseling/coordinating care. Reason for contiued inpatient stay Substantial Risk for: harm to others, inability to function, rapid decompensation and med/psych decompensation
[2021-09-04 19:03] VITALS: BP 147/65; PULSE 68; RESP 18; TEMP 36.6; O2SAT 97
[2021-09-05 08:00] VITALS: BP 139/83; PULSE 70; RESP 18; TEMP 36.2; O2SAT 97
--- NOTE | 2021-09-05 16:59 | P.PNPSI_ITS ---
Subjective Subjective Date of Service: 09/05/21 Reason For Visit: mood disorder Subjective Notes: Conditional Voluntary Interim History: The nursing staff reported the patient has been noncompliant with treatment. He was seen to put himself on the floor and claiming that he fell and then laughing. He has been intrusive. On interview, the patient stated that he does not have any mental illness and he has done taking medications he was to be discharged. I explained him that we filed for Section 7 and 8 and his family will testify. Mental Status Exam Mental Status Exam Patient Appearance: Appropriate Patient Orientation: Person Level of Consciousness: Awake Patient Behavior: Cooperative Mood Description: Withdrawn Affect Description: Constricted Ability to Follow Directions: Good Speech Pattern: Clear Delusions: Paranoid Ideation and Grandiose Thought Process: Illogical and Evasive Thought Content: positive for Poverty of Content and positive for Loose Associations Judgement: Poor Diagnostics Vital Signs (24Hr): Vital Signs - 24 hr 09/04/21 19:03 09/05/21 08:00 Temperature 97.8 F 97.2 F Pulse Rate 68 70 Respiratory Rate 18 18 Blood Pressure 147/65 H 139/83 Pulse Oximetry 97 97 BMI result Verdana 4 Body Mass Index Verdana 4 29.2 Verdana 4 Verdana 4 Labs Results: 08/30/21 20:03 08/30/21 20:03 Medications Medications Current Medications Acetaminophen (Acetaminophen 325 Mg Tablet) 650 mg PO Q6H PRN PRN Reason: Headache/Pain Mild Scale (1-3) Al Hydroxide/Mg Hydroxide (Magnesium Hydrox/Alum Hydrox 30 Ml Oral.Susp) 30 ml PO Q6H PRN PRN Reason: Heartburn/Nausea Aspirin (Aspirin Enteric Coated 81 Mg Tablet.) 81 mg PO DAILY [facility] Last Admin: 09/05/21 08:44 Dose: Not Given Documented by: Atorvastatin Calcium (Atorvastatin Calcium 20 Mg Tablet) 20 mg PO BEDTIME [facility] Last Admin: 09/04/21 20:20 Dose: Not Given Documented by: Divalproex Sodium (Divalproex Sodium 500 Mg Tablet.) 500 mg PO BEDTIME [facility] Last Admin: 09/04/21 20:20 Dose: Not Given Documented by: Doxazosin Mesylate (Doxazosin Mesylate 2 Mg Tablet) 4 mg PO BEDTIME [facility]; Protocol Last Admin: 01/27/22 20:20 Dose: Not Given Documented by: Furosemide (Furosemide 20 Mg Tablet) 20 mg PO DAILY [facility]; Protocol Last Admin: 09/05/21 08:44 Dose: Not Given Documented by: Hydroxyzine HCl (Hydroxyzine Hcl 25 Mg Tablet) 25 mg PO BEDTIME PRN PRN Reason: Anxiety Levothyroxine Sodium (Levothyroxine Sodium 150 Mcg Tablet) 150 mcg PO DAILY [facility] Last Admin: 09/05/21 08:44 Dose: Not Given Documented by: Magnesium Hydroxide (Milk Of Magnesia 30 Ml Oral.Susp) 30 ml PO DAILY PRN PRN Reason: Constipation Olanzapine (Olanzapine 5 Mg Tablet) 5 mg PO BEDTIME [facility] Last Admin: 09/04/21 20:20 Dose: Not Given Documented by: Pharmacy Consult (Consult Rx Perform Med Rec) 1 each MISCELLANE ONCE PRN PRN Reason: Consult order Trazodone HCl (Trazodone Hcl 50 Mg Tablet) 50 mg PO BEDTIME PRN PRN Reason: Insomnia Allergies Allergies Allergy/AdvReac Type Severity Reaction Status Date / Time tamsulosin [From Allergy Intermediate RASH Verified 02/21/21 14:00 FLOMAX] Assessment & Plan Assessment & Plan (1) Bipolar disorder: Qualifiers: Active/Remission status: currently active Current bipolar episode type: manic Current episode severity: moderate Qualified Code(s): F31.12 - Bipolar disorder, current episode manic without psychotic features, moderate Status: Acute Code(s): F31.9 - Bipolar disorder, unspecified Plan Elderly Cauc[place] male with Bipolar disorder admitted for exacerbation of jyothi in the context of limited social support. Plan Continue Depakote Gather collateral information. At olanzapine at bedtime as a mood stabilizer. Filed for Section 7 and 8. I spent minutes with the patient and/or on the patient floor today, greater than?50% of which was spent counseling/coordinating care. Reason for contiued inpatient stay Substantial Risk for: inability to function, rapid decompensation and med/psych decompensation
[2021-09-05 18:00] VITALS: BP 149/67; PULSE 64; RESP 18; TEMP 36.5; O2SAT 97
[2021-09-06 07:00] VITALS: BP 158/74; PULSE 74; RESP 17; TEMP 36.3; O2SAT 96
--- NOTE | 2021-09-06 09:01 | P.PNPSI_ITS ---
Subjective Subjective Date of Service: 09/06/21 Reason For Visit: mood disorder Subjective Notes: Section 12B (Filed for Section 7 and 8) Interim History: The nursing staff reported the patient has been noncompliant with medications, he has refused all his meds and he has not slept the whole night. On interview the patient stated he does not have any psychiatric issues and he is not going to take any medication Mental Status Exam Mental Status Exam Patient Appearance: Appropriate Patient Orientation: Person and Situation Level of Consciousness: Awake Patient Behavior: Guarded Mood Description: Depressed Affect Description: Constricted Patient Cognition Impaired: No Ability to Follow Directions: Fair Speech Pattern: Clear Hallucinations: None Delusions: Not Present Thought Process: Linear Thought Content: positive for Loose Associations Judgement: Fair Diagnostics Vital Signs (24Hr): Vital Signs - 24 hr 09/05/21 18:00 09/06/21 07:00 Temperature 97.7 F 97.3 F Pulse Rate 64 74 Respiratory Rate 18 17 Blood Pressure 149/67 H 158/74 H Pulse Oximetry 97 96 BMI result Verdana 4 Body Mass Index Verdana 4 29.2 Verdana 4 Verdana 4 Labs Results: 08/30/21 20:03 08/30/21 20:03 Medications Medications Current Medications Acetaminophen (Acetaminophen 325 Mg Tablet) 650 mg PO Q6H PRN PRN Reason: Headache/Pain Mild Scale (1-3) Al Hydroxide/Mg Hydroxide (Magnesium Hydrox/Alum Hydrox 30 Ml Oral.Susp) 30 ml PO Q6H PRN PRN Reason: Heartburn/Nausea Aspirin (Aspirin Enteric Coated 81 Mg Tablet.) 81 mg PO DAILY [facility] Last Admin: 09/05/21 08:44 Dose: Not Given Documented by: Atorvastatin Calcium (Atorvastatin Calcium 20 Mg Tablet) 20 mg PO BEDTIME [facility] Last Admin: 09/05/21 20:45 Dose: Not Given Documented by: Divalproex Sodium (Divalproex Sodium 500 Mg Tablet.) 500 mg PO BEDTIME [facility] Last Admin: 09/05/21 20:45 Dose: Not Given Documented by: Doxazosin Mesylate (Doxazosin Mesylate 2 Mg Tablet) 4 mg PO BEDTIME [facility]; Protocol Last Admin: 09/05/21 20:45 Dose: Not Given Documented by: Furosemide (Furosemide 20 Mg Tablet) 20 mg PO DAILY [facility]; Protocol Last Admin: 01/28/22 08:44 Dose: Not Given Documented by: Hydroxyzine HCl (Hydroxyzine Hcl 25 Mg Tablet) 25 mg PO BEDTIME PRN PRN Reason: Anxiety Levothyroxine Sodium (Levothyroxine Sodium 150 Mcg Tablet) 150 mcg PO DAILY [facility] Last Admin: 09/05/21 08:44 Dose: Not Given Documented by: Magnesium Hydroxide (Milk Of Magnesia 30 Ml Oral.Susp) 30 ml PO DAILY PRN PRN Reason: Constipation Olanzapine (Olanzapine 5 Mg Tablet) 5 mg PO BEDTIME [facility] Last Admin: 09/05/21 20:45 Dose: Not Given Documented by: Pharmacy Consult (Consult Rx Perform Med Rec) 1 each MISCELLANE ONCE PRN PRN Reason: Consult order Trazodone HCl (Trazodone Hcl 50 Mg Tablet) 50 mg PO BEDTIME PRN PRN Reason: Insomnia Allergies Allergies Allergy/AdvReac Type Severity Reaction Status Date / Time tamsulosin [From Allergy Intermediate RASH Verified 02/21/21 14:00 FLOMAX] Assessment & Plan Assessment & Plan (1) Bipolar disorder: Qualifiers: Active/Remission status: currently active Current bipolar episode type: manic Current episode severity: moderate Qualified Code(s): F31.12 - Bipolar disorder, current episode manic without psychotic features, moderate Status: Acute Code(s): F31.9 - Bipolar disorder, unspecified Plan Elderly Cauc[place] male with Bipolar disorder admitted for exacerbation of jyothi in the context of limited social support. Plan Continue Depakote Gather collateral information. At olanzapine at bedtime as a mood stabilizer. Filed for Section 7 and 8. I spent minutes with the patient and/or on the patient floor today, greater than?50% of which was spent counseling/coordinating care. Reason for contiued inpatient stay Substantial Risk for: inability to function, rapid decompensation and med/psych decompensation
[2021-09-06 18:00] VITALS: BP 150/72; PULSE 70; RESP 17; TEMP 36.2; O2SAT 97
[2021-09-07 06:00] VITALS: BP 144/74; PULSE 78; RESP 18; TEMP 35.6; O2SAT 99
--- NOTE | 2021-09-07 08:06 | HO.PSYCHPN ---
Subjective Subjective Date of Service: 09/07/21 Reason For Visit: mood disorder Subjective Notes: Robles Warning Interim History: The nursing staff reported that he was up all night, refused to take medications. The staff has noticed that he tells jokes with sexual content, easily redirectable. On interview, he reported that he is OK and he believed that he doesn't need medications. Mental Status Exam Mental Status Exam Patient Appearance: Well Grooomed Patient Orientation: Person Level of Consciousness: Awake Patient Behavior: Cooperative Mood Description: Anxious and Apprehensive Affect Description: Labile Ability to Follow Directions: Fair Speech Pattern: Clear Hallucinations: None Delusions: Paranoid Ideation and Grandiose Thought Process: Linear Thought Content: positive for Poverty of Content Judgement: Poor Diagnostics Vital Signs (24Hr): Vital Signs - 24 hr 09/06/21 18:00 Temperature 97.2 F Pulse Rate 70 Respiratory Rate 17 Blood Pressure 150/72 H Pulse Oximetry 97 BMI result Body Mass Index 29.2 Labs Results: 08/30/21 20:03 08/30/21 20:03 Medications Medications Current Medications Acetaminophen (Acetaminophen 325 Mg Tablet) 650 mg PO Q6H PRN PRN Reason: Headache/Pain Mild Scale (1-3) Al Hydroxide/Mg Hydroxide (Magnesium Hydrox/Alum Hydrox 30 Ml Oral.Susp) 30 ml PO Q6H PRN PRN Reason: Heartburn/Nausea Aspirin (Aspirin Enteric Coated 81 Mg Tablet.) 81 mg PO DAILY [facility] Last Admin: 09/06/21 09:20 Dose: Not Given Documented by: Atorvastatin Calcium (Atorvastatin Calcium 20 Mg Tablet) 20 mg PO BEDTIME [facility] Last Admin: 09/06/21 20:44 Dose: Not Given Documented by: Divalproex Sodium (Divalproex Sodium 500 Mg Tablet.) 500 mg PO BEDTIME [facility] Last Admin: 09/06/21 20:44 Dose: Not Given Documented by: Doxazosin Mesylate (Doxazosin Mesylate 2 Mg Tablet) 4 mg PO BEDTIME [facility]; Protocol Last Admin: 09/06/21 20:44 Dose: Not Given Documented by: Furosemide (Furosemide 20 Mg Tablet) 20 mg PO DAILY [facility]; Protocol Last Admin: 09/06/21 09:20 Dose: Not Given Documented by: Hydroxyzine HCl (Hydroxyzine Hcl 25 Mg Tablet) 25 mg PO BEDTIME PRN PRN Reason: Anxiety Levothyroxine Sodium (Levothyroxine Sodium 150 Mcg Tablet) 150 mcg PO DAILY [facility] Last Admin: 09/06/21 09:20 Dose: Not Given Documented by: Magnesium Hydroxide (Milk Of Magnesia 30 Ml Oral.Susp) 30 ml PO DAILY PRN PRN Reason: Constipation Olanzapine (Olanzapine 5 Mg Tablet) 5 mg PO BEDTIME [facility] Last Admin: 09/06/21 20:44 Dose: Not Given Documented by: Pharmacy Consult (Consult Rx Perform Med Rec) 1 each MISCELLANE ONCE PRN PRN Reason: Consult order Trazodone HCl (Trazodone Hcl 50 Mg Tablet) 50 mg PO BEDTIME PRN PRN Reason: Insomnia Allergies Allergies Allergy/AdvReac Type Severity Reaction Status Date / Time tamsulosin [From FLOMAX] Allergy Intermediate RASH Verified 02/21/21 14:00 Assessment & Plan Assessment & Plan (1) Bipolar disorder: Qualifiers: Active/Remission status: currently active Current bipolar episode type: manic Current episode severity: moderate Qualified Code(s): F31.12 - Bipolar disorder, current episode manic without psychotic features, moderate Status: Acute Code(s): F31.9 - Bipolar disorder, unspecified Plan Elderly Caucasia male with Bipolar disorder admitted for exacerbation of jyothi in the context of limited social support. Plan Continue Depakote Gather collateral information. At olanzapine at bedtime as a mood stabilizer. Filed for Section 7 and 8. We will heave a hearing this week. I spent minutes with the patient and/or on the patient floor today, greater than?50% of which was spent counseling/coordinating care. Reason for contiued inpatient stay Substantial Risk for: inability to function, rapid decompensation and med/psych decompensation
[2021-09-07 20:15] VITALS: BP 145/64; PULSE 72; RESP 18; TEMP 36.9; O2SAT 96
[2021-09-08 06:00] VITALS: BP 147/70; PULSE 70; RESP 16; TEMP 36.2; O2SAT 99
--- NOTE | 2021-09-08 14:48 | P.PNPSI_ITS ---
Subjective Subjective Date of Service: 09/08/21 Reason For Visit: mood disorder Subjective Notes: Section 7 (Filed for section 7 and 8) and Section 8 Interim History: The nursing staff reported that the patient has not been taking medications and he spent most of the time in his room. He has not slept at all last night. The staff reported that he sexually inappropriate telling sexually explicit jokes. Today on interview, the patient demanded to be discharged as soon as possible I explained him again that we saw filed for Section 7 and 8. He initially didn't allow me to leave his room and I need to put bounderies on this specific behavior. He accussed me that I am taking money for keeping him at his facility and for prescribing medications to him. Today we have a telephone conversation from his son asking for his legal status. His son is aware of the need of treatment. Mental Status Exam Mental Status Exam Patient Appearance: Well Grooomed Patient Orientation: Person and Situation Level of Consciousness: Awake Patient Behavior: Guarded, Suspicious and Restless Mood Description: Labile Affect Description: Constricted and Angry Speech Pattern: Rapid Hallucinations: None Delusions: Paranoid Ideation and Grandiose Thought Process: Illogical, Distracted and Confusion Thought Content: positive for Perseveration, positive for Poverty of Content and positive for Incoherent Judgement: Poor Diagnostics Vital Signs (24Hr): Vital Signs - 24 hr 09/07/21 20:15 09/08/21 06:00 Temperature 98.4 F 97.1 F Pulse Rate 72 70 Respiratory Rate 18 16 Blood Pressure 145/64 H 147/70 H Pulse Oximetry 96 99 BMI result Verdana 4 Body Mass Index Verdana 4 29.2 Verdana 4 Verdana 4 Labs Results: 08/30/21 20:03 08/30/21 20:03 Medications Medications Current Medications Acetaminophen (Acetaminophen 325 Mg Tablet) 650 mg PO Q6H PRN PRN Reason: Headache/Pain Mild Scale (1-3) Al Hydroxide/Mg Hydroxide (Magnesium Hydrox/Alum Hydrox 30 Ml Oral.Susp) 30 ml PO Q6H PRN PRN Reason: Heartburn/Nausea Aspirin (Aspirin Enteric Coated 81 Mg Tablet.) 81 mg PO DAILY [facility] Last Admin: 09/08/21 08:20 Dose: Not Given Documented by: Atorvastatin Calcium (Atorvastatin Calcium 20 Mg Tablet) 20 mg PO BEDTIME [facility] Last Admin: 09/07/21 20:45 Dose: Not Given Documented by: Divalproex Sodium (Divalproex Sodium 500 Mg Tablet.) 500 mg PO BEDTIME [facility] Last Admin: 09/07/21 20:45 Dose: Not Given Documented by: Doxazosin Mesylate (Doxazosin Mesylate 2 Mg Tablet) 4 mg PO BEDTIME [facility]; Protocol Last Admin: 09/07/21 20:45 Dose: Not Given Documented by: Furosemide (Furosemide 20 Mg Tablet) 20 mg PO DAILY [facility]; Protocol Last Admin: 09/08/21 08:20 Dose: Not Given Documented by: Hydroxyzine HCl (Hydroxyzine Hcl 25 Mg Tablet) 25 mg PO BEDTIME PRN PRN Reason: Anxiety Levothyroxine Sodium (Levothyroxine Sodium 150 Mcg Tablet) 150 mcg PO DAILY [facility] Last Admin: 09/08/21 08:20 Dose: Not Given Documented by: Magnesium Hydroxide (Milk Of Magnesia 30 Ml Oral.Susp) 30 ml PO DAILY PRN PRN Reason: Constipation Olanzapine (Olanzapine 5 Mg Tablet) 5 mg PO BEDTIME [facility] Last Admin: 09/07/21 20:45 Dose: Not Given Documented by: Pharmacy Consult (Consult Rx Perform Med Rec) 1 each MISCELLANE ONCE PRN PRN Reason: Consult order Trazodone HCl (Trazodone Hcl 50 Mg Tablet) 50 mg PO BEDTIME PRN PRN Reason: Insomnia Allergies Allergies Allergy/AdvReac Type Severity Reaction Status Date / Time tamsulosin [From Allergy Intermediate RASH Verified 02/21/21 14:00 FLOMAX] Assessment & Plan Assessment & Plan (1) Bipolar disorder: Qualifiers: Active/Remission status: currently active Current bipolar episode type: manic Current episode severity: moderate Qualified Code(s): F31.12 - Bipolar disorder, current episode manic without psychotic features, moderate Status: Acute Code(s): F31.9 - Bipolar disorder, unspecified Plan Elderly Caucasia male with Bipolar disorder admitted for exacerbation of jyothi in the context of limited social support. Plan Continue Depakote Gather collateral information. Add olanzapine at bedtime as a mood stabilizer. Filed for Section 7 and 8. We will heave a hearing this week. I spent minutes with the patient and/or on the patient floor today, greater than?50% of which was spent counseling/coordinating care. Reason for contiued inpatient stay Substantial Risk for: inability to function, rapid decompensation and med/psych decompensation
[2021-09-08 20:00] VITALS: BP 141/72; PULSE 96; RESP 20; TEMP 36.6; O2SAT 95
[2021-09-09 06:00] VITALS: BP 169/83; PULSE 78; TEMP 36.7; O2SAT 95
--- NOTE | 2021-09-09 14:09 | HO.PSYCHPN ---
Subjective Subjective Date of Service: 09/09/21 Reason For Visit: mood disorder Interim History: The nursing staff reported the patient has been noncompliant with medications. The social services counselor explained ingested about the process of Section 7 and 8 and we will have a hearing on . On interview, the patient refused to engage in conversation. Mental Status Exam Mental Status Exam Patient Appearance: Appropriate Patient Orientation: Person and Situation Level of Consciousness: Awake Patient Behavior: Appropriate Mood Description: Angry and Apprehensive Affect Description: Labile Ability to Follow Directions: Poor Speech Pattern: Clear and Rapid Hallucinations: None Delusions: Paranoid Ideation and Grandiose Thought Process: Illogical Thought Content: positive for Circumstantial and positive for Loose Associations Judgement: Poor Diagnostics Vital Signs (24Hr): Vital Signs - 24 hr 09/08/21 20:00 09/09/21 06:00 Temperature 98 F 98.1 F Pulse Rate 96 78 Respiratory Rate 20 Blood Pressure 141/72 H 169/83 H Pulse Oximetry 95 95 BMI result Body Mass Index 29.2 Labs Results: 08/30/21 20:03 08/30/21 20:03 Medications Medications Current Medications Acetaminophen (Acetaminophen 325 Mg Tablet) 650 mg PO Q6H PRN PRN Reason: Headache/Pain Mild Scale (1-3) Al Hydroxide/Mg Hydroxide (Magnesium Hydrox/Alum Hydrox 30 Ml Oral.Susp) 30 ml PO Q6H PRN PRN Reason: Heartburn/Nausea Aspirin (Aspirin Enteric Coated 81 Mg Tablet.) 81 mg PO DAILY [facility] Last Admin: 09/09/21 08:40 Dose: Not Given Documented by: Atorvastatin Calcium (Atorvastatin Calcium 20 Mg Tablet) 20 mg PO BEDTIME [facility] Last Admin: 09/08/21 20:41 Dose: Not Given Documented by: Divalproex Sodium (Divalproex Sodium 500 Mg Tablet.) 500 mg PO BEDTIME [facility] Last Admin: 09/08/21 20:42 Dose: Not Given Documented by: Doxazosin Mesylate (Doxazosin Mesylate 2 Mg Tablet) 4 mg PO BEDTIME [facility]; Protocol Last Admin: 09/08/21 20:42 Dose: Not Given Documented by: Furosemide (Furosemide 20 Mg Tablet) 20 mg PO DAILY [facility]; Protocol Last Admin: 09/09/21 08:40 Dose: Not Given Documented by: Hydroxyzine HCl (Hydroxyzine Hcl 25 Mg Tablet) 25 mg PO BEDTIME PRN PRN Reason: Anxiety Levothyroxine Sodium (Levothyroxine Sodium 150 Mcg Tablet) 150 mcg PO DAILY [facility] Last Admin: 09/09/21 08:41 Dose: Not Given Documented by: Magnesium Hydroxide (Milk Of Magnesia 30 Ml Oral.Susp) 30 ml PO DAILY PRN PRN Reason: Constipation Olanzapine (Olanzapine 5 Mg Tablet) 5 mg PO BEDTIME [facility] Last Admin: 09/08/21 20:43 Dose: Not Given Documented by: Pharmacy Consult (Consult Rx Perform Med Rec) 1 each MISCELLANE ONCE PRN PRN Reason: Consult order Trazodone HCl (Trazodone Hcl 50 Mg Tablet) 50 mg PO BEDTIME PRN PRN Reason: Insomnia Allergies Allergies Allergy/AdvReac Type Severity Reaction Status Date / Time tamsulosin [From FLOMAX] Allergy Intermediate RASH Verified 02/21/21 14:00 Assessment & Plan Assessment & Plan (1) Bipolar disorder: Qualifiers: Active/Remission status: currently active Current bipolar episode type: manic Current episode severity: moderate Qualified Code(s): F31.12 - Bipolar disorder, current episode manic without psychotic features, moderate Status: Acute Code(s): F31.9 - Bipolar disorder, unspecified Plan Elderly Cauc[place] male with Bipolar disorder admitted for exacerbation of jyothi in the context of limited social support. Plan Continue Depakote Gather collateral information. Add olanzapine at bedtime as a mood stabilizer. Filed for Section 7 and 8. We will heave a hearing this week. I spent minutes with the patient and/or on the patient floor today, greater than?50% of which was spent counseling/coordinating care. Reason for contiued inpatient stay Substantial Risk for: inability to function, rapid decompensation and med/psych decompensation
[2021-09-09 21:34] VITALS: BP 146/69; PULSE 69; RESP 19; TEMP 36.6; O2SAT 96
[2021-09-10 06:00] VITALS: BP 134/63; PULSE 75; RESP 14; TEMP 36.8; O2SAT 97
--- NOTE | 2021-09-10 15:21 | P.PNPSI_ITS ---
Subjective Subjective Date of Service: 09/10/21 Reason For Visit: mood disorder Subjective Notes: Robles Warning Interim History: The nursing staff reported the patient has being not taking any medications. He refused to take any medications stating that he does not have any medical or psychiatric problem. The staff has reported that he is very sexually inappropr iate telling jokes with sexual content that makes staff very uncomfortable. On interview the patient refused to elaborate he stated that he is not going to talk with any lower but his lower that he retained, he is aware that he will have a hearing tomorrow. Mental Status Exam Mental Status Exam Patient Appearance: Appropriate Patient Orientation: Person and Situation Level of Consciousness: Awake Patient Behavior: Guarded and Passive Mood Description: Withdrawn, Hostile and Elated Affect Description: Labile Ability to Follow Directions: Poor Speech Pattern: Clear Delusions: Grandiose Thought Process: Linear Thought Content: positive for Circumstantial Judgement: Poor Diagnostics Vital Signs (24Hr): Vital Signs - 24 hr 09/09/21 21:34 09/10/21 06:00 Temperature 98 F 98.2 F Pulse Rate 69 75 Respiratory Rate 19 14 Blood Pressure 146/69 H 134/63 Pulse Oximetry 96 97 BMI result Verdana 4 Body Mass Index Verdana 4 29.2 Verdana 4 Verdana 4 Labs Results: 08/30/21 20:03 08/30/21 20:03 Medications Medications Current Medications Acetaminophen (Acetaminophen 325 Mg Tablet) 650 mg PO Q6H PRN PRN Reason: Headache/Pain Mild Scale (1-3) Al Hydroxide/Mg Hydroxide (Magnesium Hydrox/Alum Hydrox 30 Ml Oral.Susp) 30 ml PO Q6H PRN PRN Reason: Heartburn/Nausea Aspirin (Aspirin Enteric Coated 81 Mg Tablet.) 81 mg PO DAILY [facility] Last Admin: 09/10/21 08:54 Dose: Not Given Documented by: Atorvastatin Calcium (Atorvastatin Calcium 20 Mg Tablet) 20 mg PO BEDTIME [facility] Last Admin: 09/09/21 20:33 Dose: Not Given Documented by: Divalproex Sodium (Divalproex Sodium 500 Mg Tablet.) 500 mg PO BEDTIME [facility] Last Admin: 09/09/21 20:33 Dose: Not Given Documented by: Doxazosin Mesylate (Doxazosin Mesylate 2 Mg Tablet) 4 mg PO BEDTIME [facility]; Protocol Last Admin: 09/09/21 20:33 Dose: Not Given Documented by: Furosemide (Furosemide 20 Mg Tablet) 20 mg PO DAILY [facility]; Protocol Last Admin: 09/10/21 08:54 Dose: Not Given Documented by: Hydroxyzine HCl (Hydroxyzine Hcl 25 Mg Tablet) 25 mg PO BEDTIME PRN PRN Reason: Anxiety Levothyroxine Sodium (Levothyroxine Sodium 150 Mcg Tablet) 150 mcg PO DAILY [facility] Last Admin: 09/10/21 08:54 Dose: Not Given Documented by: Magnesium Hydroxide (Milk Of Magnesia 30 Ml Oral.Susp) 30 ml PO DAILY PRN PRN Reason: Constipation Olanzapine (Olanzapine 5 Mg Tablet) 5 mg PO BEDTIME [facility] Last Admin: 09/09/21 20:33 Dose: Not Given Documented by: Pharmacy Consult (Consult Rx Perform Med Rec) 1 each MISCELLANE ONCE PRN PRN Reason: Consult order Trazodone HCl (Trazodone Hcl 50 Mg Tablet) 50 mg PO BEDTIME PRN PRN Reason: Insomnia Allergies Allergies Allergy/AdvReac Type Severity Reaction Status Date / Time tamsulosin [From Allergy Intermediate RASH Verified 02/21/21 14:00 FLOMAX] Assessment & Plan Assessment & Plan (1) Bipolar disorder: Qualifiers: Active/Remission status: currently active Current bipolar episode type: manic Current episode severity: moderate Qualified Code(s): F31.12 - Bipolar disorder, current episode manic without psychotic features, moderate Status: Acute Code(s): F31.9 - Bipolar disorder, unspecified Plan Elderly Cauc[place] male with Bipolar disorder admitted for exacerbation of jyothi in the context of limited social support. Plan Continue encouraging patient for compliance with medications, Depakote and ol anzapine was prescribed but so far he has not taking a single dose Filed for Section 7 and 8. We will heave a hearing this week. I spent minutes with the patient and/or on the patient floor today, greater than?50% of which was spent counseling/coordinating care. Reason for contiued inpatient stay Substantial Risk for: inability to function, rapid decompensation and med/psych decompensation
[2021-09-10 19:53] VITALS: BP 154/71; PULSE 84; RESP 19; TEMP 37.3; O2SAT 96
[2021-09-11 06:00] VITALS: BP 146/68; PULSE 78; RESP 18; TEMP 36.1; O2SAT 97
--- NOTE | 2021-09-11 15:11 | P.PNPSI_ITS ---
Subjective Subjective Date of Service: 09/11/21 Reason For Visit: mood disorder Subjective Notes: Section 7 and Section 8 Interim History: The nursing staff reported the patient refused medications and he has being as usual, provocative of times. We had the hearing and the patient was placed on Section 7 and 8. Today we will put Zyprexa IM as a p.r.n. if he refuses Mental Status Exam Mental Status Exam Patient Appearance: Well Grooomed Patient Orientation: Person Level of Consciousness: Awake Patient Behavior: Suspicious and Aggressive Mood Description: Suspicious and Angry Affect Description: Labile Ability to Follow Directions: Fair Speech Pattern: Clear Memory Description: Intact Hallucinations: None Delusions: Paranoid Ideation Thought Process: Linear Thought Content: positive for Poverty of Content and positive for Thought Blocking Judgement: Poor Diagnostics Vital Signs (24Hr): Vital Signs - 24 hr 09/10/21 19:53 09/11/21 06:00 Temperature 99.2 F 97.0 F Pulse Rate 84 78 Respiratory Rate 19 18 Blood Pressure 154/71 H 146/68 H Pulse Oximetry 96 97 BMI result Verdana 4 Body Mass Index Verdana 4 29.2 Verdana 4 Verdana 4 Labs Results: 08/30/21 20:03 08/30/21 20:03 Medications Medications Current Medications Acetaminophen (Acetaminophen 325 Mg Tablet) 650 mg PO Q6H PRN PRN Reason: Headache/Pain Mild Scale (1-3) Al Hydroxide/Mg Hydroxide (Magnesium Hydrox/Alum Hydrox 30 Ml Oral.Susp) 30 ml PO Q6H PRN PRN Reason: Heartburn/Nausea Aspirin (Aspirin Enteric Coated 81 Mg Tablet.) 81 mg PO DAILY [facility] Last Admin: 09/11/21 09:12 Dose: Not Given Documented by: Atorvastatin Calcium (Atorvastatin Calcium 20 Mg Tablet) 20 mg PO BEDTIME [facility] Last Admin: 09/10/21 19:55 Dose: Not Given Documented by: Divalproex Sodium (Divalproex Sodium 500 Mg Tablet.) 500 mg PO BEDTIME [facility] Last Admin: 09/10/21 19:55 Dose: Not Given Documented by: Doxazosin Mesylate (Doxazosin Mesylate 2 Mg Tablet) 4 mg PO BEDTIME [facility]; Protocol Last Admin: 09/10/21 19:55 Dose: Not Given Documented by: Furosemide (Furosemide 20 Mg Tablet) 20 mg PO DAILY [facility]; Protocol Last Admin: 09/11/21 09:12 Dose: Not Given Documented by: Hydroxyzine HCl (Hydroxyzine Hcl 25 Mg Tablet) 25 mg PO BEDTIME PRN PRN Reason: Anxiety Levothyroxine Sodium (Levothyroxine Sodium 150 Mcg Tablet) 150 mcg PO DAILY [facility] Last Admin: 09/11/21 09:12 Dose: Not Given Documented by: Magnesium Hydroxide (Milk Of Magnesia 30 Ml Oral.Susp) 30 ml PO DAILY PRN PRN Reason: Constipation Olanzapine (Olanzapine 5 Mg Tablet) 5 mg PO BEDTIME [facility] Last Admin: 09/10/21 19:55 Dose: Not Given Documented by: Pharmacy Consult (Consult Rx Perform Med Rec) 1 each MISCELLANE ONCE PRN PRN Reason: Consult order Trazodone HCl (Trazodone Hcl 50 Mg Tablet) 50 mg PO BEDTIME PRN PRN Reason: Insomnia Allergies Allergies Allergy/AdvReac Type Severity Reaction Status Date / Time tamsulosin [From Allergy Intermediate RASH Verified 02/21/21 14:00 FLOMAX] Assessment & Plan Assessment & Plan (1) Bipolar disorder: Qualifiers: Active/Remission status: currently active Current bipolar episode type: manic Current episode severity: moderate Qualified Code(s): F31.12 - Bipolar disorder, current episode manic without psychotic features, moderate Status: Acute Code(s): F31.9 - Bipolar disorder, unspecified Plan Elderly Caucasia male with Bipolar disorder admitted for exacerbation of jyothi in the context of limited social support. Plan Continue encouraging patient for compliance with medications, Depakote and olanzapine was prescribed but so far he has not taking a single dose Filed for Section 7 and 8. He had a hearing and has no placed on Depakote and olanzapine with a p.r.n. IM I spent minutes with the patient and/or on the patient floor today, greater than?50% of which was spent counseling/coordinating care. Patient educated on: other (Instructed on Section 7 and 8) Informed Consent: does not understand Reason for contiued inpatient stay Substantial Risk for: inability to function, rapid decompensation and med/psych decompensation
[2021-09-11 19:41] VITALS: BP 137/62; PULSE 62; RESP 19; TEMP 36.8; O2SAT 97
[2021-09-12 08:00] VITALS: BP 174/79; PULSE 66; RESP 16; TEMP 36.2; O2SAT 98
--- NOTE | 2021-09-12 15:31 | HO.PSYCHPN ---
Subjective Subjective Date of Service: 09/12/21 Reason For Visit: mood disorder Subjective Notes: Section 7 and Section 8 Interim History: The nursing staff reported the patient refused medications. On interview I explained to the patient that he lost the sections 7 and 8 and he has been committed here and he has court reminded to take medications. 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 The patient is unable to process that fact. Medication Compliance: No Mental Status Exam Mental Status Exam Patient Appearance: Well Grooomed Patient Orientation: Person and Situation Level of Consciousness: Awake Patient Behavior: Guarded Mood Description: Calm Affect Description: Labile Patient Cognition Impaired: No Ability to Follow Directions: Poor Speech Pattern: Clear Delusions: Paranoid Ideation and Grandiose Thought Process: Illogical Thought Content: positive for Racing Judgement: Poor Diagnostics Vital Signs (24Hr): Vital Signs - 24 hr 09/11/21 19:41 09/12/21 08:00 Temperature 98.3 F 97.1 F Pulse Rate 62 66 Respiratory Rate 19 16 Blood Pressure 137/62 174/79 H Pulse Oximetry 97 98 BMI result Body Mass Index 29.2 Labs Results: 08/30/21 20:03 08/30/21 20:03 Medications Medications Current Medications Acetaminophen (Acetaminophen 325 Mg Tablet) 650 mg PO Q6H PRN PRN Reason: Headache/Pain Mild Scale (1-3) Al Hydroxide/Mg Hydroxide (Magnesium Hydrox/Alum Hydrox 30 Ml Oral.Susp) 30 ml PO Q6H PRN PRN Reason: Heartburn/Nausea Aspirin (Aspirin Enteric Coated 81 Mg Tablet.) 81 mg PO DAILY [facility] Last Admin: 09/12/21 08:17 Dose: Not Given Documented by: Atorvastatin Calcium (Atorvastatin Calcium 20 Mg Tablet) 20 mg PO BEDTIME [facility] Last Admin: 09/11/21 22:21 Dose: Not Given Documented by: Divalproex Sodium (Divalproex Sodium 500 Mg Tablet.) 500 mg PO BEDTIME [facility] Last Admin: 09/11/21 22:21 Dose: Not Given Documented by: Doxazosin Mesylate (Doxazosin Mesylate 2 Mg Tablet) 4 mg PO BEDTIME [facility]; Protocol Last Admin: 09/11/21 22:21 Dose: Not Given Documented by: Furosemide (Furosemide 20 Mg Tablet) 20 mg PO DAILY [facility]; Protocol Last Admin: 09/12/21 08:17 Dose: Not Given Documented by: Hydroxyzine HCl (Hydroxyzine Hcl 25 Mg Tablet) 25 mg PO BEDTIME PRN PRN Reason: Anxiety Levothyroxine Sodium (Levothyroxine Sodium 150 Mcg Tablet) 150 mcg PO DAILY [facility] Last Admin: 09/12/21 08:18 Dose: Not Given Documented by: Magnesium Hydroxide (Milk Of Magnesia 30 Ml Oral.Susp) 30 ml PO DAILY PRN PRN Reason: Constipation Olanzapine (Olanzapine 5 Mg Tablet) 5 mg PO BEDTIME [facility] Last Admin: 09/11/21 22:23 Dose: Not Given Documented by: Olanzapine (Olanzapine 10 Mg Vial) 5 mg IM BEDTIME PRN PRN Reason: ir PO is refused Pharmacy Consult (Consult Rx Perform Med Rec) 1 each MISCELLANE ONCE PRN PRN Reason: Consult order Trazodone HCl (Trazodone Hcl 50 Mg Tablet) 50 mg PO BEDTIME PRN PRN Reason: Insomnia Allergies Allergies Allergy/AdvReac Type Severity Reaction Status Date / Time tamsulosin [From FLOMAX] Allergy Intermediate RASH Verified 02/21/21 14:00 Assessment & Plan Assessment & Plan (1) Bipolar disorder: Qualifiers: Active/Remission status: currently active Current bipolar episode type: manic Current episode severity: moderate Qualified Code(s): F31.12 - Bipolar disorder, current episode manic without psychotic features, moderate Status: Acute Code(s): F31.9 - Bipolar disorder, unspecified Plan Elderly Caucasia male with Bipolar disorder admitted for exacerbation of jyothi in the context of limited social support. Plan Continue encouraging patient for compliance with medications, Depakote and olanzapine was prescribed but so far he has not taking a single dose Filed for Section 7 and 8. He had a hearing and has lost the case. on Depakote and olanzapine with a p.r.n. IM I spent minutes with the patient and/or on the patient floor today, greater than?50% of which was spent counseling/coordinating care. Reason for contiued inpatient stay Substantial Risk for: inability to function, rapid decompensation and med/psych decompensation
[2021-09-12 19:58] VITALS: BP 147/67; PULSE 75; RESP 18; TEMP 36.5; O2SAT 98
[2021-09-12] MEDS: Divalproex Sodium 500 MG TABLET.DR PO (20:05)
[2021-09-12] MEDS: Atorvastatin Calcium 20 MG TABLET PO (20:05)
[2021-09-12] MEDS: Doxazosin Mesylate 2 MG TABLET 4 MG PO (20:06)
[2021-09-12] MEDS: OLANZapine 5 MG TABLET PO (20:07)
[2021-09-13] MEDS: Acetaminophen 325 MG TABLET 650 MG PO ×2 (03:41→20:41)
--- NOTE | 2021-09-13 07:45 | P.PNPSI_ITS ---
Subjective Subjective Date of Service: 09/13/21 Reason For Visit: mood disorder Subjective Notes: Section 7 and Section 8 Healthcare Proxy: No Guardianship: No Interim History: 09/12 :The nursing staff reported the patient refused medications. On interview I explained to the patient that he lost the sections 7 and 8 and he has been committed here and he has court reminded to take medications. 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 The patient is unable to process that fact. 09/13: Pt known to me from OP clinic. Unable to accept committment decision. States he will refuse meds. Easily agitated and labile. Was also tearful. Ct with meds as Rxed. I told him he will need an extended stay in the hospital. Medication Compliance: Intermittent Attending Groups: No Review of Systems Acute medical concerns: No Medical Review of Systems: unchanged Review of Systems Review of Systems Constitutional : No Weight loss, No Fever, No Chills, No Night Sweats, No Fatigue, No Malaise ENT/Mouth : No Hearing loss, No Ear Pain, No Nasal Congestion, No Sinus Pain, No Hoarseness, No sore throat, No Rhinorrhea, No Swallowing Difficulty Eyes: No Eye Pain, No Swelling, No Redness, No Foreign Body, No Discharge, No Vi vernon Changes Cardiovascular : No Chest Pain, No SOB, No Dyspnea on Exertion, No Orthopnea, No Edema, No Palpitations Respiratory : No Cough, No Sputum, No Wheezing, No Smoke Exposure, No Dyspnea Gastrointestinal : No Nausea, No Vomiting, No Diarrhea, No Constipation, No abdominal Pain, No Hematochezia, No Melena Genitourinary : no irregular bleeding, No Dysuria, No Urinary Frequency, No Hematuria, No Urinary Incontinence, No Urgency, No Flank Pain, No Urinary Flow Changes, No Hesitancy Musculoskeletal : No joint pain, No Myalgias, No Joint Swelling Skin : No Skin Lesions, No rash Neuro : No Weakness, No Numbness, No Paresthesias, No Loss of Consciousness, No Dizziness, No Headache Psych : No Anxiety/Panic, No Depression, No SI/HI/AH/VH, No Social Issues, manic Yes all other systems are reviewed and are negative Mental Status Exam Mental Status Exam Patient Appearance: Well Grooomed Patient Orientation: Person and Situation Level of Consciousness: Awake Patient Behavior: Guarded Mood Description: Calm Affect Description: Labile Patient Cognition Impaired: No Ability to Follow Directions: Poor Speech Pattern: Clear Memory Description: Intact Delusions: Paranoid Ideation Diagnostics Vital Signs (24Hr): Vital Signs - 24 hr 09/12/21 08:00 09/12/21 19:58 Temperature 97.1 F 97.7 F Pulse Rate 66 75 Respiratory Rate 16 18 Blood Pressure 174/79 H 147/67 H Pulse Oximetry 98 98 BMI result Verdana 4 Body Mass Index Verdana 4 29.2 Verdana 4 Verdana 4 Labs Results: 08/30/21 20:03 08/30/21 20:03 Medications Medications Current Medications Acetaminophen (Acetaminophen 325 Mg Tablet) 650 mg PO Q6H PRN PRN Reason: Headache/Pain Mild Scale (1-3) Last Admin: 09/13/21 03:41 Dose: 650 mg Documented by: Al Hydroxide/Mg Hydroxide (Magnesium Hydrox/Alum Hydrox 30 Ml Oral.Susp) 30 ml PO Q6H PRN PRN Reason: Heartburn/Nausea Aspirin (Aspirin Enteric Coated 81 Mg Tablet.) 81 mg PO DAILY [facility] Last Admin: 09/12/21 08:17 Dose: Not Given Documented by: Atorvastatin Calcium (Atorvastatin Calcium 20 Mg Tablet) 20 mg PO BEDTIME [facility] Last Admin: 09/12/21 20:05 Dose: 20 mg Documented by: Divalproex Sodium (Divalproex Sodium 500 Mg Tablet.) 500 mg PO BEDTIME [facility] Last Admin: 09/12/21 20:05 Dose: 500 mg Documented by: Doxazosin Mesylate (Doxazosin Mesylate 2 Mg Tablet) 4 mg PO BEDTIME [facility]; Protocol Last Admin: 09/12/21 20:06 Dose: 4 mg Documented by: Furosemide (Furosemide 20 Mg Tablet) 20 mg PO DAILY [facility]; Protocol Last Admin: 09/12/21 08:17 Dose: Not Given Documented by: Hydroxyzine HCl (Hydroxyzine Hcl 25 Mg Tablet) 25 mg PO BEDTIME PRN PRN Reason: Anxiety Levothyroxine Sodium (Levothyroxine Sodium 150 Mcg Tablet) 150 mcg PO DAILY [facility] Last Admin: 09/12/21 08:18 Dose: Not Given Documented by: Magnesium Hydroxide (Milk Of Magnesia 30 Ml Oral.Susp) 30 ml PO DAILY PRN PRN Reason: Constipation Olanzapine (Olanzapine 5 Mg Tablet) 5 mg PO BEDTIME [facility] Last Admin: 09/12/21 20:07 Dose: 5 mg Documented by: Olanzapine (Olanzapine 10 Mg Vial) 5 mg IM BEDTIME PRN PRN Reason: ir PO is refused Pharmacy Consult (Consult Rx Perform Med Rec) 1 each MISCELLANE ONCE PRN PRN Reason: Consult order Trazodone HCl (Trazodone Hcl 50 Mg Tablet) 50 mg PO BEDTIME PRN PRN Reason: Insomnia Allergies Allergies Allergy/AdvReac Type Severity Reaction Status Date / Time tamsulosin [From Allergy Intermediate RASH Verified 02/21/21 14:00 FLOMAX] Assessment & Plan Assessment & Plan (1) Bipolar disorder: Qualifiers: Active/Remission status: currently active Current bipolar episode type: manic Current episode severity: moderate Qualified Code(s): F31.12 - Bipolar disorder, current episode manic without psychotic features, moderate Status: Acute Code(s): F31.9 - Bipolar disorder, unspecified Plan Elderly Caucasia male with Bipolar disorder admitted for exacerbation of jyothi in the context of limited social support. Plan Continue encouraging patient for compliance with medications, Depakote and olanzapine was prescribed but so far he has not taking a single dose Filed for Section 7 and 8. He had a hearing and has lost the case. on Depakote and olanzapine with a p.r.n. IM 09/13: Ct with [place] order. Encourage PO OLZ . Give IM if refuses PO. I spent minutes with the patient and/or on the patient floor today, greater than?50% of which was spent counseling/coordinating care. Reason for contiued inpatient stay Substantial Risk for: inability to function and rapid decompensation
[2021-09-13 08:00] VITALS: BP 108/58; PULSE 100; RESP 15; TEMP 36.4; O2SAT 100
[2021-09-13] MEDS: Doxazosin Mesylate 2 MG TABLET 4 MG PO (20:18)
[2021-09-13] MEDS: Atorvastatin Calcium 20 MG TABLET PO (20:18)
[2021-09-13] MEDS: Divalproex Sodium 500 MG TABLET.DR PO (20:18)
[2021-09-13] MEDS: OLANZapine 5 MG TABLET PO (20:19)
[2021-09-13 21:21] VITALS: BP 138/63; PULSE 71; RESP 19; TEMP 37.1; O2SAT 98
[2021-09-14] MEDS: Acetaminophen 325 MG TABLET 650 MG PO ×3 (03:37→22:07)
--- NOTE | 2021-09-14 03:54 | HO.PSYCHPN ---
Subjective Subjective Date of Service: 09/14/21 Reason For Visit: mood disorder Interim History: 09/12 :The nursing staff reported the patient refused medications. On interview I explained to the patient that he lost the sections 7 and 8 and he has been committed here and he has court reminded to take medications. 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 The patient is unable to process that fact. 09/13: Pt known to me from OP clinic. Unable to accept committment decision. States he will refuse meds. Easily agitated and labile. Was also tearful. Ct with meds as Rxed. I told him he will need an extended stay in the hospital. 09/14: We revisited conditions of [place] order. Perseverates re being poisoned by meds . (Hx recurrent [place] toxicity in past. Labile/tearful the n angry. Took PO OLZ last night but refusedc medical meds this a.m Agreed with clarification Medication Compliance: Intermittent Side effects from medications: No Attending Groups: No Review of Systems Acute medical concerns: No Medical Review of Systems: unchanged Review of Systems Review of Systems Constitutional : No Weight loss, No Fever, No Chills, No Night Sweats, No Fatigue, No Malaise ENT/Mouth : No Hearing loss, No Ear Pain, No Nasal Congestion, No Sinus Pain, No Hoarseness, No sore throat, No Rhinorrhea, No Swallowing Difficulty Eyes: No Eye Pain, No Swelling, No Redness, No Foreign Body, No Discharge, No Vision Changes Cardiovascular : No Chest Pain, No SOB, No Dyspnea on Exertion, No Orthopnea, No Edema, No Palpitations Respiratory : No Cough, No Sputum, No Wheezing, No Smoke Exposure, No Dyspnea Gastrointestinal : No Nausea, No Vomiting, No Diarrhea, No Constipation, No abdominal Pain, No Hematochezia, No Melena Genitourinary : no irregular bleeding, No Dysuria, No Urinary Frequency, No Hematuria, No Urinary Incontinence, No Urgency, No Flank Pain, No Urinary Flow Changes, No Hesitancy Musculoskeletal : No joint pain, No Myalgias, No Joint Swelling Skin : No Skin Lesions, No rash Neuro : No Weakness, No Numbness, No Paresthesias, No Loss of Consciousness, No Dizziness, No Headache Psych : No Anxiety/Panic, No Depression, No SI/HI/AH/VH, No Social Issues, manic Yes all other systems are reviewed and are negative Mental Status Exam Mental Status Exam Patient Appearance: Well Grooomed Patient Orientation: Person and Situation Level of Consciousness: Awake Patient Behavior: Guarded Mood Description: Calm Affect Description: Labile Patient Cognition Impaired: No Ability to Follow Directions: Poor Speech Pattern: Clear Memory Description: Intact Diagnostics Vital Signs (24Hr): Vital Signs - 24 hr 09/13/21 08:00 09/13/21 21:21 Temperature 97.5 F 98.8 F Pulse Rate 100 71 Respiratory Rate 15 19 Blood Pressure 108/58 L 138/63 Pulse Oximetry 100 98 BMI result Body Mass Index 29.2 Labs Results: 08/30/21 20:03 08/30/21 20:03 Medications Medications Current Medications Acetaminophen (Acetaminophen 325 Mg Tablet) 650 mg PO Q6H PRN PRN Reason: Headache/Pain Mild Scale (1-3) Last Admin: 09/14/21 03:37 Dose: 650 mg Documented by: Al Hydroxide/Mg Hydroxide (Magnesium Hydrox/Alum Hydrox 30 Ml Oral.Susp) 30 ml PO Q6H PRN PRN Reason: Heartburn/Nausea Aspirin (Aspirin Enteric Coated 81 Mg Tablet.) 81 mg PO DAILY [facility] Last Admin: 09/13/21 08:46 Dose: Not Given Documented by: Atorvastatin Calcium (Atorvastatin Calcium 20 Mg Tablet) 20 mg PO BEDTIME [facility] Last Admin: 09/13/21 20:18 Dose: 20 mg Documented by: Divalproex Sodium (Divalproex Sodium 500 Mg Tablet.) 500 mg PO BEDTIME [facility] Last Admin: 09/13/21 20:18 Dose: 500 mg Documented by: Doxazosin Mesylate (Doxazosin Mesylate 2 Mg Tablet) 4 mg PO BEDTIME [facility]; Protocol Last Admin: 09/13/21 20:18 Dose: 4 mg Documented by: Furosemide (Furosemide 20 Mg Tablet) 20 mg PO DAILY [facility]; Protocol Last Admin: 09/13/21 08:46 Dose: Not Given Documented by: Hydroxyzine HCl (Hydroxyzine Hcl 25 Mg Tablet) 25 mg PO BEDTIME PRN PRN Reason: Anxiety Levothyroxine Sodium (Levothyroxine Sodium 150 Mcg Tablet) 150 mcg PO DAILY [facility] Last Admin: 09/13/21 08:46 Dose: Not Given Documented by: Magnesium Hydroxide (Milk Of Magnesia 30 Ml Oral.Susp) 30 ml PO DAILY PRN PRN Reason: Constipation Olanzapine (Olanzapine 5 Mg Tablet) 5 mg PO BEDTIME [facility] Last Admin: 09/13/21 20:19 Dose: 5 mg Documented by: Olanzapine (Olanzapine 10 Mg Vial) 5 mg IM BEDTIME PRN PRN Reason: ir PO is refused Pharmacy Consult (Consult Rx Perform Med Rec) 1 each MISCELLANE ONCE PRN PRN Reason: Consult order Trazodone HCl (Trazodone Hcl 50 Mg Tablet) 50 mg PO BEDTIME PRN PRN Reason: Insomnia Allergies Allergies Allergy/AdvReac Type Severity Reaction Status Date / Time tamsulosin [From FLOMAX] Allergy Intermediate RASH Verified 02/21/21 14:00 Assessment & Plan Assessment & Plan (1) Bipolar disorder: Qualifiers: Active/Remission status: currently active Current bipolar episode type: manic Current episode severity: moderate Qualified Code(s): F31.12 - Bipolar disorder, current episode manic without psychotic features, moderate Status: Acute Code(s): F31.9 - Bipolar disorder, unspecified Plan Elderly Cauc[place] male with Bipolar disorder admitted for exacerbation of jyothi in the context of limited social support. Plan Continue encouraging patient for compliance with medications, Depakote and olanzapine was prescribed but so far he has not taking a single dose Filed for Section 7 and 8. He had a hearing and has lost the case. on Depakote and olanzapine with a p.r.n. IM 09/13: Ct with [place] order. Encourage PO OLZ . Give IM if refuses PO. 09/14: encourage med compliance. I spent minutes with the patient and/or on the patient floor today, greater than?50% of which was spent counseling/coordinating care. Reason for contiued inpatient stay Substantial Risk for: rapid decompensation
[2021-09-14 06:00] VITALS: BP 136/61; PULSE 70; TEMP 36.1; O2SAT 97
[2021-09-14] MEDS: Furosemide 20 MG TABLET PO (10:09)
[2021-09-14] MEDS: Aspirin Enteric Coated 81 MG TABLET.DR PO (10:10)
[2021-09-14] MEDS: Levothyroxine Sodium 150 MCG TABLET PO (10:10)
[2021-09-14 19:50] VITALS: BP 126/60; PULSE 89; RESP 19; TEMP 36.8; O2SAT 96
[2021-09-14] MEDS: Atorvastatin Calcium 20 MG TABLET PO (19:56)
[2021-09-14] MEDS: OLANZapine 5 MG TABLET PO (19:57)
[2021-09-14] MEDS: Doxazosin Mesylate 2 MG TABLET 4 MG PO (19:57)
[2021-09-14] MEDS: Divalproex Sodium 500 MG TABLET.DR PO (19:57)
[2021-09-15] MEDS: Acetaminophen 325 MG TABLET 650 MG PO ×4 (03:50→23:54)
[2021-09-15 08:00] VITALS: BP 127/65; PULSE 90; RESP 16; TEMP 36.6; O2SAT 96
[2021-09-15] MEDS: Furosemide 20 MG TABLET PO (08:18)
[2021-09-15] MEDS: Levothyroxine Sodium 150 MCG TABLET PO (08:18)
[2021-09-15] MEDS: Aspirin Enteric Coated 81 MG TABLET.DR PO (08:19)
--- NOTE | 2021-09-15 10:28 | P.PNPSI_ITS ---
Subjective Subjective Date of Service: 09/14/21 Reason For Visit: mood disorder Subjective Notes: Conditional Voluntary Healthcare Proxy: No Interim History: The patient is calmer improve range of affect more ac to of treatment irrita less agitated of treatment Medication Compliance: Intermittent Side effects from medications: No Attending Groups: No Review of Systems Acute medical concerns: No Medical Review of Systems: unchanged Mental Status Exam Mental Status Exam Patient Appearance: Well Grooomed Patient Orientation: Person, Place and Situation Level of Consciousness: Awake Patient Behavior: Guarded and Cooperative Mood Description: Calm, Labile and Apprehensive Affect Description: Labile Patient Cognition Impaired: No Ability to Follow Directions: Fair Speech Pattern: Clear Memory Description: Intact Delusions: Present Depressive Symptoms: Increased Anxiety and Increased Irritability Judgement: Fair Judgement and Insight: Aimproved cooperation behavoir Diagnostics Vital Signs (24Hr): Vital Signs - 24 hr 09/14/21 19:50 Temperature 98.3 F Pulse Rate 89 Respiratory Rate 19 Blood Pressure 126/60 Pulse Oximetry 96 BMI result Body Mass Index 29.2 Labs Results: 08/30/21 20:03 08/30/21 20:03 Medications Medications Current Medications Acetaminophen (Acetaminophen 325 Mg Tablet) 650 mg PO Q6H PRN PRN Reason: Headache/Pain Mild Scale (1-3) Last Admin: 09/15/21 03:50 Dose: 650 mg Documented by: Al Hydroxide/Mg Hydroxide (Magnesium Hydrox/Alum Hydrox 30 Ml Oral.Susp) 30 ml PO Q6H PRN PRN Reason: Heartburn/Nausea Aspirin (Aspirin Enteric Coated 81 Mg Tablet.) 81 mg PO DAILY [facility] Last Admin: 09/15/21 08:19 Dose: 81 mg Documented by: Atorvastatin Calcium (Atorvastatin Calcium 20 Mg Tablet) 20 mg PO BEDTIME [facility] Last Admin: 09/14/21 19:56 Dose: 20 mg Documented by: Divalproex Sodium (Divalproex Sodium 500 Mg Tablet.) 500 mg PO BEDTIME [facility] Last Admin: 09/14/21 19:57 Dose: 500 mg Documented by: Doxazosin Mesylate (Doxazosin Mesylate 2 Mg Tablet) 4 mg PO BEDTIME [facility]; Protocol Last Admin: 09/14/21 19:57 Dose: 4 mg Documented by: Furosemide (Furosemide 20 Mg Tablet) 20 mg PO DAILY [facility]; Protocol Last Admin: 09/15/21 08:18 Dose: 20 mg Documented by: Hydroxyzine HCl (Hydroxyzine Hcl 25 Mg Tablet) 25 mg PO BEDTIME PRN PRN Reason: Anxiety Levothyroxine Sodium (Levothyroxine Sodium 150 Mcg Tablet) 150 mcg PO DAILY [facility] Last Admin: 09/15/21 08:18 Dose: 150 mcg Documented by: Magnesium Hydroxide (Milk Of Magnesia 30 Ml Oral.Susp) 30 ml PO DAILY PRN PRN Reason: Constipation Olanzapine (Olanzapine 5 Mg Tablet) 5 mg PO BEDTIME [facility] Last Admin: 09/14/21 19:57 Dose: 5 mg Documented by: Olanzapine (Olanzapine 10 Mg Vial) 5 mg IM BEDTIME PRN PRN Reason: ir PO is refused Pharmacy Consult (Consult Rx Perform Med Rec) 1 each MISCELLANE ONCE PRN PRN Reason: Consult order Trazodone HCl (Trazodone Hcl 50 Mg Tablet) 50 mg PO BEDTIME PRN PRN Reason: Insomnia Allergies Allergies Allergy/AdvReac Type Severity Reaction Status Date / Time tamsulosin [From FLOMAX] Allergy Intermediate RASH Verified 02/21/21 14:00 Assessment & Plan Assessment & Plan (1) Bipolar disorder: Qualifiers: Active/Remission status: currently active Current bipolar episode type: manic Current episode severity: moderate Qualified Code(s): F31.12 - Bipolar disorder, current episode manic without psychotic features, moderate Status: Acute Code(s): F31.9 - Bipolar disorder, unspecified Plan Elderly Cauc[place] male with Bipolar disorder admitted for exacerbation of jyothi in the context of limited social support. Plan Continue encouraging patient for compliance with medications, Depakote and olanzapine was prescribed but so far he has not taking a single dose Filed for Section 7 and 8. He had a hearing and has lost the case. on Depakote and olanzapine with a p.r.n. IM 09/13: Ct with [place] order. Encourage PO OLZ . Give IM if refuses PO. 09/15/21 . Continue to encourage medication compliance acceptance of treatment I spent __20____ minutes with the patient and/or on the patient floor today, gr eater than?50% of which was spent counseling/coordinating care. Reason for contiued inpatient stay Substantial Risk for: rapid decompensation and med/psych decompensation
--- NOTE | 2021-09-15 17:42 | HO.PSYCHPN ---
Subjective Subjective Reason For Visit: mood disorder Diagnostics Vital Signs (24Hr): Vital Signs - 24 hr 09/14/21 19:50 09/15/21 08:00 Temperature 98.3 F 97.9 F Pulse Rate 89 90 Respiratory Rate 19 16 Blood Pressure 126/60 127/65 Pulse Oximetry 96 96 BMI result Body Mass Index 29.2 Labs Results: 08/30/21 20:03 08/30/21 20:03 Medications Medications Current Medications Acetaminophen (Acetaminophen 325 Mg Tablet) 650 mg PO Q6H PRN PRN Reason: Headache/Pain Mild Scale (1-3) Last Admin: 09/15/21 17:07 Dose: 650 mg Documented by: Al Hydroxide/Mg Hydroxide (Magnesium Hydrox/Alum Hydrox 30 Ml Oral.Susp) 30 ml PO Q6H PRN PRN Reason: Heartburn/Nausea Aspirin (Aspirin Enteric Coated 81 Mg Tablet.) 81 mg PO DAILY [facility] Last Admin: 09/15/21 08:19 Dose: 81 mg Documented by: Atorvastatin Calcium (Atorvastatin Calcium 20 Mg Tablet) 20 mg PO BEDTIME [facility] Last Admin: 09/14/21 19:56 Dose: 20 mg Documented by: Divalproex Sodium (Divalproex Sodium 500 Mg Tablet.) 500 mg PO BEDTIME [facility] Last Admin: 09/14/21 19:57 Dose: 500 mg Documented by: Doxazosin Mesylate (Doxazosin Mesylate 2 Mg Tablet) 4 mg PO BEDTIME [facility]; Protocol Last Admin: 09/14/21 19:57 Dose: 4 mg Documented by: Furosemide (Furosemide 20 Mg Tablet) 20 mg PO DAILY [facility]; Protocol Last Admin: 09/15/21 08:18 Dose: 20 mg Documented by: Hydroxyzine HCl (Hydroxyzine Hcl 25 Mg Tablet) 25 mg PO BEDTIME PRN PRN Reason: Anxiety Levothyroxine Sodium (Levothyroxine Sodium 150 Mcg Tablet) 150 mcg PO DAILY [facility] Last Admin: 09/15/21 08:18 Dose: 150 mcg Documented by: Magnesium Hydroxide (Milk Of Magnesia 30 Ml Oral.Susp) 30 ml PO DAILY PRN PRN Reason: Constipation Olanzapine (Olanzapine 5 Mg Tablet) 5 mg PO BEDTIME [facility] Last Admin: 09/14/21 19:57 Dose: 5 mg Documented by: Olanzapine (Olanzapine 10 Mg Vial) 5 mg IM BEDTIME PRN PRN Reason: ir PO is refused Pharmacy Consult (Consult Rx Perform Med Rec) 1 each MISCELLANE ONCE PRN PRN Reason: Consult order Trazodone HCl (Trazodone Hcl 50 Mg Tablet) 50 mg PO BEDTIME PRN PRN Reason: Insomnia Allergies Allergies Allergy/AdvReac Type Severity Reaction Status Date / Time tamsulosin [From FLOMAX] Allergy Intermediate RASH Verified 02/21/21 14:00 Assessment & Plan Assessment & Plan (1) Bipolar disorder: Qualifiers: Active/Remission status: currently active Current bipolar episode type: manic Current episode severity: moderate Qualified Code(s): F31.12 - Bipolar disorder, current episode manic without psychotic features, moderate Status: Acute Code(s): F31.9 - Bipolar disorder, unspecified Plan Elderly Cauc[place] male with Bipolar disorder admitted for exacerbation of jyothi in the context of limited social support. Plan Continue encouraging patient for compliance with medications, Depakote and olanzapine was prescribed but so far he has not taking a single dose Filed for Section 7 and 8. He had a hearing and has lost the case. on Depakote and olanzapine with a p.r.n. IM 09/13: Ct with [place] order. Encourage PO OLZ . Give IM if refuses PO. 09/14: encourage med compliance. I spent minutes with the patient and/or on the patient floor today, greater than?50% of which was spent counseling/coordinating care.
[2021-09-15] MEDS: Atorvastatin Calcium 20 MG TABLET PO (21:14)
[2021-09-15] MEDS: Divalproex Sodium 500 MG TABLET.DR PO (21:15)
[2021-09-15] MEDS: Doxazosin Mesylate 2 MG TABLET 4 MG PO (21:15)
[2021-09-15] MEDS: OLANZapine 5 MG TABLET PO (21:16)
[2021-09-15 21:55] VITALS: BP 135/63; PULSE 76; RESP 17; TEMP 36.8; O2SAT 96
[2021-09-16 08:32] VITALS: BP 146/65; PULSE 80; RESP 16; TEMP 36.3; O2SAT 98
[2021-09-16] MEDS: Furosemide 20 MG TABLET PO (09:01)
[2021-09-16] MEDS: Aspirin Enteric Coated 81 MG TABLET.DR PO (09:01)
[2021-09-16] MEDS: Levothyroxine Sodium 150 MCG TABLET PO (09:02)
[2021-09-16] MEDS: Acetaminophen 325 MG TABLET 650 MG PO ×2 (14:42→21:10)
--- NOTE | 2021-09-16 16:01 | HO.PSYCHPN ---
Subjective Subjective Date of Service: 09/16/21 Reason For Visit: mood disorder Subjective Notes: Section 7 and Section 8 Interim History: The nursing staff reported the patient has slept only 4 hours. He is taking medications since he knows that his under sections 7 and 8. On interview, the patient denies new symptoms he states that he is doing fine and he wants to be discharged as soon as possible. I tried to explain him that we need blood work another ancillary tests to see the efficacy of the medication. So far, the team states that he is looking much better less irritable and sexually inappropriate. Mental Status Exam Mental Status Exam Patient Appearance: Well Grooomed Patient Orientation: Person Level of Consciousness: Awake Patient Behavior: Passive Mood Description: Suspicious and Withdrawn Affect Description: Constricted Patient Cognition Impaired: No Ability to Follow Directions: Fair Speech Pattern: Clear Memory Description: Intact Hallucinations: None Thought Process: Distracted Thought Content: positive for Circumstantial Judgement: Fair Diagnostics Vital Signs (24Hr): Vital Signs - 24 hr 09/15/21 21:55 09/16/21 08:32 Temperature 98.3 F 97.4 F Pulse Rate 76 80 Respiratory Rate 17 16 Blood Pressure 135/63 146/65 H Pulse Oximetry 96 98 BMI result Body Mass Index 29.2 Labs Results: 08/30/21 20:03 08/30/21 20:03 Medications Medications Current Medications Acetaminophen (Acetaminophen 325 Mg Tablet) 650 mg PO Q6H PRN PRN Reason: Headache/Pain Mild Scale (1-3) Last Admin: 09/16/21 14:42 Dose: 650 mg Documented by: Al Hydroxide/Mg Hydroxide (Magnesium Hydrox/Alum Hydrox 30 Ml Oral.Susp) 30 ml PO Q6H PRN PRN Reason: Heartburn/Nausea Aspirin (Aspirin Enteric Coated 81 Mg Tablet.) 81 mg PO DAILY [facility] Last Admin: 09/16/21 09:01 Dose: 81 mg Documented by: Atorvastatin Calcium (Atorvastatin Calcium 20 Mg Tablet) 20 mg PO BEDTIME [facility] Last Admin: 09/15/21 21:14 Dose: 20 mg Documented by: Divalproex Sodium (Divalproex Sodium 500 Mg Tablet.) 500 mg PO BEDTIME [facility] Last Admin: 09/15/21 21:15 Dose: 500 mg Documented by: Doxazosin Mesylate (Doxazosin Mesylate 2 Mg Tablet) 4 mg PO BEDTIME [facility]; Protocol Last Admin: 09/15/21 21:15 Dose: 4 mg Documented by: Furosemide (Furosemide 20 Mg Tablet) 20 mg PO DAILY [facility]; Protocol Last Admin: 09/16/21 09:01 Dose: 20 mg Documented by: Hydroxyzine HCl (Hydroxyzine Hcl 25 Mg Tablet) 25 mg PO BEDTIME PRN PRN Reason: Anxiety Levothyroxine Sodium (Levothyroxine Sodium 150 Mcg Tablet) 150 mcg PO DAILY [facility] Last Admin: 09/16/21 09:02 Dose: 150 mcg Documented by: Magnesium Hydroxide (Milk Of Magnesia 30 Ml Oral.Susp) 30 ml PO DAILY PRN PRN Reason: Constipation Olanzapine (Olanzapine 10 Mg Vial) 5 mg IM BEDTIME PRN PRN Reason: ir PO is refused Olanzapine (Olanzapine 7.5 Mg Tablet) 7.5 mg PO BEDTIME [facility] Pharmacy Consult (Consult Rx Perform Med Rec) 1 each MISCELLANE ONCE PRN PRN Reason: Consult order Trazodone HCl (Trazodone Hcl 50 Mg Tablet) 50 mg PO BEDTIME PRN PRN Reason: Insomnia Allergies Allergies Allergy/AdvReac Type Severity Reaction Status Date / Time tamsulosin [From FLOMAX] Allergy Intermediate RASH Verified 02/21/21 14:00 Assessment & Plan Assessment & Plan (1) Bipolar disorder: Qualifiers: Active/Remission status: currently active Current bipolar episode type: manic Current episode severity: moderate Qualified Code(s): F31.12 - Bipolar disorder, current episode manic without psychotic features, moderate Status: Acute Code(s): F31.9 - Bipolar disorder, unspecified Plan Elderly Caucasia male with Bipolar disorder admitted for exacerbation of jyothi in the context of limited social support. Plan Since the patient isn't Section 7 and 8 he is now on Depakote and Zyprexa. Increase Zyprexa up to 7.5 mg p.o. q.h.s.. Depakote level, LFTs and other blood work for tomorrow morning. I spent minutes with the patient and/or on the patient floor today, greater than?50% of which was spent counseling/coordinating care. Reason for contiued inpatient stay Substantial Risk for: inability to function, rapid decompensation and med/psych decompensation
[2021-09-16] MEDS: Doxazosin Mesylate 2 MG TABLET 4 MG PO (20:39)
[2021-09-16] MEDS: Divalproex Sodium 500 MG TABLET.DR PO (20:39)
[2021-09-16] MEDS: Atorvastatin Calcium 20 MG TABLET PO (20:39)
[2021-09-16] MEDS: OLANZapine 7.5 MG TABLET PO (20:45)
[2021-09-16 21:28] VITALS: BP 125/61; PULSE 74; RESP 18; TEMP 37.1; O2SAT 95
[2021-09-17 07:49] LABS: Alanine Aminotransferase 36 U/L (0-40); Albumin Level 4.2 g/dL (3.5-5.0); Alkaline Phosphatase 56 U/L (39-117); Anion Gap 12 (12-20); Aspartate Amino Transferase 39 U/L (5-37); Bilirubin Direct < 0.2 mg/dL (0.0-0.5); Bilirubin Total 0.4 mg/dL (0.0-1.0); Blood Urea Nitrogen 46 mg/dL (9-16); Calcium 10.1 mg/dL (8.4-10.2); Carbon Dioxide 30 mmol/L (22-29); Chloride 106 mmol/L (96-108); Creatinine Clr Calc Pharmacy 38.1; Estimated Glomerular Filt Rate 37; Glucose Random 94 mg/dL (60-115); Potassium 4.7 mmol/L (3.3-5.1); Sodium 143 mmol/L (135-145); Total Protein 7.1 g/dL (6.5-8.0)
[2021-09-17 08:00] VITALS: BP 153/69; PULSE 90; RESP 18; TEMP 36.6; O2SAT 96
[2021-09-17 08:07] LABS: Valproate 42.4 mcg/mL (50.0-100.0)
[2021-09-17] MEDS: Aspirin Enteric Coated 81 MG TABLET.DR PO (08:18)
[2021-09-17] MEDS: Furosemide 20 MG TABLET PO (08:19)
[2021-09-17] MEDS: Levothyroxine Sodium 150 MCG TABLET PO (08:19)
--- NOTE | 2021-09-17 16:34 | P.PNPSI_ITS ---
Subjective Subjective Date of Service: 09/17/21 Reason For Visit: mood disorder Subjective Notes: Section 7 and Section 8 Interim History: The nursing staff reported the patient sleeps poorly at night he has been slightly lab I will but easily redirectable. He is compliant with medications since he is on a Section 7 and 8. On interview the patient was on his bed in the afternoon taking a nap. He stated that he is feeling fine and he wants to be discharged. Mental Status Exam Mental Status Exam Patient Appearance: Appropriate Patient Orientation: Person and Situation Level of Consciousness: Awake Patient Behavior: Guarded and Passive Mood Description: Labile Affect Description: Constricted Patient Cognition Impaired: No Ability to Follow Directions: Fair Speech Pattern: Clear Hallucinations: None Delusions: Grandiose Thought Process: Linear Thought Content: positive for Circumstantial Judgement: Fair Diagnostics Vital Signs (24Hr): Vital Signs - 24 hr 09/16/21 21:28 09/17/21 08:00 Temperature 98.8 F 98 F Pulse Rate 74 90 Respiratory Rate 18 18 Blood Pressure 125/61 153/69 H Pulse Oximetry 95 96 BMI result Body Mass Index 29.2 Labs Results: 08/30/21 20:03 09/17/21 07:25 Labs: Laboratory Results - last 48 hr 09/17/21 07:25 Sodium 143 Potassium 4.7 Chloride 106 Carbon Dioxide 30 H Anion Gap 12 BUN 46 H D Creatinine 1.77 H Estim Creat Clear Calc 38.1 Estimated GFR 37 Random Glucose 94 Calcium 10.1 Total Bilirubin 0.4 Direct Bilirubin < 0.2 AST 39 H ALT 36 Alkaline Phosphatase 56 Total Protein 7.1 Albumin 4.2 Valproic Acid 42.4 L Medications Medications Current Medications Acetaminophen (Acetaminophen 325 Mg Tablet) 650 mg PO Q6H PRN PRN Reason: Headache/Pain Mild Scale (1-3) Last Admin: 09/16/21 21:10 Dose: 650 mg Documented by: Al Hydroxide/Mg Hydroxide (Magnesium Hydrox/Alum Hydrox 30 Ml Oral.Susp) 30 ml PO Q6H PRN PRN Reason: Heartburn/Nausea Aspirin (Aspirin Enteric Coated 81 Mg Tablet.Dr) 81 mg PO DAILY [facility] Last Admin: 09/17/21 08:18 Dose: 81 mg Documented by: Atorvastatin Calcium (Atorvastatin Calcium 20 Mg Tablet) 20 mg PO BEDTIME [facility] Last Admin: 09/16/21 20:39 Dose: 20 mg Documented by: Divalproex Sodium (Divalproex Sodium 500 Mg Tablet.) 500 mg PO BEDTIME [facility] Last Admin: 09/16/21 20:39 Dose: 500 mg Documented by: Doxazosin Mesylate (Doxazosin Mesylate 2 Mg Tablet) 4 mg PO BEDTIME [facility]; Protocol Last Admin: 09/16/21 20:39 Dose: 4 mg Documented by: Furosemide (Furosemide 20 Mg Tablet) 20 mg PO DAILY [facility]; Protocol Last Admin: 09/17/21 08:19 Dose: 20 mg Documented by: Hydroxyzine HCl (Hydroxyzine Hcl 25 Mg Tablet) 25 mg PO BEDTIME PRN PRN Reason: Anxiety Levothyroxine Sodium (Levothyroxine Sodium 150 Mcg Tablet) 150 mcg PO DAILY [facility] Last Admin: 09/17/21 08:19 Dose: 150 mcg Documented by: Magnesium Hydroxide (Milk Of Magnesia 30 Ml Oral.Susp) 30 ml PO DAILY PRN PRN Reason: Constipation Olanzapine (Olanzapine 10 Mg Vial) 5 mg IM BEDTIME PRN PRN Reason: ir PO is refused Olanzapine (Olanzapine 7.5 Mg Tablet) 7.5 mg PO BEDTIME [facility] Last Admin: 09/16/21 20:45 Dose: 7.5 mg Documented by: Pharmacy Consult (Consult Rx Perform Med Rec) 1 each MISCELLANE ONCE PRN PRN Reason: Consult order Trazodone HCl (Trazodone Hcl 50 Mg Tablet) 50 mg PO BEDTIME PRN PRN Reason: Insomnia Allergies Allergies Allergy/AdvReac Type Severity Reaction Status Date / Time tamsulosin [From FLOMAX] Allergy Intermediate RASH Verified 02/21/21 14:00 Assessment & Plan Assessment & Plan (1) Bipolar disorder: Qualifiers: Active/Remission status: currently active Current bipolar episode type: manic Current episode severity: moderate Qualified Code(s): F31.12 - Bipolar disorder, current episode manic without psychotic features, moderate Status: Acute Code(s): F31.9 - Bipolar disorder, unspecified Plan Elderly Caucasia male with Bipolar disorder admitted for exacerbation of jyothi in the context of limited social support. Plan Since the patient isn't Section 7 and 8 he is now on Depakote and Zyprexa. Depakote level of 47.2 is no need to change it. I spent minutes with the patient and/or on the patient floor today, gr eater than?50% of which was spent counseling/coordinating care. Reason for contiued inpatient stay Substantial Risk for: inability to function, rapid decompensation and med/psych decompensation
[2021-09-17 19:53] VITALS: BP 141/62; PULSE 87; RESP 18; TEMP 36.6; O2SAT 95
[2021-09-17] MEDS: Divalproex Sodium 500 MG TABLET.DR PO (20:09)
[2021-09-17] MEDS: OLANZapine 7.5 MG TABLET PO (20:09)
[2021-09-17] MEDS: Atorvastatin Calcium 20 MG TABLET PO (20:09)
[2021-09-17] MEDS: Doxazosin Mesylate 2 MG TABLET 4 MG PO (20:09)
[2021-09-18 05:38] VITALS: BMI 24.8
[2021-09-18 06:00] VITALS: BP 161/41; PULSE 102; RESP 18; TEMP 36.5; O2SAT 95
[2021-09-18] MEDS: Levothyroxine Sodium 150 MCG TABLET PO (07:59)
[2021-09-18] MEDS: Furosemide 20 MG TABLET PO (07:59)
[2021-09-18] MEDS: Aspirin Enteric Coated 81 MG TABLET.DR PO (07:59)
--- NOTE | 2021-09-18 13:34 | P.PNPSI_ITS ---
Subjective Subjective Date of Service: 09/18/21 Reason For Visit: mood disorder Subjective Notes: Section 7 and Section 8 Review of Systems The nursing staff reported the patient has been pleasant and cooperative, he is visible in the unit. It is clear that the patient does not sleep the whole night and he naps during the day. Yesterday the social insurance adviser spoke with him and he stated he feels better with the medications and he was asking for his discharge. Today, 1 of his sons called me and asked me about his status, I informed him that he is much better we are thinking of possible discharge early next week. On interview, the patient denies new symptoms, he looks less manic and more appropriate. Mental Status Exam Mental Status Exam Patient Appearance: Well Grooomed Patient Orientation: Person and Situation Level of Consciousness: Awake Patient Behavior: Cooperative Mood Description: Calm and Constricted Affect Description: Constricted Patient Cognition Impaired: No Ability to Follow Directions: Good Speech Pattern: Clear Memory Description: Intact Hallucinations: None Delusions: Not Present Thought Process: Linear Thought Content: positive for Perseveration and positive for Poverty of Content Judgement: Fair Diagnostics Vital Signs (24Hr): Vital Signs - 24 hr 09/17/21 19:53 09/18/21 06:00 Temperature 98 F 97.7 F Pulse Rate 87 102 H Respiratory Rate 18 18 Blood Pressure 141/62 H 161/41 H Pulse Oximetry 95 95 BMI result Body Mass Index 24.8 Labs Results: 08/30/21 20:03 09/17/21 07:25 Labs: Laboratory Results - last 48 hr 09/17/21 07:25 Sodium 143 Potassium 4.7 Chloride 106 Carbon Dioxide 30 H Anion Gap 12 BUN 46 H D Creatinine 1.77 H Estim Creat Clear Calc 38.1 Estimated GFR 37 Random Glucose 94 Calcium 10.1 Total Bilirubin 0.4 Direct Bilirubin < 0.2 AST 39 H ALT 36 Alkaline Phosphatase 56 Total Protein 7.1 Albumin 4.2 Valproic Acid 42.4 L Medications Medications Current Medications Acetaminophen (Acetaminophen 325 Mg Tablet) 650 mg PO Q6H PRN PRN Reason: Headache/Pain Mild Scale (1-3) Last Admin: 09/16/21 21:10 Dose: 650 mg Documented by: Al Hydroxide/Mg Hydroxide (Magnesium Hydrox/Alum Hydrox 30 Ml Oral.Susp) 30 ml PO Q6H PRN PRN Reason: Heartburn/Nausea Aspirin (Aspirin Enteric Coated 81 Mg Tablet.) 81 mg PO DAILY [facility] Last Admin: 09/18/21 07:59 Dose: 81 mg Documented by: Atorvastatin Calcium (Atorvastatin Calcium 20 Mg Tablet) 20 mg PO BEDTIME [facility] Last Admin: 09/17/21 20:09 Dose: 20 mg Documented by: Divalproex Sodium (Divalproex Sodium 500 Mg Tablet.) 500 mg PO BEDTIME [facility] Last Admin: 09/17/21 20:09 Dose: 500 mg Documented by: Doxazosin Mesylate (Doxazosin Mesylate 2 Mg Tablet) 4 mg PO BEDTIME [facility]; Protocol Last Admin: 09/17/21 20:09 Dose: 4 mg Documented by: Furosemide (Furosemide 20 Mg Tablet) 20 mg PO DAILY [facility]; Protocol Last Admin: 09/18/21 07:59 Dose: 20 mg Documented by: Hydroxyzine HCl (Hydroxyzine Hcl 25 Mg Tablet) 25 mg PO BEDTIME PRN PRN Reason: Anxiety Levothyroxine Sodium (Levothyroxine Sodium 150 Mcg Tablet) 150 mcg PO DAILY [facility] Last Admin: 09/18/21 07:59 Dose: 150 mcg Documented by: Magnesium Hydroxide (Milk Of Magnesia 30 Ml Oral.Susp) 30 ml PO DAILY PRN PRN Reason: Constipation Olanzapine (Olanzapine 10 Mg Vial) 5 mg IM BEDTIME PRN PRN Reason: ir PO is refused Olanzapine (Olanzapine 7.5 Mg Tablet) 7.5 mg PO BEDTIME [facility] Last Admin: 09/17/21 20:09 Dose: 7.5 mg Documented by: Pharmacy Consult (Consult Rx Perform Med Rec) 1 each MISCELLANE ONCE PRN PRN Reason: Consult order Trazodone HCl (Trazodone Hcl 50 Mg Tablet) 50 mg PO BEDTIME PRN PRN Reason: Insomnia Allergies Allergies Allergy/AdvReac Type Severity Reaction Status Date / Time tamsulosin [From FLOMAX] Allergy Intermediate RASH Verified 02/21/21 14:00 Assessment & Plan Assessment & Plan (1) Bipolar disorder: Qualifiers: Active/Remission status: currently active Current bipolar episode type: manic Current episode severity: moderate Qualified Code(s): F31.12 - Bipolar disorder, current episode manic without psychotic features, moderate Status: Acute Code(s): F31.9 - Bipolar disorder, unspecified Plan Elderly Caucasia male with Bipolar disorder admitted for exacerbation of jyothi in the context of limited social support. Plan Since the patient isn't Section 7 and 8 he is now on Depakote and Zyprexa. Depakote level of 47.2 is no need to change it. Discharge planning started I spent minutes with the patient and/or on the patient floor today, greater than?50% of which was spent counseling/coordinating care. Reason for contiued inpatient stay Substantial Risk for: inability to function, rapid decompensation and med/psych decompensation
[2021-09-18] MEDS: OLANZapine 7.5 MG TABLET PO (20:07)
[2021-09-18] MEDS: Divalproex Sodium 500 MG TABLET.DR PO (20:07)
[2021-09-18] MEDS: Doxazosin Mesylate 2 MG TABLET 4 MG PO (20:08)
[2021-09-18] MEDS: Atorvastatin Calcium 20 MG TABLET PO (20:08)
[2021-09-18 20:18] VITALS: BP 130/64; PULSE 82; RESP 18; TEMP 36.8; O2SAT 96
[2021-09-19 08:00] VITALS: BP 142/67; PULSE 94; TEMP 36.9; O2SAT 94
[2021-09-19] MEDS: Furosemide 20 MG TABLET PO (08:13)
[2021-09-19] MEDS: Levothyroxine Sodium 150 MCG TABLET PO (08:13)
[2021-09-19] MEDS: Aspirin Enteric Coated 81 MG TABLET.DR PO (08:13)
--- NOTE | 2021-09-19 12:15 | P.PNPSI_ITS ---
Subjective Subjective Date of Service: 09/19/21 Reason For Visit: mood disorder Subjective Notes: Section 7 and Section 8 Interim History: the nursing staff reported the patient is pleasant and cooperative, fully compliant with treatment. On interview, the patient stated that he is doing fine he is sleeping much better. The social media sr strategy manager has already arrange services at [facility] and a VNA. He will be discharged to his son Chase on Wednesday at 04:00 o'clock in the afternoon. Mental Status Exam Mental Status Exam Patient Appearance: Well Grooomed Patient Orientation: Person and Situation Level of Consciousness: Awake and Appropriate Patient Behavior: Cooperative Mood Description: Constricted Affect Description: Constricted Patient Cognition Impaired: No Ability to Follow Directions: Good Speech Pattern: Clear Memory Description: Intact Hallucinations: None Delusions: Not Present Thought Process: Intact Thought Content: positive for Intact Judgement: Fair Diagnostics Vital Signs (24Hr): Vital Signs - 24 hr 09/18/21 20:18 09/19/21 08:00 Temperature 98.3 F 98.4 F Pulse Rate 82 94 Respiratory Rate 18 Blood Pressure 130/64 142/67 H Pulse Oximetry 96 94 BMI result Body Mass Index 24.8 Labs Results: 08/30/21 20:03 09/17/21 07:25 Medications Medications Current Medications Acetaminophen (Acetaminophen 325 Mg Tablet) 650 mg PO Q6H PRN PRN Reason: Headache/Pain Mild Scale (1-3) Last Admin: 09/16/21 21:10 Dose: 650 mg Documented by: Al Hydroxide/Mg Hydroxide (Magnesium Hydrox/Alum Hydrox 30 Ml Oral.Susp) 30 ml PO Q6H PRN PRN Reason: Heartburn/Nausea Aspirin (Aspirin Enteric Coated 81 Mg Tablet.) 81 mg PO DAILY [facility] Last Admin: 09/19/21 08:13 Dose: 81 mg Documented by: Atorvastatin Calcium (Atorvastatin Calcium 20 Mg Tablet) 20 mg PO BEDTIME [facility] Last Admin: 09/18/21 20:08 Dose: 20 mg Documented by: Divalproex Sodium (Divalproex Sodium 500 Mg Tablet.) 500 mg PO BEDTIME [facility] Last Admin: 09/18/21 20:07 Dose: 500 mg Documented by: Doxazosin Mesylate (Doxazosin Mesylate 2 Mg Tablet) 4 mg PO BEDTIME [facility]; Protocol Last Admin: 09/18/21 20:08 Dose: 4 mg Documented by: Furosemide (Furosemide 20 Mg Tablet) 20 mg PO DAILY [facility]; Protocol Last Admin: 09/19/21 08:13 Dose: 20 mg Documented by: Hydroxyzine HCl (Hydroxyzine Hcl 25 Mg Tablet) 25 mg PO BEDTIME PRN PRN Reason: Anxiety Levothyroxine Sodium (Levothyroxine Sodium 150 Mcg Tablet) 150 mcg PO DAILY [facility] Last Admin: 09/19/21 08:13 Dose: 150 mcg Documented by: Magnesium Hydroxide (Milk Of Magnesia 30 Ml Oral.Susp) 30 ml PO DAILY PRN PRN Reason: Constipation Olanzapine (Olanzapine 10 Mg Vial) 5 mg IM BEDTIME PRN PRN Reason: ir PO is refused Olanzapine (Olanzapine 7.5 Mg Tablet) 7.5 mg PO BEDTIME [facility] Last Admin: 09/18/21 20:07 Dose: 7.5 mg Documented by: Pharmacy Consult (Consult Rx Perform Med Rec) 1 each MISCELLANE ONCE PRN PRN Reason: Consult order Trazodone HCl (Trazodone Hcl 50 Mg Tablet) 50 mg PO BEDTIME PRN PRN Reason: Insomnia Allergies Allergies Allergy/AdvReac Type Severity Reaction Status Date / Time tamsulosin [From FLOMAX] Allergy Intermediate RASH Verified 02/21/21 14:00 Assessment & Plan Assessment & Plan (1) Bipolar disorder: Qualifiers: Active/Remission status: currently active Current bipolar episode type: manic Current episode severity: moderate Qualified Code(s): F31.12 - Bipolar disorder, current episode manic without psychotic features, moderate Status: Acute Code(s): F31.9 - Bipolar disorder, unspecified Plan Elderly Caucasia male with Bipolar disorder admitted for exacerbation of jyothi in the context of limited social support. Plan Since the patient is on Section 7 and 8 he is now on Depakote and Zyprexa. Depakote level of 47.2 is no need to change it. Discharge planning started I spent minutes with the patient and/or on the patient floor today, greater than?50% of which was spent counseling/coordinating care. Reason for contiued inpatient stay Substantial Risk for: inability to function, rapid decompensation and med/psych decompensation
[2021-09-19 20:14] VITALS: BP 130/60; PULSE 78; RESP 17; TEMP 36.4; O2SAT 95
[2021-09-19] MEDS: Divalproex Sodium 500 MG TABLET.DR PO (20:34)
[2021-09-19] MEDS: Atorvastatin Calcium 20 MG TABLET PO (20:34)
[2021-09-19] MEDS: Doxazosin Mesylate 2 MG TABLET 4 MG PO (20:34)
[2021-09-19] MEDS: OLANZapine 7.5 MG TABLET PO (20:35)
[2021-09-20 06:00] VITALS: BP 114/62; PULSE 97; RESP 16; TEMP 36.1; O2SAT 94
[2021-09-20] MEDS: Aspirin Enteric Coated 81 MG TABLET.DR PO (08:34)
[2021-09-20] MEDS: Levothyroxine Sodium 150 MCG TABLET PO (08:34)
[2021-09-20] MEDS: Furosemide 20 MG TABLET PO (08:34)
--- NOTE | 2021-09-20 14:41 | P.PNPSI_ITS ---
Subjective Subjective Date of Service: 09/20/21 Reason For Visit: mood disorder Interim History: the nursing staff reported the patient is cooperative, fully compliant with treatment. He says he slept like a rock. He is feeling well. He was guarded and paranoid saying the reason he came into the hospital was because of a misunderstanding. The director social welfare has already arrange services at [facility] and a A. He will be discharged to his son Chase on Wednesday at 04:00 o'clock in the afternoon. Medication Compliance: Yes Review of Systems Acute medical concerns: No Review of Systems Review of Systems Yes all other systems are reviewed and are negative Mental Status Exam Mental Status Exam Patient Appearance: Well Grooomed Patient Orientation: Person and Situation Level of Consciousness: Awake and Appropriate Patient Behavior: Cooperative Mood Description: Constricted Affect Description: Constricted Patient Cognition Impaired: No Ability to Follow Directions: Good Speech Pattern: Clear Memory Description: Intact Hallucinations: None Delusions: Paranoid Ideation Thought Process: Intact Thought Content: positive for Evasive Judgement: Fair Diagnostics Vital Signs (24Hr): Vital Signs - 24 hr 09/19/21 20:14 09/20/21 06:00 Temperature 97.5 F 97.0 F Pulse Rate 78 97 Respiratory Rate 17 16 Blood Pressure 130/60 114/62 Pulse Oximetry 95 94 BMI result Body Mass Index 24.8 Labs Results: 08/30/21 20:03 09/17/21 07:25 Medications Medications Current Medications Acetaminophen (Acetaminophen 325 Mg Tablet) 650 mg PO Q6H PRN PRN Reason: Headache/Pain Mild Scale (1-3) Last Admin: 09/16/21 21:10 Dose: 650 mg Documented by: Al Hydroxide/Mg Hydroxide (Magnesium Hydrox/Alum Hydrox 30 Ml Oral.Susp) 30 ml PO Q6H PRN PRN Reason: Heartburn/Nausea Aspirin (Aspirin Enteric Coated 81 Mg Tablet.) 81 mg PO DAILY [facility] Last Admin: 09/20/21 08:34 Dose: 81 mg Documented by: Atorvastatin Calcium (Atorvastatin Calcium 20 Mg Tablet) 20 mg PO BEDTIME [facility] Last Admin: 09/19/21 20:34 Dose: 20 mg Documented by: Divalproex Sodium (Divalproex Sodium 500 Mg Tablet.) 500 mg PO BEDTIME [facility] Last Admin: 09/19/21 20:34 Dose: 500 mg Documented by: Doxazosin Mesylate (Doxazosin Mesylate 2 Mg Tablet) 4 mg PO BEDTIME [facility]; Protocol Last Admin: 09/19/21 20:34 Dose: 4 mg Documented by: Furosemide (Furosemide 20 Mg Tablet) 20 mg PO DAILY [facility]; Protocol Last Admin: 09/20/21 08:34 Dose: 20 mg Documented by: Hydroxyzine HCl (Hydroxyzine Hcl 25 Mg Tablet) 25 mg PO BEDTIME PRN PRN Reason: Anxiety Levothyroxine Sodium (Levothyroxine Sodium 150 Mcg Tablet) 150 mcg PO DAILY [facility] Last Admin: 09/20/21 08:34 Dose: 150 mcg Documented by: Magnesium Hydroxide (Milk Of Magnesia 30 Ml Oral.Susp) 30 ml PO DAILY PRN PRN Reason: Constipation Olanzapine (Olanzapine 10 Mg Vial) 5 mg IM BEDTIME PRN PRN Reason: ir PO is refused Olanzapine (Olanzapine 7.5 Mg Tablet) 7.5 mg PO BEDTIME [facility] Last Admin: 09/19/21 20:35 Dose: 7.5 mg Documented by: Pharmacy Consult (Consult Rx Perform Med Rec) 1 each MISCELLANE ONCE PRN PRN Reason: Consult order Trazodone HCl (Trazodone Hcl 50 Mg Tablet) 50 mg PO BEDTIME PRN PRN Reason: Insomnia Allergies Allergies Allergy/AdvReac Type Severity Reaction Status Date / Time tamsulosin [From FLOMAX] Allergy Intermediate RASH Verified 02/21/21 14:00 Assessment & Plan Assessment & Plan (1) Bipolar disorder: Qualifiers: Active/Remission status: currently active Current bipolar episode type: manic Current episode severity: moderate Qualified Code(s): F31.12 - Bipolar disorder, current episode manic without psychotic features, moderate Status: Acute Code(s): F31.9 - Bipolar disorder, unspecified Plan Elderly Caucasia male with Bipolar disorder admitted for exacerbation of jyothi in the context of limited social support. Plan Since the patient is on Section 7 and 8 he is now on Depakote and Zyprexa. Depakote level of 47.2 is no need to change it. Discharge planning started I spent minutes with the patient and/or on the patient floor today, greater than?50% of which was spent counseling/coordinating care. Reason for contiued inpatient stay Substantial Risk for: inability to function and rapid decompensation
[2021-09-20 18:00] VITALS: BP 132/65; PULSE 80; RESP 18; TEMP 36.6; O2SAT 95
[2021-09-20] MEDS: Divalproex Sodium 500 MG TABLET.DR PO (21:05)
[2021-09-20] MEDS: Doxazosin Mesylate 2 MG TABLET 4 MG PO (21:05)
[2021-09-20] MEDS: OLANZapine 7.5 MG TABLET PO (21:05)
[2021-09-20] MEDS: Atorvastatin Calcium 20 MG TABLET PO (21:05)
[2021-09-21 08:00] VITALS: BP 133/63; PULSE 86; RESP 14; TEMP 36.8; O2SAT 98
[2021-09-21] MEDS: Furosemide 20 MG TABLET PO (08:20)
[2021-09-21] MEDS: Levothyroxine Sodium 150 MCG TABLET PO (08:20)
[2021-09-21] MEDS: Aspirin Enteric Coated 81 MG TABLET.DR PO (08:20)
--- NOTE | 2021-09-21 17:29 | HO.PSYCHPN ---
Subjective Subjective Date of Service: 09/21/21 Reason For Visit: mood disorder Interim History: the nursing staff reported the patient is cooperative, fully compliant with treatment. He says he slept like a rock. He is feeling well. The social worker palliative care has already arrange services at [facility] and a VNA. He will be discharged to his son Chase on Wednesday at 04:00 o'clock in the afternoon. Review of Systems Review of Systems Yes all other systems are reviewed and are negative Mental Status Exam Mental Status Exam Patient Appearance: Well Grooomed Patient Orientation: Person and Situation Level of Consciousness: Awake and Appropriate Patient Behavior: Cooperative Mood Description: Constricted Affect Description: Constricted Patient Cognition Impaired: No Ability to Follow Directions: Good Speech Pattern: Clear Memory Description: Intact Diagnostics Vital Signs (24Hr): Vital Signs - 24 hr 09/20/21 18:00 09/21/21 08:00 Temperature 97.9 F 98.2 F Pulse Rate 80 86 Respiratory Rate 18 14 Blood Pressure 132/65 133/63 Pulse Oximetry 95 98 BMI result Body Mass Index 24.8 Labs Results: 08/30/21 20:03 09/17/21 07:25 Medications Medications Current Medications Acetaminophen (Acetaminophen 325 Mg Tablet) 650 mg PO Q6H PRN PRN Reason: Headache/Pain Mild Scale (1-3) Last Admin: 09/16/21 21:10 Dose: 650 mg Documented by: Al Hydroxide/Mg Hydroxide (Magnesium Hydrox/Alum Hydrox 30 Ml Oral.Susp) 30 ml PO Q6H PRN PRN Reason: Heartburn/Nausea Aspirin (Aspirin Enteric Coated 81 Mg Tablet.) 81 mg PO DAILY [facility] Last Admin: 09/21/21 08:20 Dose: 81 mg Documented by: Atorvastatin Calcium (Atorvastatin Calcium 20 Mg Tablet) 20 mg PO BEDTIME MANNY Last Admin: 09/20/21 21:05 Dose: 20 mg Documented by: Divalproex Sodium (Divalproex Sodium 500 Mg Tablet.) 500 mg PO BEDTIME MANNY Last Admin: 09/20/21 21:05 Dose: 500 mg Documented by: Doxazosin Mesylate (Doxazosin Mesylate 2 Mg Tablet) 4 mg PO BEDTIME MANNY; Protocol Last Admin: 09/20/21 21:05 Dose: 4 mg Documented by: Furosemide (Furosemide 20 Mg Tablet) 20 mg PO DAILY [facility]; Protocol Last Admin: 09/21/21 08:20 Dose: 20 mg Documented by: Hydroxyzine HCl (Hydroxyzine Hcl 25 Mg Tablet) 25 mg PO BEDTIME PRN PRN Reason: Anxiety Levothyroxine Sodium (Levothyroxine Sodium 150 Mcg Tablet) 150 mcg PO DAILY [facility] Last Admin: 09/21/21 08:20 Dose: 150 mcg Documented by: Magnesium Hydroxide (Milk Of Magnesia 30 Ml Oral.Susp) 30 ml PO DAILY PRN PRN Reason: Constipation Olanzapine (Olanzapine 10 Mg Vial) 5 mg IM BEDTIME PRN PRN Reason: ir PO is refused Olanzapine (Olanzapine 7.5 Mg Tablet) 7.5 mg PO BEDTIME [facility] Last Admin: 09/20/21 21:05 Dose: 7.5 mg Documented by: Pharmacy Consult (Consult Rx Perform Med Rec) 1 each MISCELLANE ONCE PRN PRN Reason: Consult order Trazodone HCl (Trazodone Hcl 50 Mg Tablet) 50 mg PO BEDTIME PRN PRN Reason: Insomnia Allergies Allergies Allergy/AdvReac Type Severity Reaction Status Date / Time tamsulosin [From FLOMAX] Allergy Intermediate RASH Verified 02/21/21 14:00 Assessment & Plan Assessment & Plan (1) Bipolar disorder: Qualifiers: Active/Remission status: currently active Current bipolar episode type: manic Current episode severity: moderate Qualified Code(s): F31.12 - Bipolar disorder, current episode manic without psychotic features, moderate Status: Acute Code(s): F31.9 - Bipolar disorder, unspecified Plan Elderly Caucasia male with Bipolar disorder admitted for exacerbation of jyothi in the context of limited social support. Plan Since the patient is on Section 7 and 8 he is now on Depakote and Zyprexa. Depakote level of 47.2 is no need to change it. Discharge planning started I spent minutes with the patient and/or on the patient floor today, greater than?50% of which was spent counseling/coordinating care. Reason for contiued inpatient stay Substantial Risk for: inability to function and rapid decompensation
[2021-09-21 19:57] VITALS: BP 132/68; PULSE 90; RESP 18; TEMP 37.2; O2SAT 98
[2021-09-21] MEDS: OLANZapine 7.5 MG TABLET PO (20:19)
[2021-09-21] MEDS: Doxazosin Mesylate 2 MG TABLET 4 MG PO (20:19)
[2021-09-21] MEDS: Divalproex Sodium 500 MG TABLET.DR PO (20:19)
[2021-09-21] MEDS: Atorvastatin Calcium 20 MG TABLET PO (20:19)
[2021-09-22 08:00] VITALS: BP 128/60; PULSE 95; RESP 17; TEMP 36.5; O2SAT 95
[2021-09-22] MEDS: Furosemide 20 MG TABLET PO (09:01)
[2021-09-22] MEDS: Levothyroxine Sodium 150 MCG TABLET PO (09:01)
[2021-09-22] MEDS: Aspirin Enteric Coated 81 MG TABLET.DR PO (09:02)
--- NOTE | 2021-09-22 13:28 | HO.PSYCHPN ---
Subjective Subjective Date of Service: 09/22/21 Reason For Visit: mood disorder Subjective Notes: Section 7 and Section 8 Interim History: the nursing staff reported that the patient had been sleeping 7 hours per night. Last Wednesday we had a family meeting on Wednesday and 1 her songs wanted him to apologized for his disruptive behavior while manic. Psych with occasion was provided. On interview the patient denies new symptoms he is pleasant and cooperative and he has reported that his appetite is improved. No new safety concerns, will discharge him tomorrow at 16:00 to 1 of his sons Mental Status Exam Mental Status Exam Patient Appearance: Well Grooomed Patient Orientation: Person, Place and Situation Level of Consciousness: Awake Patient Behavior: Cooperative Mood Description: Relaxed Affect Description: Constricted Patient Cognition Impaired: No Ability to Follow Directions: Good Speech Pattern: Appropriate Memory Description: Intact Hallucinations: None Delusions: Not Present Thought Process: Linear Thought Content: positive for Circumstantial Judgement: Fair Diagnostics Vital Signs (24Hr): Vital Signs - 24 hr 09/21/21 19:57 09/22/21 08:00 Temperature 98.9 F 97.7 F Pulse Rate 90 95 Respiratory Rate 18 17 Blood Pressure 132/68 128/60 Pulse Oximetry 98 95 BMI result Body Mass Index 24.8 Labs Results: 08/30/21 20:03 09/17/21 07:25 Medications Medications Current Medications Acetaminophen (Acetaminophen 325 Mg Tablet) 650 mg PO Q6H PRN PRN Reason: Headache/Pain Mild Scale (1-3) Last Admin: 09/16/21 21:10 Dose: 650 mg Documented by: Al Hydroxide/Mg Hydroxide (Magnesium Hydrox/Alum Hydrox 30 Ml Oral.Susp) 30 ml PO Q6H PRN PRN Reason: Heartburn/Nausea Aspirin (Aspirin Enteric Coated 81 Mg Tablet.) 81 mg PO DAILY [facility] Last Admin: 09/22/21 09:02 Dose: 81 mg Documented by: Atorvastatin Calcium (Atorvastatin Calcium 20 Mg Tablet) 20 mg PO BEDTIME [facility] Last Admin: 09/21/21 20:19 Dose: 20 mg Documented by: Divalproex Sodium (Divalproex Sodium 500 Mg Tablet.) 500 mg PO BEDTIME [facility] Last Admin: 09/21/21 20:19 Dose: 500 mg Documented by: Doxazosin Mesylate (Doxazosin Mesylate 2 Mg Tablet) 4 mg PO BEDTIME [facility]; Protocol Last Admin: 09/21/21 20:19 Dose: 4 mg Documented by: Furosemide (Furosemide 20 Mg Tablet) 20 mg PO DAILY MANNY; Protocol Last Admin: 09/22/21 09:01 Dose: 20 mg Documented by: Hydroxyzine HCl (Hydroxyzine Hcl 25 Mg Tablet) 25 mg PO BEDTIME PRN PRN Reason: Anxiety Levothyroxine Sodium (Levothyroxine Sodium 150 Mcg Tablet) 150 mcg PO DAILY MAN[facility] Last Admin: 09/22/21 09:01 Dose: 150 mcg Documented by: Magnesium Hydroxide (Milk Of Magnesia 30 Ml Oral.Susp) 30 ml PO DAILY PRN PRN Reason: Constipation Olanzapine (Olanzapine 10 Mg Vial) 5 mg IM BEDTIME PRN PRN Reason: ir PO is refused Olanzapine (Olanzapine 7.5 Mg Tablet) 7.5 mg PO BEDTIME MANNY Last Admin: 09/21/21 20:19 Dose: 7.5 mg Documented by: Pharmacy Consult (Consult Rx Perform Med Rec) 1 each MISCELLANE ONCE PRN PRN Reason: Consult order Trazodone HCl (Trazodone Hcl 50 Mg Tablet) 50 mg PO BEDTIME PRN PRN Reason: Insomnia Allergies Allergies Allergy/AdvReac Type Severity Reaction Status Date / Time tamsulosin [From FLOMAX] Allergy Intermediate RASH Verified 02/21/21 14:00 Assessment & Plan Assessment & Plan (1) Bipolar disorder: Qualifiers: Active/Remission status: currently active Current bipolar episode type: manic Current episode severity: moderate Qualified Code(s): F31.12 - Bipolar disorder, current episode manic without psychotic features, moderate Status: Acute Code(s): F31.9 - Bipolar disorder, unspecified Plan Elderly Caucasia male with Bipolar disorder admitted for exacerbation of jyothi in the context of limited social support. Plan Since the patient is on Section 7 and 8 he is now on Depakote and Zyprexa. Depakote level of 47.2 is no need to change it. Discharge planning started I spent minutes with the patient and/or on the patient floor today, greater than?50% of which was spent counseling/coordinating care. Reason for contiued inpatient stay Substantial Risk for: inability to function, rapid decompensation and med/psych decompensation
[2021-09-22 20:05] VITALS: BP 161/72; PULSE 103; RESP 17; TEMP 36.9; O2SAT 96
[2021-09-22] MEDS: Doxazosin Mesylate 2 MG TABLET 4 MG PO (20:29)
[2021-09-22] MEDS: Divalproex Sodium 500 MG TABLET.DR PO (20:29)
[2021-09-22] MEDS: Atorvastatin Calcium 20 MG TABLET PO (20:29)
[2021-09-22] MEDS: OLANZapine 7.5 MG TABLET PO (20:30)
[2021-09-23 06:00] VITALS: BP 136/66; PULSE 94; RESP 16; TEMP 36.6; O2SAT 96
[2021-09-23] MEDS: Aspirin Enteric Coated 81 MG TABLET.DR PO (08:09)
[2021-09-23] MEDS: Levothyroxine Sodium 150 MCG TABLET PO (08:10)
[2021-09-23] MEDS: Furosemide 20 MG TABLET PO (08:10)
--- NOTE | 2021-09-23 11:20 | PM.PSYDC ---
DS: Providers Provider Date of Service: 09/23/21 Date of admission: 09/01/21 12:50 Primary care physician: Unknown Physician Consults: 08/30/21 19:49 Consult to Crisis Stat Reason for consultation: Bipolar, manic Has provider been notified: No Attending physician on discharge: Hamilton Benz DS: Diagnosis Discharge Diagnosis (1) Bipolar disorder: Status: Acute DS: Medications Discharge Medications Home Medications: Home Medications Medication Instructions Recorded Confirmed atorvastatin 20 mg tablet 1 tab PO DAILY 12/22/20 08/31/21 aspirin 81 mg tablet 81 mg PO DAILY 08/31/21 08/31/21 divalproex 500 mg tablet,delayed 1 tab PO BEDTIME 08/31/21 08/31/21 release furosemide 20 mg tablet 20 mg PO DAILY 08/31/21 08/31/21 levothyroxine 150 mcg tablet 150 mcg PO DAILY 08/31/21 08/31/21 (Euthyrox) Previous Rx's Medication Instructions Recorded doxazosin 4 mg tablet 4 mg PO BEDTIME 90 Days #90 tab 02/21/21 Mental Status Exam Mental Status Exam Patient Appearance: Well Grooomed Patient Orientation: Person, Place and Situation Level of Consciousness: Awake Patient Behavior: Cooperative Mood Description: Depressed Affect Description: Constricted Patient Cognition Impaired: No Ability to Follow Directions: Good Speech Pattern: Clear Memory Description: Intact Hallucinations: None Delusions: Not Present Thought Process: Linear Thought Content: positive for Circumstantial Judgement: Fair Data Data Completed and Pending Completed studies during hospitalization [Text1]: 09/17/21 07:25 Sodium 143 Potassium 4.7 Chloride 106 Carbon Dioxide 30 H Anion Gap 12 BUN 46 H D Creatinine 1.77 H Estim Creat Clear Calc 38.1 Estimated GFR 37 Random Glucose 94 Calcium 10.1 Total Bilirubin 0.4 Direct Bilirubin < 0.2 AST 39 H ALT 36 Alkaline Phosphatase 56 Total Protein 7.1 Albumin 4.2 Valproic Acid 42.4 L DS: Summary Hospital Course Hospital Course: The patient was initially admitted for manic symptoms in the context of noncompliance with medication. Please see HPI of the admission note for further details. The patient carries the diagnosis of bipolar disorder and historically he has been stable on lithium for several years but in the last 2 years he have at least 4 5 admissions for lithium toxicity so it was changed to Depakote. Apparently, the patient became noncompliance of medications and he become grossly manic and admitted into this unit. On admission, the patient refused to continue medications and he refused to sign into the hospital. We tried to explain him about his options but finally we have to filed for Section 7 and 8 and we had a hearing and finally the corporate controller ruled that he should be admitted against his will and have medications. After the court hearing, the patient started taking his Depakote and Zyprexa that he was titrated up to 7.5 mg p.o. q.h.s. with resolution of his manic symptoms. We had several family meetings and provide psych-education about his condition to his children. Sings the patient's mood improved, he was discharged to his family with services. There were no safety concerns at the moment of the discharge Time spent discussing smoking cessation with patient: 3 to 10 minutes Status at Discharge Cognitive/behavioral status at discharge: at baseline Functional status at discharge: independent ambulation Overall status at discharge: patient is back to baseline Time Spent with Patient Time attestation: Total time spent providing and/or coordinating discharge services: Time spent: Less than 30 minutes Discharge Plan Discharge Patient Disposition: Home, Self-Care Discharge Diagnosis: bipolar disorder Referrals: Dr. Sebastien Neff PCP [Other] - 3-5 Days (SW called and left message, waiting for office to call back with next scheduled appointment. Please follow up with PCP post discharge to obtain next appointment if one has not been scheduled prior to discharge.) [facility] [Other] - 3-5 Days (Referral made on 09/16/21, SW called today 09/22/21 and reported discharge is scheduled for tomorrow at 4 PM. Please follow up at above number if agency has not reached out 1-3 days after discharge.) [facility] [Other] - 1 Week ([facility]NA will start Wednesday09.26.21) Dr. Manish Rosas (psychiatrists) [Other] - 09/26/21 2:00 pm (Appointment scheduled for Sunday, September 26, 2021 @ 2 PM IN OFFICE visit.) Discharge Medications: New divalproex 500 mg Tablet,Delayed Release (Dr/Ec) 500 mg PO BEDTIME 30 Days Qty: 30 0RF olanzapine 7.5 mg Tablet 7.5 mg PO BEDTIME 30 Days Qty: 30 0RF Continued atorvastatin 20 mg tablet 1 tab PO DAILY 0RF levothyroxine [Euthyrox] 150 mcg tablet 150 mcg PO DAILY 0RF furosemide 20 mg tablet 20 mg PO DAILY 0RF aspirin 81 mg Tablet 81 mg PO DAILY 0RF doxazosin 4 mg tablet 4 mg PO BEDTIME 90 Days Qty: 90 1RF Discontinued divalproex 500 mg tablet,delayed release (DR/EC) 1 tab PO BEDTIME 0RF Discharge Orders: Discharge Order (Routine); Ordered 09/23/21 Ordered By: Hamilton Benz Diet: advance to usual diet Activity on Discharge: As tolerated Stand Alone Forms: Patient Portal Discharge page Care Plan Goals: care plan goals achieved in this admission Health Concerns: continue outpatient services by his primary care physician Plan of Treatment: continue treatment as an outpatient with Dr. Rosas and other ancillary services of ready placed by the director of social services Assessment: elderly male with a long history of bipolar disorder admitted for manic symptoms and psychosis in the context of noncompliance with medications. At this moment the patient is safe and at baseline after being treated with Depakote and Zyprexa due to a court order. At this moment ready for discharge
== END 2021-09-23 16:00 | disposition home or self-care (01) | DRG 885 ==
LOC: HO.ED 21:06 → HO.PGERI 09-01 12:57
PROVIDERS: Nurse Practitioner Family; Student in an Organized Health Care Education/Training Program; Admitting Provider Psychiatry & Neurology Psychiatry; Emergency Provider Emergency Medicine Emergency Medical Services; Visit Provider Psychiatry & Neurology Psychiatry
DX: F31.12 Bipolar disorder, current episode manic without psychotic features, moderate (principal); N18.30 Chronic kidney disease, stage 3 unspecified; E03.9 Hypothyroidism, unspecified; Z20.822 Contact with and (suspected) exposure to COVID-19; Z87.891 Personal history of nicotine dependence; Z79.82 Long term (current) use of aspirin; Z79.890 Hormone replacement therapy; Z79.899 Other long term (current) drug therapy
CPT/HCPCS: 36415; 80048; 80053; 80076; 80143; 80164; 80178; 80179; 80307; 82077; 84439; 84443; 85025; 87635; 96372; 99285; J2060

== ENCOUNTER 2021-12-05 07:43 | Outpatient (REF) | payer MEDICARE, OTHER, SELFPAY ==
[2021-12-05 12:11] LABS: Valproate 37.9 mcg/mL (50.0-100.0)
[2021-12-05 12:23] LABS: Alanine Aminotransferase 17 U/L (0-40); Albumin Level 4.1 g/dL (3.5-5.0); Alkaline Phosphatase 52 U/L (39-117); Aspartate Amino Transferase 29 U/L (5-37); Bilirubin Direct 0.2 mg/dL (0.0-0.5); Bilirubin Total 0.4 mg/dL (0.0-1.0)
== END 2021-12-05 07:44 | disposition home or self-care (01) ==
LOC: HO.HMGCLDS 07:43
PROVIDERS: Visit Provider Psychiatry & Neurology Psychiatry
DX: F31.32 Bipolar disorder, current episode depressed, moderate (principal); Z79.899 Other long term (current) drug therapy
CPT/HCPCS: 36415; 80076; 80164

== ENCOUNTER 2022-05-22 07:42 | Outpatient (REF) | payer MEDICARE, OTHER, SELFPAY ==
[2022-05-22 12:02] LABS: Alanine Aminotransferase 12 U/L (0-40); Albumin Level 4.3 g/dL (3.5-5.0); Alkaline Phosphatase 62 U/L (39-117); Aspartate Amino Transferase 21 U/L (5-37); Bilirubin Direct 0.3 mg/dL (0.0-0.5); Bilirubin Total 0.6 mg/dL (0.0-1.0); Cholesterol 124 mg/dL; Glucose Fasting 88 mg/dL (60-99); HDL Cholesterol 33 mg/dL; LDL Cholesterol Calculated 71 mg/dl; Total Protein 7.2 g/dL (6.5-8.0); Triglycerides 101 mg/dL
[2022-05-22 12:22] LABS: Valproate 14.5 mcg/mL (50.0-100.0)
== END 2022-05-22 07:43 | disposition home or self-care (01) ==
LOC: HO.HMGCLDS 07:42
PROVIDERS: PCP Internal Medicine; Visit Provider Psychiatry & Neurology Psychiatry
DX: F31.32 Bipolar disorder, current episode depressed, moderate (principal); Z79.899 Other long term (current) drug therapy
CPT/HCPCS: 36415; 80061; 80076; 80164; 82947

== ENCOUNTER 2022-08-18 09:42 | Outpatient (REF) | payer MEDICARE, OTHER, SELFPAY ==
[2022-08-18 14:11] LABS: MANUAL DIFF FLAG NO
[2022-08-18 14:26] LABS: Basophils Percent Auto 0.5 % (0-2); Eosinophils Absolute Auto 0.3 X10*3/uL (0.0-0.4); Eosinophils Percent Auto 3.2 % (0-4); Hematocrit 45.9 % (42.0-52.0); Hemoglobin 14.8 g/dl (14.0-18.0); Imm Gran Abs Auto 0.03 X10*3/uL (0.00-0.03); Imm Gran Pct Auto 0.4 % (0.0-0.4); Lymphocytes Absolute Auto 1.4 X10*3/uL (1.2-4.9); Lymphocytes Percent Auto 17.9 % (20-40); Mean Corpuscular HGB Conc 32.2 g/dl (31.0-36.0); Mean Corpuscular Hemoglobin 32.9 pg (27.0-33.0); Mean Platelet Volume 10.1 fL (9.4-12.4); Monocytes Absolute Auto 0.9 X10*3/uL (0.1-1.2); Monocytes Percent Auto 11.2 % (2-11); Neutrophils Absolute Auto 5.4 x10*3/uL (2.0-8.3); Neutrophils Percent Auto 66.8 % (45-73); Platelet Count 169 X10*3/uL (160-400); Red Cell Distribution Width 13.1 % (11.0-16.0)
[2022-08-18 14:56] LABS: Alanine Aminotransferase 11 U/L (0-40); Albumin Level 4.3 g/dL (3.5-5.0); Alkaline Phosphatase 57 U/L (39-117); Aspartate Amino Transferase 20 U/L (5-37); Bilirubin Direct 0.2 mg/dL (0.0-0.5); Bilirubin Total 0.6 mg/dL (0.0-1.0)
== END 2022-08-18 09:43 | disposition home or self-care (01) ==
LOC: HO.HMGCLDS 09:42
PROVIDERS: PCP Internal Medicine; Visit Provider Psychiatry & Neurology Psychiatry
DX: F31.32 Bipolar disorder, current episode depressed, moderate (principal); Z79.899 Other long term (current) drug therapy
CPT/HCPCS: 36415; 80076; 80164; 85025

== ENCOUNTER 2023-02-15 07:34 | Outpatient (REF) | payer MEDICARE, OTHER, SELFPAY | END 2023-02-15 07:35 | disposition home or self-care (01) | LOC: HO.HMGCLDS 07:34 | PROVIDERS: PCP Internal Medicine; Visit Provider Psychiatry & Neurology Psychiatry | DX: F31.32 Bipolar disorder, current episode depressed, moderate (principal); Z79.899 Other long term (current) drug therapy | CPT/HCPCS: 36415; 80076; 80164; 85025 ==

== ENCOUNTER 2023-05-27 08:02 | Outpatient (REF) | payer MEDICARE, OTHER, SELFPAY ==
[2023-05-27 11:04] LABS: MANUAL DIFF FLAG NO
[2023-05-27 11:31] LABS: Basophils Absolute Auto 0.1 X10*3/uL (0.0-0.2); Basophils Percent Auto 0.6 % (0-2); Eosinophils Absolute Auto 0.4 X10*3/uL (0.0-0.4); Eosinophils Percent Auto 5.6 % (0-4); Hematocrit 48.8 % (42.0-52.0); Imm Gran Abs Auto 0.04 X10*3/uL (0.00-0.03); Imm Gran Pct Auto 0.5 % (0.0-0.4); Lymphocytes Absolute Auto 1.5 X10*3/uL (1.2-4.9); Lymphocytes Percent Auto 19.6 % (20-40); Mean Corpuscular HGB Conc 32.8 g/dl (31.0-36.0); Mean Corpuscular Volume 100.6 fL (80.0-98.0); Mean Platelet Volume 10.1 fL (9.4-12.4); Monocytes Absolute Auto 0.9 X10*3/uL (0.1-1.2); Monocytes Percent Auto 11.4 % (2-11); Neutrophils Absolute Auto 4.9 x10*3/uL (2.0-8.3); Neutrophils Percent Auto 62.3 % (45-73); Platelet Count 155 X10*3/uL (160-400); Red Blood Count 4.85 X10*6/uL (4.60-5.80); Red Cell Distribution Width 12.7 % (11.0-16.0); White Blood Count 7.8 X10*3/uL (4.8-10.8)
[2023-05-27 12:25] LABS: Alanine Aminotransferase 10 U/L (0-40); Alkaline Phosphatase 58 U/L (39-117); Aspartate Amino Transferase 17 U/L (5-37); Bilirubin Direct 0.2 mg/dL (0.0-0.5); Bilirubin Total 0.5 mg/dL (0.0-1.0)
[2023-05-27 13:36] LABS: Valproate 39.4 mcg/mL (50.0-100.0)
== END 2023-05-27 08:03 | disposition home or self-care (01) ==
LOC: HO.HMGCLDS 08:02
PROVIDERS: Visit Provider Psychiatry & Neurology Psychiatry
DX: F31.32 Bipolar disorder, current episode depressed, moderate (principal)
CPT/HCPCS: 36415; 80076; 80164; 85025

== ENCOUNTER 2023-07-31 09:08 | Outpatient (AMB) | payer MEDICARE, OTHER, SELFPAY ==
[2023-07-31 09:10] VITALS: BP 124/70; PULSE 74; O2SAT 98; BMI 24.3
--- NOTE | 2023-07-31 09:10 | AM.OFFWIN_ITS ---
Intake Vital Signs 07/31/23 09:10 Height 5 ft 8 in Weight 160 lb BMI 24.3 BP 124/70 Blood Pressure Location Rt brachial Position Sitting Pulse 74 Pulse Source Pulse Oximeter Pulse Oximetry (%) 98 Oxygen Delivery Method Room Air Intake Visit Reasons: EP Dizzy/?Vertigo Intake Note: pt is here for c/o dizziness possible veritgo Patient Tobacco Use Status: Current everyday Tobacco user (Cigars) Allergies tamsulosin [From FLOMAX] Allergy (Intermediate, Verified 07/31/23 09:10) RASH Do you need a note to return to daycare/school/sports/work: Yes HPI HPI Comments History of Present Illness Details He said lightheaded/dizziness x 2-3 weeks Getting up in am makes it worse Intermittent Room spinning sensation No falls. Denies HT or LOC aside from 3 months ago he passed out in the shower; not evaluated for it No CP, palpitations or SOB He denies changes in vision, nausea or vomiting Went to PCP yesterday and nott here and they said he needed to see a provider Denies weakness in arms or legs No medicine changes he keeps saying he just doesn't feel right. [facility] Medical History Acute kidney injury Altered mental status Bipolar disorder CKD (chronic kidney disease) stage 3, GFR 30-59 ml/min Encounter for care or replacement of suprapubic tube Gross hematuria Hypothyroidism Social History Household Members: None Housing: House Do you presently have visiting nurse or other home services: No Unable to assess alcohol history related to: Unable to respond Alcohol intake: never Comment: seizure precautions Patient Tobacco Use Status: Current everyday Tobacco user (Cigars) Cigarette Packs Per Day: 2 Cigarettes Per Day: 40.0 service: No Sexual orientation: Straight/Heterosexual Review of Systems Const Denies body aches, Denies chills, Reports fatigue, Denies fever(s), Denies headache(s) and Denies night sweats Eyes Denies blurry vision, Denies change in vision and Denies loss of vision ENT Reports vertigo, Reports dizziness, Denies headache(s), Denies nasal discharge and Denies sore throat Card Denies chest pain, Reports syncope (3 months ago), Denies rapid heart rate, Denies irregular heart rhythm and Denies dyspnea Resp Denies cough and Denies dyspnea GI Denies abdominal pain, Denies change in bowel habits, Denies diarrhea, Denies nausea and Denies vomiting Musc Denies muscle weakness, Denies numbness and Denies tingling Neuro Reports vertigo, Reports dizziness, Reports syncope (3 months ago), Denies headache(s), Denies focal weakness, Denies loss of vision, Denies numbness and Denies tingling Endo Reports fatigue Physical Exam Vital Signs: Last Vital Signs Pulse 74 07/31/23 09:10 BP 124/70 07/31/23 09:10 Pulse Ox 98 07/31/23 09:10 Oxygen Delivery Method Room Air 07/31/23 09:10 BMI result Body Mass Index 24.3 General: Non-toxic, NAD. Speaking full sentences. Skin: Warm dry throughout Eye: EOMI. PERRL. No nystagmus HENT: Airway patent. Uvula midline. No pharyngeal erythema or edema. No MEDICAL EQUIPMENT REPAIR TECHNICIAN. Bilateral canals clear. TM non-erythematous, non-bulging. No TM perforation or hemotympanum noted. Respiratory: CTA bilaterally. No wheezes, rales or rhonchi Cardiac: RRR. No murmur MSK: Full ROM extremities. Neurology: A/O x 3. Negative pronator drift. Finger to nose tracing equal. CN 2- 12 grossly intact. No aphasia or facial droop. Gait without abnormality Psych: Good mood and affect Assessment & Plan Assessment & Plan (1) Dizziness: Code(s): R42 - Dizziness and giddiness Plan: ems refused Plan Patient seen and evaluated. He has no large neuro deficit on exa but he lives alone and has no follow up closely arranged with PCP he has had worsening dizziness x 2-3 weeks without work up We discussed differential of TIA vs dysrythmia, vs thyroid abnormality etc. 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
== END 2023-07-31 10:30 | disposition home or self-care (01) ==
PROVIDERS: PCP Internal Medicine; Visit Provider Physician Assistant
DX: R42 Dizziness and giddiness (principal)
CPT/HCPCS: 99214

== ENCOUNTER 2023-07-31 10:49 | Emergency (ER) | payer MEDICARE, OTHER, SELFPAY ==
--- NOTE | ~2023-07-31 | CT_ITS ---
Examination: CT brain without contrast. Chest x-ray. Clinical indications: Dizziness. COMPARISON: Chest 02/12/2021. TECHNIQUE: Chest PA and lateral. 5 mm thin axial and reformatted 2 mm thin sagittal and coronal images of brain were obtained. DLP 725. This CT examination was performed using dose optimization technique as appropriate, variously including the following: Automated exposure control Adjustment of MA and/or KV according to patient size(this includes techniques or standardized protocols for targeted exams where dose is matched to indication/reason for exam; extremities or head. Use of iterative reconstruction techniques. FINDINGS: CHEST: Both lungs are fairly well-expanded and clear of acute process. There is mild elevation of right hemidiaphragm. The heart size and pulmonary vascularity is normal. No gross bony abnormality seen. Brain: There is no acute intra-axial, extra-axial bleed, masses or midline shift. There is no acute infarction evolution. There is no edema. The mark to white matter differentiation is maintained normal. The lateral ventricles are symmetrical but mildly enlarged. Bone windows reveal no calvarial abnormality. No scalp soft tissue abnormality seen. Bilateral paranasal sinuses and mastoid air cells are well-aerated. CT/CT head/brain wo IV con IMPRESSION: No acute intracranial process seen. No change from CT brain 12/22/2020. Unremarkable chest exam.
[2023-07-31 10:52] VITALS: BP 141/69; PULSE 85; RESP 18; BMI 23.4
--- NOTE | 2023-07-31 10:57 | PC.NURSE ---
pt strength JUAN intact in all 4 extremities, no neuro deficits upon initial traige. pt reports weakness and intermittent dizziness x2-3 weeks
--- NOTE | 2023-07-31 10:58 | ED_ITS ---
HPI - Neuro Symptoms/Deficit General Chief Complaint: Neuro Symptoms/Deficit Stated Complaint: quest stroke sent from urgent care Time Seen by Provider: 07/31/23 10:55 Source: patient and family Mode of arrival: ambulatory Limitations: no limitations History of Present Illness HPI Narrative: 78-year-old male with a history of hypothyroidism, high cholesterol, bipolar disorder, CKD presents to the ER with complaints of lightheaded episodes which have been occurring for the last 2-3 weeks. Patient describes these as feeling like he is going to faint. He tells me that these episodes occur when he changes positions. He did have an episode approximately 2 months ago while he was showering or he felt very lightheaded and had a loss of consciousness and fall. He was never seen after this episode. He denies any associated vision changes, headache, nausea, vomiting, chest pain, shortness of breath, neck pain, weakness/numbness/tingling of the upper lower extremities. Patient denies any alcohol use. He does smoke 15 cigars daily. He does not drink water but does drink coffee throughout the day. Of note, he was seen at urgent care and referred into the emergency room for further evaluation. Related Data Home Medications Medication Instructions Recorded Confirmed atorvastatin 20 mg tablet 1 tab PO DAILY 12/22/20 01/06/23 aspirin 81 mg tablet 81 mg PO DAILY 08/31/21 01/06/23 levothyroxine 150 mcg tablet 150 mcg PO DAILY 08/31/21 01/06/23 (Euthyrox) Previous Rx's Medication Instructions Recorded doxazosin 4 mg tablet 4 mg PO BEDTIME 90 days #90 tabs 02/21/21 divalproex 500 mg tablet,delayed 500 mg PO BEDTIME 30 days #30 tabs 09/23/21 release Allergies Allergy/AdvReac Type Severity Reaction Status Date / Time tamsulosin [From FLOMAX] Allergy Intermediate RASH Verified 07/31/23 11:03 Review of Systems 2 Review of Systems: Yes all other systems are reviewed and are negative Constitutional: Constitutional: Reports no additional constitutional complaints, Denies body ache(s), Denies chills, Denies fever(s), Denies headache(s) and Denies weakness Eyes: Eyes: Reports no additional eye complaints and Denies change in vision ENT: Reports system reviewed and no additional complaints, except as documented, Reports dizziness, Denies headache(s), Denies nasal congestion, Denies nasal discharge and Denies neck pain Cardiovascular: Cardiovascular: Reports no additional cardiovascular complaints, Denies chest pain, Denies leg edema and Denies dyspnea Respiratory: Respiratory: Reports no additional respiratory complaints, Denies cough and Denies dyspnea Gastrointestinal: Gastrointestinal: Reports no additional gastrointestinal complaints, Denies abdominal pain, Denies diarrhea, Denies nausea and Denies vomiting Genitourinary: Genitourinary: Denies urinary incontinence Musculoskeletal: Musculoskeletal: Reports no additional musculoskeletal complaints, Denies back pain, Denies arthralgias, Denies joint swelling, Denies neck pain, Denies numbness and Denies tingling Integumentary/Breasts: Skin/Breast: Reports system reviewed and no additional complaints, except as docu and Denies rash Neurologic: Reports system reviewed and no additional complaints, except as documented, Denies Abnormal speech present, Reports dizziness, Denies headache(s), Denies numbness, Denies tingling and Denies weakness PMFSH Past Medical History Attestation statement: The following information was validated with the patient. Source: old records reviewed and nursing notes reviewed Medical History Encounter for care or replacement of suprapubic tube Gross hematuria CKD (chronic kidney disease) stage 3, GFR 30-59 ml/min Acute kidney injury Altered mental status Bipolar disorder Hypothyroidism Social History Social History Household Members: None Housing: House Do you presently have visiting nurse or other home services: No Unable to assess alcohol history related to: Unable to respond Alcohol intake: never Comment: seizure precautions Patient Tobacco Use Status: Current everyday Tobacco user (Cigars) Cigarette Packs Per Day: 2 Cigarettes Per Day: 40.0 Smoked in Last 30 Days: No Use of substances other than those prescribed or required for medical reasons: No Advance Directives: No Advance Directives Information Provided: No service: No Sexual orientation: Straight/Heterosexual Physical Exam 2 Vital Signs: Vital Signs: Last Vital Signs Pulse 92 07/31/23 14:09 Resp 16 07/31/23 14:09 BP 160/70 H 07/31/23 14:09 Pulse Ox 97 07/31/23 14:09 O2 Del Method Room Air 07/31/23 14:09 BMI result Body Mass Index 23.4 Const: General: cooperative, healthy appearing, comfortable and no acute distress Orientation/consciousness: patient oriented x3 Limitations: no limitations HEENT: Head: Yes normal to inspection Ears: hearing grossly normal bilaterally and TM's normal bilaterally General nose exam: Normal external nose present Face and sinus: Yes normal facial exam Mouth: Normal oral and palatal mucosa present Throat: Yes posterior oropharynx normal, Yes tonsils normal and Yes uvula midline Eyes: General: appearance normal, both eyes and all related structures P upils: Equal, round and reactive pupils present Neck: Neck: Yes normal visual inspection, Yes full ROM, Yes no lymphadenopathy and Yes no meningeal signs Chest: Chest palpation & inspection: normal inspection of the chest Resp: Effort & Inspection: normal respiratory effort Auscultation: clear to auscultation bilaterally Cardio: Rate: regular rate Rhythm: regular rhythm Peripheral pulses: P eripheral pulses 2+ throughout GI: Inspection: Yes normal to inspection Palpation (GI): Soft to palpation and nontender Auscultation: normal bowel sounds Back/Spine/Pelvis: Thoracic/Lumbar Spine: thoracic and lumbar spine normal to inspection Skin: General skin exam: no rashes or lesions noted Neuro: General: patient oriented x3, moves all extremities, no meningeal signs, no focal motor deficits and normal sensation to monofilament Cranial nerves: Yes CN's II-XII intact bilaterally, Yes Equal, round and reactive pupils present, Yes Bilaterally intact EOM present, Yes Nystagmus not present, Yes Normal facial strength present and Yes Midline tongue present Cognition (Neuro): normal cognition Speech: No Abnormal speech present Gait exam (Neuro): Normal gait present Motor exam (neuro): 5/5 motor strength present throughout Sensory Exam: Normal double simultaneous stimulation for sensation Coordination: [id number] test normal, [id number]-[id number] test normal and tandem gait normal Extrem: General: Yes normal to inspection, Yes no pedal edema and Yes no calf tenderness Course Course Course Narrative: Patient up ambulating with a steady gait. Recommend follow-up outpatient for additional workup as needed. Reviewed worrisome signs and symptoms of when to return to the emergency room. Comfortable plan for discharge home Medications Administered Discontinued Medications Generic Name Dose Route Start Last Admin Trade Name Freq PRN Reason Stop Dose Admin Sodium Chloride 500 mls @ 999 mls/hr 07/31/23 12:27 07/31/23 13:36 Ns IV 07/31/23 12:57 Infused .Q31M STA Infusion Medical Decision Making Medical Decision Making [facility] Narrative: 78-year-old male with a history of hypothyroidism, high cholesterol presents to the ER with complaints of lightheaded episodes which have been occurring for the last 2-3 weeks.? Patient describes these as feeling like he is going to faint.? He tells me that these episodes occur when he changes positions.? He did have an episode approximately 2 months ago while he was showering or he felt very lightheaded and had a loss of consciousness and fall.? He was never seen after this episode.? He denies any associated vision changes, headache, nausea, vomiting, chest pain, shortness of breath, neck pain, weakness/numbness/tingling of the upper lower extremities.? Patient denies any alcohol use.? He does smoke 15 cigars daily.? He does not drink water but does drink coffee throughout the day. Of note, he was seen at urgent care and referred into the emergency room for further evaluation. NIH is 0. No focal neurological findings on exam. Additionally patient has had symptoms for more than 2 weeks so he would not be a candidate for TNK. Will need labs, EKG, orthostatics, chest x-ray, CT head, COVID screen. Differential Diagnosis Differential Diagnoses: The differential diagnosis associated with the presentation includes Electrolyte abnormality, anemia, orthostatic hypotension, ACS, arrhythmia, TIA vs CVA Admission/Observation Consideration of admission/observation: Escalation of care including admission/observation considered nonspecific dizziness with normal neuro exam, ambulating w/ steady gait and low concern for cerebellar infarct/LVO and need for admission for MRI/CTA Lab Data [facility] Lab Attestation statement: I reviewed the patient's lab results. 07/31/23 12:14 07/31/23 12:53 Labs: Lab Results 07/31/23 07/31/23 07/31/23 Range/Units 12:14 12:53 14:06 WBC 8.3 (4.8-10.8) X10*3/uL RBC 4.72 (4.60-5.80) X10*6/uL Hgb 15.6 (14.0-18.0) g/dl Hct 46.2 (42.0-52.0) % MCV 97.9 (80.0-98.0) fL MCH 33.1 H (27.0-33.0) pg MCHC 33.8 (31.0-36.0) g/dl RDW 12.7 (11.0-16.0) % Plt Count 146 L (160-400) X10*3/uL MPV 9.7 (9.4-12.4) fL Immature Gran % (Auto) 0.2 (0.0-0.4) % Neut % (Auto) 69.0 (45-73) % Lymph % (Auto) 16.8 L (20-40) % [place] % (Auto) 11.5 H (2-11) % Eos % (Auto) 1.9 (0-4) % Baso % (Auto) 0.6 (0-2) % Lymph # (Auto) 1.4 (1.2-4.9) X10*3/uL [place] # (Auto) 1.0 (0.1-1.2) X10*3/uL Eos # (Auto) 0.2 (0.0-0.4) X10*3/uL Baso # (Auto) 0.1 (0.0-0.2) X10*3/uL Abs Immat Gran (auto) 0.02 (0.00-0.03) X10*3/uL Absolute Neuts (auto) 5.7 (2.0-8.3) x10*3/uL Absolute Nucleated RBC 0.000 (0.0-0.012) X10*3/uL Nucleated RBC % (auto) 0.0 (0.0-0.2) /100WBC PT 11.2 (11.1-13.3) SEC INR 0.9 (0.9-1.1) Sodium 140 142 (135-145) mmol/L Potassium 5.5 H 4.5 (3.3-5.1) mmol/L Chloride 108 109 H (96-108) mmol/L Carbon Dioxide 25 26 (22-29) mmol/L Anion Gap 13 12 (12-20) BUN 20 H 19 H (9-16) mg/dL Creatinine 1.20 1.06 (0.5-1.4) mg/dL Estim Creat Clear Calc 49.0 55.5 Estimated GFR 58 > 60 Random Glucose 81 86 (60-115) mg/dL Calcium 10.1 9.3 D (8.4-10.2) mg/dL Magnesium 2.0 (1.6-2.6) mg/dL Total Bilirubin 0.6 (0.0-1.0) mg/dL Direct Bilirubin 0.1 (0.0-0.5) mg/dL AST 26 (5-37) U/L ALT 10 (0-40) U/L Alkaline Phosphatase 53 (39-117) U/L Total Creatine Kinase 146 (38-174) U/L Troponin I High Sens 6.6 (<3.5-35.0) ng/L Total Protein 7.8 (6.5-8.0) g/dL Albumin 4.2 (3.5-5.0) g/dL Urine Color Yellow Urine Appearance Clear Urine pH 6.0 (5.0-9.0) Ur Specific [place] 1.010 (1.005-1.025) Urine Protein Negative (Neg-Trace) mg/dL Urine Glucose (UA) Negative (Negative) mg/dL Urine Ketones Negative (Negative) mg/dL Urine Blood Moderate (2+) H (Negative) Urine Nitrite Negative (Negative) Ur Leukocyte Esterase Negative (Negative) Urine RBC 11-20 H (0-2) /HPF Urine WBC 0-5 (0-5) /HPF Ur Squamous Epith Cells 0-2 (0-2) /HPF Urine Bacteria None Seen (None Seen) Hyaline Casts 0-2 (0-2) /LPF Independent Interpretation I performed an independent interpretation of an: EKG, Plain X-Ray and CT Scan Interpretation: I independently reviewed the EKG which shows normal sinus rhythm with a rate of 77, normal IL, normal QT, incomplete right bundle-branch block. I independently reviewed the CT scan and a chest x-ray and agree with the radiology report Radiology Impression Discussion of test interpretation with radiology: I have reviewed the radiologist's reading. Radiologist Impression: Chest x-rayFINDINGS: CHEST: Both lungs are fairly well-expanded and clear of acute process. There is mild elevation of right hemidiaphragm. The heart size and pulmonary vascularity is normal. No gross bony abnormality seen. Ct head Brain: There is no acute intra-axial, extra-axial bleed, masses or midline shift. There is no acute infarction evolution. There is no edema. The mark to white matter differentiation is maintained normal. The lateral ventricles are symmetrical but mildly enlarged. Bone windows reveal no calvarial abnormality. No scalp soft tissue abnormality seen. Bilateral paranasal sinuses and mastoid air cells are well-aerated. Independent Historian Sister External Record Review External record reviewed: Outpatient record Reviewed walk in office visit Tests considered The following testing was considered but not selected: Low concern for large vessel occlusion or cerebellar infarct requiring CTA/MRI brain NIH Stroke Scale Internal: Initial- Upon Arrival Level of Consciousness: Alert Level of Consciousness Questions: Answers both questions correctly Level of Consciousness Commands: Performs both tasks correctly Best Gaze: Normal Visual: No visual loss Facial Palsy: Normal Motor Arm (Right): No drift Motor Arm (Left): No drift Motor Leg (Right): No drift Motor Leg (Left): No drift Limb Ataxia: Absent Sensory: Normal Best Language: No aphasia Dysarthia: Normal Extinction and Inattention: No abnormality Score: 0 Discharge Plan Discharge Clinical Impression: Dizziness Patient Disposition: Home, Self-Care Instructions: Dizziness (ED) Additional Instructions: Stay well hydrated. Change positions slowly Follow-up with your primary care doctor as you may need additional outpatient testing. Prescriptions: No Action atorvastatin 20 mg tablet 1 tab PO DAILY levothyroxine [Euthyrox] 150 mcg tablet 150 mcg PO DAILY aspirin 81 mg Tablet 81 mg PO DAILY divalproex 500 mg Tablet,Delayed Release (Dr/Ec) 500 mg PO BEDTIME 30 Days Qty: 30 0RF doxazosin 4 mg tablet 4 mg PO BEDTIME 90 Days Qty: 90 1RF Referrals: Yemi Pierce MD [Primary Care Provider] - 5 days
--- NOTE | 2023-07-31 11:08 | ECG_ITS ---
Test Reason : dizziness Blood Pressure : / mmHG Vent. Rate : 077 BPM Atrial Rate : 077 BPM P-R Int : 166 ms QRS Dur : 112 ms QT Int : 362 ms P-R-T Axes : 065 040 049 degrees QTc Int : 409 ms Normal sinus rhythm Incomplete right bundle branch block Borderline ECG When compared with ECG of 12-FEB-2021 19:57, QT has shortened Referred By: Ally Raines Electronically Signed By:SALMA GARRETT MD
[2023-07-31 11:39] VITALS: BP 150/73; BP 153/65; BP 153/76; PULSE 74; PULSE 79; PULSE 92
[2023-07-31 12:19] LABS: MANUAL DIFF FLAG NO
--- NOTE | 2023-07-31 12:20 | PC.NURSE ---
pt a&o x4, pleasant, calm, and cooperative. 20G IV placed to LAC, labs drawn and sent. CT scan complete. pt resting quietly on stretcher, visitor at bedside. rr even/unlabored. call herbert within pt reach. plan of care ongoing.
[2023-07-31 12:22] LABS: Basophils Absolute Auto 0.1 X10*3/uL (0.0-0.2); Basophils Percent Auto 0.6 % (0-2); Eosinophils Absolute Auto 0.2 X10*3/uL (0.0-0.4); Eosinophils Percent Auto 1.9 % (0-4); Hematocrit 46.2 % (42.0-52.0); Hemoglobin 15.6 g/dl (14.0-18.0); Imm Gran Abs Auto 0.02 X10*3/uL (0.00-0.03); Imm Gran Pct Auto 0.2 % (0.0-0.4); Lymphocytes Absolute Auto 1.4 X10*3/uL (1.2-4.9); Lymphocytes Percent Auto 16.8 % (20-40); Mean Corpuscular HGB Conc 33.8 g/dl (31.0-36.0); Mean Corpuscular Hemoglobin 33.1 pg (27.0-33.0); Mean Corpuscular Volume 97.9 fL (80.0-98.0); Mean Platelet Volume 9.7 fL (9.4-12.4); Monocytes Percent Auto 11.5 % (2-11); Neutrophils Absolute Auto 5.7 x10*3/uL (2.0-8.3); Platelet Count 146 X10*3/uL (160-400); Red Blood Count 4.72 X10*6/uL (4.60-5.80); Red Cell Distribution Width 12.7 % (11.0-16.0); White Blood Count 8.3 X10*3/uL (4.8-10.8)
[2023-07-31 12:26] LABS: INTERNATIONAL NORM RATIO 0.9 (0.9-1.1); Prothrombin Time 11.2 SEC (11.1-13.3)
[2023-07-31 12:45] LABS: Alanine Aminotransferase 10 U/L (0-40); Albumin Level 4.2 g/dL (3.5-5.0); Alkaline Phosphatase 53 U/L (39-117); Anion Gap 13 (12-20); Aspartate Amino Transferase 26 U/L (5-37); Bilirubin Direct 0.1 mg/dL (0.0-0.5); Bilirubin Total 0.6 mg/dL (0.0-1.0); Blood Urea Nitrogen 20 mg/dL (9-16); Calcium 10.1 mg/dL (8.4-10.2); Carbon Dioxide 25 mmol/L (22-29); Chloride 108 mmol/L (96-108); Estimated Glomerular Filt Rate 58; Glucose Random 81 mg/dL (60-115); Potassium 5.5 mmol/L (3.3-5.1); Sodium 140 mmol/L (135-145); Total Protein 7.8 g/dL (6.5-8.0)
[2023-07-31 12:50] LABS: Troponin-I High Sensitivity 6.6 ng/L (<3.5-35.0)
[2023-07-31] MEDS: 0.9 % Sodium Chloride 500 ML 999 ML IV (12:55)
--- NOTE | 2023-07-31 13:04 | PC.NURSE ---
fluids hung per oct.
[2023-07-31 13:25] LABS: Anion Gap 12 (12-20); Blood Urea Nitrogen 19 mg/dL (9-16); Calcium 9.3 mg/dL (8.4-10.2); Carbon Dioxide 26 mmol/L (22-29); Chloride 109 mmol/L (96-108); Creatinine Clr Calc Pharmacy 55.5; Estimated Glomerular Filt Rate > 60; Glucose Random 86 mg/dL (60-115); Potassium 4.5 mmol/L (3.3-5.1); Sodium 142 mmol/L (135-145)
[2023-07-31 14:09] VITALS: BP 160/70; PULSE 92; RESP 16; O2SAT 97
[2023-07-31 14:14] LABS: Appearance Urine Clear; Color Urine Yellow; Glucose Urine UA Negative (Negative); Leukocyte Esterase Urine Negative (Negative); Nitrite Urine Negative (Negative); UMIC TRIGGER UACC YES; Urine Blood Moderate (2+) (Negative); Urine Ketones Negative (Negative); Urine Protein Negative (Neg-Trace)
[2023-07-31 14:22] LABS: Bacteria Urine None Seen (None Seen); Hyaline Casts Urine 0-2 /LPF (0-2); Squamous Epithelial Cell Urine 0-2 /HPF (0-2); WBC Urine 0-5 /HPF (0-5)
== END 2023-07-31 14:37 | disposition home or self-care (01) ==
PROVIDERS: Nurse Practitioner Family; Emergency Provider Student in an Organized Health Care Education/Training Program; PCP Internal Medicine
DX: R42 Dizziness and giddiness (principal); N18.30 Chronic kidney disease, stage 3 unspecified; F17.290 Nicotine dependence, other tobacco product, uncomplicated
CPT/HCPCS: 36415; 70450; 71046; 80048; 80076; 81001; 82550; 83735; 84484; 85025; 85610; 93005; 96360; 99284; 99285

== ENCOUNTER → 2023-07-31 11:08 | Outpatient (BNV) | payer MEDICARE, OTHER, SELFPAY | PROVIDERS: Emergency Provider Student in an Organized Health Care Education/Training Program; PCP Internal Medicine; Visit Provider Internal Medicine Cardiovascular Disease | DX: R42 Dizziness and giddiness (principal) | CPT/HCPCS: 93010 ==

== ENCOUNTER 2023-08-18 13:54 | Outpatient (REF) | payer MEDICARE, OTHER, SELFPAY ==
[2023-08-18 16:04] LABS: MANUAL DIFF FLAG NO
[2023-08-18 16:14] LABS: Basophils Absolute Auto 0.1 X10*3/uL (0.0-0.2); Basophils Percent Auto 0.6 % (0-2); Eosinophils Absolute Auto 0.1 X10*3/uL (0.0-0.4); Eosinophils Percent Auto 1.5 % (0-4); Hematocrit 46.1 % (42.0-52.0); Hemoglobin 15.3 g/dl (14.0-18.0); Imm Gran Abs Auto 0.04 X10*3/uL (0.00-0.03); Imm Gran Pct Auto 0.5 % (0.0-0.4); Lymphocytes Absolute Auto 0.8 X10*3/uL (1.2-4.9); Lymphocytes Percent Auto 10.2 % (20-40); Mean Corpuscular HGB Conc 33.2 g/dl (31.0-36.0); Mean Corpuscular Hemoglobin 33.3 pg (27.0-33.0); Mean Corpuscular Volume 100.4 fL (80.0-98.0); Mean Platelet Volume 10.2 fL (9.4-12.4); Monocytes Absolute Auto 0.9 X10*3/uL (0.1-1.2); Monocytes Percent Auto 11.5 % (2-11); Neutrophils Percent Auto 75.7 % (45-73); Platelet Count 166 X10*3/uL (160-400); Red Blood Count 4.59 X10*6/uL (4.60-5.80); Red Cell Distribution Width 13.1 % (11.0-16.0)
[2023-08-18 16:27] LABS: Alanine Aminotransferase 10 U/L (0-40); Albumin Level 4.1 g/dL (3.5-5.0); Alkaline Phosphatase 57 U/L (39-117); Aspartate Amino Transferase 23 U/L (5-37); Bilirubin Direct 0.1 mg/dL (0.0-0.5); Bilirubin Total 0.4 mg/dL (0.0-1.0); Total Protein 7.1 g/dL (6.5-8.0)
[2023-08-18 17:23] LABS: Valproate 29.3 mcg/mL (50.0-100.0)
== END 2023-08-18 13:55 | disposition home or self-care (01) ==
LOC: HO.HMGCLDS 13:54
PROVIDERS: PCP Internal Medicine; Visit Provider Psychiatry & Neurology Psychiatry
DX: F31.32 Bipolar disorder, current episode depressed, moderate (principal); Z79.899 Other long term (current) drug therapy
CPT/HCPCS: 36415; 80076; 80164; 85025

== ENCOUNTER 2023-12-08 08:02 | Outpatient (REF) | payer MEDICARE, OTHER, SELFPAY ==
[2023-12-08 11:32] LABS: Alanine Aminotransferase 14 U/L (0-40); Albumin Level 4.2 g/dL (3.5-5.0); Alkaline Phosphatase 55 U/L (39-117); Aspartate Amino Transferase 22 U/L (5-37); Bilirubin Direct 0.2 mg/dL (0.0-0.5); Bilirubin Total 0.5 mg/dL (0.0-1.0); Total Protein 7.3 g/dL (6.5-8.0)
[2023-12-08 11:38] LABS: Valproate 43.3 mcg/mL (50.0-100.0)
== END 2023-12-08 08:03 | disposition home or self-care (01) ==
LOC: HO.HMGCLDS 08:02
PROVIDERS: PCP Internal Medicine; Visit Provider Psychiatry & Neurology Psychiatry
DX: F31.32 Bipolar disorder, current episode depressed, moderate (principal)
CPT/HCPCS: 36415; 80076; 80164

== ENCOUNTER 2024-03-24 11:38 | Outpatient (REF) | payer MEDICARE, OTHER, SELFPAY ==
[2024-03-24 14:22] LABS: Alanine Aminotransferase 13 U/L (0-40); Albumin Level 4.1 g/dL (3.5-5.0); Alkaline Phosphatase 54 U/L (39-117); Aspartate Amino Transferase 20 U/L (5-37); Bilirubin Direct 0.2 mg/dL (0.0-0.5); Bilirubin Total 0.4 mg/dL (0.0-1.0); Total Protein 7.2 g/dL (6.5-8.0)
== END 2024-03-24 11:39 | disposition home or self-care (01) ==
LOC: HO.HMGCLDS 11:38
PROVIDERS: Visit Provider Psychiatry & Neurology Psychiatry
DX: F31.32 Bipolar disorder, current episode depressed, moderate (principal)
CPT/HCPCS: 36415; 80076; 80164